=== PATIENT | male | born 1960 ===

== ENCOUNTER 2017-02-15 11:09 | Emergency (ER) | payer OTHER ==
[2017-02-15 11:16] VITALS: BMI 24.5
[2017-02-15 11:23] VITALS: O2SAT 98
[2017-02-15] MEDS ORDERED: Sodium Chloride 0.9% 1,000 ML IV STA (11:29)
--- NOTE | 2017-02-15 11:44 | ED PDOC ---
Lower Extremity Pain/Injury Time Seen by Provider: 02/15/17 11:24 Chief Complaint (Nursing): Lower Extremity Problem/Injury Chief Complaint (Provider): right foot pain History Per: Patient Additional Complaint(s): 56yo M in ED for eval of right foot pain x 3days states that he noted swelling to bottom of foot without drainage no fever no chills no nausea vomiting. pt is a diabetic and is noncompliant with metformin. 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 Past Medical History Reviewed: Historical Data, Nursing Documentation, Vital Signs Vital Signs: Last Vital Signs Temp 97 F L 02/15/17 11:20 Pulse 100 H 02/15/17 11:15 Resp BP 151/97 H 02/15/17 11:15 Pulse Ox 98 02/15/17 11:20 - Medical History PMH: No Chronic Diseases - Family History Family History: States: No Known Family Hx - Home Medications Home Medications: Ambulatory Orders Medication Instructions Recorded Amoxicillin/Clavulanate [Augmentin 1 tab PO BID #14 tab 02/15/17 500 MG-125 MG] metFORMIN [glucOPHAGE] 500 mg PO DAILY #30 tab 02/15/17 - Allergies Allergies/Adverse Reactions: Allergies Allergy/AdvReac Type Severity Reaction Status Date / Time No Known Allergies Allergy Verified 02/15/17 11:28 Review of Systems ROS Statement: Except As Marked, All Systems Reviewed And Found Negative Constitutional: Negative for: Fever, Chills Cardiovascular: Negative for: Chest Pain, Palpitations Gastrointestinal: Negative for: Nausea, Vomiting Physical Exam - Reviewed Nursing Documentation Reviewed: Yes Vital Signs Reviewed: Yes - Physical Exam Appears: Positive for: Well, Non-toxic, No Acute Distress Skin: Positive for: Normal Color, Warm, DRY Cardiovascular/Chest: Positive for: Regular Rate, Rhythm Respiratory: Positive for: CNT, Normal Breath Sounds Back: Positive for: Normal Inspection Extremity: Positive for: Other (right foot: swelling to plantar aspect of foot. no drainage. tenderness noted erythema noted. ) Neurologic/Psych: Positive for: Alert, Oriented - Laboratory Results Result Diagrams: 02/15/17 12:10 02/15/17 12:06 - ECG O2 Sat by Pulse Oximetry: 98 - Radiology X-Ray: Interpreted by Me - Progress ED Course And Treament: podiatry consulted -will debride calluses to asses for fluid collection in ER. PT with elevated BS and ketones in UA. will do ABG-shows no anion gap. PT received fluids, IV and insulin SQ will re-eval BS levels. Medical Decision Making Medical Decision Making: Pt is stable with improved BS in ED will be givne metformin Rx and advised to have f/u with clinic medicine and podiatry Disposition - Clinical Impression Clinical Impression: Elevated blood sugar, Ulcer of foot Counseled Patient/Family Regarding: Studies Performed, Diagnosis, Need For Followup, Rx Given - Disposition Referrals: [facility] [Outside] Podiatry Clinic [Outside] [facility] [Outside] Disposition: Routine/Home Disposition Time: 14:59 Condition: STABLE Prescriptions: Amoxicillin/Clavulanate [Augmentin 500 MG-125 MG] 1 tab PO BID #14 tab metFORMIN [glucOPHAGE] 500 mg PO DAILY #30 tab Instructions: Diabetic Foot Care (ED), Diabetic Hypoglycemia (ED) Forms: [facility] (Greek)
[2017-02-15 12:22] LABS: BASO # 0.1 K/uL (0.0-0.2); BASO % 0.9 % (0.0-2.0); EOS # 0.1 K/uL (0.0-0.7); EOS % 1.5 % (0.0-4.0); HEMOGLOBIN 14.3 g/dL (12.0-18.0); LYMPH # 2.2 K/uL (1.0-4.3); LYMPH % 22.5 % (20.0-40.0); MEAN CELL VOLUME 90.8 fl (80.0-94.0); MEAN CORPUSCULAR HEMOGLOBIN 31.7 pg (27.0-31.0); MEAN CORPUSCULAR HGB CONC 34.9 g/dL (33.0-37.0); MEAN PLATELET VOLUME 9.8 fl (7.2-11.7); MONO # 0.4 K/uL (0.0-0.8); MONO % 4.6 % (0.0-10.0); NEUT # 6.8 K/uL (1.8-7.0); NEUT % 70.5 % (50.0-75.0); NRBC % 0.3 % (0.0-0.0); RBC 4.51 Mil/uL (4.40-5.90); RED CELL DISTRIBUTION WIDTH 11.9 % (11.5-14.5); WHITE BLOOD COUNT 9.6 K/uL (4.8-10.8)
[2017-02-15 12:37] LABS: ALB/GLOB RATIO 1.1 (1.0-2.1); ALT/SGPT 37 U/L (21-72); AST/SGOT 50 U/L (17-59); BLOOD UREA NITROGEN 21 mg/dl (9-20); CALCIUM 9.6 mg/dL (8.4-10.2); GFR AFRICAN-AMERICAN > 60; GFR NON-AFRICAN AMERICAN > 60
[2017-02-15] MEDS ORDERED: Insulin Regular 100 units/ml SC STA (12:49)
[2017-02-15] MEDS ORDERED: Insulin Regular 100 units/ml ONE (12:54)
[2017-02-15 12:55] LABS: PARTIAL THROMBOPLASTIN TIME 33.6 Seconds (25.6-37.1)
[2017-02-15 12:56] LABS: SQUAMOUS EPITHIAL < 1 /hpf (0-5); URINE BACTERIA RARE (<OCC); URINE BILIRUBIN NEGATIVE (NEGATIVE); URINE BLOOD NEGATIVE (NEGATIVE); URINE CLARITY CLEAR (Clear); URINE COLOR YELLOW (YELLOW); URINE GLUCOSE (UA) >=500 mg/dL (Normal); URINE LEUKOCYTE ESTERASE NEG Leu/uL (Negative); URINE NITRATE NEGATIVE (NEGATIVE); URINE PROTEIN >=500 mg/dL (NEGATIVE); URINE UROBILINOGEN 0.2-1.0 mg/dL (0.2-1.0)
--- NOTE | 2017-02-15 12:56 | RAD ---
PROCEDURE: Right Foot Radiographs. HISTORY: Unspecified foot injury presenting with right foot pain COMPARISON: None. FINDINGS: BONES: Postoperative findings related 1st digit resection. Diffuse osteopenia. JOINTS: Multiple hammertoe deformities. SOFT TISSUES: Normal. OTHER FINDINGS: None. IMPRESSION: No acute findings related to/accounting for the clinical presentation. No preliminary report provided by emergency department personnel.
[2017-02-15 12:59] LABS: ABG ALLEN TEST YES; ARTERIAL BLOOD GAS HCO3 26.9 mmol/L (21-28); ARTERIAL BLOOD GAS O2 SAT 99.6 % (95-98); ARTERIAL BLOOD GAS PCO2 37 mm/Hg (35-45); ARTERIAL BLOOD GAS PH 7.46 (7.35-7.45); ARTERIAL BLOOD GAS PO2 86 mm/Hg (80-100); ARTERIAL BLOOD GAS TCO2 27.4 mmol/L (22-28)
[2017-02-15] MEDS ORDERED: Povidone Iodine Topical 10% Sol ONE (13:34)
--- NOTE | 2017-02-15 14:44 | CP.PCM.CON ---
History of Present Illness - History of Present Illness History of Present Illness: 56 year old male with PMH of uncontrolled DM and right partial ray resection in 2000 seen in the ED for painful left foot. Patient presents with his son in the ED. Patient states he noticed the callus under his foot for several years now, but it recently in the last few weeks it has gotten more painful. He has a history of R partial 1st ray amputation and was concerned that another amputation would happen so he came to the ED. He feels that his foot has become more hot and swollen. He reports no open ulceration or no drainage from the foot. He reports pain only with ambulation, none with resting. States he works long hours and stands a lot. He currently doesn't wear any diabetic shoes or supportive shoes. He does not have a PCP that he follows to manage his DM, currently he isn't taking any medications. He also does not see a bus starter. He denies n/v/sob/cp/chills or f. He ambulates in crocks with no shoes. PSH: right partial ray section in 2000 at [place] [facility]: smokes 5 cigarettes/day for 40 years, socially drinks, denies drug use FH: Diabetes Allergies: NKDA Meds: none Review of Systems - Integumentary Integumentary: As Per HPI Past Patient History - Past Social History Smoking Status: Never Smoked - ENDOCRINE/METABOLIC Hx Diabetes Mellitus Type 2: Yes - PSYCHIATRIC Hx Substance Use: No - SURGICAL HISTORY Other/Comment: right foot surgery - ANESTHESIA Hx Anesthesia: Yes Hx Anesthesia Reactions: No Hx Malignant Hyperthermia: No Meds Home Medications: Home Medication List Medication Instructions Recorded Confirmed Type Amoxicillin/Clavulanate [Augmentin 1 tab PO BID #14 tab 02/15/17 Rx 500 MG-125 MG] metFORMIN [glucOPHAGE] 500 mg PO DAILY #30 tab 02/15/17 Rx Allergies/Adverse Reactions: Allergies Allergy/AdvReac Type Severity Reaction Status Date / Time No Known Allergies Allergy Verified 02/15/17 11:28 Physical Exam - Constitutional Appears: Well, Non-toxic, No Acute Distress - Extremities Exam Additional comments: Vasc: DP 2/4 bilaterally, PT 1/4 bilaterally, PROCESS DESCRIPTION WRITER <3 seconds, right foot nonpitting edema noted, temperature to R is warm to warm, L WNL Ortho: MM is 5/5 in all four compartments, no pain with palpation of the sub met 4 callus or periwound Neuro: gross sensation diminished bilaterally Derm: Hyperkeratotic callus at R sub met 4 with macerated skin and ulcer underneath; debrided all hyperkeratotic tissue until ulcer exposed; no drainage expressed, no purulence, no odor, no tunneling, undermining, no erythema noted. Periwound is macerated. Base is granular in nature measuring approximately 1 x.6x .1 cm, no probe to bone. - Neurological Exam Neurological exam: Alert, Oriented x3 - Psychiatric Exam Psychiatric exam: Normal Affect, Normal Mood Results - Vital Signs Recent Vital Signs: Last Vital Signs Temp 97 F L 02/15/17 11:20 Pulse 100 H 02/15/17 11:15 Resp BP 151/97 H 02/15/17 11:15 Pulse Ox 98 02/15/17 13:25 - Labs Result Diagrams: 02/15/17 12:10 02/15/17 12:06 Labs: Laboratory Results - last 24 hr 02/15/17 02/15/17 02/15/17 12:06 12:06 12:10 WBC 9.6 RBC 4.51 Hgb 14.3 Hct 41.0 MCV 90.8 MCH 31.7 H MCHC 34.9 RDW 11.9 Plt Count 248 MPV 9.8 Neut % (Auto) 70.5 Lymph % (Auto) 22.5 [place] % (Auto) 4.6 Eos % (Auto) 1.5 Baso % (Auto) 0.9 Neut # 6.8 Lymph # 2.2 [place] # 0.4 Eos # 0.1 Baso # 0.1 PT 10.0 INR 1.0 APTT 33.6 pCO2 pO2 HCO3 ABG pH ABG Total CO2 ABG O2 Saturation ABG Base Excess Adrien Test ABG Potassium A-a O2 Difference Glucose Lactate FiO2 Sodium 129 L Potassium 4.7 Chloride 92 L Carbon Dioxide 29 Anion Gap 13 BUN 21 H Creatinine 0.8 Est GFR ( Amer) > 60 Est GFR (Non-Af Amer) > 60 Random Glucose 412 H* Calcium 9.6 Total Bilirubin 0.9 AST 50 ALT 37 Alkaline Phosphatase 250 H Total Protein 7.6 Albumin 4.0 Globulin 3.6 Albumin/Globulin Ratio 1.1 Arterial Blood Potassium Urine Color Urine Clarity Urine pH Ur Specific [place] Urine Protein Urine Glucose (UA) Urine Ketones Urine Blood Urine Nitrate Urine Bilirubin Urine Urobilinogen Ur Leukocyte Esterase Urine RBC (Auto) Urine Microscopic WBC Ur Squamous Epith Cells Urine Bacteria 02/15/17 02/15/17 12:25 12:56 WBC RBC Hgb Hct MCV MCH MCHC RDW Plt Count MPV Neut % (Auto) Lymph % (Auto) [place] % (Auto) Eos % (Auto) Baso % (Auto) Neut # Lymph # [place] # Eos # Baso # PT INR APTT pCO2 37 pO2 86 HCO3 26.9 ABG pH 7.46 H ABG Total CO2 27.4 ABG O2 Saturation 99.6 H ABG Base Excess 2.5 Adrien Test Yes ABG Potassium 4.0 A-a O2 Difference 17.0 Glucose 381 H Lactate 0.8 FiO2 21.0 Sodium 130.0 L Potassium Chloride 95.0 L Carbon Dioxide Anion Gap BUN Creatinine Est GFR ( Amer) Est GFR (Non-Af Amer) Random Glucose Calcium Total Bilirubin AST ALT Alkaline Phosphatase Total Protein Albumin Globulin Albumin/Globulin Ratio Arterial Blood Potassium 4.0 Urine Color Yellow Urine Clarity Clear Urine pH 6.0 Ur Specific [place] 1.029 Urine Protein >=500 Urine Glucose (UA) >=500 Urine Ketones 20 Urine Blood Negative Urine Nitrate Negative Urine Bilirubin Negative Urine Urobilinogen 0.2-1.0 Ur Leukocyte Esterase Neg Urine RBC (Auto) 3 Urine Microscopic WBC 1 Ur Squamous Epith Cells < 1 Urine Bacteria Rare Assessment & Plan - Assessment and Plan (Free Text) Assessment: 56 year old male with PMH of uncontrolled DM seen in the ED for right sub met 4 ulcer secondary to DM and pressure Plan: Patient was seen and evaluated in the ED Discussed the plan in detail with attending Dr. Trejo Labs, charts, and vitals reviewed (afebrile, WBC=9.6, Ghupnba=322ls/dl) X-rays reviewed- WNL, no emphysema noted R sub metatarsal 4 callus was prep, debrided until healthy tissue appeared using a blade #10. Patient tolerated the procedure well. Wound culture taken; pending results Recommend broad coverage PO Abx to ED Ulcer dressed with betadine wet to dry dressing. Advised to keep clean, dry, intact. Do not get wet. If get wet, change dressing with betadine, DSD, and cling. Given surgical shoe and advised to wear at all times to offload the ulcer. F/U in podiatry clinic in 1 week; advised to bring working shoes to clinic with possible modifications to offload pressure at right sub met 4 Advised to contact PCP to manage diabetes. Educated on the importance of compliance. Thank you for the consult
[2017-02-15 15:27] VITALS: BP 120/70; PULSE 74; RESP 20; TEMP 98.7
== END 2017-02-15 15:28 | disposition home or self-care (01) ==
LOC: H.ER 11:09
DX: E11.9 Type 2 diabetes mellitus without complications (principal); L97.519 Non-pressure chronic ulcer of other part of right foot with unspecified severity; Z79.84 Long term (current) use of oral hypoglycemic drugs; F17.210 Nicotine dependence, cigarettes, uncomplicated; Z89.419 Acquired absence of unspecified great toe

== ENCOUNTER 2017-02-18 17:06 | Observation (INO) | payer OTHER ==
[2017-02-18 17:07] VITALS: BMI 24.5
[2017-02-18 17:15] VITALS: RESP 16; TEMP 98.9; O2SAT 100
[2017-02-18] MEDS ORDERED: Sodium Chloride 0.9% 1,000 ML IV STA ×3 (18:09→20:09)
--- NOTE | 2017-02-18 18:30 | RAD ---
HISTORY: HTN COMPARISON: No prior. FINDINGS: LUNGS: No active pulmonary disease. PLEURA: No significant pleural effusion identified, no pneumothorax apparent. CARDIOVASCULAR: No radiographic findings to suggest acute or significant cardiovascular disease. OSSEOUS STRUCTURES: No significant abnormalities. VISUALIZED UPPER ABDOMEN: Normal. OTHER FINDINGS: None. IMPRESSION: No active disease.
[2017-02-18 18:32] LABS: BASO # 0.1 K/uL (0.0-0.2); BASO % 1.1 % (0.0-2.0); EOS # 0.1 K/uL (0.0-0.7); HEMOGLOBIN 13.7 g/dL (12.0-18.0); LYMPH # 1.9 K/uL (1.0-4.3); LYMPH % 25.6 % (20.0-40.0); MEAN CORPUSCULAR HEMOGLOBIN 30.9 pg (27.0-31.0); MEAN CORPUSCULAR HGB CONC 33.6 g/dL (33.0-37.0); MEAN PLATELET VOLUME 9.2 fl (7.2-11.7); MONO # 0.3 K/uL (0.0-0.8); MONO % 4.7 % (0.0-10.0); NEUT # 4.9 K/uL (1.8-7.0); NEUT % 66.6 % (50.0-75.0); NRBC % 0.1 % (0.0-0.0); RBC 4.44 Mil/uL (4.40-5.90); RED CELL DISTRIBUTION WIDTH 11.6 % (11.5-14.5); WHITE BLOOD COUNT 7.3 K/uL (4.8-10.8)
[2017-02-18 18:33] LABS: VENOUS BLOOD GAS BASE EXCESS 3.1 mmol/L (0.0-2.0); VENOUS BLOOD GAS PCO2 51 mmHg (40-60); VENOUS BLOOD GAS PO2 23 mm/Hg (30-55); VENOUS BLOOD PH 7.37 (7.32-7.43)
[2017-02-18 18:46] LABS: ALB/GLOB RATIO 1.2 (1.0-2.1); ALBUMIN 3.7 g/dL (3.5-5.0); ALT/SGPT 41 U/L (21-72); AST/SGOT 33 U/L (17-59); BLOOD UREA NITROGEN 28 mg/dl (9-20); CALCIUM 9.8 mg/dL (8.4-10.2); GFR AFRICAN-AMERICAN > 60; GFR NON-AFRICAN AMERICAN > 60
[2017-02-18 18:47] LABS: URINE BILIRUBIN NEGATIVE (NEGATIVE); URINE BLOOD NEGATIVE (NEGATIVE); URINE CLARITY CLEAR (Clear); URINE COLOR STRAW (YELLOW); URINE GLUCOSE (UA) >=500 mg/dL (Normal); URINE LEUKOCYTE ESTERASE NEG Leu/uL (Negative); URINE NITRATE NEGATIVE (NEGATIVE); URINE PROTEIN 100 mg/dL (NEGATIVE); URINE UROBILINOGEN 0.2-1.0 mg/dL (0.2-1.0)
[2017-02-18] MEDS ORDERED: Insulin Regular 100 units/ml IV STA (19:04)
--- NOTE | 2017-02-18 19:45 | ED PDOC ---
HPI: Hypertension/Hypotension Time Seen by Provider: 02/18/17 17:24 Chief Complaint (Nursing): High Blood Pressure Chief Complaint (Provider): High BP and glucose History Per: Patient History/Exam Limitations: no limitations Additional Complaint(s): Pt sent from [facility] for evaluation of elevated BP and glucose. Pt reports noncompliance with HTN and DM X 5 months, associated with polyuria especially at night. Denies CP, SOB, palpitations, nausea, vomiting, abdominal pain, FRANCIS, paresthesias, weakness. Past Medical History Reviewed: Nursing Documentation, Vital Signs Vital Signs: Last Vital Signs Temp 98.9 F 02/18/17 17:12 Pulse 108 H 02/18/17 17:57 Resp 16 02/18/17 17:12 BP 161/113 H 02/18/17 17:57 Pulse Ox 100 02/18/17 17:12 - Medical History PMH: Diabetes, HTN - Surgical History Other surgeries: Noncontributory - Family History Family History: States: Hypertension - Living Arrangements Living Arrangements: Alone - Social History Current smoker - smoking cessation education provided: No Alcohol: None - Immunization History Hx Tetanus Toxoid Vaccination: No Hx Influenza Vaccination: No Hx Pneumococcal Vaccination: No - Home Medications Home Medications: Ambulatory Orders Medication Instructions Recorded Amoxicillin/Clavulanate [Augmentin 1 tab PO BID #14 tab 02/15/17 500 MG-125 MG] metFORMIN [glucOPHAGE] 500 mg PO DAILY #30 tab 02/15/17 amLODIPine [Norvasc] 10 mg PO DAILY #10 tab 02/18/17 metFORMIN [glucOPHAGE] 500 mg PO BID #20 tab 02/18/17 - Allergies Allergies/Adverse Reactions: Allergies Allergy/AdvReac Type Severity Reaction Status Date / Time No Known Allergies Allergy Verified 02/15/17 11:28 Review of Systems Constitutional: Negative for: Fever Cardiovascular: Negative for: Chest Pain, Palpitations Respiratory: Negative for: Cough, Shortness of Breath Gastrointestinal: Negative for: Nausea, Vomiting, Abdominal Pain, Diarrhea Genitourinary Male: Negative for: Dysuria, Incontinence, Hematuria Musculoskeletal: Negative for: Back Pain Skin: Negative for: Rash, Lesions Neurological: Negative for: Weakness, Numbness, Headache, Dizziness Physical Exam - Reviewed Nursing Documentation Reviewed: Yes Vital Signs Reviewed: Yes - Physical Exam Appears: Positive for: Well, No Acute Distress Skin: Positive for: Normal Color, Warm, Dry Eye Exam: Positive for: Normal appearance, EOMI, PERRL Cardiovascular/Chest: Positive for: Tachycardia. Negative for: Irregularly Irregular Respiratory: Positive for: Normal Breath Sounds. Negative for: Rales, Rhonchi, Wheezing Gastrointestinal/Abdominal: Positive for: Normal Exam, Bowel Sounds, Soft. Negative for: Tenderness Neurologic/Psych: Positive for: Alert, frame wirer II-XII, Oriented. Negative for: Motor/Sensory Deficits, Facial Droop - Laboratory Results Result Diagrams: 02/18/17 18:16 02/18/17 18:16 - ECG Interpretation Of ECG: ST @ 101, no ST-T changes. O2 Sat by Pulse Oximetry: 100 Pulse Ox Interpretation: Normal - Radiology X-Ray: Read By Radiologist X-Ray Interpretation: No Acute Disease Medical Decision Making Medical Decision Makin yo with h/o DM, HTN, noncompliant with medications, presents with high BP and high glucose. - labs - EKG - CXR - IVF - Cardizem - Insulin ED OBSERVATION Time of observation admission: 18:00 - Observation admission statement Patient is being placed in observation because:: Hyperglycemia - Goals of Observation Goals of observation are:: Normoglycemia Disposition - Clinical Impression Clinical Impression: Diabetes mellitus with hyperglycemia, Hypertension - Disposition Disposition: Routine/Home Disposition Time: 22:13 Condition: IMPROVED
[2017-02-18 20:43] VITALS: BP 154/85; PULSE 82
--- NOTE | 2017-02-19 07:24 | CARD ---
APPROVED REPORT EKG Measurement Heart [id number] <Conclusion> Sinus tachycardia Otherwise normal ECG
== END 2017-02-18 22:59 | disposition home or self-care (01) ==
LOC: H.ER 17:06 → H.EROBSV 18:00
PROVIDERS: ADMIT Emergency Medicine; ATTEND Emergency Medicine
DX: I10 Essential (primary) hypertension (principal); E11.65 Type 2 diabetes mellitus with hyperglycemia; Z91.14 Patient's other noncompliance with medication regimen

== ENCOUNTER 2017-02-22 10:52 | Emergency (ER) | payer OTHER ==
[2017-02-22 10:52] VITALS: BMI 24.5
[2017-02-22 11:34] VITALS: O2SAT 98
--- NOTE | 2017-02-22 12:29 | ED PDOC ---
Lower Extremity Pain/Injury Time Seen by Provider: 02/22/17 11:30 Chief Complaint (Nursing): Lower Extremity Problem/Injury Chief Complaint (Provider): Lower Extremity Problem/Injury History Per: Patient History/Exam Limitations: no limitations Onset/Duration Of Symptoms: Days (x1) Current Symptoms Are (Timing): Still Present Additional Complaint(s): Tim Nathan is a 56 year old male with a past medical history of hypertension and diabetes presenting to the ED for an evaluation of a 1 day history of worsening right foot pain and swelling. The patient states this episode began yesterday and became worse today which prompted him to visit the emergency room. He states nothing makes his symptoms better or worse. The patient reports being seen multiple times in the past, last visit was 1 week ago , due to similar symptoms and was seen by the Director Of Graduate Medical Education in the Podiatry clinic here. PMD: None provided Past Medical History Reviewed: Historical Data, Nursing Documentation, Vital Signs Vital Signs: Last Vital Signs Temp Pulse Resp BP Pulse Ox 98 02/22/17 11:24 - Medical History PMH: Diabetes, HTN - Family History Family History: States: Hypertension - Immunization History Hx Tetanus Toxoid Vaccination: No Hx Influenza Vaccination: No Hx Pneumococcal Vaccination: No - Home Medications Home Medications: Ambulatory Orders Medication Instructions Recorded Amoxicillin/Clavulanate [Augmentin 1 tab PO BID #14 tab 02/15/17 500 MG-125 MG] metFORMIN [glucOPHAGE] 500 mg PO DAILY #30 tab 02/15/17 amLODIPine [Norvasc] 10 mg PO DAILY #10 tab 02/18/17 metFORMIN [glucOPHAGE] 500 mg PO BID #20 tab 02/18/17 - Allergies Allergies/Adverse Reactions: Allergies Allergy/AdvReac Type Severity Reaction Status Date / Time No Known Allergies Allergy Verified 02/15/17 11:28 Review of Systems ROS Statement: Except As Marked, All Systems Reviewed And Found Negative Musculoskeletal: Positive for: Foot Pain (right foot pain and swelling ) Physical Exam - Reviewed Nursing Documentation Reviewed: Yes Vital Signs Reviewed: Yes - Physical Exam Appears: Positive for: Well, Non-toxic, No Acute Distress Head Exam: Positive for: ATRAUMATIC, NORMAL INSPECTION, NORMOCEPHALIC Eye Exam: Positive for: EOMI, Normal appearance, PERRL Neck: Positive for: Normal, Painless ROM, Supple Cardiovascular/Chest: Positive for: Regular Rate, Rhythm, Chest Non Tender Respiratory: Positive for: Normal Breath Sounds. Negative for: Respiratory Distress Pulses-Dorsalis Pedis (L): 2+ Pulses-Dorsalis Pedis (R): 2+ Gastrointestinal/Abdominal: Positive for: Normal Exam, Bowel Sounds, Soft Back: Positive for: Normal Inspection Extremity: Positive for: Normal ROM, Other (right foot has well-healed great- toe amputation; mild redness of right foot; no right foot weakness ) Neurologic/Psych: Positive for: Alert, Oriented - Laboratory Results Result Diagrams: 02/22/17 12:45 02/22/17 12:45 - ECG O2 Sat by Pulse Oximetry: 98 (RA) Pulse Ox Interpretation: Normal Medical Decision Making Medical Decision Makin:30 Impression: Lower extremity problem Plan: * Basic metabolic panel * CBC * Erythrocyte Sedimentation Rate * Foot AP LAT RT [RAD] * Podiatry consult for evaluation Foot X-ray: FINDINGS: BONES: No acute findings. Status post resection 1st toe. JOINTS: Multiple hammertoe deformities. SOFT TISSUES: Soft tissue swelling plantar aspect of the foot primarily distally at the metatarsal phalangeal junctions. Similar findings identified previously. OTHER FINDINGS: None. IMPRESSION: Soft tissue swelling without acute articular or osseous abnormality. 15:11 Pt has been evaluated by podiatry. pt will follow-up in office and will continue observation care. DVT study of right leg was normal. Scribe Attestation: Documented by Kary Ayala, acting as a scribe for Ayo Harris MD. Provider Scribe Attestation: All medical record entries made by the Scribe were at my direction and personally dictated by me. I have reviewed the chart and agree that the record accurately reflects my personal performance of the history, physical exam, medical decision making, and the department course for this patient. I have also personally directed, reviewed, and agree with the discharge instructions and disposition. Disposition - Clinical Impression Clinical Impression: Ulcer of foot - Patient ED Disposition Is Patient to be Admitted: No Counseled Patient/Family Regarding: Studies Performed, Diagnosis, Need For Followup - Disposition Referrals: Podiatry Clinic [Outside] ([facility]) Disposition: Routine/Home Disposition Time: 14:11 Condition: GOOD Instructions: Diabetic Foot Care (ED) Forms: [facility] (Kyrgyz) Print Language: ESTONIAN
[2017-02-22 12:53] LABS: BASO % 0.6 % (0.0-2.0); EOS # 0.6 K/uL (0.0-0.7); EOS % 8.8 % (0.0-4.0); HEMOGLOBIN 13.5 g/dL (12.0-18.0); LYMPH # 1.6 K/uL (1.0-4.3); LYMPH % 23.9 % (20.0-40.0); MEAN CELL VOLUME 90.4 fl (80.0-94.0); MEAN CORPUSCULAR HEMOGLOBIN 30.5 pg (27.0-31.0); MEAN CORPUSCULAR HGB CONC 33.7 g/dL (33.0-37.0); MEAN PLATELET VOLUME 8.8 fl (7.2-11.7); MONO # 0.4 K/uL (0.0-0.8); MONO % 6.2 % (0.0-10.0); NEUT # 4.1 K/uL (1.8-7.0); NEUT % 60.5 % (50.0-75.0); RBC 4.42 Mil/uL (4.40-5.90); RED CELL DISTRIBUTION WIDTH 11.6 % (11.5-14.5); WHITE BLOOD COUNT 6.7 K/uL (4.8-10.8)
[2017-02-22 13:04] LABS: BLOOD UREA NITROGEN 19 mg/dl (9-20); CALCIUM 9.4 mg/dL (8.4-10.2); GFR AFRICAN-AMERICAN > 60; GFR NON-AFRICAN AMERICAN > 60
[2017-02-22] MEDS ORDERED: Sodium Chloride 0.9% 1,000 ML IV ONE (13:53)
[2017-02-22] MEDS ORDERED: Povidone Iodine Topical 10% Sol TOP ONE (14:02)
[2017-02-22] MEDS ORDERED: Povidone Iodine Topical 10% Sol ONE (14:04)
--- NOTE | 2017-02-22 14:08 | RAD ---
PROCEDURE: Right Foot Radiographs. HISTORY: pain and swelling COMPARISON: 02/15/2017. FINDINGS: BONES: No acute findings. Status post resection 1st toe. JOINTS: Multiple hammertoe deformities. SOFT TISSUES: Soft tissue swelling plantar aspect of the foot primarily distally at the metatarsal phalangeal junctions. Similar findings identified previously. OTHER FINDINGS: None. IMPRESSION: Soft tissue swelling without acute articular or osseous abnormality.
--- NOTE | 2017-02-22 14:37 | CP.PCM.CON ---
History of Present Illness - History of Present Illness History of Present Illness: 56 year old male with PMH of uncontrolled DM, HTN, and right partial ray resection in 2000 seen in the ED for swollen right leg and ulceration of left foot. Today the leg is not swollen but he states he noticed his right leg swollen yesterday. He came to the ED 7 days ago for painful ulceration, that was debrided and cleansed with betadine. Given antibiotics and told to f/u in podiatry clinic and f/u PCP. Patient reports he takes his antibiotics, followed up with PCP but has not seen a test bore helper. States does not look at the bottom foot; can't tell if his ulcer is looking better or if there is any drainage. Patient denies n/v/sob/cp/chill or f. He reports going to his PCP and being started on new medications to manage his diabetes. He bought his pills today. He states he is taking a new prescription yesterday by his PCP (Ramipril). He noticed a rash on his bilaterally legs since taking the medication. Patient is singaporean speaking. Extractor And Wringer Operator used in this encounter: Rani [id number] and Rafaela [id number] PSH: right partial ray section in 2000 at [facility] SH: smokes 5 cigarettes/day for 40 years, socially drinks, denies drug use FH: Diabetes Allergies: NKDA Meds: Metformin, Insulin, Ramipril, antibiotic (can't recall name) Past Patient History - Past Social History Smoking Status: Never Smoked - CARDIAC Hx Hypertension: Yes - ENDOCRINE/METABOLIC Hx Diabetes Mellitus Type 2: Yes - PSYCHIATRIC Hx Substance Use: No - SURGICAL HISTORY Other/Comment: right great toe amputation - ANESTHESIA Hx Anesthesia: Yes Hx Anesthesia Reactions: No Hx Malignant Hyperthermia: No Meds Allergies/Adverse Reactions: Allergies Allergy/AdvReac Type Severity Reaction Status Date / Time No Known Allergies Allergy Verified 02/15/17 11:28 - Medications Medications: Current Medications Sodium Chloride (Sodium Chloride 0.9%) 1,000 mls @ 500 mls/hr IV .Q2H ONE Stop: 02/22/17 15:52 Physical Exam - Constitutional Appears: Well, Non-toxic, No Acute Distress - Extremities Exam Additional comments: Vasc: DP 2/4 bilaterally, PT 1/4 bilaterally, REGIONAL OPERATIONS MANAGER <3 seconds, no edema noted to bilaterally leg or foot, temperature to R WNL, L WNL Ortho: MM is 5/5 in all four compartments, no pain with palpation of the sub met 4 callus or periwound, Negative shefali's sign bilaterally Neuro: gross sensation diminished bilaterally Derm: Ulceration at R sub met 4 is measures approximately .8 x .3 x .1. No drainage expressed, no purulence, no odor, no tunneling, undermining, no erythema noted. Periwound hyperkeratotic, base is granular in nature measuring approximately with no maceration noted; no probe to bone; R sub met 4 callus is getting smaller-improving. no clinical signs of infection noted. Rash noted to the anterior and medial leg bilaterally. - Neurological Exam Neurological exam: Alert, Oriented x3 - Psychiatric Exam Psychiatric exam: Normal Affect, Normal Mood Results - Vital Signs Recent Vital Signs: Last Vital Signs Temp Pulse Resp BP Pulse Ox 98 02/22/17 14:31 - Labs Result Diagrams: 02/22/17 12:45 02/22/17 12:45 Labs: Laboratory Results - last 24 hr 02/22/17 02/22/17 12:45 12:45 WBC 6.7 RBC 4.42 Hgb 13.5 Hct 40.0 MCV 90.4 MCH 30.5 MCHC 33.7 RDW 11.6 Plt Count 281 MPV 8.8 Neut % (Auto) 60.5 Lymph % (Auto) 23.9 [place] % (Auto) 6.2 Eos % (Auto) 8.8 H Baso % (Auto) 0.6 Neut # 4.1 Lymph # 1.6 [place] # 0.4 Eos # 0.6 Baso # 0.0 ESR 82 H Sodium 129 L Potassium 4.3 Chloride 94 L Carbon Dioxide 27 Anion Gap 12 BUN 19 Creatinine 1.0 Est GFR ( Amer) > 60 Est GFR (Non-Af Amer) > 60 Random Glucose 313 H Calcium 9.4 Assessment & Plan - Assessment and Plan (Free Text) Assessment: 56 year old male with PMH of uncontrolled DM seen in the ED for right sub met 4 ulcer noninfected secondary to DM and pressure and right swollen leg possibility due to Ramipril reaction Plan: Patient was examined and evaluated in the ED Chart, labs, and vitals reviewed (afebrile and no leukocytosis with WBC 6.7) Discussed plan in detail with attending Dr. Trejo DVT- negative for DVT X-rays- no osteomyelitis, soft tissue swelling with acute articular or osseous abnormality Wound culture from (02/22/17) results- E.coli and B hemolytic Strep Group B No clinical signs of infection- ulceration is improving and has decreased in size since last ED visit Ulceration was cleansed with betadine, dressed with betadine wet to dry dressing , DSD, ABD, and reema. Strongly advised to make an appointment with Dr. Trejo at [facility] to f/u in clinic in 1 week Continue to finish all antibiotics as prescribed in last ED visit Continue to wear surgical shoe to offload Thank you for the consult Patient is singaporean speaking. Extractor And Wringer Operator used in this encounter: Rani [id number] and Rafaela [id number]
--- NOTE | 2017-02-22 15:37 | US ---
PROCEDURE: Right lower extremity venous duplex Doppler. HISTORY: swelling COMPARISON: None available. TECHNIQUE: Common femoral, superficial femoral, popliteal and posterior tibial veins were evaluated. Flow was assessed with color Doppler, compressibility, assessment of phasic flow and augmentation response. FINDINGS: COMMON FEMORAL VEIN: Unremarkable. SUPERFICIAL FEMORAL VEIN: Unremarkable. POPLITEAL VEIN: Unremarkable. POSTERIOR TIBIAL VEIN: Unremarkable. OTHER FINDINGS: Incidental note is made of 2.2 x 0.7 x 2.1 cm lymph node at the level of the mid right superficial femoral vein. Lymph node demonstrates evidence of central echogenicity consistent with fatty hilum. IMPRESSION: No evidence of deep venous thrombosis in the right lower extremity.
== END 2017-02-22 15:13 | disposition home or self-care (01) ==
LOC: H.ER 10:52
DX: L97.529 Non-pressure chronic ulcer of other part of left foot with unspecified severity (principal); I10 Essential (primary) hypertension; E11.9 Type 2 diabetes mellitus without complications

== ENCOUNTER 2017-03-11 10:08 | Inpatient (IN) | payer MEDICAID, OTHER ==
[2017-03-11 10:08] VITALS: BMI 24.5
--- NOTE | 2017-03-11 10:40 | ED PDOC ---
Lower Extremity Pain/Injury Time Seen by Provider: 03/11/17 10:09 Chief Complaint (Nursing): Lower Extremity Problem/Injury Chief Complaint (Provider): Right foot ulcer History Per: Patient History/Exam Limitations: no limitations Onset/Duration Of Symptoms: Days (x2 weeks) Current Symptoms Are (Timing): Still Present Additional Complaint(s): 56 y/o male with a past medical history of diabetes (insulin-dependant) and hypertension who presents to the emergency department with a complaint of an ongoing right foot ulcer x2 weeks. Associated with swelling and pain since yesterday. Denies use of antibiotics at the moment, fever, or chills. Past Medical History Reviewed: Historical Data, Nursing Documentation, Vital Signs Vital Signs: Last Vital Signs Temp 98.9 F 03/11/17 10:19 Pulse 115 H 03/11/17 10:19 Resp 18 03/11/17 10:19 BP 121/78 03/11/17 10:19 Pulse Ox 99 03/11/17 10:19 - Medical History PMH: Diabetes, HTN - Surgical History Other surgeries: Right big toe amputation in 1999 and second toe surgery at [facility] in the past. - Family History Family History: States: Hypertension - Social History Current smoker - smoking cessation education provided: No Alcohol: Social Drugs: Denies - Immunization History Hx Tetanus Toxoid Vaccination: No Hx Influenza Vaccination: No Hx Pneumococcal Vaccination: No - Home Medications Home Medications: Ambulatory Orders Medication Instructions Recorded Atorvastatin [Lipitor] 40 mg PO HS #30 tab 03/13/17 Insulin Human NPH [Humulin N] 10 units SC Q12H #100 vial 03/13/17 Lisinopril [Zestril] 5 mg PO DAILY #30 tab 03/13/17 MetFORMIN [glucoPHAGE] 1,000 mg PO BID #60 03/13/17 amLODIPine [Norvasc] 10 mg PO DAILY #10 tab 03/13/17 - Allergies Allergies/Adverse Reactions: Allergies Allergy/AdvReac Type Severity Reaction Status Date / Time Penicillins Allergy RASH Verified 03/11/17 10:26 Review of Systems ROS Statement: Except As Marked, All Systems Reviewed And Found Negative Constitutional: Negative for: Fever, Chills Musculoskeletal: Positive for: Other (Right foot ulcer with swelling) Physical Exam - Reviewed Nursing Documentation Reviewed: Yes Vital Signs Reviewed: Yes - Physical Exam Appears: Positive for: Non-toxic, No Acute Distress Head Exam: Positive for: ATRAUMATIC, NORMAL INSPECTION, NORMOCEPHALIC Skin: Positive for: Normal Color, Warm, Dry Extremity: Positive for: Normal ROM, Swelling (Right foot swelling noted to the dorsum region. ), Other (1.5 cm opening ulcer wound on plantar surface of the right foot with no surrounding erythema. No discharge noted. ) Neurologic/Psych: Positive for: Alert, Oriented (x3) - Laboratory Results Result Diagrams: 03/13/17 05:25 03/13/17 05:25 - ECG O2 Sat by Pulse Oximetry: 99 (RA) Pulse Ox Interpretation: Normal - Progress ED Course And Treament: Seen by podiatry. d/w associate vice president Medical Decision Making Medical Decision Making: Time: 1026 Initial impression: Right Foot Ulcer Initial plan: --VBG --EKG --BMP --CBC w/ diff --Chest x-ray --Blood and Urine Culture --AccuCheck --Foot Right x-ray --Urinalysis --Reevaluation Time: 10:59 --Cipro 400 mg IV --Vancomycin 1gm IV Time: 11:35 --Chest x-ray FINDINGS: LUNGS: Linear and curvilinear densities left lung base that may represent minor linear atelectasis atelectasis. Tiny cluster of calcifications seen in the right mid lung field ; findings suggest prior exposure to granulomatous disease process. . PLEURA: No significant pleural effusion identified, no pneumothorax apparent. CARDIOVASCULAR: Heart size upper limits of normal. OSSEOUS STRUCTURES: No significant abnormalities. VISUALIZED UPPER ABDOMEN: Normal. OTHER FINDINGS: None. IMPRESSION: No focal consolidation. Linear/ curvilinear densities left lung base that may represent some minor linear type atelectasis. Tiny clustered calcifications right mid lung field suggesting prior exposure to granulomatous disease process. Time: 12:02 --Sodium Chloride 500 mls/hr IV Time: 12:34 -Foot x-ray FINDINGS: BONES: Status post surgical amputation of the great toe. There is no acute displaced fracture or bone destruction. Bone alignment is normal. JOINTS: Normal. SOFT TISSUES: There is mild soft tissue swelling in the plantar forefoot. OTHER FINDINGS: Atherosclerotic calcifications are present. IMPRESSION: No evidence of bony erosion or osteomyelitis. Mild soft tissue swelling in the plantar foot which could represent cellulitis. Time: 1332 --Admit to hospital routine: As inpatient in Med/Surg for infected diabetic foot ulcer after consult, under the care of Dr. Debbie Bender. Scribe Attestation: Documented by Diane Willis, acting as a scribe for Vidhya Spicer PA-C. Provider Scribe Attestation: All medical record entries made by the Scribe were at my direction and personally dictated by me. I have reviewed the chart and agree that the record accurately reflects my personal performance of the history, physical exam, medical decision making, and the department course for this patient. I have also personally directed, reviewed, and agree with the discharge instructions and disposition. Disposition - Clinical Impression Clinical Impression: Ulcer of foot, Wound infection - Patient ED Disposition Is Patient to be Admitted: Yes - Disposition Disposition Time: 13:11 Condition: GOOD
[2017-03-11] MEDS ORDERED: Ciprofloxacin 400mg/200ml D5W 400 MG/200 ML BAG IVPB STA (10:59)
[2017-03-11 11:05] LABS: VENOUS BLOOD GAS BASE EXCESS 5.7 mmol/L (0.0-2.0); VENOUS BLOOD GAS PCO2 53 mmHg (40-60); VENOUS BLOOD PH 7.39 (7.32-7.43)
[2017-03-11 11:11] LABS: BASO # 0.2 K/uL (0.0-0.2); BASO % 1.2 % (0.0-2.0); EOS # 0.1 K/uL (0.0-0.7); EOS % 0.5 % (0.0-4.0); HEMATOCRIT 41.9 % (35.0-51.0); LYMPH # 2.3 K/uL (1.0-4.3); LYMPH % 14.8 % (20.0-40.0); MEAN CELL VOLUME 91.2 fl (80.0-94.0); MEAN CORPUSCULAR HEMOGLOBIN 30.5 pg (27.0-31.0); MEAN CORPUSCULAR HGB CONC 33.5 g/dL (33.0-37.0); MEAN PLATELET VOLUME 8.7 fl (7.2-11.7); MONO # 0.8 K/uL (0.0-0.8); MONO % 4.9 % (0.0-10.0); NEUT # 12.5 K/uL (1.8-7.0); NEUT % 78.6 % (50.0-75.0); RED CELL DISTRIBUTION WIDTH 12.1 % (11.5-14.5); WHITE BLOOD COUNT 15.9 K/uL (4.8-10.8)
[2017-03-11 11:18] LABS: RBC URINE 2 /hpf (0-3); URINE BACTERIA RARE (<OCC); URINE BILIRUBIN NEGATIVE (NEGATIVE); URINE BLOOD NEGATIVE (NEGATIVE); URINE COLOR YELLOW (YELLOW); URINE GLUCOSE (UA) >=500 mg/dL (Normal); URINE KETONE TRACE mg/dL (NEGATIVE); URINE LEUKOCYTE ESTERASE NEG Leu/uL (Negative); URINE PROTEIN >=500 mg/dL (NEGATIVE); URINE UROBILINOGEN 0.2-1.0 mg/dL (0.2-1.0); WBC URINE 2 /hpf (0-5)
[2017-03-11 11:26] LABS: BLOOD UREA NITROGEN 21 mg/dl (9-20); CARBON DIOXIDE 31 mmol/L (22-30); CHLORIDE 93 mmol/L (98-107); GFR AFRICAN-AMERICAN > 60; GLUCOSE,RANDOM 219 mg/dL (75-110); POTASSIUM 4.1 MMOL/L (3.6-5.0); SODIUM 132 mmol/l (132-148)
--- NOTE | 2017-03-11 11:37 | RAD ---
HISTORY: routine COMPARISON: Comparison chest 02/18/2017. FINDINGS: LUNGS: Linear and curvilinear densities left lung base that may represent minor linear atelectasis atelectasis. Tiny cluster of calcifications seen in the right mid lung field ; findings suggest prior exposure to granulomatous disease process. . PLEURA: No significant pleural effusion identified, no pneumothorax apparent. CARDIOVASCULAR: Heart size upper limits of normal. OSSEOUS STRUCTURES: No significant abnormalities. VISUALIZED UPPER ABDOMEN: Normal. OTHER FINDINGS: None. IMPRESSION: No focal consolidation. Linear/ curvilinear densities left lung base that may represent some minor linear type atelectasis. Tiny clustered calcifications right mid lung field suggesting prior exposure to granulomatous disease process.
[2017-03-11] MEDS ORDERED: Vancomycin 1 g Inj ONE (11:56)
[2017-03-11] MEDS ORDERED: Ciprofloxacin 400mg/200ml D5W 400 MG/200 ML BAG IVPB ONE (11:56)
[2017-03-11] MEDS ORDERED: Sodium Chloride 0.9% 1,000 ML IV STA (12:02)
--- NOTE | 2017-03-11 12:35 | RAD ---
PROCEDURE: Right Foot Radiographs. HISTORY: Foot ulcer COMPARISON: 02/22/2017 FINDINGS: BONES: Status post surgical amputation of the great toe. There is no acute displaced fracture or bone destruction. Bone alignment is normal. JOINTS: Normal. SOFT TISSUES: There is mild soft tissue swelling in the plantar forefoot. OTHER FINDINGS: Atherosclerotic calcifications are present. IMPRESSION: No evidence of bony erosion or osteomyelitis. Mild soft tissue swelling in the plantar foot which could represent cellulitis.
[2017-03-11] MEDS ORDERED: Glucagon Recombinant 1 mg Inj IM PRN (14:38)
[2017-03-11] MEDS ORDERED: Dextrose 50% SYRINGE Inj (50 ml) IV PRN (14:38)
--- NOTE | 2017-03-11 15:15 | CP.PCM.CON ---
History of Present Illness - History of Present Illness History of Present Illness: 56 year old male with PMH of DM, HTN and OM with partial first ray amputaiton of right foot seen in ED for right plantar ulceration. Patient states that three weeks ago he came to the ED concerned that the ulcer was infected and then returned again two weeks ago with the same worry. Patient states that after his second visit to the ED he was given antibiotics which he finished last week. He could not recall the name of the antibiotic. Since that time his pain has been gradually increasing. This morning when he woke up his pain was markedly increased from last night and he noticed increased swelling to his entire forefoot, prompting him to come to the ED. 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 He denies any further pedal complaints at this time. Denies N/V/F/C/CP/ SOB Review of Systems - Review of Systems Review of Systems: ROS unremarkable outside of HPI Past Patient History - Past Social History Alcohol: Social Drugs: Denies - CARDIAC Hx Hypertension: Yes - ENDOCRINE/METABOLIC Hx Endocrine Disorders: Yes - PSYCHIATRIC Hx Substance Use: No - SURGICAL HISTORY Other/Comment: right great toe amputation - ANESTHESIA Hx Anesthesia: Yes Hx Anesthesia Reactions: No Hx Malignant Hyperthermia: No Meds Allergies/Adverse Reactions: Allergies Allergy/AdvReac Type Severity Reaction Status Date / Time Penicillins Allergy RASH Verified 03/11/17 10:26 - Medications Medications: Current Medications Amlodipine Besylate (Norvasc) 10 mg PO DAILY [facility] Dextrose (Dextrose 50% Inj) 0 ml IV STAT PRN; Protocol PRN Reason: Hyglycemia Protocol Dextrose (Glutose 15) 0 gm PO ONCE PRN; Protocol PRN Reason: Hypoglycemia Protocol Glucagon (Glucagen Diagnostic Kit) 0 mg IM STAT PRN; Protocol PRN Reason: Hypoglycemia Protocol Heparin Sodium (Porcine) (Heparin) 5,000 units SC Q12 AIDE PRN Reason: Protocol Ciprofloxacin (Cipro 400mg/200ml Dsw) 400 mg in 200 mls @ 200 mls/hr IVPB Q12 AIDE Vancomycin HCl 1 gm/ Sodium (Chloride) 250 mls @ 166.667 mls/hr IVPB Q12 AIDE Insulin Human Regular (Humulin R) 0 units SC ACHS AIDE PRN Reason: Protocol Metformin HCl (Glucophage) 1,000 mg PO BID AIDE Physical Exam - Constitutional Appears: Well, Non-toxic, No Acute Distress - Extremities Exam Additional comments: LE focused exam: Vasc: DP/PT fully palpable 2/4 to left foot, nonpalpable to right foot most likely due to increased edema. CFT < 3 seconds to all digits. Skin temperature mildly increased to right forefoot. Extensive edema noted to entirety of patients right foot. Neuro: Epicritic and protective sensation grossly intact b/l Derm: Approx 1 cm x 1 cm x 0.5 cm ulceration noted to plantar aspect of patient' s right foot at level of second and third metatarsal heads. No purulent drainage noted, mild serous drainage noted, no periwound erythema, no malodor. Probe to bone test negative. No tunneling, tracking or undermining noted. Dorsal foot cellulitic changes noted without tracking up the leg. MSK: Minimal POP noted to right foot plantar ulcer - Neurological Exam Neurological exam: Alert, Oriented x3 - Psychiatric Exam Psychiatric exam: Normal Affect, Normal Mood Results - Vital Signs Recent Vital Signs: Last Vital Signs Temp 98.9 F 03/11/17 10:19 Pulse 115 H 03/11/17 10:19 Resp 18 03/11/17 10:19 BP 121/78 03/11/17 10:19 Pulse Ox 99 03/11/17 14:18 - Labs Result Diagrams: 03/11/17 10:40 03/11/17 10:40 Assessment & Plan - Assessment and Plan (Free Text) Assessment: 56 year old male seen in ED for right foot diabetic ulcer Plan: Patient seen and evaluated in ED Labs, charts and vitals reviewed; afebrile, WBC 15.9, glucose 234 Plan discussed with attending Dr. Alexander Wound copiously flushed with normal sterile saline Wound cx taken, results pending Xray- negative OM, severely plantarflexed metatarsal heads Wound dressed with Bacitracin, DSD Patient to be admitted under Family Medicine IV abx (Vanc, Cipro) to be started ID consult appreciated Podiatry will continue to follow while patient remains in house - Date & Time Date: 03/11/17 Time: 12:26
--- NOTE | 2017-03-11 15:29 | CP.PCM.HP ---
History of Present Illness - History of Present Illness History of Present Illness: 56 yo M with PMH of IDDM and HTN who is admitted with ongoing right foot ulcer approximately for 2 weeks. He came to the ER 15 days ago with a "lesion" that was drained and cured by podiatry and sent back home with treatment with abx he finished last week. Patient reports R foot pain and swelling since yesterday , intermittent, stabbing, worse with walking, no took pain meds at home. States not been using diabetes meds for 1 year approximately because his doctor moved and he lost continuity of care. Denies fever, chills, nausea, vomiting, calf pain, no abdominal pain, no CP, palpitations or sob. No urinary symptoms. PMD: [facility]. PMH: IDDM, HTN PSH: R toe amputation (1999) FMH: Mother and 2 brothers w/ DM Allergies: penicillin( rash) SH: +smoker, etoh socially, -drugs. 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 , no sexually active, -STD hx. Meds at home: taking amlodipine 10 mg po daily no taking insulin detemir and metformin 1000 mg po BID. ED course: -VSS -VBG -EKG: sinus tachycardia -Glucose:219, WBC: 15.9, Hgb 14.0 -Blood and Urine Culture pending -Cipro 400 mg IV -Vancomycin 1gm IV -CXR: No focal consolidation. Linear/ curvilinear densities left lung base that may represent some minor linear type atelectasis. Tiny clustered calcifications right mid lung field suggesting prior exposure to granulomatous disease process. -Foot x ray: No evidence of bony erosion or osteomyelitis. Mild soft tissue swelling in the plantar foot which could represent cellulitis. Present on Admission - Present on Admission Any Indicators Present on Admission: No Review of Systems - Review of Systems Review of Systems: Reviewed, negative except as HPI. Past Patient History - Past Social History Alcohol: Social Drugs: Denies - CARDIAC Hx Hypertension: Yes - ENDOCRINE/METABOLIC Hx Endocrine Disorders: Yes - PSYCHIATRIC Hx Substance Use: No - SURGICAL HISTORY Other/Comment: right great toe amputation - ANESTHESIA Hx Anesthesia: Yes Hx Anesthesia Reactions: No Hx Malignant Hyperthermia: No Meds Allergies/Adverse Reactions: Allergies Allergy/AdvReac Type Severity Reaction Status Date / Time Penicillins Allergy RASH Verified 03/11/17 10:26 Physical Exam - Constitutional Appears: Well, No Acute Distress - Head Exam Head Exam: ATRAUMATIC, NORMOCEPHALIC - Eye Exam Eye Exam: EOMI, Normal appearance, PERRL - Neck Exam Neck exam: Positive for: Full Rom. Negative for: Lymphadenopathy - Respiratory Exam Respiratory Exam: Clear to Auscultation Bilateral. absent: Rales, Rhonchi, Wheezes - Cardiovascular Exam Cardiovascular Exam: Tachycardia, RRR, +S1, +S2 - GI/Abdominal Exam GI & Abdominal Exam: Normal Bowel Sounds, Soft. absent: Organomegaly, Tenderness - Extremities Exam Extremities exam: Negative for: calf tenderness Additional comments: R lower foot bandaged, mild-moderate edema noted. Pulses present 2+ b/l - Neurological Exam Neurological exam: Alert, CN II-XII Intact, Oriented x3, Reflexes Normal Results - Vital Signs Recent Vital Signs: Last Vital Signs Temp 98.9 F 03/11/17 10:19 Pulse 115 H 03/11/17 10:19 Resp 18 03/11/17 10:19 BP 121/78 03/11/17 10:19 Pulse Ox 99 03/11/17 14:18 - Labs Result Diagrams: 03/11/17 10:40 03/11/17 10:40 Assessment & Plan - Assessment and Plan (Free Text) Assessment: 56 yo M patient w/ PMH of IDDM and HTN that is admitted with R foot ulcer with surrounding cellulitis and hyperglycemia. 1- R foot ulcer/cellulitis- acute -IDDM patient no complain w/ treatment for 1 year -WBC 15.9 -foot x ray: no evidence of bony erosion or OM. Mild soft tissue swelling in plantar foot which could represent cellulitis. -ciprofloxacin 400 mg IV q12 reviewed previous culture shows e.coli and strep sensitive to ciprofloxacin. -Vancomicyn 1 mg IV q12. -Cbc, cmp tomorrow -blood culture pending -ID consult Dr Barnett -Podiatry consult Dr Alexander [id number] -IDDM patient no complain w/ treatment for 1 year -glucose 219 -insulin sliding scale -Metformin 1000 mg BID -cbc, cmp, hgb A1C tomorrow 3- HTN- stable -c/w home medication -Amlodipine 10 mg PO daily. 4- DVT prophylaxis -Heparin 5000 units sc Q12
[2017-03-11] MEDS ORDERED: Insulin Regular 100 units/ml ONE (16:59)
[2017-03-11] MEDS: Insulin Regular 100 units/ml SC SCH ×2 (17:06→21:29)
--- NOTE | 2017-03-11 18:38 | CP.PCM.CON ---
History of Present Illness - History of Present Illness History of Present Illness: 56 y old with uncontrolled dm with pain and ulcer on the right foot Past Patient History - Past Medical History & Family History Past Medical History?: Yes - Past Social History Alcohol: Social Drugs: Denies - CARDIAC Hx Hypertension: Yes - ENDOCRINE/METABOLIC Hx Endocrine Disorders: Yes - MUSCULOSKELETAL/RHEUMATOLOGICAL Hx Falls: No - PSYCHIATRIC Hx Substance Use: No - SURGICAL HISTORY Other/Comment: right great toe amputation - ANESTHESIA Hx Anesthesia: Yes Hx Anesthesia Reactions: No Hx Malignant Hyperthermia: No Meds Allergies/Adverse Reactions: Allergies Allergy/AdvReac Type Severity Reaction Status Date / Time Penicillins Allergy RASH Verified 03/11/17 10:26 - Medications Medications: Current Medications Amlodipine Besylate (Norvasc) 10 mg PO DAILY [facility] Dextrose (Dextrose 50% Inj) 0 ml IV STAT PRN; Protocol PRN Reason: Hyglycemia Protocol Dextrose (Glutose 15) 0 gm PO ONCE PRN; Protocol PRN Reason: Hypoglycemia Protocol Glucagon (Glucagen Diagnostic Kit) 0 mg IM STAT PRN; Protocol PRN Reason: Hypoglycemia Protocol Heparin Sodium (Porcine) (Heparin) 5,000 units SC Q12 AIDE PRN Reason: Protocol Ciprofloxacin (Cipro 400mg/200ml Dsw) 400 mg in 200 mls @ 200 mls/hr IVPB Q12@ 1100,2300 [facility] Vancomycin HCl 1 gm/ Sodium (Chloride) 250 mls @ 166.667 mls/hr IVPB Q12@0000, 1200 [facility] Insulin Human Regular (Humulin R) 0 units SC ACHS AIDE PRN Reason: Protocol Last Admin: 03/11/17 17:06 Dose: 1 unit Metformin HCl (Glucophage) 1,000 mg PO BID [facility] Last Admin: 03/11/17 17:12 Dose: 1,000 mg Pneumococcal Polyvalent Vaccine (Pneumovax 23 Vaccine) 0.5 ml IM .ONCE ONE Stop: 03/11/17 21:01 Physical Exam - Extremities Exam Additional comments: right foot with swelling and ulcer on plantar aspect of the right foot about 1.5 cms Results - Vital Signs Recent Vital Signs: Last Vital Signs Temp 98.7 F 03/11/17 17:35 Pulse 107 H 03/11/17 17:35 Resp 18 03/11/17 17:35 BP 167/92 H 03/11/17 17:35 Pulse Ox 99 03/11/17 17:35 - Labs Result Diagrams: 03/11/17 10:40 03/11/17 10:40 Assessment & Plan - Assessment and Plan (Free Text) Assessment: Diabetic foot ulcer Agree with Vancomycin iv Start zosyn for broad spectrum coverage d/c cipro. will define abx better if cultures become available. No evidence of osteo on xray
[2017-03-11] MEDS ORDERED: Pneumococcal 23-Valent Vaccine IM ONE (21:00)
[2017-03-11] MEDS ORDERED: Insulin Detemir 100 Units/ml Inj SC SCH (22:00)
[2017-03-11] MEDS ORDERED: Ciprofloxacin 400mg/200ml D5W 400 MG/200 ML BAG IVPB SCH (23:00)
--- NOTE | 2017-03-12 00:01 | CARD ---
APPROVED REPORT EKG Measurement Heart [id number] <Conclusion> Sinus tachycardia Otherwise normal ECG
[2017-03-12] MEDS: Aztreonam 1 GM in Sodium Chloride 0.9% 100 ML IVPB SCH ×3 (00:16→17:40)
[2017-03-12] MEDS ORDERED: metroNIDAZOLE 500mg/100ml NS 100 ML IVPB SCH (01:00)
[2017-03-12 06:21] LABS: HEMATOCRIT 36.1 % (35.0-51.0); MEAN CELL VOLUME 90.5 fl (80.0-94.0); MEAN CORPUSCULAR HEMOGLOBIN 31.1 pg (27.0-31.0); MEAN CORPUSCULAR HGB CONC 34.4 g/dL (33.0-37.0)
[2017-03-12 06:45] LABS: ALKALINE PHOSPHATASE 152 U/L (38-126); ALT/SGPT 29 U/L (21-72); AST/SGOT 23 U/L (17-59); BILIRUBIN,TOTAL 0.6 mg/dl (0.2-1.3); BLOOD UREA NITROGEN 14 mg/dl (9-20); CARBON DIOXIDE 29 mmol/L (22-30); CHLORIDE 101 mmol/L (98-107); CHOLESTEROL 196 mg/dL (0-199); GFR AFRICAN-AMERICAN > 60; GLUCOSE,RANDOM 182 mg/dL (75-110); POTASSIUM 3.5 MMOL/L (3.6-5.0); SODIUM 136 mmol/l (132-148); TOTAL PROTEIN 6.7 G/DL (6.3-8.2)
--- NOTE | 2017-03-12 06:58 | CP.PCM.PN ---
Subjective - Date & Time of Evaluation Date of Evaluation: 03/12/17 Time of Evaluation: 06:58 - Subjective Subjective: 56 year old male seen at bedside for right plantar ulceration. Pt states that the pain in his foot has decreased since yesterday but it is still a little swollen. Pt states he notices less redness in the foot today. He denies any further pedal complaints at this time. Denies N/V/F/C/CP/SOB Objective - Vital Signs/Intake and Output Vital Signs (last 24 hours): Temp Pulse Resp BP Pulse Ox 98.9 F 98 H 18 159/88 H 98 03/12/17 01:26 03/12/17 01:26 03/12/17 01:26 03/12/17 01:26 03/12/17 01:26 - Medications Medications: Current Medications Amlodipine Besylate (Norvasc) 10 mg PO DAILY [facility] Atorvastatin Calcium (Lipitor) 40 mg PO HS [facility] Last Admin: 03/11/17 21:20 Dose: 40 mg Dextrose (Dextrose 50% Inj) 0 ml IV STAT PRN; Protocol PRN Reason: Hyglycemia Protocol Dextrose (Glutose 15) 0 gm PO ONCE PRN; Protocol PRN Reason: Hypoglycemia Protocol Glucagon (Glucagen Diagnostic Kit) 0 mg IM STAT PRN; Protocol PRN Reason: Hypoglycemia Protocol Heparin Sodium (Porcine) (Heparin) 5,000 units SC Q12 AIDE PRN Reason: Protocol Last Admin: 03/11/17 21:19 Dose: 5,000 units Vancomycin HCl 1 gm/ Sodium (Chloride) 250 mls @ 166.667 mls/hr IVPB Q12@0000, 1200 [facility] Last Admin: 03/12/17 00:18 Dose: 166.667 mls/hr Aztreonam 1 gm/ Sodium (Chloride) 100 mls @ 100 mls/hr IVPB Q8 [facility] Last Admin: 03/12/17 00:16 Dose: 100 mls/hr Insulin Human Regular (Humulin R) 0 units SC ACHS [facility] PRN Reason: Protocol Last Admin: 03/11/17 21:29 Dose: Not Given Lisinopril (Zestril) 5 mg PO DAILY [facility] Metformin HCl (Glucophage) 1,000 mg PO BID [facility] Last Admin: 03/11/17 17:12 Dose: 1,000 mg Metronidazole (Flagyl) 500 mg PO Q8 [facility] Last Admin: 03/12/17 00:26 Dose: 500 mg - Labs Labs: 03/12/17 05:40 03/12/17 05:40 - Constitutional Appears: Well, Non-toxic, No Acute Distress - Extremities Exam Additional comments: RLE focused exam: Vasc: DP/PT fully palpable 2/4 nonpalpable due to increased edema. CFT < 3 seconds to all digits. Skin temperature mildly increased to forefoot-improving. Neuro: Epicritic and protective sensation grossly intact Derm: Approx 1 cm x 1 cm x 0.5 cm ulceration noted to plantar aspect of patient' s right foot at level of second and third metatarsal heads. No purulent drainage , minimal serous drainage noted, no periwound erythema, no malodor. No probe to bone, no tunneling, tracking or undermining noted. Decreased dorsal foot cellulitis. MSK: Minimal tenderness upon palpation noted to right foot plantar ulcer - Neurological Exam Neurological Exam: Alert, Awake, Oriented x3 - Psychiatric Exam Psychiatric exam: Normal Affect, Normal Mood Assessment and Plan - Assessment and Plan (Free Text) Assessment: 56 year old male with right plantar foot ulceration secondary to DM Plan: Patient seen and evaluated at bedside Discussed plan in detail with Dr. Alexander Labs, charts and vitals reviewed; afebrile, WBC 9.0 Xray- negative OM, severely plantarflexed metatarsal heads Wound dressed with DSD Rx Bacitracin to be applied with dressing changes Pt to continue on IV Aztreonam, Vancomycin, Cipro Pt is stable for D/C from podiatry standpoint and should F/U in podiatry clinic Podiatry will continue to follow while patient remains in house
[2017-03-12 07:05] LABS: THYROID STIMULATING HORMONE 1.68 mIU/ML (0.46-4.68)
[2017-03-12] MEDS: Insulin Regular 100 units/ml SC SCH (07:30)
--- NOTE | 2017-03-12 08:57 | CP.PCM.PN ---
Subjective - Date & Time of Evaluation Date of Evaluation: 03/12/17 Time of Evaluation: 11:00 - Subjective Subjective: 56 y/o M examined at bedside. Pt resting comfortably on bed. Pt feeling well reports R foot pain is improving. Wound care and dressing change performed this morning. Pt afebrile and tolerating PO. Pt denies fever, CP, SOB, abdominal pain , urinary complaints, change in bowel movement or rash. Objective - Vital Signs/Intake and Output Vital Signs (last 24 hours): Temp Pulse Resp BP Pulse Ox 98.4 F 89 20 169/95 H 98 03/12/17 08:09 03/12/17 08:09 03/12/17 08:09 03/12/17 08:09 03/12/17 08:09 - Medications Medications: Current Medications Amlodipine Besylate (Norvasc) 10 mg PO DAILY [facility] Atorvastatin Calcium (Lipitor) 40 mg PO HS [facility] Last Admin: 03/11/17 21:20 Dose: 40 mg Dextrose (Dextrose 50% Inj) 0 ml IV STAT PRN; Protocol PRN Reason: Hyglycemia Protocol Dextrose (Glutose 15) 0 gm PO ONCE PRN; Protocol PRN Reason: Hypoglycemia Protocol Glucagon (Glucagen Diagnostic Kit) 0 mg IM STAT PRN; Protocol PRN Reason: Hypoglycemia Protocol Heparin Sodium (Porcine) (Heparin) 5,000 units SC Q12 [facility] PRN Reason: Protocol Last Admin: 03/11/17 21:19 Dose: 5,000 units Vancomycin HCl 1 gm/ Sodium (Chloride) 250 mls @ 166.667 mls/hr IVPB Q12@0000, 1200 [facility] Last Admin: 03/12/17 00:18 Dose: 166.667 mls/hr Aztreonam 1 gm/ Sodium (Chloride) 100 mls @ 100 mls/hr IVPB Q8 [facility] Last Admin: 03/12/17 00:16 Dose: 100 mls/hr Insulin Human Regular (Humulin R) 0 units SC ACHS [facility] PRN Reason: Protocol Last Admin: 03/11/17 21:29 Dose: Not Given Lisinopril (Zestril) 5 mg PO DAILY [facility] Metformin HCl (Glucophage) 1,000 mg PO BID [facility] Last Admin: 03/11/17 17:12 Dose: 1,000 mg Metronidazole (Flagyl) 500 mg PO Q8 [facility] Last Admin: 03/12/17 00:26 Dose: 500 mg - Labs Labs: 03/12/17 05:40 03/12/17 05:40 - Constitutional Appears: Well, No Acute Distress - Head Exam Head Exam: ATRAUMATIC, NORMAL INSPECTION - Eye Exam Eye Exam: EOMI, PERRL - ENT Exam ENT Exam: Mucous Membranes Moist - Neck Exam Neck Exam: Full ROM - Respiratory Exam Respiratory Exam: Clear to Ausculation Bilateral, NORMAL BREATHING PATTERN - Cardiovascular Exam Cardiovascular Exam: REGULAR RHYTHM - Extremities Exam Additional comments: Right foot covered in clean and dry dressing. Assessment and Plan - Assessment and Plan (Free Text) Assessment: 56 yo M patient w/ PMH of IDDM and HTN that is admitted with R foot ulcer with surrounding cellulitis and hyperglycemia. Plan: 1- R foot ulcer/cellulitis- acute -IDDM patient w/ treatment for 1 year. -foot x ray: no evidence of bony erosion or OM. Mild soft tissue swelling in plantar foot which could represent cellulitis. -WBC 9.0 -WNL today. -Vancomicyn 1 mg IV q12. Day 2. -Vancomycin through tomorrow ordered for 03/13 at 23:30. -blood culture NO growth after 24 hours. -Urine culture NO growth after 24 hours. -PT evaluation ordered. -F/U CBC and BMP tomorrow. [id number] -IDDM patient no complain w/ treatment for 1 year -HbA1c 14.2-elevated, glucose 341 today. -Insulin NPH 2 IU BID. started today. -Lispro SC ACHS started today. -c/w Metformin 1000 mg BID, Atrovastatin 40 mg daily. -F/U BNP and urine microalbumin tomorrow. 3- HTN- stable -c/w home medication -Amlodipine 10 mg PO daily. -Lisinopril 5 mg started today. -F/U BP. 4- DVT prophylaxis -Heparin 5000 units sc Q12
[2017-03-12] MEDS: Insulin NPH Human 100 Units/ml Inj SC SCH ×2 (10:00→21:43)
[2017-03-12] MEDS ORDERED: Bacitracin OINT 15GM TOP ONE (10:27)
[2017-03-12] MEDS: Insulin Lispro (humaLOG) 100 Units/ml Inj SC SCH ×3 (12:57→21:39)
[2017-03-13 00:13] VITALS: RESP 18; O2SAT 99
[2017-03-13] MEDS: Aztreonam 1 GM in Sodium Chloride 0.9% 100 ML IVPB SCH ×2 (00:15→09:51)
[2017-03-13 05:31] LABS: HEMATOCRIT 35.5 % (35.0-51.0); MEAN CELL VOLUME 90.8 fl (80.0-94.0); MEAN CORPUSCULAR HEMOGLOBIN 30.7 pg (27.0-31.0); MEAN CORPUSCULAR HGB CONC 33.8 g/dL (33.0-37.0); RED CELL DISTRIBUTION WIDTH 12.2 % (11.5-14.5); WHITE BLOOD COUNT 8.2 K/uL (4.8-10.8)
[2017-03-13 05:48] LABS: CHLORIDE 103 mmol/L (98-107)
[2017-03-13 05:49] LABS: BLOOD UREA NITROGEN 15 mg/dl (9-20); CALCIUM 9.5 mg/dL (8.4-10.2); CARBON DIOXIDE 25 mmol/L (22-30); GFR AFRICAN-AMERICAN > 60; GLUCOSE,RANDOM 206 mg/dL (75-110); POTASSIUM 3.9 MMOL/L (3.6-5.0); SODIUM 136 mmol/l (132-148)
[2017-03-13 07:40] VITALS: BP 151/91; PULSE 89; TEMP 98.6
[2017-03-13] MEDS: Insulin Lispro (humaLOG) 100 Units/ml Inj SC SCH ×2 (08:00→11:04)
--- NOTE | 2017-03-13 08:35 | CP.PCM.PN ---
Objective - Vital Signs/Intake and Output Vital Signs (last 24 hours): Temp Pulse Resp BP Pulse Ox 98.6 F 89 18 151/91 H 99 03/13/17 07:39 03/13/17 07:39 03/13/17 07:39 03/13/17 07:39 03/13/17 07:39 - Medications Medications: Current Medications Amlodipine Besylate (Norvasc) 10 mg PO DAILY [facility] Last Admin: 03/12/17 09:31 Dose: 10 mg Atorvastatin Calcium (Lipitor) 40 mg PO HS [facility] Last Admin: 03/12/17 21:43 Dose: 40 mg Dextrose (Dextrose 50% Inj) 0 ml IV STAT PRN; Protocol PRN Reason: Hyglycemia Protocol Dextrose (Glutose 15) 0 gm PO ONCE PRN; Protocol PRN Reason: Hypoglycemia Protocol Glucagon (Glucagen Diagnostic Kit) 0 mg IM STAT PRN; Protocol PRN Reason: Hypoglycemia Protocol Heparin Sodium (Porcine) (Heparin) 5,000 units SC Q12 AIDE PRN Reason: Protocol Last Admin: 03/12/17 21:42 Dose: 5,000 units Aztreonam 1 gm/ Sodium (Chloride) 100 mls @ 100 mls/hr IVPB Q8 [facility] Last Admin: 03/13/17 00:15 Dose: 100 mls/hr Vancomycin HCl 1 gm/ Sodium (Chloride) 250 mls @ 166.667 mls/hr IVPB Q12@0700, 1900 [facility] Last Admin: 03/13/17 06:29 Dose: 166.667 mls/hr Insulin Human Lispro (Humalog) 0 units SC ACHS [facility] PRN Reason: Protocol Last Admin: 03/12/17 21:39 Dose: Not Given Insulin Human NPH (Humulin N) 2 units SC Q12H [facility] Last Admin: 03/12/17 21:43 Dose: 2 units Lisinopril (Zestril) 5 mg PO DAILY [facility] Last Admin: 03/12/17 09:32 Dose: 5 mg Metformin HCl (Glucophage) 1,000 mg PO BID [facility] Last Admin: 03/12/17 17:36 Dose: 1,000 mg Metronidazole (Flagyl) 500 mg PO Q8 [facility] Last Admin: 03/13/17 00:14 Dose: 500 mg - Labs Labs: 03/13/17 05:25 03/13/17 05:25
[2017-03-13] MEDS: Insulin NPH Human 100 Units/ml Inj SC SCH (11:02)
[2017-03-13] MEDS ORDERED: Insulin NPH Human 100 Units/ml Inj SC SCH (11:50)
--- NOTE | 2017-03-13 12:26 | CP.PCM.DIS ---
Provider - Provider Date of Admission: 03/11/17 13:32 Attending physician: Debbie Bender MD Primary care physician: [facility] Consults: ID- Dr Barnett Podiatry- Dr Alexander Time Spent in preparation of Discharge (in minutes): 25 Diagnosis - Discharge Diagnosis (1) Diabetes mellitus with hyperglycemia Status: Acute (2) Ulcer of foot Status: Acute Hospital Course - Lab Results Lab Results: Most Recent Lab Values WBC 8.2 K/uL (4.8-10.8) 03/13/17 05:25 RBC 3.91 Mil/uL (4.40-5.90) L 03/13/17 05:25 Hgb 12.0 g/dL (12.0-18.0) 03/13/17 05:25 Hct 35.5 % (35.0-51.0) 03/13/17 05:25 MCV 90.8 fl (80.0-94.0) 03/13/17 05:25 MCH 30.7 pg (27.0-31.0) 03/13/17 05:25 MCHC 33.8 g/dL (33.0-37.0) 03/13/17 05:25 RDW 12.2 % (11.5-14.5) 03/13/17 05:25 Plt Count 266 K/uL (130-400) 03/13/17 05:25 MPV 8.7 fl (7.2-11.7) 03/11/17 10:40 Neut % (Auto) 78.6 % (50.0-75.0) H 03/11/17 10:40 Lymph % (Auto) 14.8 % (20.0-40.0) L 03/11/17 10:40 [facility] % (Auto) 4.9 % (0.0-10.0) 03/11/17 10:40 Eos % (Auto) 0.5 % (0.0-4.0) 03/11/17 10:40 Baso % (Auto) 1.2 % (0.0-2.0) 03/11/17 10:40 Neut # 12.5 K/uL (1.8-7.0) H 03/11/17 10:40 Lymph # 2.3 K/uL (1.0-4.3) 03/11/17 10:40 [facility] # 0.8 K/uL (0.0-0.8) 03/11/17 10:40 Eos # 0.1 K/uL (0.0-0.7) 03/11/17 10:40 Baso # 0.2 K/uL (0.0-0.2) 03/11/17 10:40 pO2 14 mm/Hg (30-55) L 03/11/17 10:59 VBG pH 7.39 (7.32-7.43) 03/11/17 10:59 VBG pCO2 53 mmHg (40-60) 03/11/17 10:59 VBG HCO3 27.2 mmol/L 03/11/17 10:59 VBG Total CO2 33.7 mmol/L (22-28) H 03/11/17 10:59 VBG O2 Sat (Calc) 23.3 % (40-65) L 03/11/17 10:59 VBG Base Excess 5.7 mmol/L (0.0-2.0) H 03/11/17 10:59 VBG Potassium 4.2 mmol/L (3.6-5.2) 03/11/17 10:59 Sodium 130.0 mmol/L (132-148) L 03/11/17 10:59 Chloride 94.0 mmol/L (98-107) L 03/11/17 10:59 Glucose 234 mg/dL (75-110) H 03/11/17 10:59 Lactate 1.6 mmol/L (0.7-2.1) 03/11/17 10:59 FiO2 21.0 % 03/11/17 10:59 Sodium 136 mmol/l (132-148) 03/13/17 05:25 Potassium 3.9 MMOL/L (3.6-5.0) 03/13/17 05:25 Chloride 103 mmol/L (98-107) 03/13/17 05:25 Carbon Dioxide 25 mmol/L (22-30) 03/13/17 05:25 Anion Gap 12 (10-20) 03/13/17 05:25 BUN 15 mg/dl (9-20) 03/13/17 05:25 Creatinine 0.8 mg/dL (0.8-1.5) 03/13/17 05:25 Est GFR ( Amer) > 60 03/13/17 05:25 Est GFR (Non-Af Amer) > 60 03/13/17 05:25 POC Glucose (mg/dL) 337 mg/dL (65-110) H 03/13/17 10:31 Random Glucose 206 mg/dL (75-110) H 03/13/17 05:25 Hemoglobin A1c 14.2 % (4.2-6.5) H 03/12/17 05:40 Calcium 9.5 mg/dL (8.4-10.2) 03/13/17 05:25 Total Bilirubin 0.6 mg/dl (0.2-1.3) 03/12/17 05:40 AST 23 U/L (17-59) 03/12/17 05:40 ALT 29 U/L (21-72) 03/12/17 05:40 Alkaline Phosphatase 152 U/L (38-126) H 03/12/17 05:40 Total Protein 6.7 G/DL (6.3-8.2) 03/12/17 05:40 Albumin 3.4 g/dL (3.5-5.0) L 03/12/17 05:40 Globulin 3.3 gm/dL (2.2-3.9) 03/12/17 05:40 Albumin/Globulin Ratio 1.0 (1.0-2.1) 03/12/17 05:40 Triglycerides 130 mg/DL (0-149) 03/12/17 05:40 Cholesterol 196 mg/dL (0-199) 03/12/17 05:40 LDL Cholesterol Direct 80 mg/dL (0-129) 03/12/17 05:40 HDL Cholesterol 76 MG/DL (30-70) H 03/12/17 05:40 TSH 3rd Generation 1.68 mIU/ML (0.46-4.68) 03/12/17 05:40 Venous Blood Potassium 4.2 mmol/L (3.6-5.2) 03/11/17 10:59 Urine Color Yellow (YELLOW) 03/11/17 10:49 Urine Clarity Cloudy (Clear) 03/11/17 10:49 Urine pH 5.0 (5.0-8.0) 03/11/17 10:49 Ur Specific [place] 1.021 (1.003-1.030) 03/11/17 10:49 Urine Protein >=500 mg/dL (NEGATIVE) 03/11/17 10:49 Urine Glucose (UA) >=500 mg/dL (Normal) 03/11/17 10:49 Urine Ketones Trace mg/dL (NEGATIVE) 03/11/17 10:49 Urine Blood Negative (NEGATIVE) 03/11/17 10:49 Urine Nitrate Negative (NEGATIVE) 03/11/17 10:49 Urine Bilirubin Negative (NEGATIVE) 03/11/17 10:49 Urine Urobilinogen 0.2-1.0 mg/dL (0.2-1.0) 03/11/17 10:49 Ur Leukocyte Esterase Neg Nicole/uL (Negative) 03/11/17 10:49 Urine RBC (Auto) 2 /hpf (0-3) 03/11/17 10:49 Urine Microscopic WBC 2 /hpf (0-5) 03/11/17 10:49 Ur Squamous Epith Cells < 1 /hpf (0-5) 03/11/17 10:49 Urine Bacteria Rare (<OCC) 03/11/17 10:49 Hyaline Casts 3-5 /hpf (0-2) H 03/11/17 10:49 Vancomycin Trough 10.1 ug/mL (5.0-10.0) H 03/13/17 05:25 - Hospital Course Hospital Course: 56 yo M with PMH of DM2 and HTN who was admitted with ongoing right foot ulcer approximately for 2 weeks. Vancomycin had been given until day of discharge. Podiatry addressed wound, but did not need to provide any debridement. FS were between 190-350, while A1C found to be 14.2 due to poor diet and patient's PMD having relocated elsewhere. Cleared for discharge when XR resulted negative for OM; ID instructed pt to be placed on Bactrim BID and Doxycycline BID for 1 week. Discharge Exam - Head Exam Head Exam: ATRAUMATIC, NORMAL INSPECTION, NORMOCEPHALIC - Eye Exam Eye Exam: EOMI - ENT Exam ENT Exam: Mucous Membranes Moist - Respiratory Exam Respiratory Exam: Clear to PA & Lateral, NORMAL BREATHING PATTERN, UNREMARKABLE - Cardiovascular Exam Cardiovascular Exam: REGULAR RHYTHM, RRR - GI/Abdominal Exam GI & Abdominal Exam: Normal Bowel Sounds, Soft - Extremities Exam Extremities exam: pedal edema (minimal), pedal pulses present (b/l) Additional comments: no calf tenderness - Neurological Exam Neurological exam: Alert, Oriented x3 - Skin Skin Exam: Dry, Intact, Normal Color, Warm Discharge Plan - Discharge Medications Prescriptions: amLODIPine [Norvasc] 10 mg PO DAILY #10 tab Atorvastatin [Lipitor] 40 mg PO HS #30 tab Insulin Human NPH [Humulin N] 10 units SC Q12H #100 vial Lisinopril [Zestril] 5 mg PO DAILY #30 tab MetFORMIN [glucoPHAGE] 1,000 mg PO BID #60 - Follow Up Plan Condition: GOOD Disposition: HOME/ ROUTINE Patient education suggested?: Yes Instructions: How to Check Your Blood Sugar (DC), Diabetes Mellitus Type 2 in Adults (DC), Giving an Insulin Injection (DC), Meal Planning with Diabetes Exchanges (DC), Diabetic Ketoacidosis (DC) Additional Instructions: Pt to follow up at [facility] within 3 days of hospital discharge Provided scripts for all home medications -including Bactrim 1 tab DS PO BID for 7 days and Doxycycline 100mg PO BID for 1 week Discuss PMD precautions Discuss ER precautions Verified pt understood NPH instructions; pt states he used to take insulin until his previous physician moved Discharged with new home medications: -NPH 10u Q12H -Metformin 1000mg PO BID -Norvasc 10mg PO Daily -Lipitor 40mg PO Daily -Glucometer -Lancets -Test Strips -[place] -Syringe
== END 2017-03-13 15:36 | disposition home or self-care (01) | DRG 638 ==
LOC: H.ER 10:08 → H.ERHOLD 13:32 → H.MEDSURG1 17:29
PROVIDERS: ADMIT Family Medicine; ATTEND Family Medicine
PROC: 3E0234Z Introduction of Serum, Toxoid and Vaccine into Muscle, Percutaneous Approach (ICD-10-PCS; principal; 2017-03-11)
DX: E11.621 Type 2 diabetes mellitus with foot ulcer (principal); L03.115 Cellulitis of right lower limb; L97.519 Non-pressure chronic ulcer of other part of right foot with unspecified severity; E11.65 Type 2 diabetes mellitus with hyperglycemia; I10 Essential (primary) hypertension; Z23 Encounter for immunization; Z79.4 Long term (current) use of insulin; Z79.84 Long term (current) use of oral hypoglycemic drugs; Z89.411 Acquired absence of right great toe; Z88.0 Allergy status to penicillin

== ENCOUNTER 2017-04-02 09:44 | Inpatient (IN) | payer MEDICAID, SELFPAY ==
[2017-04-02 09:53] VITALS: BMI 29.2
[2017-04-02] MEDS ORDERED: Sodium Chloride 0.9% 1,000 ML IV STA ×2 (10:15→11:17)
[2017-04-02] MEDS ORDERED: Insulin Regular 100 units/ml IVP ONE (10:52)
[2017-04-02 10:56] LABS: BASO # 0.1 K/uL (0.0-0.2); BASO % 0.5 % (0.0-2.0); EOS # 0.1 K/uL (0.0-0.7); EOS % 0.5 % (0.0-4.0); HEMATOCRIT 36.5 % (35.0-51.0); LYMPH # 0.8 K/uL (1.0-4.3); LYMPH % 3.9 % (20.0-40.0); MEAN CELL VOLUME 89.7 fl (80.0-94.0); MEAN CORPUSCULAR HEMOGLOBIN 29.8 pg (27.0-31.0); MEAN CORPUSCULAR HGB CONC 33.3 g/dL (33.0-37.0); MEAN PLATELET VOLUME 8.9 fl (7.2-11.7); MONO # 0.9 K/uL (0.0-0.8); MONO % 4.5 % (0.0-10.0); NEUT # 17.8 K/uL (1.8-7.0); NEUT % 90.6 % (50.0-75.0); PLATELET COUNT 259 K/uL (130-400); RED CELL DISTRIBUTION WIDTH 12.5 % (11.5-14.5); WHITE BLOOD COUNT 19.6 K/uL (4.8-10.8)
[2017-04-02 10:57] LABS: VENOUS BLOOD GAS BASE EXCESS 1.9 mmol/L (0.0-2.0); VENOUS BLOOD GAS PCO2 44 mmHg (40-60)
[2017-04-02] MEDS ORDERED: Insulin Regular 100 units/ml ONE (10:59)
[2017-04-02 11:01] LABS: URINE BILIRUBIN NEGATIVE (NEGATIVE); URINE BLOOD SMALL (NEGATIVE); URINE COLOR YELLOW (YELLOW); URINE GLUCOSE (UA) >=500 mg/dL (Normal); URINE KETONE TRACE mg/dL (NEGATIVE); URINE LEUKOCYTE ESTERASE NEG Leu/uL (Negative); URINE PROTEIN >=500 mg/dL (NEGATIVE); URINE UROBILINOGEN 0.2-1.0 mg/dL (0.2-1.0)
[2017-04-02 11:06] LABS: PARTIAL THROMBOPLASTIN TIME 31.1 Seconds (25.6-37.1)
[2017-04-02 11:10] LABS: ALKALINE PHOSPHATASE 199 U/L (38-126); ALT/SGPT 16 U/L (21-72); AST/SGOT 36 U/L (17-59); BILIRUBIN,TOTAL 0.7 mg/dl (0.2-1.3); BLOOD UREA NITROGEN 31 mg/dl (9-20); CALCIUM 9.9 mg/dL (8.4-10.2); CARBON DIOXIDE 28 mmol/L (22-30); CHLORIDE 87 mmol/L (98-107); GFR AFRICAN-AMERICAN > 60; MAGNESIUM 2.1 MG/DL (1.6-2.3); PHOSPHOROUS 2.9 mg/dl (2.5-4.5); POTASSIUM 4.8 MMOL/L (3.6-5.0); SODIUM 127 mmol/l (132-148); TOTAL PROTEIN 7.7 G/DL (6.3-8.2)
[2017-04-02 11:14] LABS: GLUCOSE,RANDOM 550 mg/dL (75-110)
[2017-04-02 11:15] LABS: GRANULAR CAST 2 /lpf (0-1); RBC URINE 8 /hpf (0-3); URINE BACTERIA RARE (<OCC); WBC URINE 3 /hpf (0-5)
[2017-04-02] MEDS ORDERED: levoFLOXacin 750 mg in D5W 150 ML BAG IVPB STA (11:16)
--- NOTE | 2017-04-02 11:16 | RAD ---
HISTORY: fever COMPARISON: Comparison made with chest radiograph 03/11/2017 FINDINGS: LUNGS: No focal consolidation. Improved previously noted suspected linear atelectasis PLEURA: No significant pleural effusion identified, no pneumothorax apparent. CARDIOVASCULAR: Normal. OSSEOUS STRUCTURES: Mild multilevel degenerative spondylosis of the thoracic spine VISUALIZED UPPER ABDOMEN: There are 2 cylindrical radiopaque densities overlying the left upper quadrant of the abdomen likely representing pill artifact. No gross free air seen under the diaphragmatic surfaces. OTHER FINDINGS: The diaphragmatic None. IMPRESSION: No acute consolidation.
[2017-04-02 11:38] LABS: NEUTROPHIL 94 % (42-75); TOTAL CELLS COUNTED 100
--- NOTE | 2017-04-02 11:43 | ED PDOC ---
Lower Extremity Pain/Injury Time Seen by Provider: 04/02/17 10:09 Chief Complaint (Nursing): Lower Extremity Problem/Injury Chief Complaint (Provider): Fever, Weakness and worsening Right Foot Pain History Per: Patient History/Exam Limitations: no limitations Onset/Duration Of Symptoms: Days Current Symptoms Are (Timing): Still Present Additional Complaint(s): Tim Nathan, a 56 year old male, who has a past medical history of diabetes , presents to the ED with fever, weakness and worsening right foot pain. The patient reports that he was recently admitted for a right foot infection and was discharged 3 weeks ago. Patient reports that he is unable to get his diabetes medications. PMD: [facility] Past Medical History Reviewed: Historical Data, Nursing Documentation, Vital Signs Vital Signs: Last Vital Signs Temp 100.4 F H 04/02/17 10:27 Pulse 127 H 04/02/17 10:27 Resp 18 04/02/17 10:27 BP 160/96 H 04/02/17 10:27 Pulse Ox 97 04/02/17 10:27 - Medical History PMH: Diabetes, HTN - Surgical History Surgical History: No Surg Hx - Family History Family History: States: Unknown Family Hx, Hypertension - Social History Current smoker - smoking cessation education provided: Yes (Light Smoker < 10 Cigarettes Daily) Alcohol: None Drugs: Denies - Immunization History Hx Tetanus Toxoid Vaccination: No Hx Influenza Vaccination: No Hx Pneumococcal Vaccination: No - Home Medications Home Medications: Ambulatory Orders Medication Instructions Recorded Atorvastatin [Lipitor] 40 mg PO HS #30 tab 03/13/17 Insulin Human NPH [Humulin N] 10 units SC Q12H #100 vial 03/13/17 Lisinopril [Zestril] 5 mg PO DAILY #30 tab 03/13/17 MetFORMIN [glucoPHAGE] 1,000 mg PO BID #60 03/13/17 amLODIPine [Norvasc] 10 mg PO DAILY #10 tab 03/13/17 - Allergies Allergies/Adverse Reactions: Allergies Allergy/AdvReac Type Severity Reaction Status Date / Time Penicillins Allergy RASH Verified 03/11/17 10:26 Review of Systems ROS Statement: Except As Marked, All Systems Reviewed And Found Negative Constitutional: Positive for: Fever Genitourinary Male: Positive for: Other (polyuria) Musculoskeletal: Positive for: Foot Pain (worsening right foot pain) Neurological: Positive for: Weakness Physical Exam - Reviewed Nursing Documentation Reviewed: Yes Vital Signs Reviewed: Yes - Physical Exam Appears: Positive for: Non-toxic, No Acute Distress Head Exam: Positive for: ATRAUMATIC, NORMAL INSPECTION, NORMOCEPHALIC Skin: Positive for: Normal Color, Warm, Dry. Negative for: Rash Eye Exam: Positive for: Normal appearance, EOMI, PERRL. Negative for: Nystagmus ENT: Positive for: Normal ENT Inspection. Negative for: Nasal Congestion, Tonsillar Exudate Neck: Positive for: Normal, Painless ROM, Supple Cardiovascular/Chest: Positive for: Regular Rate, Rhythm, Chest Non Tender. Negative for: Tachycardia Respiratory: Positive for: Normal Breath Sounds. Negative for: Rales, Rhonchi, Wheezing, Respiratory Distress Gastrointestinal/Abdominal: Positive for: Normal Exam, Bowel Sounds, Soft. Negative for: Tenderness, Guarding, Rebound Back: Positive for: Normal Inspection. Negative for: L CVA Tenderness, R CVA Tenderness Extremity: Positive for: Tenderness (tenderness to dorsum and plantar surfaces of foot.), Other (erythema and edema to dorsum and plantar surfaces of foot.). Negative for: Pedal Edema, Calf Tenderness, Deformity, Swelling Neurologic/Psych: Positive for: Alert, Oriented - Laboratory Results Result Diagrams: 04/09/17 06:20 04/10/17 05:40 - ECG O2 Sat by Pulse Oximetry: 97 (RA) Pulse Ox Interpretation: Normal Medical Decision Making Medical Decision Makin:09 Initial Impression: 56 year old male presenting with fever, weakness and worsening right foot pain Initial Plan: * VBG * EKG * CMP * Magnesium Phosphorous * CBC * Partial Thromboplastin * Prothrombin Time * CXR * Humulin 8 units IVP * Levaquin 750mg IVPB * NS 1000ml IV 1000mls/hr * Vancomysin inj NS 250 mL IVPB * Blood culture * Urine culture * Accucheck * RAD Right Foot Urinalysis * Reevaluation CXR negative. Foot xray performed reveals no gas. 1140 Patient found to be tachycardic and febrile. Sepsis work up initiated. Lactate 1.9 w/ remarkably elevated glucose and white blood cell count. Cultures obtained. IV fluid and broad spectrum antibiotics(penicillin allergy) given. Patient will be admitted to [facility] service. Scribe~Attestation Documented by Jojo Barry acting as a scribe for Shamar Thompson MD Provider~Attestation All medical record entries made by the Scribe were at my direction and personally dictated by me. I have reviewed the chart and agree that the record accurately reflects my personal performance of the history, physical exam, medical decision making, and the department course for this patient. I have also personally directed, reviewed, and agree with the discharge instructions and disposition. Disposition - Clinical Impression Clinical Impression: Sepsis, Diabetes, Cellulitis of foot - Patient ED Disposition Is Patient to be Admitted: Yes Counseled Patient/Family Regarding: Studies Performed, Diagnosis - Disposition Disposition Time: 10:24 Condition: FAIR - Pt Status Changed To: Hospital Disposition Of: Inpatient - Admit Certification Admit to Inpatient:: After my assessment, the patient will require hospitalization for at least two midnights. This is because of the severity of symptoms shown, intensity of services needed, and/or the medical risk in this patient being treated as an outpatient. - POA Present On Arrival: Poor Glycemic Control
[2017-04-02] MEDS ORDERED: Vancomycin 1 g Inj ONE (11:47)
[2017-04-02] MEDS ORDERED: Bacitracin Ointment 30 GM TUBE ONE (12:20)
[2017-04-02] MEDS ORDERED: Povidone Iodine Topical 10% Sol ONE (12:20)
--- NOTE | 2017-04-02 12:43 | CP.PCM.CON ---
History of Present Illness - History of Present Illness History of Present Illness: 56 y/o male with PMHx of DM HTN seen at bedside in ED for red, swollen, painful right right foot. Patient states that he had the swelling which started about a week ago. Patient states that he was seen in the ED about a week ago for the same reason. Patient states that he was also admitted to the hospital to receive abx. Patient states that they discharged him the following day with oral medications. Patient states that he finished his oral medications about a week ago and since then the right foot has been swollen. Patient states that he is a diabetic and has not taken his medications in a while because he does not have money. Patient denies of any recent fever. Patient states that he vomited yesterday and has diarrhea today. Patient denies of any SOB/CP today. Patient denies of any other pedal complains at this time. PMHx: DM, HTN PSHx: Amputation of his right hallux Allergies: Penicillins Review of Systems - Constitutional Constitutional: As Per HPI Past Patient History - Past Medical History & Family History Past Medical History?: Yes - Past Social History Alcohol: None Drugs: Denies - CARDIAC Hx Hypertension: Yes - ENDOCRINE/METABOLIC Hx Endocrine Disorders: Yes Hx Diabetes Mellitus Type 2: Yes - MUSCULOSKELETAL/RHEUMATOLOGICAL Hx Falls: No - PSYCHIATRIC Hx Substance Use: No - SURGICAL HISTORY Hx Orthopedic Surgery: Yes Other/Comment: right great toe amputation - ANESTHESIA Hx Anesthesia: Yes Hx Anesthesia Reactions: No Hx Malignant Hyperthermia: No Meds Allergies/Adverse Reactions: Allergies Allergy/AdvReac Type Severity Reaction Status Date / Time Penicillins Allergy RASH Verified 03/11/17 10:26 - Medications Medications: Current Medications Vancomycin HCl 1 gm/ Sodium (Chloride) 250 mls @ 166.667 mls/hr IVPB STAT STA Stop: 04/02/17 12:45 Last Admin: 04/02/17 11:49 Dose: 166.667 mls/hr Levofloxacin/Dextrose (Levaquin 750mg) 750 mg in 150 mls @ 100 mls/hr IVPB ONCE ONE Stop: 04/02/17 12:59 Physical Exam - Constitutional Appears: Well, Non-toxic, No Acute Distress - Extremities Exam Additional comments: Vasc: DP/PT fully palpable 2/4. CFT < 3 seconds to all digits. Skin temperature warm to warm from proximal to distal on the right foot Derm: Approx 1.5 cm x 1.5 cm x 0.5 cm ulceration noted to plantar aspect of patient's right foot at level of second and third metatarsal heads. Meena-wound hyperkeratosis noted, No purulent drainage, minimal seroserous drainage noted, no periwound erythema, no malodor. No probe to bone, no tunneling, tracking or undermining noted. cellulitic changes noted on the dorsum of the right foot extending distal to the ankle joint Neuro: Epicritic and protective sensation grossly intact MSK: Minimal tenderness upon palpation noted to right foot plantar ulcer - Neurological Exam Neurological exam: Alert, Oriented x3 - Psychiatric Exam Psychiatric exam: Normal Affect, Normal Mood Results - Vital Signs Recent Vital Signs: Last Vital Signs Temp 100.4 F H 04/02/17 10:27 Pulse 127 H 04/02/17 10:27 Resp 18 04/02/17 10:27 BP 160/96 H 04/02/17 10:27 Pulse Ox 97 04/02/17 11:57 - Labs Result Diagrams: 04/02/17 10:44 04/02/17 10:44 Labs: Laboratory Results - last 24 hr 04/02/17 04/02/17 04/02/17 10:31 10:33 10:44 WBC 19.6 H D RBC 4.07 L Hgb 12.1 Hct 36.5 MCV 89.7 MCH 29.8 MCHC 33.3 RDW 12.5 Plt Count 259 MPV 8.9 Neut % (Auto) 90.6 H Lymph % (Auto) 3.9 L [place] % (Auto) 4.5 Eos % (Auto) 0.5 Baso % (Auto) 0.5 Neut # 17.8 H Lymph # 0.8 L [place] # 0.9 H Eos # 0.1 Baso # 0.1 Neutrophils % (Manual) 94 H Lymphocytes % (Manual) 2 L Monocytes % (Manual) 4 Platelet Estimate Normal Anisocytosis (manual) Slight PT INR APTT pO2 19 L VBG pH 7.40 VBG pCO2 44 VBG HCO3 24.3 VBG Total CO2 28.7 H VBG O2 Sat (Calc) 38.0 L VBG Base Excess 1.9 VBG Potassium 4.6 A-a O2 Difference 76.0 Sodium 125.0 L Chloride 85.0 L Glucose 564 H* D Lactate 1.9 FiO2 21.0 Crit Value Called To Dr ishan lópez Crit Value Called By 15 Crit Value Read Back Y Blood Gas Notified Time 1057 Potassium Carbon Dioxide Anion Gap BUN Creatinine Est GFR ( Amer) Est GFR (Non-Af Amer) Random Glucose Calcium Phosphorus Magnesium Total Bilirubin AST ALT Alkaline Phosphatase Total Protein Albumin Globulin Albumin/Globulin Ratio Venous Blood Potassium 4.6 Urine Color Yellow Urine Clarity Slighty-cloudy Urine pH 6.0 Ur Specific [place] 1.025 Urine Protein >=500 Urine Glucose (UA) >=500 Urine Ketones Trace Urine Blood Small Urine Nitrate Negative Urine Bilirubin Negative Urine Urobilinogen 0.2-1.0 Ur Leukocyte Esterase Neg Urine RBC (Auto) 8 H Urine Microscopic WBC 3 Ur Squamous Epith Cells 5 Urine Bacteria Rare Granular Casts (Auto) 2 Urine Sperm (Auto) Occ 04/02/17 04/02/17 10:44 10:44 WBC RBC Hgb Hct MCV MCH MCHC RDW Plt Count MPV Neut % (Auto) Lymph % (Auto) [place] % (Auto) Eos % (Auto) Baso % (Auto) Neut # Lymph # [place] # Eos # Baso # Neutrophils % (Manual) Lymphocytes % (Manual) Monocytes % (Manual) Platelet Estimate Anisocytosis (manual) PT 10.2 INR 1.0 APTT 31.1 pO2 VBG pH VBG pCO2 VBG HCO3 VBG Total CO2 VBG O2 Sat (Calc) VBG Base Excess VBG Potassium A-a O2 Difference Sodium 127 L Chloride 87 L Glucose Lactate FiO2 Crit Value Called To Crit Value Called By Crit Value Read Back Blood Gas Notified Time Potassium 4.8 Carbon Dioxide 28 Anion Gap 17 BUN 31 H Creatinine 1.4 Est GFR ( Amer) > 60 Est GFR (Non-Af Amer) 52 Random Glucose 550 H* D Calcium 9.9 Phosphorus 2.9 Magnesium 2.1 Total Bilirubin 0.7 AST 36 ALT 16 L D Alkaline Phosphatase 199 H D Total Protein 7.7 Albumin 3.9 Globulin 3.9 Albumin/Globulin Ratio 1.0 Venous Blood Potassium Urine Color Urine Clarity Urine pH Ur Specific [place] Urine Protein Urine Glucose (UA) Urine Ketones Urine Blood Urine Nitrate Urine Bilirubin Urine Urobilinogen Ur Leukocyte Esterase Urine RBC (Auto) Urine Microscopic WBC Ur Squamous Epith Cells Urine Bacteria Granular Casts (Auto) Urine Sperm (Auto) Assessment & Plan - Assessment and Plan (Free Text) Assessment: 56 year old male with cellulitis of the right foot secondary to plantar foot ulceration and DM Plan: Patient seen and evaluated at bedside Discussed plan in detail with Dr. Salazar Labs, charts and vitals reviewed; 100.4, WBC 19.6 Xray- negative OM or gas, severely plantarflexed metatarsal heads right foot wound cleaned with saline and dressed using bacitracin, DSD Patient received vanc while in the ED ID recommendations appreciated Patient is being admitted to family practice for sepsis work-up Podiatry will continue to follow while patient is in-house - Date & Time Date: 04/02/17 Time: 12:58
[2017-04-02] MEDS ORDERED: levoFLOXacin 750 mg in D5W 750 MG/150 ML BAG IVPB ONE (13:43)
--- NOTE | 2017-04-02 14:06 | RAD ---
PROCEDURE: Right Foot Radiographs. HISTORY: DM foot infection COMPARISON: Right foot radiographs performed 03/11/17 FINDINGS: BONES: Postsurgical amputation of the 1st digit. Hammertoe deformities of the remaining digits. Degenerative changes. JOINTS: No dislocation. SOFT TISSUES: Soft tissue swelling. No evidence of radiopaque foreign body. OTHER FINDINGS: None. IMPRESSION: Degenerative changes. Postsurgical amputation of the 1st digit. Soft tissue swelling.
--- NOTE | 2017-04-02 14:47 | CP.PCM.CON ---
History of Present Illness - History of Present Illness History of Present Illness: Infectious Disease Consult Note- asked to see this patient at the request of for right foot cellulitis. HPI- Patient is a 56 year old male with PMh of DM II, HTN who is admitted with c/o right foot swelling and redness and pain . Pt. states he was admitted here 2 weeks ago with the same complaint and he was on 1 day of IV abx and then ext day he was d/c on oral antibiotics. He states he felt better on the oral antibiotics but as soon as the antibiotics finished he again developed erythema and pain and swelling in the region and he states he had fever and vomiting yesterday too . He denies any injury to the area. Pt. states he had amputation of his right great toe in 1999. PMHx: DM, HTN PSHx: Amputation of his right hallux Allergies: Penicillins ( rash) Review of Systems - Review of Systems Review of Systems: ROS- denies any FRANCIS, denies any cough, denies any sob, denies any chest pain, denies any abd. pain, denies any dysurea, had 1 episode of diarrhea yesterday only, c/ o pain and swelling and redness of the right foot denies any injury to the area Past Patient History - Past Medical History & Family History Past Medical History?: Yes - Past Social History Alcohol: None Drugs: Denies - CARDIAC Hx Hypertension: Yes - PULMONARY Hx Respiratory Disorders: No - NEUROLOGICAL Hx Neurological Disorder: No - HEENT Hx HEENT Problems: No - ENDOCRINE/METABOLIC Hx Endocrine Disorders: Yes Hx Diabetes Mellitus Type 2: Yes - HEMATOLOGICAL/ONCOLOGICAL Hx Blood Disorders: No - MUSCULOSKELETAL/RHEUMATOLOGICAL Hx Falls: No - PSYCHIATRIC Hx Substance Use: No - SURGICAL HISTORY Hx Orthopedic Surgery: Yes Other/Comment: right great toe amputation - ANESTHESIA Hx Anesthesia: Yes Hx Anesthesia Reactions: No Hx Malignant Hyperthermia: No Meds Allergies/Adverse Reactions: Allergies Allergy/AdvReac Type Severity Reaction Status Date / Time Penicillins Allergy RASH Verified 03/11/17 10:26 Physical Exam - Constitutional Appears: No Acute Distress - Head Exam Head Exam: ATRAUMATIC, NORMAL INSPECTION - Eye Exam Eye Exam: EOMI, PERRL - ENT Exam ENT Exam: Normal Oropharynx - Neck Exam Neck exam: Positive for: Full Rom - Respiratory Exam Respiratory Exam: Clear to Auscultation Bilateral, NORMAL BREATHING PATTERN - Cardiovascular Exam Cardiovascular Exam: RRR, +S1, +S2 - GI/Abdominal Exam GI & Abdominal Exam: Normal Bowel Sounds, Soft Additional comments: NT, ND - Extremities Exam Additional comments: right hallux s/p amputation, the entire dorsal foot with edema , erythema and warmth to touch plantar aspect with 1.5 cm x 1.5 cm x 0.5 cm ulceration at level of second and third metatarsal heads.fluctuance and edema and warm to touch as well no malodor minimal sanguinous d/c only erythema up to ankle level - Neurological Exam Neurological exam: Alert, Oriented x3 Results - Vital Signs Recent Vital Signs: Last Vital Signs Temp 100.4 F H 04/02/17 10:27 Pulse 127 H 04/02/17 10:27 Resp 18 04/02/17 10:27 BP 160/96 H 04/02/17 10:27 Pulse Ox 97 04/02/17 11:57 - Labs Result Diagrams: 04/02/17 10:44 04/02/17 10:44 Labs: Laboratory Results - last 24 hr 04/02/17 04/02/17 04/02/17 10:31 10:33 10:44 WBC 19.6 H D RBC 4.07 L Hgb 12.1 Hct 36.5 MCV 89.7 MCH 29.8 MCHC 33.3 RDW 12.5 Plt Count 259 MPV 8.9 Neut % (Auto) 90.6 H Lymph % (Auto) 3.9 L [place] % (Auto) 4.5 Eos % (Auto) 0.5 Baso % (Auto) 0.5 Neut # 17.8 H Lymph # 0.8 L [place] # 0.9 H Eos # 0.1 Baso # 0.1 Neutrophils % (Manual) 94 H Lymphocytes % (Manual) 2 L Monocytes % (Manual) 4 Platelet Estimate Normal Anisocytosis (manual) Slight PT INR APTT pO2 19 L VBG pH 7.40 VBG pCO2 44 VBG HCO3 24.3 VBG Total CO2 28.7 H VBG O2 Sat (Calc) 38.0 L VBG Base Excess 1.9 VBG Potassium 4.6 A-a O2 Difference 76.0 Sodium 125.0 L Chloride 85.0 L Glucose 564 H* D Lactate 1.9 FiO2 21.0 Crit Value Called To Dr ishan lópez Crit Value Called By 15 Crit Value Read Back Y Blood Gas Notified Time 1057 Potassium Carbon Dioxide Anion Gap BUN Creatinine Est GFR ( Amer) Est GFR (Non-Af Amer) Random Glucose Calcium Phosphorus Magnesium Total Bilirubin AST ALT Alkaline Phosphatase Total Protein Albumin Globulin Albumin/Globulin Ratio Venous Blood Potassium 4.6 Urine Color Yellow Urine Clarity Slighty-cloudy Urine pH 6.0 Ur Specific [place] 1.025 Urine Protein >=500 Urine Glucose (UA) >=500 Urine Ketones Trace Urine Blood Small Urine Nitrate Negative Urine Bilirubin Negative Urine Urobilinogen 0.2-1.0 Ur Leukocyte Esterase Neg Urine RBC (Auto) 8 H Urine Microscopic WBC 3 Ur Squamous Epith Cells 5 Urine Bacteria Rare Granular Casts (Auto) 2 Urine Sperm (Auto) Occ 04/02/17 04/02/17 10:44 10:44 WBC RBC Hgb Hct MCV MCH MCHC RDW Plt Count MPV Neut % (Auto) Lymph % (Auto) [place] % (Auto) Eos % (Auto) Baso % (Auto) Neut # Lymph # [place] # Eos # Baso # Neutrophils % (Manual) Lymphocytes % (Manual) Monocytes % (Manual) Platelet Estimate Anisocytosis (manual) PT 10.2 INR 1.0 APTT 31.1 pO2 VBG pH VBG pCO2 VBG HCO3 VBG Total CO2 VBG O2 Sat (Calc) VBG Base Excess VBG Potassium A-a O2 Difference Sodium 127 L Chloride 87 L Glucose Lactate FiO2 Crit Value Called To Crit Value Called By Crit Value Read Back Blood Gas Notified Time Potassium 4.8 Carbon Dioxide 28 Anion Gap 17 BUN 31 H Creatinine 1.4 Est GFR ( Amer) > 60 Est GFR (Non-Af Amer) 52 Random Glucose 550 H* D Calcium 9.9 Phosphorus 2.9 Magnesium 2.1 Total Bilirubin 0.7 AST 36 ALT 16 L D Alkaline Phosphatase 199 H D Total Protein 7.7 Albumin 3.9 Globulin 3.9 Albumin/Globulin Ratio 1.0 Venous Blood Potassium Urine Color Urine Clarity Urine pH Ur Specific [place] Urine Protein Urine Glucose (UA) Urine Ketones Urine Blood Urine Nitrate Urine Bilirubin Urine Urobilinogen Ur Leukocyte Esterase Urine RBC (Auto) Urine Microscopic WBC Ur Squamous Epith Cells Urine Bacteria Granular Casts (Auto) Urine Sperm (Auto) Laboratory Results - last 72 hr 04/02/17 04/02/17 04/02/17 10:25 10:31 10:33 WBC RBC Hgb Hct MCV MCH MCHC RDW Plt Count MPV Neut % (Auto) Lymph % (Auto) [place] % (Auto) Eos % (Auto) Baso % (Auto) Neut # Lymph # [place] # Eos # Baso # Neutrophils % (Manual) Lymphocytes % (Manual) Monocytes % (Manual) Platelet Estimate Anisocytosis (manual) PT INR APTT pO2 19 L VBG pH 7.40 VBG pCO2 44 VBG HCO3 24.3 VBG Total CO2 28.7 H VBG O2 Sat (Calc) 38.0 L VBG Base Excess 1.9 VBG Potassium 4.6 A-a O2 Difference 76.0 Sodium 125.0 L Chloride 85.0 L Glucose 564 H* D Lactate 1.9 FiO2 21.0 Crit Value Called To Dr ishan lópez Crit Value Called By 15 Crit Value Read Back Y Blood Gas Notified Time 1057 Potassium Carbon Dioxide Anion Gap BUN Creatinine Est GFR ( Amer) Est GFR (Non-Af Amer) POC Glucose (mg/dL) > 500 H* Random Glucose Calcium Phosphorus Magnesium Total Bilirubin AST ALT Alkaline Phosphatase Total Protein Albumin Globulin Albumin/Globulin Ratio Venous Blood Potassium 4.6 Urine Color Yellow Urine Clarity Slighty-cloudy Urine pH 6.0 Ur Specific [place] 1.025 Urine Protein >=500 Urine Glucose (UA) >=500 Urine Ketones Trace Urine Blood Small Urine Nitrate Negative Urine Bilirubin Negative Urine Urobilinogen 0.2-1.0 Ur Leukocyte Esterase Neg Urine RBC (Auto) 8 H Urine Microscopic WBC 3 Ur Squamous Epith Cells 5 Urine Bacteria Rare Granular Casts (Auto) 2 Urine Sperm (Auto) Occ 04/02/17 04/02/17 04/02/17 10:44 10:44 10:44 WBC 19.6 H D RBC 4.07 L Hgb 12.1 Hct 36.5 MCV 89.7 MCH 29.8 MCHC 33.3 RDW 12.5 Plt Count 259 MPV 8.9 Neut % (Auto) 90.6 H Lymph % (Auto) 3.9 L [place] % (Auto) 4.5 Eos % (Auto) 0.5 Baso % (Auto) 0.5 Neut # 17.8 H Lymph # 0.8 L [place] # 0.9 H Eos # 0.1 Baso # 0.1 Neutrophils % (Manual) 94 H Lymphocytes % (Manual) 2 L Monocytes % (Manual) 4 Platelet Estimate Normal Anisocytosis (manual) Slight PT 10.2 INR 1.0 APTT 31.1 pO2 VBG pH VBG pCO2 VBG HCO3 VBG Total CO2 VBG O2 Sat (Calc) VBG Base Excess VBG Potassium A-a O2 Difference Sodium 127 L Chloride 87 L Glucose Lactate FiO2 Crit Value Called To Crit Value Called By Crit Value Read Back Blood Gas Notified Time Potassium 4.8 Carbon Dioxide 28 Anion Gap 17 BUN 31 H Creatinine 1.4 Est GFR ( Amer) > 60 Est GFR (Non-Af Amer) 52 POC Glucose (mg/dL) Random Glucose 550 H* D Calcium 9.9 Phosphorus 2.9 Magnesium 2.1 Total Bilirubin 0.7 AST 36 ALT 16 L D Alkaline Phosphatase 199 H D Total Protein 7.7 Albumin 3.9 Globulin 3.9 Albumin/Globulin Ratio 1.0 Venous Blood Potassium Urine Color Urine Clarity Urine pH Ur Specific [place] Urine Protein Urine Glucose (UA) Urine Ketones Urine Blood Urine Nitrate Urine Bilirubin Urine Urobilinogen Ur Leukocyte Esterase Urine RBC (Auto) Urine Microscopic WBC Ur Squamous Epith Cells Urine Bacteria Granular Casts (Auto) Urine Sperm (Auto) Microbiology 03/11/17 11:09 Blood-Venous Blood Culture - Final 03/11/17 11:09 Blood-Venous Gram Stain - Final NO GROWTH AFTER 5 DAYS TEST NOT PERFORMED 03/11/17 10:40 Urine,Random Urine Culture - Final No Growth (<1,000 CFU/ML) 03/11/17 10:40 Blood-Venous Blood Culture - Final 03/11/17 10:40 Blood-Venous Gram Stain - Final NO GROWTH AFTER 5 DAYS TEST NOT PERFORMED 02/15/17 13:50 Foot - Right Gram Stain - Final 02/15/17 13:50 Foot - Right Wound Culture - Final Escherichia Coli Beta Hemolytic Strep Group B 02/15/17 11:55 Blood-Venous Blood Culture - Final 02/15/17 11:55 Blood-Venous Gram Stain - Final NO GROWTH AFTER 5 DAYS Accession No. : [id number] Patient Name / ID : REID OZUNA / [id number] Exam Date : 04/02/2017 10:43:47 ( Approved ) Study Comment : Sex / Age : M / 56Y Creator : Jhonny Stinson MD Dictator : Jhonny Stinson MD Pinsetter Mechanic Helper : Hardware Installation Coordinator : Jhonny Stinson MD Approver2 : Report Date : 04/02/2017 11:14:41 My Comment : HISTORY: fever COMPARISON: Comparison made with chest radiograph 03/11/2017 FINDINGS: LUNGS: No focal consolidation. Improved previously noted suspected linear atelectasis PLEURA: No significant pleural effusion identified, no pneumothorax apparent. CARDIOVASCULAR: Normal. OSSEOUS STRUCTURES: Mild multilevel degenerative spondylosis of the thoracic spine VISUALIZED UPPER ABDOMEN: There are 2 cylindrical radiopaque densities overlying the left upper quadrant of the abdomen likely representing pill artifact. No gross free air seen under the diaphragmatic surfaces. OTHER FINDINGS: The diaphragmatic None. IMPRESSION: No acute consolidation. Accession No. : [id number] Patient Name / ID : REID OZUNA / [id number] Exam Date : 04/02/2017 10:43:47 ( Approved ) Study Comment : Sex / Age : M / 56Y Creator : Taylor Jamison MD Dictator : Taylor Jamison MD Pinsetter Mechanic Helper : Hardware Installation Coordinator : Taylor Jamison MD Approver2 : Report Date : 04/02/2017 14:05:04 My Comment : PROCEDURE: Right Foot Radiographs. HISTORY: DM foot infection COMPARISON: Right foot radiographs performed 03/11/17 FINDINGS: BONES: Postsurgical amputation of the 1st digit. Hammertoe deformities of the remaining digits. Degenerative changes. JOINTS: No dislocation. SOFT TISSUES: Soft tissue swelling. No evidence of radiopaque foreign body. OTHER FINDINGS: None. IMPRESSION: Degenerative changes. Postsurgical amputation of the 1st digit. Soft tissue swelling. Assessment & Plan (1) Cellulitis and abscess of foot Status: Acute (2) Leukocytosis Status: Acute (3) Diabetes Status: Acute - Assessment and Plan (Free Text) Assessment: A/P- 56 year old male with uncontrolled diabetes presents with right foot cellulitis most likely secondary to plantar ulcer. low garde fever high wbc count normal lactate level extensive edema/erythema and fluctuation of the right foot r/o underlying abscess as well. based on previous cx results- e.coli and group B strep e.coli pansensitive PLan- check blood cx x 2 advise to start pt. on IV vancomycin 1 gram q12 and keep trough <15. advise to also start pt. on IV cipro 400 mg BID. check ESR. check CT /or MRI r/o underlying fluid collection. all above d/w podiatry resident at length. Thank you for allowing me to take part in the care of this patient. will f/u while inpatient.
[2017-04-02] MEDS ORDERED: Glucagon Recombinant 1 mg Inj IM PRN (15:59)
[2017-04-02] MEDS ORDERED: Dextrose 50% SYRINGE Inj (50 ml) IV PRN (15:59)
[2017-04-02] MEDS: Sodium Chloride 0.9% 1,000 ML IV SCH ×2 (16:04→23:02)
[2017-04-02] MEDS: Insulin Regular 100 units/ml SC SCH ×2 (16:10→22:19)
--- NOTE | 2017-04-02 16:37 | CP.PCM.HP ---
History of Present Illness - History of Present Illness History of Present Illness: 56 yo M with PMH of IDDM and HTN presents to [facility] ED w/ complaints of pain and swelling of right foot for 5 days. Pt reports pain is progressively getting worse last 2 days. Reports he had 3-4 episodes of vomiting yesterday. Last vomiting was yesterday afternoon. Denies abdominal pain, fever, chills, dysuria , chest pain, diaphoresis, dyspnea, headache, dizziness or blurry vision. Pt was admitted to [facility] on 03/11/17 and discharged on 03/13/17 for similar right foot ulcer. Pt was discharged home w/ bactrim BID and doxycycline BID for 1 week and states he completed his abx. Pt also reports he has not been taking his DMII and HTN medications for more than a week due to not having insurance/money. He did not fill out the scripts that were given on 03/13/17. PMD: [place]/did not f/u at [facility] after last discharge. PMH: IDDM, HTN Past Surgery History: R toe amputation (1999) Family History: Mother and 2 brothers w/ DM II Allergies: penicillin( rash) Socail History: denies smoking cigarettes and drugs use, EtOH socially. 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 Meds at home: sent home with on 03/13/17: -Amlodipine 10 mg po daily. -Atorvastatin 40 mg po HS. -NPH 10 units BID. -Lisinopril 5 mg PO QD -Metformin 1000 mg PO BID. Present on Admission - Present on Admission Any Indicators Present on Admission: Yes History of Uncontrolled Diabetes: Yes Decubitus Ulcer Present: Yes (Right foot ulcer w/ cellulitis.) Review of Systems - Constitutional Constitutional: absent: Chills, Headache - EENT Eyes: absent: Blurred Vision, Change in Vision Nose/Mouth/Throat: absent: Nasal Congestion, Nasal Discharge, Dysphagia - Cardiovascular Cardiovascular: absent: Chest Pain, Diaphoresis, Dyspnea, Dyspnea on Exertion, Edema - Respiratory Respiratory: absent: Cough, Dyspnea, Wheezing - Gastrointestinal Gastrointestinal: Vomiting. absent: Abdominal Pain, Diarrhea, Nausea Additional comments: resolved - Genitourinary Genitourinary: absent: Dysuria, Hematuria - Musculoskeletal Musculoskeletal: As Per HPI - Integumentary Integumentary: As Per HPI - Neurological Neurological: absent: Dizziness, Numbness, Focal Weakness Past Patient History - Past Medical History & Family History Past Medical History?: Yes - Past Social History Alcohol: None Drugs: Denies - CARDIAC Hx Hypertension: Yes - PULMONARY Hx Respiratory Disorders: No - NEUROLOGICAL Hx Neurological Disorder: No - HEENT Hx HEENT Problems: No - ENDOCRINE/METABOLIC Hx Endocrine Disorders: Yes Hx Diabetes Mellitus Type 2: Yes - HEMATOLOGICAL/ONCOLOGICAL Hx Blood Disorders: No - MUSCULOSKELETAL/RHEUMATOLOGICAL Hx Falls: No - PSYCHIATRIC Hx Substance Use: No - SURGICAL HISTORY Hx Orthopedic Surgery: Yes Other/Comment: right great toe amputation - ANESTHESIA Hx Anesthesia: Yes Hx Anesthesia Reactions: No Hx Malignant Hyperthermia: No Meds Allergies/Adverse Reactions: Allergies Allergy/AdvReac Type Severity Reaction Status Date / Time Penicillins Allergy RASH Verified 03/11/17 10:26 Physical Exam - Constitutional Appears: Non-toxic, No Acute Distress - Head Exam Head Exam: ATRAUMATIC, NORMAL INSPECTION, NORMOCEPHALIC - Eye Exam Eye Exam: EOMI, Normal appearance - ENT Exam ENT Exam: Mucous Membranes Moist, Normal Oropharynx - Neck Exam Neck exam: Positive for: Normal Inspection. Negative for: Lymphadenopathy - Respiratory Exam Respiratory Exam: Clear to Auscultation Bilateral, NORMAL BREATHING PATTERN. absent: Rales, Rhonchi, Wheezes - Cardiovascular Exam Cardiovascular Exam: Tachycardia, +S1, +S2 - GI/Abdominal Exam GI & Abdominal Exam: Normal Bowel Sounds, Soft. absent: Tenderness - Extremities Exam Extremities exam: Positive for: normal capillary refill, pedal pulses present. Negative for: calf tenderness, pedal edema Additional comments: Left foot covered with dressing. wound not visualized. Pedal pulses present B/L , NVI. - Neurological Exam Neurological exam: Alert, Oriented x3 - Psychiatric Exam Psychiatric exam: Normal Affect, Normal Mood Results - Vital Signs Recent Vital Signs: Last Vital Signs Temp 100.4 F H 04/02/17 10:27 Pulse 127 H 04/02/17 10:27 Resp 18 04/02/17 10:27 BP 160/96 H 04/02/17 10:27 Pulse Ox 97 04/02/17 11:57 - Labs Result Diagrams: 04/02/17 10:44 04/02/17 10:44 Labs: Laboratory Results - last 24 hr 04/02/17 04/02/17 04/02/17 10:25 10:31 10:33 WBC RBC Hgb Hct MCV MCH MCHC RDW Plt Count MPV Neut % (Auto) Lymph % (Auto) [place] % (Auto) Eos % (Auto) Baso % (Auto) Neut # Lymph # [place] # Eos # Baso # Neutrophils % (Manual) Lymphocytes % (Manual) Monocytes % (Manual) Platelet Estimate Anisocytosis (manual) PT INR APTT pO2 19 L VBG pH 7.40 VBG pCO2 44 VBG HCO3 24.3 VBG Total CO2 28.7 H VBG O2 Sat (Calc) 38.0 L VBG Base Excess 1.9 VBG Potassium 4.6 A-a O2 Difference 76.0 Sodium 125.0 L Chloride 85.0 L Glucose 564 H* D Lactate 1.9 FiO2 21.0 Crit Value Called To Dr ishan lópez Crit Value Called By 15 Crit Value Read Back Y Blood Gas Notified Time 1057 Potassium Carbon Dioxide Anion Gap BUN Creatinine Est GFR ( Amer) Est GFR (Non-Af Amer) POC Glucose (mg/dL) > 500 H* Random Glucose Calcium Phosphorus Magnesium Total Bilirubin AST ALT Alkaline Phosphatase Total Protein Albumin Globulin Albumin/Globulin Ratio Venous Blood Potassium 4.6 Urine Color Yellow Urine Clarity Slighty-cloudy Urine pH 6.0 Ur Specific Fowler 1.025 Urine Protein >=500 Urine Glucose (UA) >=500 Urine Ketones Trace Urine Blood Small Urine Nitrate Negative Urine Bilirubin Negative Urine Urobilinogen 0.2-1.0 Ur Leukocyte Esterase Neg Urine RBC (Auto) 8 H Urine Microscopic WBC 3 Ur Squamous Epith Cells 5 Urine Bacteria Rare Granular Casts (Auto) 2 Urine Sperm (Auto) Occ 04/02/17 04/02/17 04/02/17 10:44 10:44 10:44 WBC 19.6 H D RBC 4.07 L Hgb 12.1 Hct 36.5 MCV 89.7 MCH 29.8 MCHC 33.3 RDW 12.5 Plt Count 259 MPV 8.9 Neut % (Auto) 90.6 H Lymph % (Auto) 3.9 L [place] % (Auto) 4.5 Eos % (Auto) 0.5 Baso % (Auto) 0.5 Neut # 17.8 H Lymph # 0.8 L [place] # 0.9 H Eos # 0.1 Baso # 0.1 Neutrophils % (Manual) 94 H Lymphocytes % (Manual) 2 L Monocytes % (Manual) 4 Platelet Estimate Normal Anisocytosis (manual) Slight PT 10.2 INR 1.0 APTT 31.1 pO2 VBG pH VBG pCO2 VBG HCO3 VBG Total CO2 VBG O2 Sat (Calc) VBG Base Excess VBG Potassium A-a O2 Difference Sodium 127 L Chloride 87 L Glucose Lactate FiO2 Crit Value Called To Crit Value Called By Crit Value Read Back Blood Gas Notified Time Potassium 4.8 Carbon Dioxide 28 Anion Gap 17 BUN 31 H Creatinine 1.4 Est GFR ( Amer) > 60 Est GFR (Non-Af Amer) 52 POC Glucose (mg/dL) Random Glucose 550 H* D Calcium 9.9 Phosphorus 2.9 Magnesium 2.1 Total Bilirubin 0.7 AST 36 ALT 16 L D Alkaline Phosphatase 199 H D Total Protein 7.7 Albumin 3.9 Globulin 3.9 Albumin/Globulin Ratio 1.0 Venous Blood Potassium Urine Color Urine Clarity Urine pH Ur Specific Fowler Urine Protein Urine Glucose (UA) Urine Ketones Urine Blood Urine Nitrate Urine Bilirubin Urine Urobilinogen Ur Leukocyte Esterase Urine RBC (Auto) Urine Microscopic WBC Ur Squamous Epith Cells Urine Bacteria Granular Casts (Auto) Urine Sperm (Auto) Assessment & Plan - Assessment and Plan (Free Text) Assessment: Assessment and plan: 56 year old male w/ PMH of IDDM and HTN that is admitted with R foot ulcer w/ cellulitis and hyperglycemia. 1-Acute right foot cellulitis: - recieved 2 L IV fluids in ED. - ID and Podiatry consults appreciated --ID consult Dr Monge -Podiatry consult Dr Salazar -WBC 19.6 -Temperature: 100.4 F -foot x ray: degenerative changes. 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 Soft tissue swelling. -ciprofloxacin 400 mg IV BID reviewed previous culture shows e.coli and strep sensitive to ciprofloxacin. -Vancomicyn 1 mg IV BID. -CMP at 8 pm tonight. -CBC, CMP tomorrow -ESR -D-dimer -Procalcitonin -blood culture pending [id number]: -IDDM patient no compliant w/ treatment for 1 year -glucose 564 on admission. -start NPH 10 units SC BID -Hold metformin 1000 mg BID -insulin sliding scale -labs AM. 3- HTN- Elevated: -c/w home medication -Amlodipine 10 mg PO daily. -Lisinopril 5 mg daily 4- DVT prophylaxis -Lovenox 40 mg SC daily 5. GI prophylaxis - famotidine 20 mg daily. Diet: regular, heart health
[2017-04-02] MEDS: Insulin NPH Human 100 Units/ml Inj SC SCH (17:17)
[2017-04-02] MEDS ORDERED: Ciprofloxacin 400mg/200ml D5W 400 MG/200 ML BAG IVPB ONE (21:00)
[2017-04-02] MEDS: Ciprofloxacin 400mg/200ml D5W 400 MG/200 ML BAG IVPB SCH (21:01)
[2017-04-02] MEDS ORDERED: Influenza Vaccine 18yr & older 0.5 ML/45 MCG SYR IM ONE (22:29)
[2017-04-02 23:37] LABS: ALKALINE PHOSPHATASE 143 U/L (38-126); ALT/SGPT 17 U/L (21-72); AST/SGOT 27 U/L (17-59); BILIRUBIN,TOTAL 0.5 mg/dl (0.2-1.3); BLOOD UREA NITROGEN 26 mg/dl (9-20); CALCIUM 9.2 mg/dL (8.4-10.2); CARBON DIOXIDE 23 mmol/L (22-30); CHLORIDE 97 mmol/L (98-107); GFR AFRICAN-AMERICAN > 60; GLUCOSE,RANDOM 326 mg/dL (75-110); POTASSIUM 3.7 MMOL/L (3.6-5.0); SODIUM 132 mmol/l (132-148); TOTAL PROTEIN 6.7 G/DL (6.3-8.2)
[2017-04-03] MEDS: Insulin NPH Human 100 Units/ml Inj SC SCH ×2 (05:31→16:30)
[2017-04-03] MEDS: Insulin Regular 100 units/ml SC SCH ×4 (07:29→21:37)
[2017-04-03 07:33] LABS: BASO # 0.1 K/uL (0.0-0.2); BASO % 0.9 % (0.0-2.0); EOS % 0.2 % (0.0-4.0); HEMATOCRIT 33.5 % (35.0-51.0); LYMPH # 1.3 K/uL (1.0-4.3); LYMPH % 8.9 % (20.0-40.0); MEAN CELL VOLUME 90.1 fl (80.0-94.0); MEAN CORPUSCULAR HEMOGLOBIN 29.6 pg (27.0-31.0); MEAN CORPUSCULAR HGB CONC 32.9 g/dL (33.0-37.0); MEAN PLATELET VOLUME 9.4 fl (7.2-11.7); MONO # 0.6 K/uL (0.0-0.8); MONO % 4.4 % (0.0-10.0); NEUT % 85.6 % (50.0-75.0); RED CELL DISTRIBUTION WIDTH 12.6 % (11.5-14.5)
[2017-04-03 08:05] LABS: ALB/GLOB RATIO 0.9 (1.0-2.1); ALKALINE PHOSPHATASE 143 U/L (38-126); ALT/SGPT 15 U/L (21-72); AST/SGOT 23 U/L (17-59); BILIRUBIN,TOTAL 0.5 mg/dl (0.2-1.3); BLOOD UREA NITROGEN 20 mg/dl (9-20); CALCIUM 9.1 mg/dL (8.4-10.2); CARBON DIOXIDE 24 mmol/L (22-30); CHLORIDE 100 mmol/L (98-107); GFR AFRICAN-AMERICAN > 60; GLUCOSE,RANDOM 262 mg/dL (75-110); POTASSIUM 3.6 MMOL/L (3.6-5.0); SODIUM 136 mmol/l (132-148); TOTAL PROTEIN 6.9 G/DL (6.3-8.2)
[2017-04-03] MEDS: Enoxaparin 40 mg Syringe SC SCH (09:14)
[2017-04-03] MEDS: Sodium Chloride 0.9% 1,000 ML IV SCH ×3 (09:14→20:18)
[2017-04-03] MEDS: Silver Sulfadiazine 1% Cream (20 gm) TOP SCH (09:15)
--- NOTE | 2017-04-03 11:06 | CP.PCM.PN ---
Subjective - Date & Time of Evaluation Date of Evaluation: 04/03/17 Time of Evaluation: 11:03 - Subjective Subjective: no overnight events. eating/drinking well. making urine and BM. Denies chest pain, SOB. Some foot pain at ulcer site. Dressing intact Objective - Vital Signs/Intake and Output Vital Signs (last 24 hours): Temp Pulse Resp BP Pulse Ox 99.3 F 99 H 18 165/85 H 97 04/03/17 08:12 04/03/17 09:16 04/03/17 08:12 04/03/17 09:16 04/03/17 08:12 Intake and Output: 04/03/17 04/03/17 06:59 18:59 Intake Total 2800 Output Total 1600 Balance 1200 - Medications Medications: Current Medications Acetaminophen (Tylenol 325mg Tab) 650 mg PO Q6 PRN PRN Reason: Pain, Mild (1-3) Amlodipine Besylate (Norvasc) 10 mg PO DAILY [facility] Last Admin: 04/03/17 09:15 Dose: 10 mg Atorvastatin Calcium (Lipitor) 40 mg PO HS [facility] Last Admin: 04/02/17 22:53 Dose: 40 mg Dextrose (Dextrose 50% Inj) 0 ml IV STAT PRN; Protocol PRN Reason: Hyglycemia Protocol Dextrose (Glutose 15) 0 gm PO ONCE PRN; Protocol PRN Reason: Hypoglycemia Protocol Enoxaparin Sodium (Lovenox) 40 mg SC DAILY [facility] PRN Reason: Protocol Last Admin: 04/03/17 09:14 Dose: 40 mg Famotidine (Pepcid) 20 mg PO DAILY [facility] Last Admin: 04/03/17 09:15 Dose: 20 mg Glucagon (Glucagen Diagnostic Kit) 0 mg IM STAT PRN; Protocol PRN Reason: Hypoglycemia Protocol Sodium Chloride (Sodium Chloride 0.9%) 1,000 mls @ 250 mls/hr IV .Q4H [facility] Last Admin: 04/03/17 09:14 Dose: 250 mls/hr Ciprofloxacin (Cipro 400mg/200ml Dsw) 400 mg in 200 mls @ 200 mls/hr IVPB Q12 [facility] Last Admin: 04/02/17 21:01 Dose: 200 mls/hr Vancomycin HCl 750 mg/ Sodium (Chloride) 250 mls @ 166.667 mls/hr IVPB Q12 [facility] Last Admin: 04/03/17 09:09 Dose: 166.667 mls/hr Insulin Human NPH (Humulin N) 10 units SC Q12H [facility] Last Admin: 04/03/17 05:31 Dose: 10 units Insulin Human Regular (Humulin R) 0 units SC ACHS AIDE PRN Reason: Protocol Last Admin: 04/03/17 07:29 Dose: 3 units Ketorolac Tromethamine (Toradol) 30 mg IVP Q6 PRN PRN Reason: Pain, moderate (4-7) Stop: 04/06/17 15:30 Last Admin: 04/02/17 18:46 Dose: 30 mg Lisinopril (Zestril) 5 mg PO DAILY [facility] Last Admin: 04/03/17 09:16 Dose: 5 mg Morphine Sulfate (Morphine) 2 mg IVP Q6 PRN PRN Reason: Pain, severe (8-10) Silver Sulfadiazine (Silvadene 1% 20 Gm) 20 ea TOP DAILY [facility] Last Admin: 04/03/17 09:15 Dose: 1 applic - Labs Labs: 04/03/17 07:00 04/03/17 05:30 PT 10.2 Seconds (9.8-13.1) 04/02/17 10:44 INR 1.0 (0.9-1.2) 04/02/17 10:44 APTT 31.1 Seconds (25.6-37.1) 04/02/17 10:44 - Constitutional Appears: Non-toxic, No Acute Distress - Head Exam Head Exam: ATRAUMATIC, NORMAL INSPECTION - Eye Exam Eye Exam: Normal appearance - ENT Exam ENT Exam: Mucous Membranes Moist - Neck Exam Neck Exam: Normal Inspection - Respiratory Exam Respiratory Exam: Clear to Ausculation Bilateral - Cardiovascular Exam Cardiovascular Exam: REGULAR RHYTHM - GI/Abdominal Exam GI & Abdominal Exam: Soft - Extremities Exam Extremities Exam: absent: Calf Tenderness, Tenderness Additional comments: right foot: dressing intact, some discharge Assessment and Plan - Assessment and Plan (Free Text) Assessment: 56 year old male w/ PMH IDDM admitted with R foot diabetic foot ulcer with cellulitis. Plan: ID and podiatry on board, IV abx, pendng final MRI read for decision on duration abx, MIVF for sepsis and DM sepsis -improved -afebrile, WBC downtrending, tachycaria improved, negative lactate -2x MIVF decreased to 125cc/hr -Procalcitonin pending Acute right foot cellulitis: - ID and Podiatry consults appreciated -foot x ray: degenerative changes. 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 Soft tissue swelling. -ciprofloxacin 400 mg IV BID -Vancomicyn 1 mg IV BID. -MRI LE pending final read -blood culture NGTD -vanc trough before 4th dose IDDM -improved with IVF, K+ WNL -start NPH 10 units SC BID -Hold metformin 1000 mg BID -insulin sliding scale, accuchecks HTN- Elevated: -Amlodipine 10 mg PO daily. -Lisinopril increased to 10mg from 5 mg daily tachycardia -improved -MIVF -will consider metoprolol DVT prophylaxis -Lovenox 40 mg SC daily GI prophylaxis - famotidine 20 mg daily. Diet: regular, heart health
[2017-04-03] MEDS: Ciprofloxacin 400mg/200ml D5W 400 MG/200 ML BAG IVPB SCH ×2 (11:13→21:36)
--- NOTE | 2017-04-03 11:25 | MRI ---
PROCEDURE: MRI of the right foot without contrast HISTORY: right foot cellulitis COMPARISON: Comparison is made to the previous x-ray of the right foot dated 04/02/2017. No prior similar study available for comparison. TECHNIQUE: Axial coronal and sagittal MRI images of the right foot were obtained without IV contrast administration. 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 There is bone marrow edema and possible small erosion at the distal head of the 2nd metatarsal bone. There is also bone marrow edema at the 3rd metatarsal shaft and distal head. There is also bone marrow edema and erosion at the proximal phalanx of the 3rd toe. Findings suggestive of osteomyelitis at the 2nd metatarsal head and the 3rd metatarsal head and shaft as well as in the 3rd toe proximal phalanx. The possibility of septic arthritis at the 3rd metatarsophalangeal joint also is not totally excluded. The rest of the right foot osseous structure demonstrate no bone marrow edema or cortical erosion. There are degenerative changes seen at the tarsal and tarsal metatarsal joints.There is a diffuse soft tissue edema at the distal portion of the right foot. There is fluid collection and possible abscess around the 3rd metatarsal-phalangeal joint and proximal phalanx of the 3rd toe as well as adjacent to the 2nd toe and 2nd metatarsal pharyngeal joint. Diffuse increase signal of the soft tissue also noted at the mid portion of the right foot including the muscles and ligament. IMPRESSION: Abnormal study demonstrates bone marrow edema and cortical erosion suggestive of osteomyelitis involving the 2nd metatarsal head, 3rd metatarsal head and shaft as well as the proximal phalanx of the 3rd toe. Suspicious for septic arthritis involving the 3rd metatarsal-phalangeal joint. Large fluid collection suggestive of abscess formation or less likely joint effusion seen mainly at around the 3rd metatarsal-phalangeal joint and to a less degree extending to the 2nd toe. Diffuse soft tissue edema and increased T2 signal seen at the mid and distal portion of the right foot. Preliminary report was submitted by [facility].
--- NOTE | 2017-04-03 14:42 | CP.PCM.PN ---
Subjective - Date & Time of Evaluation Date of Evaluation: 04/03/17 Time of Evaluation: 13:00 - Subjective Subjective: ID Note- Pt. seen and examined today with the podiatry resident. Pt. denies any chills today but still has pain in the right foot with erythema. pt. now has developed a black colored blsiter along the dorsal aspect of the foot between 3rd and fourth toe. Objective - Vital Signs/Intake and Output Vital Signs (last 24 hours): Temp Pulse Resp BP Pulse Ox 97.7 F 71 18 177/83 H 96 04/03/17 13:00 04/03/17 13:00 04/03/17 13:00 04/03/17 13:00 04/03/17 13:00 Intake and Output: 04/03/17 04/03/17 06:59 18:59 Intake Total 2800 Output Total 1600 Balance 1200 - Medications Medications: Current Medications Acetaminophen (Tylenol 325mg Tab) 650 mg PO Q6 PRN PRN Reason: Pain, Mild (1-3) Amlodipine Besylate (Norvasc) 10 mg PO DAILY [facility] Last Admin: 04/03/17 09:15 Dose: 10 mg Atorvastatin Calcium (Lipitor) 40 mg PO HS [facility] Last Admin: 04/02/17 22:53 Dose: 40 mg Dextrose (Dextrose 50% Inj) 0 ml IV STAT PRN; Protocol PRN Reason: Hyglycemia Protocol Dextrose (Glutose 15) 0 gm PO ONCE PRN; Protocol PRN Reason: Hypoglycemia Protocol Enoxaparin Sodium (Lovenox) 40 mg SC DAILY AIDE PRN Reason: Protocol Last Admin: 04/03/17 09:14 Dose: 40 mg Famotidine (Pepcid) 20 mg PO DAILY [facility] Last Admin: 04/03/17 09:15 Dose: 20 mg Glucagon (Glucagen Diagnostic Kit) 0 mg IM STAT PRN; Protocol PRN Reason: Hypoglycemia Protocol Ciprofloxacin (Cipro 400mg/200ml Dsw) 400 mg in 200 mls @ 200 mls/hr IVPB Q12 AIDE Last Admin: 04/03/17 11:13 Dose: 200 mls/hr Vancomycin HCl 750 mg/ Sodium (Chloride) 250 mls @ 166.667 mls/hr IVPB Q12 [facility]IDE Last Admin: 04/03/17 09:09 Dose: 166.667 mls/hr Sodium Chloride (Sodium Chloride 0.9%) 1,000 mls @ 125 mls/hr IV .Q8H [facility] Last Admin: 04/03/17 11:57 Dose: 125 mls/hr Insulin Human NPH (Humulin N) 10 units SC Q12H [facility] Last Admin: 04/03/17 05:31 Dose: 10 units Insulin Human Regular (Humulin R) 0 units SC ACHS AIDE PRN Reason: Protocol Last Admin: 04/03/17 11:58 Dose: 5 units Ketorolac Tromethamine (Toradol) 30 mg IVP Q6 PRN PRN Reason: Pain, moderate (4-7) Stop: 04/06/17 15:30 Last Admin: 04/02/17 18:46 Dose: 30 mg Lisinopril (Zestril) 10 mg PO DAILY [facility] Morphine Sulfate (Morphine) 2 mg IVP Q6 PRN PRN Reason: Pain, severe (8-10) Silver Sulfadiazine (Silvadene 1% 20 Gm) 20 ea TOP DAILY [facility] Last Admin: 04/03/17 09:15 Dose: 1 applic - Labs Labs: - Additional Findings Additional findings: - Constitutional Appears: No Acute Distress - Head Exam Head Exam: ATRAUMATIC, NORMAL INSPECTION - Eye Exam Eye Exam: EOMI, PERRL - ENT Exam ENT Exam: Normal Oropharynx - Neck Exam Neck exam: Positive for: Full Rom - Respiratory Exam Respiratory Exam: Clear to Auscultation Bilateral, NORMAL BREATHING PATTERN - Cardiovascular Exam Cardiovascular Exam: RRR, +S1, +S2 - GI/Abdominal Exam GI & Abdominal Exam: Normal Bowel Sounds, Soft Additional comments: NT, ND - Extremities Exam Additional comments: right hallux s/p amputation, the entire dorsal foot with edema , erythema and warmth to touch and now has developed black blister like lesion between 3rd and fourth toe region on the dorsal foot plantar aspect with 1.5 cm x 1.5 cm x 0.5 cm ulceration at level of second and third metatarsal heads.fluctuance and edema and warm to touch as well no malodor minimal sanguinous d/c only erythema up to ankle level - Neurological Exam Neurological exam: Alert, Oriented x 3 Laboratory Results - last 72 hr 04/02/17 04/02/17 04/02/17 10:25 10:31 10:33 WBC RBC Hgb Hct MCV MCH MCHC RDW Plt Count MPV Neut % (Auto) Lymph % (Auto) [place] % (Auto) Eos % (Auto) Baso % (Auto) Neut # Lymph # [place] # Eos # Baso # Neutrophils % (Manual) Lymphocytes % (Manual) Monocytes % (Manual) Platelet Estimate Anisocytosis (manual) ESR PT INR APTT D-Dimer, Quantitative pO2 19 L VBG pH 7.40 VBG pCO2 44 VBG HCO3 24.3 VBG Total CO2 28.7 H VBG O2 Sat (Calc) 38.0 L VBG Base Excess 1.9 VBG Potassium 4.6 A-a O2 Difference 76.0 Sodium 125.0 L Chloride 85.0 L Glucose 564 H* D Lactate 1.9 FiO2 21.0 Crit Value Called To Dr ishan lópez Crit Value Called By 15 Crit Value Read Back Y Blood Gas Notified Time 1057 Potassium Carbon Dioxide Anion Gap BUN Creatinine Est GFR ( Amer) Est GFR (Non-Af Amer) POC Glucose (mg/dL) > 500 H* Random Glucose Calcium Phosphorus Magnesium Total Bilirubin AST ALT Alkaline Phosphatase Total Protein Albumin Globulin Albumin/Globulin Ratio Venous Blood Potassium 4.6 Urine Color Yellow Urine Clarity Slighty-cloudy Urine pH 6.0 Ur Specific [place] 1.025 Urine Protein >=500 Urine Glucose (UA) >=500 Urine Ketones Trace Urine Blood Small Urine Nitrate Negative Urine Bilirubin Negative Urine Urobilinogen 0.2-1.0 Ur Leukocyte Esterase Neg Urine RBC (Auto) 8 H Urine Microscopic WBC 3 Ur Squamous Epith Cells 5 Urine Bacteria Rare Granular Casts (Auto) 2 Urine Sperm (Auto) Occ 04/02/17 04/02/17 04/02/17 10:44 10:44 10:44 WBC 19.6 H D RBC 4.07 L Hgb 12.1 Hct 36.5 MCV 89.7 MCH 29.8 MCHC 33.3 RDW 12.5 Plt Count 259 MPV 8.9 Neut % (Auto) 90.6 H Lymph % (Auto) 3.9 L [place] % (Auto) 4.5 Eos % (Auto) 0.5 Baso % (Auto) 0.5 Neut # 17.8 H Lymph # 0.8 L [place] # 0.9 H Eos # 0.1 Baso # 0.1 Neutrophils % (Manual) 94 H Lymphocytes % (Manual) 2 L Monocytes % (Manual) 4 Platelet Estimate Normal Anisocytosis (manual) Slight ESR PT 10.2 INR 1.0 APTT 31.1 D-Dimer, Quantitative pO2 VBG pH VBG pCO2 VBG HCO3 VBG Total CO2 VBG O2 Sat (Calc) VBG Base Excess VBG Potassium A-a O2 Difference Sodium 127 L Chloride 87 L Glucose Lactate FiO2 Crit Value Called To Crit Value Called By Crit Value Read Back Blood Gas Notified Time Potassium 4.8 Carbon Dioxide 28 Anion Gap 17 BUN 31 H Creatinine 1.4 Est GFR ( Amer) > 60 Est GFR (Non-Af Amer) 52 POC Glucose (mg/dL) Random Glucose 550 H* D Calcium 9.9 Phosphorus 2.9 Magnesium 2.1 Total Bilirubin 0.7 AST 36 ALT 16 L D Alkaline Phosphatase 199 H D Total Protein 7.7 Albumin 3.9 Globulin 3.9 Albumin/Globulin Ratio 1.0 Venous Blood Potassium Urine Color Urine Clarity Urine pH Ur Specific [place] Urine Protein Urine Glucose (UA) Urine Ketones Urine Blood Urine Nitrate Urine Bilirubin Urine Urobilinogen Ur Leukocyte Esterase Urine RBC (Auto) Urine Microscopic WBC Ur Squamous Epith Cells Urine Bacteria Granular Casts (Auto) Urine Sperm (Auto) 04/02/17 04/02/17 04/02/17 11:59 13:52 15:37 WBC RBC Hgb Hct MCV MCH MCHC RDW Plt Count MPV Neut % (Auto) Lymph % (Auto) [place] % (Auto) Eos % (Auto) Baso % (Auto) Neut # Lymph # [place] # Eos # Baso # Neutrophils % (Manual) Lymphocytes % (Manual) Monocytes % (Manual) Platelet Estimate Anisocytosis (manual) ESR PT INR APTT D-Dimer, Quantitative pO2 VBG pH VBG pCO2 VBG HCO3 VBG Total CO2 VBG O2 Sat (Calc) VBG Base Excess VBG Potassium A-a O2 Difference Sodium Chloride Glucose Lactate FiO2 Crit Value Called To Crit Value Called By Crit Value Read Back Blood Gas Notified Time Potassium Carbon Dioxide Anion Gap BUN Creatinine Est GFR ( Amer) Est GFR (Non-Af Amer) POC Glucose (mg/dL) 369 H 360 H 396 H Random Glucose Calcium Phosphorus Magnesium Total Bilirubin AST ALT Alkaline Phosphatase Total Protein Albumin Globulin Albumin/Globulin Ratio Venous Blood Potassium Urine Color Urine Clarity Urine pH Ur Specific [place] Urine Protein Urine Glucose (UA) Urine Ketones Urine Blood Urine Nitrate Urine Bilirubin Urine Urobilinogen Ur Leukocyte Esterase Urine RBC (Auto) Urine Microscopic WBC Ur Squamous Epith Cells Urine Bacteria Granular Casts (Auto) Urine Sperm (Auto) 04/02/17 04/02/17 04/02/17 17:56 18:38 18:38 WBC RBC Hgb Hct MCV MCH MCHC RDW Plt Count MPV Neut % (Auto) Lymph % (Auto) [place] % (Auto) Eos % (Auto) Baso % (Auto) Neut # Lymph # [place] # Eos # Baso # Neutrophils % (Manual) Lymphocytes % (Manual) Monocytes % (Manual) Platelet Estimate Anisocytosis (manual) ESR 110 H PT INR APTT D-Dimer, Quantitative 765 H pO2 VBG pH VBG pCO2 VBG HCO3 VBG Total CO2 VBG O2 Sat (Calc) VBG Base Excess VBG Potassium A-a O2 Difference Sodium Chloride Glucose Lactate FiO2 Crit Value Called To Crit Value Called By Crit Value Read Back Blood Gas Notified Time Potassium Carbon Dioxide Anion Gap BUN Creatinine Est GFR ( Amer) Est GFR (Non-Af Amer) POC Glucose (mg/dL) 372 H Random Glucose Calcium Phosphorus Magnesium Total Bilirubin AST ALT Alkaline Phosphatase Total Protein Albumin Globulin Albumin/Globulin Ratio Venous Blood Potassium Urine Color Urine Clarity Urine pH Ur Specific [place] Urine Protein Urine Glucose (UA) Urine Ketones Urine Blood Urine Nitrate Urine Bilirubin Urine Urobilinogen Ur Leukocyte Esterase Urine RBC (Auto) Urine Microscopic WBC Ur Squamous Epith Cells Urine Bacteria Granular Casts (Auto) Urine Sperm (Auto) 04/02/17 04/02/17 04/03/17 22:07 23:05 05:30 WBC RBC Hgb Hct MCV MCH MCHC RDW Plt Count MPV Neut % (Auto) Lymph % (Auto) [place] % (Auto) Eos % (Auto) Baso % (Auto) Neut # Lymph # [place] # Eos # Baso # Neutrophils % (Manual) Lymphocytes % (Manual) Monocytes % (Manual) Platelet Estimate Anisocytosis (manual) ESR PT INR APTT D-Dimer, Quantitative pO2 VBG pH VBG pCO2 VBG HCO3 VBG Total CO2 VBG O2 Sat (Calc) VBG Base Excess VBG Potassium A-a O2 Difference Sodium 132 136 Chloride 97 L 100 Glucose Lactate FiO2 Crit Value Called To Crit Value Called By Crit Value Read Back Blood Gas Notified Time Potassium 3.7 3.6 Carbon Dioxide 23 24 Anion Gap 16 16 BUN 26 H 20 Creatinine 1.2 1.0 Est GFR ( Amer) > 60 > 60 Est GFR (Non-Af Amer) > 60 > 60 POC Glucose (mg/dL) 338 H Random Glucose 326 H 262 H Calcium 9.2 9.1 Phosphorus Magnesium Total Bilirubin 0.5 0.5 AST 27 23 ALT 17 L 15 L Alkaline Phosphatase 143 H D 143 H Total Protein 6.7 6.9 Albumin 3.3 L 3.3 L Globulin 3.4 3.6 Albumin/Globulin Ratio 1.0 0.9 L Venous Blood Potassium Urine Color Urine Clarity Urine pH Ur Specific [place] Urine Protein Urine Glucose (UA) Urine Ketones Urine Blood Urine Nitrate Urine Bilirubin Urine Urobilinogen Ur Leukocyte Esterase Urine RBC (Auto) Urine Microscopic WBC Ur Squamous Epith Cells Urine Bacteria Granular Casts (Auto) Urine Sperm (Auto) 04/03/17 04/03/17 04/03/17 05:31 07:00 07:10 WBC 14.0 H RBC 3.72 L Hgb 11.0 L Hct 33.5 L MCV 90.1 MCH 29.6 MCHC 32.9 L RDW 12.6 Plt Count 254 MPV 9.4 Neut % (Auto) 85.6 H Lymph % (Auto) 8.9 L [place] % (Auto) 4.4 Eos % (Auto) 0.2 Baso % (Auto) 0.9 Neut # 12.0 H Lymph # 1.3 [place] # 0.6 Eos # 0.0 Baso # 0.1 Neutrophils % (Manual) Lymphocytes % (Manual) Monocytes % (Manual) Platelet Estimate Anisocytosis (manual) ESR PT INR APTT D-Dimer, Quantitative pO2 VBG pH VBG pCO2 VBG HCO3 VBG Total CO2 VBG O2 Sat (Calc) VBG Base Excess VBG Potassium A-a O2 Difference Sodium Chloride Glucose Lactate FiO2 Crit Value Called To Crit Value Called By Crit Value Read Back Blood Gas Notified Time Potassium Carbon Dioxide Anion Gap BUN Creatinine Est GFR ( Amer) Est GFR (Non-Af Amer) POC Glucose (mg/dL) 289 H 163 H Random Glucose Calcium Phosphorus Magnesium Total Bilirubin AST ALT Alkaline Phosphatase Total Protein Albumin Globulin Albumin/Globulin Ratio Venous Blood Potassium Urine Color Urine Clarity Urine pH Ur Specific [place] Urine Protein Urine Glucose (UA) Urine Ketones Urine Blood Urine Nitrate Urine Bilirubin Urine Urobilinogen Ur Leukocyte Esterase Urine RBC (Auto) Urine Microscopic WBC Ur Squamous Epith Cells Urine Bacteria Granular Casts (Auto) Urine Sperm (Auto) 04/03/17 11:41 WBC RBC Hgb Hct MCV MCH MCHC RDW Plt Count MPV Neut % (Auto) Lymph % (Auto) [place] % (Auto) Eos % (Auto) Baso % (Auto) Neut # Lymph # [place] # Eos # Baso # Neutrophils % (Manual) Lymphocytes % (Manual) Monocytes % (Manual) Platelet Estimate Anisocytosis (manual) ESR PT INR APTT D-Dimer, Quantitative pO2 VBG pH VBG pCO2 VBG HCO3 VBG Total CO2 VBG O2 Sat (Calc) VBG Base Excess VBG Potassium A-a O2 Difference Sodium Chloride Glucose Lactate FiO2 Crit Value Called To Crit Value Called By Crit Value Read Back Blood Gas Notified Time Potassium Carbon Dioxide Anion Gap BUN Creatinine Est GFR ( Amer) Est GFR (Non-Af Amer) POC Glucose (mg/dL) 356 H Random Glucose Calcium Phosphorus Magnesium Total Bilirubin AST ALT Alkaline Phosphatase Total Protein Albumin Globulin Albumin/Globulin Ratio Venous Blood Potassium Urine Color Urine Clarity Urine pH Ur Specific [place] Urine Protein Urine Glucose (UA) Urine Ketones Urine Blood Urine Nitrate Urine Bilirubin Urine Urobilinogen Ur Leukocyte Esterase Urine RBC (Auto) Urine Microscopic WBC Ur Squamous Epith Cells Urine Bacteria Granular Casts (Auto) Urine Sperm (Auto) Microbiology 04/02/17 10:44 Blood Blood Culture - Preliminary Gram Positive Cocci 04/02/17 10:44 Blood Gram Stain - Final 04/02/17 11:08 Urine Urine Culture - Final No Growth (<1,000 CFU/ML) Accession No. : [id number] Patient Name / ID : REID OZUNA / [id number] Exam Date : 04/02/2017 16:59:50 ( Approved ) Study Comment : Sex / Age : M / 56Y Creator : Ja Payan Dictator : Ja Payan Rehabilitation Consultant : Engineer Automated Equipment : Ja Payan Approver2 : Report Date : 04/03/2017 11:23:48 My Comment : PROCEDURE: MRI of the right foot without contrast HISTORY: right foot cellulitis COMPARISON: Comparison is made to the previous x-ray of the right foot dated 04/02/2017. No prior similar study available for comparison. TECHNIQUE: Axial coronal and sagittal MRI images of the right foot were obtained without IV contrast administration. 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 There is bone marrow edema and possible small erosion at the distal head of the 2nd metatarsal bone. There is also bone marrow edema at the 3rd metatarsal shaft and distal head. There is also bone marrow edema and erosion at the proximal phalanx of the 3rd toe. Findings suggestive of osteomyelitis at the 2nd metatarsal head and the 3rd metatarsal head and shaft as well as in the 3rd toe proximal phalanx. The possibility of septic arthritis at the 3rd metatarsophalangeal joint also is not totally excluded. The rest of the right foot osseous structure demonstrate no bone marrow edema or cortical erosion. There are degenerative changes seen at the tarsal and tarsal metatarsal joints.There is a diffuse soft tissue edema at the distal portion of the right foot. There is fluid collection and possible abscess around the 3rd metatarsal-phalangeal joint and proximal phalanx of the 3rd toe as well as adjacent to the 2nd toe and 2nd metatarsal pharyngeal joint. Diffuse increase signal of the soft tissue also noted at the mid portion of the right foot including the muscles and ligament. IMPRESSION: Abnormal study demonstrates bone marrow edema and cortical erosion suggestive of osteomyelitis involving the 2nd metatarsal head, 3rd metatarsal head and shaft as well as the proximal phalanx of the 3rd toe. Suspicious for septic arthritis involving the 3rd metatarsal-phalangeal joint. Large fluid collection suggestive of abscess formation or less likely joint effusion seen mainly at around the 3rd metatarsal-phalangeal joint and to a less degree extending to the 2nd toe. Diffuse soft tissue edema and increased T2 signal seen at the mid and distal portion of the right foot. Preliminary report was submitted by [facility]. Assessment and Plan (1) Cellulitis and abscess of foot Status: Acute (2) Leukocytosis Status: Acute (3) Diabetes Status: Acute (4) Osteomyelitis of ankle or foot, right, acute Status: Acute - Assessment and Plan (Free Text) Assessment: A/P- 56 year old male with uncontrolled diabetes presents with right foot cellulitis most likely secondary to plantar ulcer. afebrile today leukocytoiss trending down blood cx- prelim gram pos cocci in chains MRI of the foot positive for OM and septic joint( as per report) high ESR PLan- await ID and sensitivity of the GPC in blood cx. cehck 2 more blood cx. OM of the right foot . continue with IV vancomycin 1 gram q12 and keep trough <15. day #2. continue with IV cipro as well, day #2. pt. needs surgical intervention of the right foot as he has both fluid colection / and OM and must be addressed as soon as possible. all above d/w podiatry resident at length and family practice team.
--- NOTE | 2017-04-03 21:16 | CP.PCM.PN ---
Subjective - Date & Time of Evaluation Date of Evaluation: 04/03/17 Time of Evaluation: 11:00 - Subjective Subjective: 56 y/o male was seen at bedside for right cellulitis secondary to plantar foot ulceration and DM. He is seen a bedside resting comfortably, NAD, and AA0x3. Patient states that he is in pain today. Rates the pain being 8 out of 10 and describes the pain being localized to the right foot. Patient denies overnight events. Denies n/v/sob/cp/chills or f. Objective - Vital Signs/Intake and Output Vital Signs (last 24 hours): Temp Pulse Resp BP Pulse Ox 99.7 F H 109 H 18 144/74 96 04/03/17 21:08 04/03/17 19:08 04/03/17 19:08 04/03/17 19:08 04/03/17 19:08 Intake and Output: 04/03/17 04/04/17 18:59 06:59 Intake Total 2045 Output Total 840 Balance 1205 - Medications Medications: Current Medications Acetaminophen (Tylenol 325mg Tab) 650 mg PO Q6 PRN PRN Reason: Pain, Mild (1-3) Amlodipine Besylate (Norvasc) 10 mg PO DAILY [facility] Last Admin: 04/03/17 09:15 Dose: 10 mg Atorvastatin Calcium (Lipitor) 40 mg PO HS [facility] Last Admin: 04/02/17 22:53 Dose: 40 mg Dextrose (Dextrose 50% Inj) 0 ml IV STAT PRN; Protocol PRN Reason: Hyglycemia Protocol Dextrose (Glutose 15) 0 gm PO ONCE PRN; Protocol PRN Reason: Hypoglycemia Protocol Enoxaparin Sodium (Lovenox) 40 mg SC DAILY AIDE PRN Reason: Protocol Last Admin: 04/03/17 09:14 Dose: 40 mg Famotidine (Pepcid) 20 mg PO DAILY [facility] Last Admin: 04/03/17 09:15 Dose: 20 mg Glucagon (Glucagen Diagnostic Kit) 0 mg IM STAT PRN; Protocol PRN Reason: Hypoglycemia Protocol Ciprofloxacin (Cipro 400mg/200ml Dsw) 400 mg in 200 mls @ 200 mls/hr IVPB Q12 AIDE Last Admin: 04/03/17 11:13 Dose: 200 mls/hr Vancomycin HCl 750 mg/ Sodium (Chloride) 250 mls @ 166.667 mls/hr IVPB Q12 AIDE Last Admin: 04/03/17 09:09 Dose: 166.667 mls/hr Sodium Chloride (Sodium Chloride 0.9%) 1,000 mls @ 125 mls/hr IV .Q8H [facility] Last Admin: 04/03/17 20:18 Dose: 125 mls/hr Insulin Human NPH (Humulin N) 10 units SC Q12H [facility] Last Admin: 04/03/17 16:30 Dose: 10 units Insulin Human Regular (Humulin R) 0 units SC ACHS [facility] PRN Reason: Protocol Last Admin: 04/03/17 16:30 Dose: 1 units Ketorolac Tromethamine (Toradol) 30 mg IVP Q6 PRN PRN Reason: Pain, moderate (4-7) Stop: 04/06/17 15:30 Last Admin: 04/02/17 18:46 Dose: 30 mg Lisinopril (Zestril) 10 mg PO DAILY [facility] Morphine Sulfate (Morphine) 2 mg IVP Q6 PRN PRN Reason: Pain, severe (8-10) Silver Sulfadiazine (Silvadene 1% 20 Gm) 20 ea TOP DAILY [facility] Last Admin: 04/03/17 09:15 Dose: 1 applic - Labs Labs: 04/03/17 07:00 04/03/17 05:30 PT 10.2 Seconds (9.8-13.1) 04/02/17 10:44 INR 1.0 (0.9-1.2) 04/02/17 10:44 APTT 31.1 Seconds (25.6-37.1) 04/02/17 10:44 - Constitutional Appears: Well, Non-toxic, No Acute Distress - Extremities Exam Additional comments: Vasc: DP/PT fully palpable 2/4. CFT < 3 seconds to all digits. Skin temperature warm to warm from proximal to distal on the right foot Derm: Approx 1.5 cm x 1.5 cm x 0.5 cm ulceration noted to plantar aspect of patient's right foot at level of second and third metatarsal heads. Meena-wound hyperkeratosis noted, No purulent drainage, minimal seroserous drainage noted, no periwound erythema, no malodor. No probe to bone, no tunneling, tracking or undermining noted. cellulitic changes noted on the dorsum of the right foot extending distal to the ankle joint Dark hemorrhagic abscess noted to the dorsum of the foot at the level of 3rd MPJ measuring approximately about 3 x 3 cm. When incised through the abscess and drained, approximately 1cc of hemmorhagic fluid with some purulence expressed Neuro: Epicritic and protective sensation grossly intact MSK: Minimal tenderness upon palpation noted to right foot plantar ulcer - Neurological Exam Neurological Exam: Alert, Awake, Oriented x3 - Psychiatric Exam Psychiatric exam: Normal Affect, Normal Mood Assessment and Plan - Assessment and Plan (Free Text) Assessment: 56 year old male with dorsum abscess and cellulites of the right foot secondary to plantar foot ulceration and DM Plan: Patient seen and evaluated at bedside with attending Dr. Salazar Labs, charts and vitals reviewed; 99.7, WBC 14.0 Xray- negative OM or gas, severely plantarflexed metatarsal heads MRI- OM of 2nd met head, 3rd met head and shaft, 3rd proximal phalanx. Large abscess at 3rd MPJ and extending to 2nd digit Continue ABx per ID I and D performed at bedside. Patient verbally consented to procedure. All benefits, risks, and complications explained to patient in detail. Patient reports verbal understanding. An incision and drainage was performed. Patient tolerated the procedure. Incision was dressed with Betadine soaked gauze, Silvadene, DSD, ABD, and cling. New deep wound culture taken- ordered. Pending results. At this time, podiatry plans no surgical invention. Will see how patient responds to I and D and abx regimen to treat infection. Podiatry will continue to follow while patient is in-house
[2017-04-04] MEDS: Insulin NPH Human 100 Units/ml Inj SC SCH ×2 (03:37→21:36)
[2017-04-04] MEDS: Sodium Chloride 0.9% 1,000 ML IV SCH ×3 (03:38→20:29)
[2017-04-04] MEDS: Insulin Regular 100 units/ml SC SCH ×4 (06:33→21:34)
[2017-04-04 07:12] LABS: BLOOD UREA NITROGEN 13 mg/dl (9-20); CALCIUM 8.7 mg/dL (8.4-10.2); CARBON DIOXIDE 27 mmol/L (22-30); CHLORIDE 100 mmol/L (98-107); GFR AFRICAN-AMERICAN > 60; GLUCOSE,RANDOM 231 mg/dL (75-110); POTASSIUM 2.9 MMOL/L (3.6-5.0); SODIUM 136 mmol/l (132-148)
[2017-04-04] MEDS: Potassium CL 10 MEQ/50 ML 50 ML IVPB SCH ×5 (08:36→22:58)
[2017-04-04] MEDS: Enoxaparin 40 mg Syringe SC SCH (08:38)
[2017-04-04] MEDS: Ciprofloxacin 400mg/200ml D5W 400 MG/200 ML BAG IVPB SCH ×2 (09:57→20:32)
--- NOTE | 2017-04-04 10:02 | CP.PCM.PN ---
Subjective - Date & Time of Evaluation Date of Evaluation: 04/04/17 Time of Evaluation: 09:20 - Subjective Subjective: Patient seen and examined this morning. Pt reports he felt feverish last night but no chills. Reports no fever this morning. Reports mild right foot pain. Denies chest pain, dyspnea, headache or dizziness. Pt is tolerating PO. Normal voiding and regular BM. Objective - Vital Signs/Intake and Output Vital Signs (last 24 hours): Temp Pulse Resp BP Pulse Ox 100.2 F H 91 H 16 151/75 H 98 04/04/17 08:02 04/04/17 08:37 04/04/17 08:02 04/04/17 08:37 04/04/17 08:02 - Medications Medications: Current Medications Acetaminophen (Tylenol 325mg Tab) 650 mg PO Q6 PRN PRN Reason: Pain, Mild (1-3) Last Admin: 04/04/17 08:40 Dose: 650 mg Amlodipine Besylate (Norvasc) 10 mg PO DAILY [facility] Last Admin: 04/04/17 08:37 Dose: 10 mg Atorvastatin Calcium (Lipitor) 40 mg PO HS [facility] Last Admin: 04/03/17 21:38 Dose: 40 mg Dextrose (Dextrose 50% Inj) 0 ml IV STAT PRN; Protocol PRN Reason: Hyglycemia Protocol Dextrose (Glutose 15) 0 gm PO ONCE PRN; Protocol PRN Reason: Hypoglycemia Protocol Enoxaparin Sodium (Lovenox) 40 mg SC DAILY [facility] PRN Reason: Protocol Last Admin: 04/04/17 08:38 Dose: 40 mg Famotidine (Pepcid) 20 mg PO DAILY [facility] Last Admin: 04/04/17 08:36 Dose: 20 mg Glucagon (Glucagen Diagnostic Kit) 0 mg IM STAT PRN; Protocol PRN Reason: Hypoglycemia Protocol Ciprofloxacin (Cipro 400mg/200ml Dsw) 400 mg in 200 mls @ 200 mls/hr IVPB Q12 [facility] Last Admin: 04/04/17 09:57 Dose: 200 mls/hr Sodium Chloride (Sodium Chloride 0.9%) 1,000 mls @ 125 mls/hr IV .Q8H [facility] Last Admin: 04/04/17 03:38 Dose: 125 mls/hr Potassium Chloride (Potassium Cl 10meq/50ml Sterile Water) 50 mls @ 50 mls/hr IVPB Q1 [facility] Stop: 04/04/17 12:59 Last Admin: 04/04/17 09:57 Dose: 50 mls/hr Vancomycin HCl 1,250 mg/ (Sodium Chloride) 250 mls @ 125 mls/hr IVPB Q12 [facility] Last Admin: 04/04/17 09:56 Dose: 125 mls/hr Insulin Human NPH (Humulin N) 10 units SC Q12H [facility] Last Admin: 04/04/17 03:37 Dose: 10 units Insulin Human Regular (Humulin R) 0 units SC ACHS [facility] PRN Reason: Protocol Last Admin: 04/04/17 06:33 Dose: 3 units Ketorolac Tromethamine (Toradol) 30 mg IVP Q6 PRN PRN Reason: Pain, moderate (4-7) Stop: 04/06/17 15:30 Last Admin: 04/02/17 18:46 Dose: 30 mg Lisinopril (Zestril) 10 mg PO DAILY [facility] Last Admin: 04/04/17 08:37 Dose: 10 mg Morphine Sulfate (Morphine) 2 mg IVP Q6 PRN PRN Reason: Pain, severe (8-10) Silver Sulfadiazine (Silvadene 1% 20 Gm) 20 ea TOP DAILY [facility] Last Admin: 04/03/17 09:15 Dose: 1 applic - Labs Labs: 04/03/17 07:00 04/04/17 04:00 PT 10.2 Seconds (9.8-13.1) 04/02/17 10:44 INR 1.0 (0.9-1.2) 04/02/17 10:44 APTT 31.1 Seconds (25.6-37.1) 04/02/17 10:44 - Constitutional Appears: Well, No Acute Distress - Head Exam Head Exam: NORMAL INSPECTION - Eye Exam Eye Exam: Normal appearance - ENT Exam ENT Exam: Mucous Membranes Moist - Neck Exam Neck Exam: Normal Inspection - Respiratory Exam Respiratory Exam: Clear to Ausculation Bilateral, NORMAL BREATHING PATTERN. absent: Rales, Rhonchi, Wheezes - Cardiovascular Exam Cardiovascular Exam: REGULAR RHYTHM, RRR, +S1, +S2 - GI/Abdominal Exam GI & Abdominal Exam: Soft, Normal Bowel Sounds. absent: Tenderness - Extremities Exam Extremities Exam: Normal Capillary Refill, Normal Inspection. absent: Calf Tenderness - Back Exam Additional comments: Dressing intact in right foot. Dressing looks clean, dry and intact. No visible discharge or blood seen. NVI. - Neurological Exam Neurological Exam: Alert, Awake, Oriented x3 - Psychiatric Exam Psychiatric exam: Normal Affect, Normal Mood Assessment and Plan - Assessment and Plan (Free Text) Assessment: Assessment and plan: 56 year old male w/ PMH IDDM admitted with R foot diabetic foot ulcer with cellulitis. Plan: ID and podiatry on board, IV abx, pendng final MRI read for decision on duration abx, MIVF for sepsis and DM 1. Sepsis -Febrile( Tmax last night 102.5 F) -WBC downtrending, tachycaria improved, negative lactate -2x MIVF decreased to 125cc/hr -Procalcitonin pending -CBC -Repeat blood cx pending 2. Acute right foot cellulitis: - ID and Podiatry consults appreciated -foot x ray: degenerative changes. 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 Soft tissue swelling. -ciprofloxacin 400 mg IV BID -increase vancomicyn to 1200 mg IV BID. - vanc trough: 5.6 - blood cx- prelim gram pos cocci in chains -Repeat blood cx pending -MRI of the foot positive for OM and septic joint( as per report) -high ESR 3. Hypokalemia -Asymptomatic -K 2.9 -KCl 40 meq -check K 4. IDDM -improved with IVF. -Increase NPH 15 units SC PM and 10 units AM. -Hold metformin 1000 mg BID -insulin sliding scale, accuchecks 5.HTN- Elevated: -Amlodipine 10 mg PO daily. -Lisinopril increased to 10mg from 5 mg daily 6. Tachycardia -improved -MIVF -will consider metoprolol 7.DVT prophylaxis -Lovenox 40 mg SC daily 8.GI prophylaxis - famotidine 20 mg daily. Diet: regular, heart health
[2017-04-04] MEDS ORDERED: Povidone Iodine Topical 10% Sol TOP ONE (10:17)
[2017-04-04] MEDS: Silver Sulfadiazine 1% Cream (20 gm) TOP SCH (11:20)
--- NOTE | 2017-04-04 16:08 | CP.PCM.PN ---
Subjective - Date & Time of Evaluation Date of Evaluation: 04/04/17 Time of Evaluation: 11:00 - Subjective Subjective: 56 y/o male was seen at bedside for right cellulitis and 1 day s/p incision and drainage at bedside secondary to plantar foot ulceration and DM. Patient is seen resting comfortably in bed. Patient is in NAD and AAOx3. Patient states that his pain has diminished slightly. Reports intermittent throbbing pain to the right foot. Dressing is c/d/i with mild strikethrought noted to the dressing. PAtient denies n/v/sob/cp/chills or f at this moment. Objective - Vital Signs/Intake and Output Vital Signs (last 24 hours): Temp Pulse Resp BP Pulse Ox 99.8 F H 94 H 14 133/71 97 04/04/17 15:57 04/04/17 15:57 04/04/17 15:57 04/04/17 15:57 04/04/17 15:57 - Medications Medications: Current Medications Acetaminophen (Tylenol 325mg Tab) 650 mg PO Q6 PRN PRN Reason: Pain, Mild (1-3) Last Admin: 04/04/17 08:40 Dose: 650 mg Amlodipine Besylate (Norvasc) 10 mg PO DAILY [facility] Last Admin: 04/04/17 08:37 Dose: 10 mg Atorvastatin Calcium (Lipitor) 40 mg PO HS [facility] Last Admin: 04/03/17 21:38 Dose: 40 mg Dextrose (Dextrose 50% Inj) 0 ml IV STAT PRN; Protocol PRN Reason: Hyglycemia Protocol Dextrose (Glutose 15) 0 gm PO ONCE PRN; Protocol PRN Reason: Hypoglycemia Protocol Enoxaparin Sodium (Lovenox) 40 mg SC DAILY [facility] PRN Reason: Protocol Last Admin: 04/04/17 08:38 Dose: 40 mg Famotidine (Pepcid) 20 mg PO DAILY [facility] Last Admin: 04/04/17 08:36 Dose: 20 mg Glucagon (Glucagen Diagnostic Kit) 0 mg IM STAT PRN; Protocol PRN Reason: Hypoglycemia Protocol Ciprofloxacin (Cipro 400mg/200ml Dsw) 400 mg in 200 mls @ 200 mls/hr IVPB Q12 [facility] Last Admin: 04/04/17 09:57 Dose: 200 mls/hr Sodium Chloride (Sodium Chloride 0.9%) 1,000 mls @ 125 mls/hr IV .Q8H [facility] Last Admin: 04/04/17 11:23 Dose: 125 mls/hr Vancomycin HCl 1,250 mg/ (Sodium Chloride) 250 mls @ 125 mls/hr IVPB Q12 [facility] Last Admin: 04/04/17 09:56 Dose: 125 mls/hr Insulin Human NPH (Humulin N) 15 units SC HS [facility] Insulin Human NPH (Humulin N) 10 units SC QAM [facility] Insulin Human Regular (Humulin R) 0 units SC ACHS [facility] PRN Reason: Protocol Last Admin: 04/04/17 11:24 Dose: 5 units Ketorolac Tromethamine (Toradol) 30 mg IVP Q6 PRN PRN Reason: Pain, moderate (4-7) Stop: 04/06/17 15:30 Last Admin: 04/02/17 18:46 Dose: 30 mg Lactobacillus Acidophilus (Bacid Acidophilus) 1 cap PO BID [facility] Lisinopril (Zestril) 10 mg PO DAILY [facility] Last Admin: 04/04/17 08:37 Dose: 10 mg Morphine Sulfate (Morphine) 2 mg IVP Q6 PRN PRN Reason: Pain, severe (8-10) Senna/Docusate Sodium (Senokot S 50 Mg-8.6 Mg) 2 tab PO HS [facility] Silver Sulfadiazine (Silvadene 1% 20 Gm) 20 ea TOP DAILY [facility] Last Admin: 04/04/17 11:20 Dose: 1 applic - Labs Labs: 04/03/17 07:00 04/04/17 13:00 PT 10.2 Seconds (9.8-13.1) 04/02/17 10:44 INR 1.0 (0.9-1.2) 04/02/17 10:44 APTT 31.1 Seconds (25.6-37.1) 04/02/17 10:44 - Constitutional Appears: Non-toxic, No Acute Distress - Extremities Exam Additional comments: Vasc: DP/PT fully palpable 2/4. CFT < 3 seconds to all digits. Skin temperature warm to warm from proximal to distal on the right foot, mild edema noted to the right foot Derm: Approx 1.5 cm x 1.5 cm x 0.5 cm ulceration noted to plantar aspect of patient's right foot at level of second and third metatarsal heads. Meena-wound hyperkeratosis noted, No purulent drainage, minimal seroserous drainage noted, no periwound erythema, no malodor. No probe to bone, no tunneling, tracking or undermining noted. cellulitic changes noted on the dorsum of the right foot extending distal to the ankle joint Opening on dorsum of the foot at the level of 3rd MPJ measuring approximately about 2cm x 2cm x .5 cm with mixture of granular and fibrotic base. Periwound is macerated. Maceration is noted to the 3rd interspace. Less than .5 cc of sangious purulence drainage expressed from the opening. Neuro: Epicritic and protective sensation grossly intact MSK: Minimal tenderness upon palpation noted to right foot plantar ulcer - Neurological Exam Neurological Exam: Altered, Awake, Oriented x3 - Psychiatric Exam Psychiatric exam: Normal Affect, Normal Mood Assessment and Plan - Assessment and Plan (Free Text) Assessment: 56 year old male with dorsum abscess and cellulites of the right foot secondary to plantar foot ulceration and DM Plan: Patient seen and evaluated at bedside with attending Dr. Salazar Labs, charts and vitals reviewed; 99.8, WBC 14.0 (04/03) Xray- negative OM or gas, severely plantarflexed metatarsal heads MRI- OM of 2nd met head, 3rd met head and shaft, 3rd proximal phalanx. Large abscess at 3rd MPJ and extending to 2nd digit Wound culture ordered preliminary Strep Agalactiae Group B Continue ABx per ID At this time, podiatry plans no surgical invention. Will see how patient responds to I and D and abx regimen to treat infection. Packing removed, dorsum pocket cleansed with betadine saline 1:1 mixture in copious amounts, packed with plain packing. Will pack with idoforom when on floors. Dorsum and plantar ulceration dressed with betadine W2D, silvadene DSD, ABD, and kerlix. Betadine w2d dressing applied to the 3rd interspace Podiatry will continue to follow while patient is in-house
[2017-04-04] MEDS: Lactobacillus Acidophilus 500 MU Cap PO SCH (16:37)
[2017-04-04 20:27] LABS: BASO # 0.1 K/uL (0.0-0.2); BASO % 1.2 % (0.0-2.0); EOS # 0.1 K/uL (0.0-0.7); HEMATOCRIT 29.6 % (35.0-51.0); LYMPH # 1.7 K/uL (1.0-4.3); LYMPH % 14.4 % (20.0-40.0); MEAN CELL VOLUME 89.8 fl (80.0-94.0); MEAN CORPUSCULAR HEMOGLOBIN 29.6 pg (27.0-31.0); MEAN CORPUSCULAR HGB CONC 32.9 g/dL (33.0-37.0); MEAN PLATELET VOLUME 8.5 fl (7.2-11.7); MONO # 0.8 K/uL (0.0-0.8); MONO % 6.4 % (0.0-10.0); NEUT # 9.1 K/uL (1.8-7.0); RED CELL DISTRIBUTION WIDTH 12.6 % (11.5-14.5); WHITE BLOOD COUNT 11.9 K/uL (4.8-10.8)
[2017-04-04] MEDS: Docusate-Senna 50 mg-8.6 mg Tab PO SCH (21:39)
[2017-04-05] MEDS: Potassium CL 10 MEQ/50 ML 50 ML IVPB SCH ×3 (01:01→02:03)
[2017-04-05 05:42] LABS: HEMATOCRIT 31.8 % (35.0-51.0); MEAN CELL VOLUME 89.6 fl (80.0-94.0); MEAN CORPUSCULAR HEMOGLOBIN 30.3 pg (27.0-31.0); MEAN CORPUSCULAR HGB CONC 33.9 g/dL (33.0-37.0); RED CELL DISTRIBUTION WIDTH 12.5 % (11.5-14.5); WHITE BLOOD COUNT 10.9 K/uL (4.8-10.8)
[2017-04-05] MEDS: Sodium Chloride 0.9% 1,000 ML IV SCH (05:56)
[2017-04-05 06:07] LABS: BLOOD UREA NITROGEN 12 mg/dl (9-20); CALCIUM 9.1 mg/dL (8.4-10.2); CARBON DIOXIDE 27 mmol/L (22-30); CHLORIDE 102 mmol/L (98-107); GFR AFRICAN-AMERICAN > 60; GLUCOSE,RANDOM 226 mg/dL (75-110); POTASSIUM 3.7 MMOL/L (3.6-5.0); SODIUM 136 mmol/l (132-148)
[2017-04-05] MEDS: Insulin Regular 100 units/ml SC SCH ×4 (06:43→21:17)
[2017-04-05] MEDS: Lactobacillus Acidophilus 500 MU Cap PO SCH ×2 (08:17→16:13)
[2017-04-05] MEDS: Enoxaparin 40 mg Syringe SC SCH (08:18)
[2017-04-05] MEDS: Insulin NPH Human 100 Units/ml Inj SC SCH ×2 (08:19→21:18)
[2017-04-05] MEDS: Ciprofloxacin 400mg/200ml D5W 400 MG/200 ML BAG IVPB SCH ×2 (08:20→21:09)
[2017-04-05] MEDS: Silver Sulfadiazine 1% Cream (20 gm) TOP SCH ×2 (08:21→16:11)
--- NOTE | 2017-04-05 08:29 | CP.PCM.PN ---
Subjective - Date & Time of Evaluation Date of Evaluation: 04/05/17 Time of Evaluation: 08:25 - Subjective Subjective: 56 y/o male seen at bedside for right cellulitis and 2 day s/p incision and drainage at bedside secondary to foot ulceration and DM. Patient is seen resting comfortably on his chair. Patient is in NAD and AAOx3. Patient states that he is aware of a possibly surgery today. Patient states that he is aware of not eating or drinking after breakfast this morning. Patient denies of any pain in his right foot now. Dressing is c/d/i. Patient denies of any recent F/N/ V/C/SOB/CP. Patient denies of any other pedal complains at this time. Objective - Vital Signs/Intake and Output Vital Signs (last 24 hours): Temp Pulse Resp BP Pulse Ox 98.9 F 95 H 18 121/73 97 04/05/17 08:00 04/05/17 08:18 04/05/17 08:00 04/05/17 08:18 04/05/17 08:00 Intake and Output: 04/05/17 04/05/17 06:59 18:59 Intake Total 3110 Output Total 3750 Balance -640 - Medications Medications: Current Medications Acetaminophen (Tylenol 325mg Tab) 650 mg PO Q6 PRN PRN Reason: Pain, Mild (1-3) Last Admin: 04/04/17 08:40 Dose: 650 mg Amlodipine Besylate (Norvasc) 10 mg PO DAILY [facility] Last Admin: 04/05/17 08:18 Dose: 10 mg Atorvastatin Calcium (Lipitor) 40 mg PO HS [facility] Last Admin: 04/04/17 21:39 Dose: 40 mg Dextrose (Dextrose 50% Inj) 0 ml IV STAT PRN; Protocol PRN Reason: Hyglycemia Protocol Dextrose (Glutose 15) 0 gm PO ONCE PRN; Protocol PRN Reason: Hypoglycemia Protocol Enoxaparin Sodium (Lovenox) 40 mg SC DAILY [facility] PRN Reason: Protocol Last Admin: 04/05/17 08:18 Dose: Not Given Famotidine (Pepcid) 20 mg PO DAILY [facility] Last Admin: 04/05/17 08:17 Dose: 20 mg Glucagon (Glucagen Diagnostic Kit) 0 mg IM STAT PRN; Protocol PRN Reason: Hypoglycemia Protocol Ciprofloxacin (Cipro 400mg/200ml Dsw) 400 mg in 200 mls @ 200 mls/hr IVPB Q12 [facility] Last Admin: 04/05/17 08:20 Dose: 200 mls/hr Sodium Chloride (Sodium Chloride 0.9%) 1,000 mls @ 125 mls/hr IV .Q8H [facility] Last Admin: 04/05/17 05:56 Dose: 125 mls/hr Vancomycin HCl 1,250 mg/ (Sodium Chloride) 250 mls @ 125 mls/hr IVPB Q12 [facility] Last Admin: 04/05/17 08:19 Dose: 125 mls/hr Insulin Human NPH (Humulin N) 15 units SC HS [facility] Last Admin: 04/04/17 21:36 Dose: 15 u Insulin Human NPH (Humulin N) 10 units SC QAM [facility] Last Admin: 04/05/17 08:19 Dose: 10 unit Insulin Human Regular (Humulin R) 0 units SC ACHS [facility] PRN Reason: Protocol Last Admin: 04/05/17 06:43 Dose: 5 units Ketorolac Tromethamine (Toradol) 30 mg IVP Q6 PRN PRN Reason: Pain, moderate (4-7) Stop: 04/06/17 15:30 Last Admin: 04/02/17 18:46 Dose: 30 mg Lactobacillus Acidophilus (Bacid Acidophilus) 1 cap PO BID [facility] Last Admin: 04/05/17 08:17 Dose: 1 cap Lisinopril (Zestril) 10 mg PO DAILY [facility] Last Admin: 04/05/17 08:17 Dose: 10 mg Morphine Sulfate (Morphine) 2 mg IVP Q6 PRN PRN Reason: Pain, severe (8-10) Senna/Docusate Sodium (Senokot S 50 Mg-8.6 Mg) 2 tab PO HS [facility] Last Admin: 04/04/17 21:39 Dose: 2 tab Silver Sulfadiazine (Silvadene 1% 20 Gm) 20 ea TOP DAILY [facility] Last Admin: 04/05/17 08:21 Dose: Not Given - Labs Labs: 04/05/17 04:15 04/05/17 04:15 PT 10.2 Seconds (9.8-13.1) 04/02/17 10:44 INR 1.0 (0.9-1.2) 04/02/17 10:44 APTT 31.1 Seconds (25.6-37.1) 04/02/17 10:44 - Constitutional Appears: Well, No Acute Distress - Extremities Exam Additional comments: Patient's dressing is clean, dry and intact. No strike through is noted on the dressing. Patient is currently in a surgical shoe. - Neurological Exam Neurological Exam: Alert, Awake, Oriented x3 - Psychiatric Exam Psychiatric exam: Normal Affect, Normal Mood Assessment and Plan - Assessment and Plan (Free Text) Assessment: 56 year old male with dorsum abscess and cellulites of the right foot secondary to plantar foot ulceration and DM Plan: Patient seen and evaluated at bedside Patient discussed in details with attending Dr. Salazar Labs, charts and vitals reviewed; 98.9, WBC @ 10.9 (trending down) Xray- negative OM or gas, severely plantarflexed metatarsal heads MRI- OM of 2nd met head, 3rd met head and shaft, 3rd proximal phalanx. Large abscess at 3rd MPJ and extending to 2nd digit Wound culture ordered preliminary Strep Agalactiae Group B Continue IV abx per ID - ciprofloxacin, vancomycin Medical optimization pending Patient to go to the OR tomorrow morning at 7:45 am Patient will be NPO starting midnight today Podiatry will continue to follow while patient is in-house
--- NOTE | 2017-04-05 09:53 | CP.PCM.PN ---
Subjective - Date & Time of Evaluation Date of Evaluation: 04/05/17 Time of Evaluation: 07:10 - Subjective Subjective: Patient seen and examined at bedside this morning. Pt was sitting in a chair, not in acute distress. Had uneventful last night. Denies fever or chills overnight. Denies chest pain, dyspnea, headache or dizziness. Pt is tolerating PO. Normal BM and voiding regularly. Pt is aware of possible surgery later today /tomorrow morning at his right foot for partial resection of right 2nd and 3rd toe. Objective - Vital Signs/Intake and Output Vital Signs (last 24 hours): Temp Pulse Resp BP Pulse Ox 98.9 F 95 H 18 121/73 97 04/05/17 08:00 04/05/17 08:18 04/05/17 08:00 04/05/17 08:18 04/05/17 08:00 Intake and Output: 04/05/17 04/05/17 06:59 18:59 Intake Total 3110 Output Total 3750 Balance -640 - Medications Medications: Current Medications Acetaminophen (Tylenol 325mg Tab) 650 mg PO Q6 PRN PRN Reason: Pain, Mild (1-3) Last Admin: 04/04/17 08:40 Dose: 650 mg Amlodipine Besylate (Norvasc) 10 mg PO DAILY [facility] Last Admin: 04/05/17 08:18 Dose: 10 mg Atorvastatin Calcium (Lipitor) 40 mg PO HS [facility] Last Admin: 04/04/17 21:39 Dose: 40 mg Dextrose (Dextrose 50% Inj) 0 ml IV STAT PRN; Protocol PRN Reason: Hyglycemia Protocol Dextrose (Glutose 15) 0 gm PO ONCE PRN; Protocol PRN Reason: Hypoglycemia Protocol Enoxaparin Sodium (Lovenox) 40 mg SC DAILY [facility] PRN Reason: Protocol Last Admin: 04/05/17 08:18 Dose: Not Given Famotidine (Pepcid) 20 mg PO DAILY [facility] Last Admin: 04/05/17 08:17 Dose: 20 mg Glucagon (Glucagen Diagnostic Kit) 0 mg IM STAT PRN; Protocol PRN Reason: Hypoglycemia Protocol Ciprofloxacin (Cipro 400mg/200ml Dsw) 400 mg in 200 mls @ 200 mls/hr IVPB Q12 [facility] Last Admin: 04/05/17 08:20 Dose: 200 mls/hr Sodium Chloride (Sodium Chloride 0.9%) 1,000 mls @ 125 mls/hr IV .Q8H [facility] Last Admin: 04/05/17 05:56 Dose: 125 mls/hr Vancomycin HCl 1,250 mg/ (Sodium Chloride) 250 mls @ 125 mls/hr IVPB Q12 [facility] Last Admin: 04/05/17 08:19 Dose: 125 mls/hr Insulin Human NPH (Humulin N) 15 units SC HS [facility] Last Admin: 04/04/17 21:36 Dose: 15 u Insulin Human NPH (Humulin N) 10 units SC QAM [facility] Last Admin: 04/05/17 08:19 Dose: 10 unit Insulin Human Regular (Humulin R) 0 units SC ACHS [facility] PRN Reason: Protocol Last Admin: 04/05/17 06:43 Dose: 5 units Ketorolac Tromethamine (Toradol) 30 mg IVP Q6 PRN PRN Reason: Pain, moderate (4-7) Stop: 04/06/17 15:30 Last Admin: 04/02/17 18:46 Dose: 30 mg Lactobacillus Acidophilus (Bacid Acidophilus) 1 cap PO BID [facility] Last Admin: 04/05/17 08:17 Dose: 1 cap Lisinopril (Zestril) 10 mg PO DAILY [facility] Last Admin: 04/05/17 08:17 Dose: 10 mg Morphine Sulfate (Morphine) 2 mg IVP Q6 PRN PRN Reason: Pain, severe (8-10) Senna/Docusate Sodium (Senokot S 50 Mg-8.6 Mg) 2 tab PO HS [facility] Last Admin: 04/04/17 21:39 Dose: 2 tab Silver Sulfadiazine (Silvadene 1% 20 Gm) 20 ea TOP DAILY [facility] Last Admin: 04/05/17 08:21 Dose: Not Given - Labs Labs: 04/05/17 04:15 04/05/17 04:15 PT 10.2 Seconds (9.8-13.1) 04/02/17 10:44 INR 1.0 (0.9-1.2) 04/02/17 10:44 APTT 31.1 Seconds (25.6-37.1) 04/02/17 10:44 - Constitutional Appears: Well, No Acute Distress - Head Exam Head Exam: NORMAL INSPECTION - Eye Exam Eye Exam: Normal appearance - ENT Exam ENT Exam: Mucous Membranes Moist - Respiratory Exam Respiratory Exam: Clear to Ausculation Bilateral. absent: Rales, Rhonchi, Wheezes - Cardiovascular Exam Cardiovascular Exam: REGULAR RHYTHM, RRR, +S1, +S2 - GI/Abdominal Exam GI & Abdominal Exam: Soft, Normal Bowel Sounds. absent: Tenderness - Extremities Exam Extremities Exam: Normal Capillary Refill, Normal Inspection. absent: Calf Tenderness, Pedal Edema Additional comments: Dressing looks clean, dry and intact. No blood or discharge seen on the dressing. Has surgical shoe on right foot. - Neurological Exam Neurological Exam: Alert, Awake, Oriented x3 - Psychiatric Exam Psychiatric exam: Normal Affect, Normal Mood Assessment and Plan - Assessment and Plan (Free Text) Assessment: Assessment and Plan: 56 year old male w/ PMH IDDM admitted with R foot diabetic foot ulcer with cellulitis. 1. Sepsis -Febrile( no fever overnight), stable vitals. -WBC downtrending, tachycaria improved, negative lactate -2x MIVF decreased to 125cc/hr -Procalcitonin pending -CBC -Repeat blood cx: no growth after 24 hours. 2. Acute right foot cellulitis: - ID and Podiatry consults appreciated -foot x ray: degenerative changes. 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 Soft tissue swelling. -ciprofloxacin 400 mg IV BID -Continue vancomycin 1250 mg IV BID. - vanc trough: 13.6 - blood cx- prelim gram pos cocci in chains -Repeat blood cx: no growth after 24 hours. -MRI of the foot positive for OM and septic joint( as per report) -ESR 110 -Pt will go to OR tomorrow morning for partial resection of right 2nd and 3rd toe. -Pt is medically optimized for surgery. - EKG, CXR, CBC, coag reviewed. 3. Hypokalemia -resolved -K 3.7 -check AM labs. 4. IDDM -improved with IVF. -Continue NPH 15 units SC PM and 10 units AM. -Hold metformin 1000 mg BID -insulin sliding scale, accuchecks 5.HTN- Elevated: -Change amlodipine 5 mg from amlodipine 10 mg PO daily. -Continue lisinopril 10 mg. 6. Tachycardia -improved -MIVF -add metoprolol tartrate 25 mg PO BID. 7.DVT prophylaxis -Lovenox 40 mg SC on hold from midnight. 8.GI prophylaxis - famotidine 20 mg daily. Diet: NPO tonight.
[2017-04-05 11:13] LABS: PARTIAL THROMBOPLASTIN TIME 31.9 Seconds (25.6-37.1)
--- NOTE | 2017-04-05 11:40 | CP.PCM.PN ---
Subjective - Date & Time of Evaluation Date of Evaluation: 04/05/17 Time of Evaluation: 13:00 - Subjective Subjective: ID Note- Pt. seen and examined. feels better. s/p bedside drainage of the superfical dark eschar by podiatry 2 days ago. as per podiatry mostly blood and some pus was discharged. as per podiatry resection of 2nd and third toe of the right foot this week. Objective - Vital Signs/Intake and Output Vital Signs (last 24 hours): Temp Pulse Resp BP Pulse Ox 98.9 F 95 H 18 121/73 97 04/05/17 09:00 04/05/17 09:00 04/05/17 09:00 04/05/17 09:00 04/05/17 09:00 Intake and Output: 04/05/17 04/05/17 06:59 18:59 Intake Total 3110 Output Total 3750 Balance -640 - Medications Medications: Current Medications Acetaminophen (Tylenol 325mg Tab) 650 mg PO Q6 PRN PRN Reason: Pain, Mild (1-3) Last Admin: 04/04/17 08:40 Dose: 650 mg Amlodipine Besylate (Norvasc) 5 mg PO DAILY [facility] Atorvastatin Calcium (Lipitor) 40 mg PO HS [facility] Last Admin: 04/04/17 21:39 Dose: 40 mg Dextrose (Dextrose 50% Inj) 0 ml IV STAT PRN; Protocol PRN Reason: Hyglycemia Protocol Dextrose (Glutose 15) 0 gm PO ONCE PRN; Protocol PRN Reason: Hypoglycemia Protocol Enoxaparin Sodium (Lovenox) 40 mg SC DAILY [facility] PRN Reason: Protocol Last Admin: 04/05/17 08:18 Dose: Not Given Famotidine (Pepcid) 20 mg PO DAILY [facility] Last Admin: 04/05/17 08:17 Dose: 20 mg Glucagon (Glucagen Diagnostic Kit) 0 mg IM STAT PRN; Protocol PRN Reason: Hypoglycemia Protocol Ciprofloxacin (Cipro 400mg/200ml Dsw) 400 mg in 200 mls @ 200 mls/hr IVPB Q12 [facility] Last Admin: 04/05/17 08:20 Dose: 200 mls/hr Vancomycin HCl 1,250 mg/ (Sodium Chloride) 250 mls @ 125 mls/hr IVPB Q12 [facility] Last Admin: 04/05/17 08:19 Dose: 125 mls/hr Insulin Human NPH (Humulin N) 15 units SC HS [facility] Last Admin: 04/04/17 21:36 Dose: 15 u Insulin Human NPH (Humulin N) 10 units SC QAM [facility] Last Admin: 04/05/17 08:19 Dose: 10 unit Insulin Human Regular (Humulin R) 0 units SC ACHS [facility] PRN Reason: Protocol Last Admin: 04/05/17 06:43 Dose: 5 units Ketorolac Tromethamine (Toradol) 30 mg IVP Q6 PRN PRN Reason: Pain, moderate (4-7) Stop: 04/06/17 15:30 Last Admin: 04/02/17 18:46 Dose: 30 mg Lactobacillus Acidophilus (Bacid Acidophilus) 1 cap PO BID [facility] Last Admin: 04/05/17 08:17 Dose: 1 cap Lisinopril (Zestril) 10 mg PO DAILY [facility] Last Admin: 04/05/17 08:17 Dose: 10 mg Metoprolol Tartrate (Lopressor) 25 mg PO Q12 [facility] Morphine Sulfate (Morphine) 2 mg IVP Q6 PRN PRN Reason: Pain, severe (8-10) Senna/Docusate Sodium (Senokot S 50 Mg-8.6 Mg) [address] [facility] Last Admin: 04/04/17 21:39 Dose: 2 tab Silver Sulfadiazine (Silvadene 1% 20 Gm) 20 ea TOP DAILY [facility] Last Admin: 04/05/17 08:21 Dose: Not Given - Labs Labs: - Additional Findings Additional findings: - Constitutional Appears: No Acute Distress - Head Exam Head Exam: ATRAUMATIC, NORMAL INSPECTION - Eye Exam Eye Exam: EOMI, PERRL - ENT Exam ENT Exam: Normal Oropharynx - Neck Exam Neck exam: Positive for: Full Rom - Respiratory Exam Respiratory Exam: Clear to Auscultation Bilateral, NORMAL BREATHING PATTERN - Cardiovascular Exam Cardiovascular Exam: RRR, +S1, +S2 - GI/Abdominal Exam GI & Abdominal Exam: Normal Bowel Sounds, Soft Additional comments: NT, ND - Extremities Exam Additional comments: right hallux s/p amputation, the entire dorsal foot with edema , erythema and warmth to touch plantar aspect with 1.5 cm x 1.5 cm x 0.5 cm ulceration at level of second and third metatarsal heads.fluctuance and edema and warm to touch as well no malodor minimal sanguinous d/c only erythema up to ankle level - Neurological Exam Neurological exam: Alert, Oriented x 3 Laboratory Results - last 72 hr 04/02/17 04/02/17 04/02/17 11:59 13:52 15:37 WBC RBC Hgb Hct MCV MCH MCHC RDW Plt Count MPV Neut % (Auto) Lymph % (Auto) Martin % (Auto) Eos % (Auto) Baso % (Auto) Neut # Lymph # Martin # Eos # Baso # ESR PT INR APTT D-Dimer, Quantitative Sodium Potassium Chloride Carbon Dioxide Anion Gap BUN Creatinine Est GFR ( Amer) Est GFR (Non-Af Amer) POC Glucose (mg/dL) 369 H 360 H 396 H Random Glucose Calcium Total Bilirubin AST ALT Alkaline Phosphatase Total Protein Albumin Globulin Albumin/Globulin Ratio Vancomycin Trough 04/02/17 04/02/17 04/02/17 17:56 18:38 18:38 WBC RBC Hgb Hct MCV MCH MCHC RDW Plt Count MPV Neut % (Auto) Lymph % (Auto) Martin % (Auto) Eos % (Auto) Baso % (Auto) Neut # Lymph # Martin # Eos # Baso # ESR 110 H PT INR APTT D-Dimer, Quantitative 765 H Sodium Potassium Chloride Carbon Dioxide Anion Gap BUN Creatinine Est GFR ( Amer) Est GFR (Non-Af Amer) POC Glucose (mg/dL) 372 H Random Glucose Calcium Total Bilirubin AST ALT Alkaline Phosphatase Total Protein Albumin Globulin Albumin/Globulin Ratio Vancomycin Trough 04/02/17 04/02/17 04/03/17 22:07 23:05 05:30 WBC RBC Hgb Hct MCV MCH MCHC RDW Plt Count MPV Neut % (Auto) Lymph % (Auto) Martin % (Auto) Eos % (Auto) Baso % (Auto) Neut # Lymph # Martin # Eos # Baso # ESR PT INR APTT D-Dimer, Quantitative Sodium 132 136 Potassium 3.7 3.6 Chloride 97 L 100 Carbon Dioxide 23 24 Anion Gap 16 16 BUN 26 H 20 Creatinine 1.2 1.0 Est GFR ( Amer) > 60 > 60 Est GFR (Non-Af Amer) > 60 > 60 POC Glucose (mg/dL) 338 H Random Glucose 326 H 262 H Calcium 9.2 9.1 Total Bilirubin 0.5 0.5 AST 27 23 ALT 17 L 15 L Alkaline Phosphatase 143 H D 143 H Total Protein 6.7 6.9 Albumin 3.3 L 3.3 L Globulin 3.4 3.6 Albumin/Globulin Ratio 1.0 0.9 L Vancomycin Trough 04/03/17 04/03/17 04/03/17 05:31 07:00 07:10 WBC 14.0 H RBC 3.72 L Hgb 11.0 L Hct 33.5 L MCV 90.1 MCH 29.6 MCHC 32.9 L RDW 12.6 Plt Count 254 MPV 9.4 Neut % (Auto) 85.6 H Lymph % (Auto) 8.9 L Martin % (Auto) 4.4 Eos % (Auto) 0.2 Baso % (Auto) 0.9 Neut # 12.0 H Lymph # 1.3 Martin # 0.6 Eos # 0.0 Baso # 0.1 ESR PT INR APTT D-Dimer, Quantitative Sodium Potassium Chloride Carbon Dioxide Anion Gap BUN Creatinine Est GFR ( Amer) Est GFR (Non-Af Amer) POC Glucose (mg/dL) 289 H 163 H Random Glucose Calcium Total Bilirubin AST ALT Alkaline Phosphatase Total Protein Albumin Globulin Albumin/Globulin Ratio Vancomycin Trough 04/03/17 04/03/17 04/03/17 11:41 15:58 20:00 WBC RBC Hgb Hct MCV MCH MCHC RDW Plt Count MPV Neut % (Auto) Lymph % (Auto) Martin % (Auto) Eos % (Auto) Baso % (Auto) Neut # Lymph # Martin # Eos # Baso # ESR PT INR APTT D-Dimer, Quantitative Sodium Potassium Chloride Carbon Dioxide Anion Gap BUN Creatinine Est GFR ( Amer) Est GFR (Non-Af Amer) POC Glucose (mg/dL) 356 H 152 H Random Glucose Calcium Total Bilirubin AST ALT Alkaline Phosphatase Total Protein Albumin Globulin Albumin/Globulin Ratio Vancomycin Trough 5.6 04/03/17 04/04/17 04/04/17 21:00 03:36 04:00 WBC RBC Hgb Hct MCV MCH MCHC RDW Plt Count MPV Neut % (Auto) Lymph % (Auto) Martin % (Auto) Eos % (Auto) Baso % (Auto) Neut # Lymph # Martin # Eos # Baso # ESR PT INR APTT D-Dimer, Quantitative Sodium 136 Potassium 2.9 L Chloride 100 Carbon Dioxide 27 Anion Gap 12 BUN 13 Creatinine 0.9 Est GFR ( Amer) > 60 Est GFR (Non-Af Amer) > 60 POC Glucose (mg/dL) 361 H 404 H* Random Glucose 231 H Calcium 8.7 Total Bilirubin AST ALT Alkaline Phosphatase Total Protein Albumin Globulin Albumin/Globulin Ratio Vancomycin Trough 04/04/17 04/04/17 04/04/17 06:32 11:03 13:00 WBC RBC Hgb Hct MCV MCH MCHC RDW Plt Count MPV Neut % (Auto) Lymph % (Auto) Martin % (Auto) Eos % (Auto) Baso % (Auto) Neut # Lymph # Martin # Eos # Baso # ESR PT INR APTT D-Dimer, Quantitative Sodium Potassium 3.3 L Chloride Carbon Dioxide Anion Gap BUN Creatinine Est GFR ( Amer) Est GFR (Non-Af Amer) POC Glucose (mg/dL) 254 H 350 H Random Glucose Calcium Total Bilirubin AST ALT Alkaline Phosphatase Total Protein Albumin Globulin Albumin/Globulin Ratio Vancomycin Trough 04/04/17 04/04/17 04/04/17 15:56 20:19 21:03 WBC 11.9 H RBC 3.29 L Hgb 9.7 L Hct 29.6 L MCV 89.8 MCH 29.6 MCHC 32.9 L RDW 12.6 Plt Count 266 MPV 8.5 Neut % (Auto) 77.0 H Lymph % (Auto) 14.4 L Martin % (Auto) 6.4 Eos % (Auto) 1.0 Baso % (Auto) 1.2 Neut # 9.1 H Lymph # 1.7 Martin # 0.8 Eos # 0.1 Baso # 0.1 ESR PT INR APTT D-Dimer, Quantitative Sodium Potassium Chloride Carbon Dioxide Anion Gap BUN Creatinine Est GFR ( Amer) Est GFR (Non-Af Amer) POC Glucose (mg/dL) 308 H > 500 H* Random Glucose Calcium Total Bilirubin AST ALT Alkaline Phosphatase Total Protein Albumin Globulin Albumin/Globulin Ratio Vancomycin Trough 04/05/17 04/05/17 04/05/17 04:15 04:15 04:15 WBC 10.9 H RBC 3.55 L Hgb 10.8 L Hct 31.8 L MCV 89.6 MCH 30.3 MCHC 33.9 RDW 12.5 Plt Count 301 MPV Neut % (Auto) Lymph % (Auto) Martin % (Auto) Eos % (Auto) Baso % (Auto) Neut # Lymph # Martin # Eos # Baso # ESR PT INR APTT D-Dimer, Quantitative Sodium 136 Potassium 3.7 Chloride 102 Carbon Dioxide 27 Anion Gap 11 BUN 12 Creatinine 0.9 Est GFR ( Amer) > 60 Est GFR (Non-Af Amer) > 60 POC Glucose (mg/dL) Random Glucose 226 H Calcium 9.1 Total Bilirubin AST ALT Alkaline Phosphatase Total Protein Albumin Globulin Albumin/Globulin Ratio Vancomycin Trough 13.6 H 04/05/17 04/05/17 04/05/17 05:12 10:35 10:58 WBC RBC Hgb Hct MCV MCH MCHC RDW Plt Count MPV Neut % (Auto) Lymph % (Auto) Martin % (Auto) Eos % (Auto) Baso % (Auto) Neut # Lymph # Martin # Eos # Baso # ESR PT 11.2 INR 1.1 APTT 31.9 D-Dimer, Quantitative Sodium Potassium Chloride Carbon Dioxide Anion Gap BUN Creatinine Est GFR ( Amer) Est GFR (Non-Af Amer) POC Glucose (mg/dL) 350 H 288 H Random Glucose Calcium Total Bilirubin AST ALT Alkaline Phosphatase Total Protein Albumin Globulin Albumin/Globulin Ratio Vancomycin Trough Microbiology 04/03/17 14:51 Foot - Right Gram Stain - Final 04/03/17 14:51 Foot - Right Wound Culture - Final Beta Hemolytic Strep Group B 04/02/17 10:44 Blood S.aureus & Coag-Neg Staph PNA FISH - Final 04/02/17 10:44 Blood Blood Culture - Final Beta Hemolytic Strep Group B 04/02/17 10:44 Blood Gram Stain - Final 04/03/17 17:15 Blood-Venous Blood Culture - Preliminary NO GROWTH AFTER 24 HOURS 04/03/17 17:00 Blood-Venous Blood Culture - Preliminary NO GROWTH AFTER 24 HOURS 04/02/17 11:08 Urine Urine Culture - Final No Growth (<1,000 CFU/ML) Accession No. : [id number] Patient Name / ID : REID OZUNA / [id number] Exam Date : 04/02/2017 16:59:50 ( Approved ) Study Comment : Sex / Age : M / 56Y Creator : Ja Payan Dictator : Ja Payan Soccer Ball Assembler : Clinical Research Director : Ja Payan Approver2 : Report Date : 04/03/2017 11:23:48 My Comment : PROCEDURE: MRI of the right foot without contrast HISTORY: right foot cellulitis COMPARISON: Comparison is made to the previous x-ray of the right foot dated 04/02/2017. No prior similar study available for comparison. TECHNIQUE: Axial coronal and sagittal MRI images of the right foot were obtained without IV contrast administration. 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 There is bone marrow edema and possible small erosion at the distal head of the 2nd metatarsal bone. There is also bone marrow edema at the 3rd metatarsal shaft and distal head. There is also bone marrow edema and erosion at the proximal phalanx of the 3rd toe. Findings suggestive of osteomyelitis at the 2nd metatarsal head and the 3rd metatarsal head and shaft as well as in the 3rd toe proximal phalanx. The possibility of septic arthritis at the 3rd metatarsophalangeal joint also is not totally excluded. The rest of the right foot osseous structure demonstrate no bone marrow edema or cortical erosion. There are degenerative changes seen at the tarsal and tarsal metatarsal joints.There is a diffuse soft tissue edema at the distal portion of the right foot. There is fluid collection and possible abscess around the 3rd metatarsal-phalangeal joint and proximal phalanx of the 3rd toe as well as adjacent to the 2nd toe and 2nd metatarsal pharyngeal joint. Diffuse increase signal of the soft tissue also noted at the mid portion of the right foot including the muscles and ligament. IMPRESSION: Abnormal study demonstrates bone marrow edema and cortical erosion suggestive of osteomyelitis involving the 2nd metatarsal head, 3rd metatarsal head and shaft as well as the proximal phalanx of the 3rd toe. Suspicious for septic arthritis involving the 3rd metatarsal-phalangeal joint. Large fluid collection suggestive of abscess formation or less likely joint effusion seen mainly at around the 3rd metatarsal-phalangeal joint and to a less degree extending to the 2nd toe. Diffuse soft tissue edema and increased T2 signal seen at the mid and distal portion of the right foot. Preliminary report was submitted by [facility]. Assessment and Plan (1) Cellulitis and abscess of foot Status: Acute (2) Leukocytosis Status: Acute (3) Diabetes Status: Acute (4) Osteomyelitis of ankle or foot, right, acute Status: Acute (5) Bacteremia Status: Acute - Assessment and Plan (Free Text) Assessment: A/P- 56 year old male with uncontrolled diabetes presents with right foot cellulitis most likely secondary to plantar ulcer. afebrile leukocytosis trending down on IV abx. normal lactate levelblood cx- group B strep x 1 04/02 repeat blood cx- 04/03-neg x 2 foot wound cx- group B strep MRI report noted. PLan- check TTE r/o vegetations. continue with IV vancomycin 1 gram q12 and keep trough <15. day #4. continue with on IV cipro 400 mg BID.day #4 await toe resection by podiatry , advise to send bone bx and bone cx. all above d/w podiatry and [employer].
--- NOTE | 2017-04-05 18:02 | CARD ---
APPROVED REPORT EXAM: Two-dimensional and M-mode echocardiogram with Doppler and color Doppler. Other Information Quality : [employer] : NSR INDICATION BACTEREMIA, R/O VEGETATION 2D DIMENSIONS IVSd1.12 (0.7-1.1cm)LVDd5.15 (3.9-5.9cm) LVOT Diameter2.16 (1.8-2.4cm)PWd1.07 (0.7-1.1cm) IVSs0.97 (0.8-1.2cm)LVDs3.97 (2.5-4.0cm) FS (%) 22.9 %PWs1.32 (0.8-1.2cm) M-Mode DIMENSIONS Left Atrium (MM)5.03 (2.5-4.0cm)IVSd1.12 (0.7-1.1cm) Aortic Root3.15 (2.2-3.7cm)LVDd5.47 (4.0-5.6cm) Aortic Cusp Exc.1.91 (1.5-2.0cm)PWd1.29 (0.7-1.1cm) IVSs1.82 cmFS (%) 32 % LVDs3.71 (2.0-3.8cm)PWs1.59 cm Mitral Valve MV E Hktazqbg70.5cm/sMV DECEL [id number] A Cwensumk98.9cm/s MV VLO07qfK/A ratio0.9MVA (PHT)3.30cm2 TDI Lateral E' Peak V8.72cm/sMedial E' Peak V8.72cm/sE/Lateral E'8.9 E/Medial E'8.9 Pulmonary Valve PV Peak Hrhcbfjk353.4cm/s LEFT VENTRICLE The left ventricle is normal size. There is normal left ventricular wall thickness. The left ventricular function is normal. The left ventricular ejection fraction is - 55%. There is normal LV segmental wall motion. Transmitral Doppler flow pattern is Grade I-abnormal relaxation pattern. No left ventricle thrombus noted on this study. There is no ventricular septal defect visualized. There is no left ventricular aneurysm. There is no mass noted in the left ventricle. RIGHT VENTRICLE The right ventricle is normal size. There is normal right ventricular wall thickness. The right ventricular systolic function is normal. ATRIA The left atrium is mildly dilated. There is no thrombus suspected in the left atrium. The right atrium size is normal. The interatrial septum is intact with no evidence for an atrial septal defect. AORTIC VALVE The aortic valve is normal in structure and function. No aortic regurgitation is present. There is no aortic valvular stenosis. There is no aortic valvular vegetation. MITRAL VALVE The mitral valve is normal in structure and function. There is no evidence of mitral valve prolapse. There is no mitral valve stenosis. Mitral regurgitation is trace. TRICUSPID VALVE The tricuspid valve is normal in structure and function. There is trace tricuspid regurgitation. There is no tricuspid valve prolapse or vegetation. There is no tricuspid valve stenosis. PULMONIC VALVE The pulmonary valve is normal in structure and function. There is no pulmonic valvular regurgitation. GREAT VESSELS The aortic root is normal in size. The IVC is normal in size and collapses >50% with inspiration. PERICARDIAL EFFUSION The pericardium appears normal. There is no pleural effusion. <Conclusion> The left ventricle is normal in size and wall thickness. The left ventricular function is normal. The left ventricular ejection fraction is - 55%. The left atrium is mildly dilated. The mitral, aortic and tricuspid valves are normal. No valvular vegetations were noted. There is trace regurgitation of the mitral and tricuspid valves.
[2017-04-05] MEDS: Docusate-Senna 50 mg-8.6 mg Tab PO SCH (21:11)
[2017-04-06 06:18] LABS: HEMATOCRIT 32.9 % (35.0-51.0); MEAN CELL VOLUME 89.1 fl (80.0-94.0); MEAN CORPUSCULAR HEMOGLOBIN 29.9 pg (27.0-31.0); MEAN CORPUSCULAR HGB CONC 33.6 g/dL (33.0-37.0); RED CELL DISTRIBUTION WIDTH 12.8 % (11.5-14.5); WHITE BLOOD COUNT 9.4 K/uL (4.8-10.8)
[2017-04-06 06:22] LABS: PARTIAL THROMBOPLASTIN TIME 32.9 Seconds (25.6-37.1)
[2017-04-06 06:27] LABS: BLOOD UREA NITROGEN 18 mg/dl (9-20); CALCIUM 9.4 mg/dL (8.4-10.2); CARBON DIOXIDE 26 mmol/L (22-30); CHLORIDE 100 mmol/L (98-107); GFR AFRICAN-AMERICAN > 60; GLUCOSE,RANDOM 241 mg/dL (75-110); POTASSIUM 5.6 MMOL/L (3.6-5.0); SODIUM 136 mmol/l (132-148)
[2017-04-06] MEDS: Insulin Regular 100 units/ml SC SCH ×4 (06:30→21:19)
--- NOTE | 2017-04-06 06:37 | CP.PCM.PN ---
Subjective - Date & Time of Evaluation Date of Evaluation: 04/06/17 Time of Evaluation: 06:34 - Subjective Subjective: Podiatry progress note for Dr. Salazar 56 y/o male seen at bedside for right foot cellulitis and 3 days s/p incision and drainage at bedside for foot ulceration secondary to DM. Patient appears in NAD and is AAOx3. Patient denies of any acute overnight events. Patient states that he has been NPO since midnight. Patient denies of any overnight F/N/V/C/SOB /CP. Denies of any other pedal complains at this time. Objective - Vital Signs/Intake and Output Vital Signs (last 24 hours): Temp Pulse Resp BP Pulse Ox 99.1 F 77 20 158/88 H 99 04/06/17 05:00 04/06/17 05:00 04/06/17 05:00 04/06/17 05:00 04/06/17 05:00 Intake and Output: 04/05/17 04/06/17 18:59 06:59 Intake Total 3210 Balance 3210 - Medications Medications: Current Medications Acetaminophen (Tylenol 325mg Tab) 650 mg PO Q6 PRN PRN Reason: Pain, Mild (1-3) Last Admin: 04/04/17 08:40 Dose: 650 mg Amlodipine Besylate (Norvasc) 5 mg PO DAILY [facility] Atorvastatin Calcium (Lipitor) 40 mg PO HS [facility] Last Admin: 04/05/17 21:11 Dose: 40 mg Dextrose (Dextrose 50% Inj) 0 ml IV STAT PRN; Protocol PRN Reason: Hyglycemia Protocol Dextrose (Glutose 15) 0 gm PO ONCE PRN; Protocol PRN Reason: Hypoglycemia Protocol Enoxaparin Sodium (Lovenox) 40 mg SC DAILY [facility] PRN Reason: Protocol Last Admin: 04/05/17 08:18 Dose: Not Given Famotidine (Pepcid) 20 mg PO DAILY [facility] Last Admin: 04/05/17 08:17 Dose: 20 mg Glucagon (Glucagen Diagnostic Kit) 0 mg IM STAT PRN; Protocol PRN Reason: Hypoglycemia Protocol Ciprofloxacin (Cipro 400mg/200ml Dsw) 400 mg in 200 mls @ 200 mls/hr IVPB Q12 [facility] Last Admin: 04/05/17 21:09 Dose: 200 mls/hr Vancomycin HCl 1,250 mg/ (Sodium Chloride) 250 mls @ 125 mls/hr IVPB Q12 [facility] Last Admin: 04/05/17 21:15 Dose: 125 mls/hr Insulin Human NPH (Humulin N) 15 units SC HS [facility] Last Admin: 04/05/17 21:18 Dose: 10 u Insulin Human NPH (Humulin N) 10 units SC QAM [facility] Last Admin: 04/05/17 08:19 Dose: 10 unit Insulin Human Regular (Humulin R) 0 units SC ACHS [facility]IDE PRN Reason: Protocol Last Admin: 04/06/17 06:30 Dose: 4 units Ketorolac Tromethamine (Toradol) 30 mg IVP Q6 PRN PRN Reason: Pain, moderate (4-7) Stop: 04/06/17 15:30 Last Admin: 04/02/17 18:46 Dose: 30 mg Lactobacillus Acidophilus (Bacid Acidophilus) 1 cap PO BID [facility] Last Admin: 04/05/17 16:13 Dose: 1 cap Lisinopril (Zestril) 10 mg PO DAILY [facility] Last Admin: 04/05/17 08:17 Dose: 10 mg Metoprolol Tartrate (Lopressor) 25 mg PO Q12 [facility] Last Admin: 04/05/17 21:10 Dose: 25 mg Morphine Sulfate (Morphine) 2 mg IVP Q6 PRN PRN Reason: Pain, severe (8-10) Last Admin: 04/05/17 11:42 Dose: 2 mg Senna/Docusate Sodium (Senokot S 50 Mg-8.6 Mg) 2 tab PO HS [facility] Last Admin: 04/05/17 21:11 Dose: 2 tab Silver Sulfadiazine (Silvadene 1% 20 Gm) 20 ea TOP DAILY [facility] Last Admin: 04/05/17 16:11 Dose: 1 applic - Labs Labs: 04/05/17 04:15 04/06/17 05:50 PT 11.0 Seconds (9.8-13.1) 04/06/17 05:50 INR 1.1 (0.9-1.2) 04/06/17 05:50 APTT 32.9 Seconds (25.6-37.1) 04/06/17 05:50 - Constitutional Appears: Well, Non-toxic, No Acute Distress - Extremities Exam Additional comments: Patient's dressing is clean, dry and intact. No strike through is noted on the dressing. Patient is currently in a surgical shoe. - Neurological Exam Neurological Exam: Alert, Awake, Oriented x3 - Psychiatric Exam Psychiatric exam: Normal Affect, Normal Mood Assessment and Plan - Assessment and Plan (Free Text) Assessment: 56 year old male with dorsum abscess and cellulites of the right foot secondary to plantar foot ulceration and DM Plan: Patient seen and evaluated at bedside Patient discussed in details with attending Dr. Salazar Labs, charts and vitals reviewed; 99.1, WBC @ 9.4 (trending down) Xray- negative OM or gas, severely plantarflexed metatarsal heads MRI- OM of 2nd met head, 3rd met head and shaft, 3rd proximal phalanx. Large abscess at 3rd MPJ and extending to 2nd digit Wound culture (Final): Strep Agalactiae Group B Continue IV abx per ID - ciprofloxacin, vancomycin Medical optimization appreciated N.P.O status confirmed Patient to go to the OR today at 7:45 am Podiatry will continue to follow while patient is in-house
[2017-04-06] MEDS ORDERED: Bupivacaine 0.5% Inj(30mL) IJ ONE (06:57)
[2017-04-06] MEDS ORDERED: Lidocaine 1% Inj (20ml) IJ ONE (06:57)
[2017-04-06] MEDS ORDERED: Clindamycin 600 MG in Sodium Chloride 0.9% 100 ML IVPB ONE (06:57)
[2017-04-06] MEDS ORDERED: Sodium Chloride 0.9% 500 ML IV ONE (07:15)
[2017-04-06] MEDS ORDERED: Propofol 10 mg/ml Inj (20 ML) ONE ×2 (07:21→08:09)
[2017-04-06] MEDS ORDERED: Midazolam 2 MG/2 ML VIAL ONE ×2 (07:21→07:59)
[2017-04-06] MEDS ORDERED: Bupivacaine 0.5% Inj(30mL) ONE (07:23)
[2017-04-06] MEDS ORDERED: Lidocaine 1% Inj (20ml) ONE (07:23)
[2017-04-06] MEDS: Lactobacillus Acidophilus 500 MU Cap PO SCH ×2 (08:17→17:13)
[2017-04-06] MEDS: Ciprofloxacin 400mg/200ml D5W 400 MG/200 ML BAG IVPB SCH ×3 (08:18→21:10)
[2017-04-06] MEDS: Insulin NPH Human 100 Units/ml Inj SC SCH ×2 (08:19→21:16)
[2017-04-06] MEDS: Silver Sulfadiazine 1% Cream (20 gm) TOP SCH (08:24)
[2017-04-06] MEDS ORDERED: Lactated Ringer's 1,000 ML IV ONE (08:34)
--- NOTE | 2017-04-06 08:45 | PCM.SURG1 ---
Surgeon's Initial Post Op Note - Surgeon's Notes Surgeon: Dr. Salazar DPM [place] Clerk: Dr. Flowers PGY-2, Dr. Broussard PGY-1 Type of Anesthesia: IV Sedation Anesthesia Administered By: Dr. Pinto Pre-Operative Diagnosis: Deep penetrating wound (6.0 cm x 4.0 cm x 3.0 cm). Right 2nd and 3rd ray with residual material and extensive necrotic bone and soft tissue noted. Operative Findings: see dictation Post-Operative Diagnosis: same Operation Performed: 1) amputation of 2nd toe RIF. 2) Amputation 3rd toe and partial ray RIF. 3) I and D abscess RIF Specimen/Specimens Removed: bone biospy, wound culture Estimated Blood Loss: EBL {In ML}: 10 Blood Products Given: N/A Drains Used: No Drains Post-Op Condition: Good Date of Surgery/Procedure: 04/06/17 Time of Surgery/Procedure: 08:47
[2017-04-06] MEDS ORDERED: Oxycodone/Acetaminophen 5/325 mg Tab PO PRN ×2 (08:49)
[2017-04-06 09:49] LABS: BLOOD UREA NITROGEN 16 mg/dl (9-20); CALCIUM 9.3 mg/dL (8.4-10.2); CARBON DIOXIDE 27 mmol/L (22-30); CHLORIDE 101 mmol/L (98-107); GFR AFRICAN-AMERICAN > 60; GLUCOSE,RANDOM 195 mg/dL (75-110); POTASSIUM 3.8 MMOL/L (3.6-5.0); SODIUM 138 mmol/l (132-148)
--- NOTE | 2017-04-06 10:53 | RAD ---
PROCEDURE: Right Foot Radiographs. HISTORY: s/p right foot surgery COMPARISON: Right foot radiographs 04/02/2017. FINDINGS: BONES: Patient ostomy status post transmetatarsal amputations at the 2nd and 3rd metatarsal bones with heterogeneous density distal to the amputation is identified, likely a function of surgical packing. Clinically correlate here. Prior distal 1st metatarsal amputation again evident. Degenerate changes are again seen throughout the remaining joints throughout the right foot. JOINTS: As above SOFT TISSUES: As above OTHER FINDINGS: None. IMPRESSION: Status post 2nd and 3rd transmetatarsal amputations.
--- NOTE | 2017-04-06 12:49 | CP.PCM.PN ---
Subjective - Date & Time of Evaluation Date of Evaluation: 04/06/17 Time of Evaluation: 11:55 - Subjective Subjective: Patient seen and examined at bedside this morning after OR procedure. Pt was lying in bed, in no acute distress. Denies chest pain, dyspnea or dizziness after the procedure this morning. Had uneventful last night. Denies fever or chills overnight. Pt was NPO last night. Normal BM and voiding regularly. vitals WNL. Objective - Vital Signs/Intake and Output Vital Signs (last 24 hours): Temp Pulse Resp BP Pulse Ox 98.2 F 80 18 157/86 H 98 04/06/17 12:00 04/06/17 12:00 04/06/17 12:00 04/06/17 12:00 04/06/17 12:00 Intake and Output: 04/06/17 04/06/17 06:59 18:59 Intake Total 400 Balance 400 - Medications Medications: Current Medications Acetaminophen (Tylenol 325mg Tab) 650 mg PO Q6 PRN PRN Reason: Pain, Mild (1-3) Last Admin: 04/04/17 08:40 Dose: 650 mg Acetaminophen (Tylenol 325mg Tab) 650 mg PO Q4 PRN PRN Reason: Pain, Mild (1-3) Amlodipine Besylate (Norvasc) 5 mg PO DAILY [facility] Last Admin: 04/06/17 08:23 Dose: Not Given Atorvastatin Calcium (Lipitor) 40 mg PO HS [facility] Last Admin: 04/05/17 21:11 Dose: 40 mg Dextrose (Dextrose 50% Inj) 0 ml IV STAT PRN; Protocol PRN Reason: Hyglycemia Protocol Dextrose (Glutose 15) 0 gm PO ONCE PRN; Protocol PRN Reason: Hypoglycemia Protocol Enoxaparin Sodium (Lovenox) 40 mg SC DAILY [facility] PRN Reason: Protocol Last Admin: 04/05/17 08:18 Dose: Not Given Famotidine (Pepcid) 20 mg PO DAILY [facility] Last Admin: 04/06/17 08:23 Dose: Not Given Glucagon (Glucagen Diagnostic Kit) 0 mg IM STAT PRN; Protocol PRN Reason: Hypoglycemia Protocol Ciprofloxacin (Cipro 400mg/200ml Dsw) 400 mg in 200 mls @ 200 mls/hr IVPB Q12 [facility] Last Admin: 04/06/17 09:02 Dose: 100 mls Vancomycin HCl 1,250 mg/ (Sodium Chloride) 250 mls @ 125 mls/hr IVPB Q12 [facility] Last Admin: 04/06/17 08:24 Dose: Not Given Sodium Chloride (Sodium Chloride 0.9%) 1,000 mls @ 110 mls/hr IV .Q9H6M [facility] Stop: 04/07/17 06:58 Lactated Ringer's (Lactated Ringer's) 1,000 mls @ 125 mls/hr IV .Q8H [facility] Insulin Human NPH (Humulin N) 15 units SC HS [facility] Last Admin: 04/05/17 21:18 Dose: 10 u Insulin Human NPH (Humulin N) 10 units SC QAM [facility] Last Admin: 04/06/17 08:19 Dose: Not Given Insulin Human Regular (Humulin R) 0 units SC ACHS [facility] PRN Reason: Protocol Last Admin: 04/06/17 06:30 Dose: 4 units Ketorolac Tromethamine (Toradol) 30 mg IVP Q6 PRN PRN Reason: Pain, moderate (4-7) Stop: 04/06/17 15:30 Last Admin: 04/02/17 18:46 Dose: 30 mg Lactobacillus Acidophilus (Bacid Acidophilus) 1 cap PO BID [facility] Last Admin: 04/06/17 08:17 Dose: Not Given Lisinopril (Zestril) 10 mg PO DAILY [facility] Last Admin: 04/06/17 08:25 Dose: Not Given Metoprolol Tartrate (Lopressor) 25 mg PO Q12 [facility] Last Admin: 04/06/17 08:22 Dose: Not Given Oxycodone/Acetaminophen (Percocet 5/325 Mg Tab) 1 tab PO Q4 PRN PRN Reason: Pain, moderate (4-7) Stop: 04/09/17 08:50 Oxycodone/Acetaminophen (Percocet 5/325 Mg Tab) 2 tab PO Q4 PRN PRN Reason: Pain, severe (8-10) Stop: 04/09/17 08:50 Senna/Docusate Sodium (Senokot S 50 Mg-8.6 Mg) 2 tab PO [facility] Last Admin: 04/05/17 21:11 Dose: 2 tab Silver Sulfadiazine (Silvadene 1% 20 Gm) 20 ea TOP DAILY [facility] Last Admin: 04/06/17 08:24 Dose: Not Given - Labs Labs: 04/06/17 05:50 04/06/17 09:10 PT 11.0 Seconds (9.8-13.1) 04/06/17 05:50 INR 1.1 (0.9-1.2) 04/06/17 05:50 APTT 32.9 Seconds (25.6-37.1) 04/06/17 05:50 - Constitutional Appears: Well, No Acute Distress - Head Exam Head Exam: ATRAUMATIC, NORMAL INSPECTION - Eye Exam Eye Exam: Normal appearance - ENT Exam ENT Exam: Mucous Membranes Moist - Neck Exam Neck Exam: Normal Inspection - Respiratory Exam Respiratory Exam: Clear to Ausculation Bilateral. absent: Rales, Rhonchi, Wheezes - Cardiovascular Exam Cardiovascular Exam: REGULAR RHYTHM, RRR, +S1, +S2 - GI/Abdominal Exam GI & Abdominal Exam: Soft, Normal Bowel Sounds. absent: Tenderness - Extremities Exam Extremities Exam: Normal Capillary Refill. absent: Pedal Edema Additional comments: Dressing looks clean, dry and intact. Has ice pack placed on the dressing. NVI. - Psychiatric Exam Psychiatric exam: Normal Affect, Normal Mood Assessment and Plan - Assessment and Plan (Free Text) Assessment: Assessment and Plan: 56 year old male w/ PMH IDDM admitted with R foot diabetic foot ulcer with cellulitis. 1. Sepsis -afebrile, stable vitals. -IV cipro 400 mg BID and vanco 1 gm BID. -WBC downtrending, tachycaria improved, negative lactate -Procalcitonin 5.13 -CBC -Repeat blood cx: no growth after 48 hours. 2. Acute right foot cellulitis: - ID and Podiatry consults appreciated -foot x ray: degenerative changes. 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 Soft tissue swelling. -ciprofloxacin 400 mg IV BID -Continue vancomycin 100 mg IV BID. - vanc trough: 11.4 - blood cx- prelim gram pos cocci in chains -Repeat blood cx: no growth after 24 hours. -MRI of the foot positive for OM and septic joint( as per report) -ESR 110 -Had partial resection of right 2nd and 3rd toe today. -bone biopsy and wound cx f/u -Per podiatry: plan is to take the patient to the OR this Wednesday at 7:45 am for another wound debridement with possible transmetatarsal amputation procedure. 3. Hypokalemia -resolved -K 3.8 -check AM labs. 4. IDDM -improved with IVF. -Continue NPH 15 units SC PM and 10 units AM. -Hold metformin 1000 mg BID -insulin sliding scale, accuchecks 5.HTN- Elevated: -Change amlodipine 5 mg from amlodipine 10 mg PO daily. -Continue lisinopril 10 mg. 6. Tachycardia -improved -MIVF -Continue metoprolol tartrate 25 mg PO BID. 7.DVT prophylaxis -Lovenox 40 mg SC on hold. 8.GI prophylaxis - famotidine 20 mg daily. Diet:regular diet
--- NOTE | 2017-04-06 14:53 | CP.PCM.PCO ---
Assessment/Plan - Assessment and Plan (Free Text) Assessment: I saw and evaluated the patient. I discussed the case with the resident and agree with the findings and plan as documented in the resident's note. Will adjust pain meds
[2017-04-06] MEDS: Lactated Ringer's 1,000 ML IV SCH (17:14)
[2017-04-06] MEDS: Sodium Chloride 0.9% 1,000 ML IV SCH (17:18)
[2017-04-06] MEDS: Docusate-Senna 50 mg-8.6 mg Tab PO SCH (21:12)
[2017-04-07] MEDS: Sodium Chloride 0.9% 1,000 ML IV SCH (03:15)
--- NOTE | 2017-04-07 04:20 | OP ---
PROCEDURE DATE: 04/06/2017 PREOPERATIVE DIAGNOSES: 1. Right foot second ray osteomyelitis. 2. Right foot third ray osteomyelitis. 3. Right foot abscess. POSTOPERATIVE DIAGNOSES: 1. Right foot second ray osteomyelitis. 2. Right foot third ray osteomyelitis. 3. Right foot abscess. PROCEDURES: 1. Amputation of right second digit. 2. Amputation of right third digit and partial ray resection. 3. Right foot incision and drainage of abscess. SURGEON: Jhonny Salazar DPM ASSISTANTS: Dayna Flowers DPM, PGY2, Dr. Rj Broussard DPM, PGY1 TYPE OF ANESTHESIA: IV sedation with local anesthesia. ANESTHESIA ADMINISTERED BY: Dr. Awad. INDICATION: The patient is a 56-year-old male with the above diagnoses. The patient has deep penetrating wound on the dorsal aspect of the right foot by the third metatarsal. He has right second and third ray with residual purulent material and extensive necrotic bone and soft tissue is noted. There is also an abscess noted with purulent material with dorsal wounds. The patient has exhausted all conservative treatments at this time and now requires surgical interventions. The patient signed the consent after careful explanation of risks, benefits, complications and alternatives for surgical procedure. No guarantees were given or implied. PREPARATIONS: The patient was brought to the operating room, placed on the operating room table in a supine position. A time-out was performed for identification of the correct patient and procedure. After induction of IV sedation, the patient received a total of 28 mL of 1:1 mixture of 1% lidocaine plain and 0.5% Marcaine in a local block fashion to the right ankle. Once local anesthesia was achieved, the right foot was then prepped and draped in the normal sterile manner and the procedure began. PROCEDURE 1: Right foot second digit amputation. Attention was directed to the dorsal aspect of the right second digit where a racquet-type incision was made circumferentially at the level of the first metatarsophalangeal joint using a #10 blade. The incision was then extended down to the subcutaneous layer down to the level of the bone. All bleeders were cauterized and ligated as necessary. Utilizing a bone clamp to stabilize the digit, the second digit was then disarticulated from the foot at the level of the first metatarsophalangeal joint. The digit was then passed off the field and sent to pathology. Using a #15 blade, all necrotic and nonviable tissues were excisionally debrided from the surgical site. Next, utilizing a sagittal saw, the proximal aspect of the second metatarsal shaft was resected and passed off the operative field and sent for pathology. The site was then irrigated with copious amounts of normal sterile saline. PROCEDURE 2: Right foot third ray amputation. Attention was then directed to the third digit on the right foot where a racquet type incision was made circumferentially at the level of the first metatarsophalangeal joint using a #10 blade. The incision was then extended down to the subcutaneous layer down to the level of the bone. All bleeders were cauterized and ligated as necessary. Utilizing a bone clamp to stabilize the saw, the third digit was then disarticulated in foot at the level of the first metatarsophalangeal joint. The specimen was then passed from the operative field and sent to pathology. Next, utilizing a #15 blade, all necrotic and nonviable tissue was excisionally debrided from the surgical site. Next, utilizing a sagittal saw, the proximal aspect of the first metatarsal shaft was then resected and passed from the operative field and sent for pathology. The surgical site was then irrigated with copious amounts of normal sterile saline. PROCEDURE 3: Right foot incision and drainage of abscess. Attention was then directed to the dorsal aspect of the right foot where the abscess was noted. The wound was noted to be approximately 3 cm x 4 cm x 0.1 cm. There was noted to be purulence coming from the wound. Next, utilizing a #15 blade, an incision was made extending from the open wounds. A wound culture was then taken. All necrotic and nonviable tissues were debrided sharply with a #15 blade and picked up and passed off the field and sent for pathology. A deep culture was then obtained and sent for pathology. Next, the surgical site was then irrigated with 3 L of normal sterile saline utilizing Epsom salt. The surgical site was kept open and measured approximately 6 cm by 4 cm by 3 cm. The surgical site was then packed with iodoform packing, dressed with Betadine, 4 x 4's, Kerlix and lastly Andrea. POSTOPERATIVE CONDITION: The patient tolerated the anesthesia and procedure well, was brought into the recovery room with vital signs stable and neurovascular status intact to the right foot. The patient will be followed by Dr. Salazar while the patient remains in hospital. Dayna Flowers DPM Jhonny BRODY Salazar MTDAletha
[2017-04-07] MEDS: Lactated Ringer's 1,000 ML IV SCH (05:54)
[2017-04-07] MEDS: Insulin Regular 100 units/ml SC SCH ×4 (07:03→21:43)
[2017-04-07 07:20] LABS: BLOOD UREA NITROGEN 18 mg/dl (9-20); CALCIUM 9.2 mg/dL (8.4-10.2); CARBON DIOXIDE 24 mmol/L (22-30); CHLORIDE 98 mmol/L (98-107); GFR AFRICAN-AMERICAN > 60; GLUCOSE,RANDOM 224 mg/dL (75-110); SODIUM 136 mmol/l (132-148)
--- NOTE | 2017-04-07 07:27 | CP.PCM.PN ---
Subjective - Date & Time of Evaluation Date of Evaluation: 04/07/17 Time of Evaluation: 08:30 - Subjective Subjective: Podiatry progress note for Dr. Salazar 56 y/o male seen at bedside 1 day s/p right foot partial 2nd and 3rd ray resection with extensive wound debridement and incision and drainage. Patient appears in NAD and is AAOx3. Patient denies of any acute overnight events. Patient states that he has very minimal pain but he is managing it well with the pain medications. Patient denies of any overnight F/N/V/C/SOB/CP. Denies of any other pedal complains at this time. Objective - Vital Signs/Intake and Output Vital Signs (last 24 hours): Temp Pulse Resp BP Pulse Ox 98.9 F 93 H 20 143/77 97 04/07/17 07:25 04/07/17 07:25 04/07/17 07:25 04/07/17 07:25 04/07/17 07:25 - Medications Medications: Current Medications Acetaminophen (Tylenol 325mg Tab) 650 mg PO Q6 PRN PRN Reason: Pain, Mild (1-3) Last Admin: 04/04/17 08:40 Dose: 650 mg Amlodipine Besylate (Norvasc) 5 mg PO DAILY [facility] Last Admin: 04/06/17 08:23 Dose: Not Given Atorvastatin Calcium (Lipitor) 40 mg PO HS [facility] Last Admin: 04/06/17 21:12 Dose: 40 mg Dextrose (Dextrose 50% Inj) 0 ml IV STAT PRN; Protocol PRN Reason: Hyglycemia Protocol Dextrose (Glutose 15) 0 gm PO ONCE PRN; Protocol PRN Reason: Hypoglycemia Protocol Enoxaparin Sodium (Lovenox) 40 mg SC DAILY [facility] PRN Reason: Protocol Last Admin: 04/05/17 08:18 Dose: Not Given Famotidine (Pepcid) 20 mg PO DAILY [facility] Last Admin: 04/06/17 08:23 Dose: Not Given Glucagon (Glucagen Diagnostic Kit) 0 mg IM STAT PRN; Protocol PRN Reason: Hypoglycemia Protocol Ciprofloxacin (Cipro 400mg/200ml Dsw) 400 mg in 200 mls @ 200 mls/hr IVPB Q12 [facility] Last Admin: 04/06/17 21:10 Dose: 200 mls/hr Vancomycin HCl 1,250 mg/ (Sodium Chloride) 250 mls @ 125 mls/hr IVPB Q12 [facility] Last Admin: 04/06/17 21:17 Dose: 125 mls/hr Lactated Ringer's (Lactated Ringer's) 1,000 mls @ 125 mls/hr IV .Q8H [facility] Last Admin: 04/07/17 05:54 Dose: 125 mls/hr Insulin Human NPH (Humulin N) 15 units SC HS [facility] Last Admin: 04/06/17 21:16 Dose: 15 u Insulin Human NPH (Humulin N) 10 units SC QAM [facility] Last Admin: 04/06/17 08:19 Dose: Not Given Insulin Human Regular (Humulin R) 0 units SC ACHS [facility] PRN Reason: Protocol Last Admin: 04/07/17 07:03 Dose: 3 units Lactobacillus Acidophilus (Bacid Acidophilus) 1 cap PO BID [facility] Last Admin: 04/06/17 17:13 Dose: 1 cap Lisinopril (Zestril) 10 mg PO DAILY [facility] Last Admin: 04/06/17 08:25 Dose: Not Given Metoprolol Tartrate (Lopressor) 25 mg PO Q12 [facility] Last Admin: 04/06/17 21:12 Dose: 25 mg Morphine Sulfate (Morphine) 2 mg IVP Q4 PRN PRN Reason: Pain, severe (8-10) Oxycodone/Acetaminophen (Percocet 5/325 Mg Tab) 1 tab PO Q4 PRN PRN Reason: Pain, moderate (4-7) Stop: 04/09/17 08:50 Senna/Docusate Sodium (Senokot S 50 Mg-8.6 Mg) [address] [facility] Last Admin: 04/06/17 21:12 Dose: 2 tab Silver Sulfadiazine (Silvadene 1% 20 Gm) 20 ea TOP DAILY [facility] Last Admin: 04/06/17 08:24 Dose: Not Given - Labs Labs: 04/06/17 05:50 04/06/17 09:10 PT 11.0 Seconds (9.8-13.1) 04/06/17 05:50 INR 1.1 (0.9-1.2) 04/06/17 05:50 APTT 32.9 Seconds (25.6-37.1) 04/06/17 05:50 - Constitutional Appears: Well, Non-toxic, No Acute Distress - Extremities Exam Additional comments: Patient's dressing is clean, dry and intact. No strike through is noted on the dressing. Patient is currently in a surgical shoe. - Neurological Exam Neurological Exam: Alert, Awake, Oriented x3 - Psychiatric Exam Psychiatric exam: Normal Affect, Normal Mood Assessment and Plan - Assessment and Plan (Free Text) Assessment: 56 year old male 1 day s/p partial 2nd and 3rd ray resection with extensive wound debridement and incision and drainage Plan: Patient seen and evaluated at bedside Patient discussed in details with attending Dr. Salazar Labs, charts and vitals reviewed; afebrile, WBC @ 9.4 (04/06) Xray- negative OM or gas, severely plantarflexed metatarsal heads MRI- OM of 2nd met head, 3rd met head and shaft, 3rd proximal phalanx. Large abscess at 3rd MPJ and extending to 2nd digit Wound culture (Final): Strep Agalactiae Group B Continue IV abx per ID - ciprofloxacin, vancomycin Patient to go to the OR on Wednesday for another wound debridement with possible transmetatarsal amputation procedure Podiatry will continue to follow while patient is in-house
--- NOTE | 2017-04-07 08:24 | CP.PCM.PN ---
Subjective - Date & Time of Evaluation Date of Evaluation: 04/07/17 Time of Evaluation: 07:40 - Subjective Subjective: 56 yo male seen and examined at bedside this morning. Pt comfortably lying in bed, in no acute distress. Reports mild pain at the right foot but states pain is controlled with pain meds. No overnight event. Denies chest pain, dyspnea, dizziness, calf pain, nausea, vomiting, fever, chills. Reports no BM last night but voiding regularly. Tolerating PO intake. Objective - Vital Signs/Intake and Output Vital Signs (last 24 hours): Temp Pulse Resp BP Pulse Ox 98.9 F 93 H 20 143/77 97 04/07/17 07:25 04/07/17 07:25 04/07/17 07:25 04/07/17 07:25 04/07/17 07:25 - Medications Medications: Current Medications Acetaminophen (Tylenol 325mg Tab) 650 mg PO Q6 PRN PRN Reason: Pain, Mild (1-3) Last Admin: 04/04/17 08:40 Dose: 650 mg Amlodipine Besylate (Norvasc) 5 mg PO DAILY [facility] Last Admin: 04/06/17 08:23 Dose: Not Given Atorvastatin Calcium (Lipitor) 40 mg PO HS [facility] Last Admin: 04/06/17 21:12 Dose: 40 mg Dextrose (Dextrose 50% Inj) 0 ml IV STAT PRN; Protocol PRN Reason: Hyglycemia Protocol Dextrose (Glutose 15) 0 gm PO ONCE PRN; Protocol PRN Reason: Hypoglycemia Protocol Enoxaparin Sodium (Lovenox) 40 mg SC DAILY [facility] PRN Reason: Protocol Last Admin: 04/05/17 08:18 Dose: Not Given Famotidine (Pepcid) 20 mg PO DAILY [facility] Last Admin: 04/06/17 08:23 Dose: Not Given Glucagon (Glucagen Diagnostic Kit) 0 mg IM STAT PRN; Protocol PRN Reason: Hypoglycemia Protocol Ciprofloxacin (Cipro 400mg/200ml Dsw) 400 mg in 200 mls @ 200 mls/hr IVPB Q12 [facility] Last Admin: 04/06/17 21:10 Dose: 200 mls/hr Vancomycin HCl 1,250 mg/ (Sodium Chloride) 250 mls @ 125 mls/hr IVPB Q12 [facility] Last Admin: 04/06/17 21:17 Dose: 125 mls/hr Lactated Ringer's (Lactated Ringer's) 1,000 mls @ 125 mls/hr IV .Q8H [facility] Last Admin: 04/07/17 05:54 Dose: 125 mls/hr Insulin Human NPH (Humulin N) 15 units SC HS [facility] Last Admin: 04/06/17 21:16 Dose: 15 u Insulin Human NPH (Humulin N) 15 units SC QAM [facility] Insulin Human Regular (Humulin R) 0 units SC ACHS [facility] PRN Reason: Protocol Last Admin: 04/07/17 07:03 Dose: 3 units Lactobacillus Acidophilus (Bacid Acidophilus) 1 cap PO BID [facility] Last Admin: 04/06/17 17:13 Dose: 1 cap Lisinopril (Zestril) 10 mg PO DAILY [facility] Last Admin: 04/06/17 08:25 Dose: Not Given Metoprolol Tartrate (Lopressor) 25 mg PO Q12 [facility] Last Admin: 04/06/17 21:12 Dose: 25 mg Morphine Sulfate (Morphine) 2 mg IVP Q4 PRN PRN Reason: Pain, severe (8-10) Oxycodone/Acetaminophen (Percocet 5/325 Mg Tab) 1 tab PO Q4 PRN PRN Reason: Pain, moderate (4-7) Stop: 04/09/17 08:50 Senna/Docusate Sodium (Senokot S 50 Mg-8.6 Mg) 2 tab PO [facility] Last Admin: 04/06/17 21:12 Dose: 2 tab Silver Sulfadiazine (Silvadene 1% 20 Gm) 20 ea TOP DAILY [facility] Last Admin: 04/06/17 08:24 Dose: Not Given - Labs Labs: 04/06/17 05:50 04/07/17 06:35 PT 11.0 Seconds (9.8-13.1) 04/06/17 05:50 INR 1.1 (0.9-1.2) 04/06/17 05:50 APTT 32.9 Seconds (25.6-37.1) 04/06/17 05:50 - Constitutional Appears: Well, No Acute Distress - Head Exam Head Exam: NORMAL INSPECTION - Eye Exam Eye Exam: Normal appearance - ENT Exam ENT Exam: Mucous Membranes Moist - Neck Exam Neck Exam: Normal Inspection - Respiratory Exam Respiratory Exam: Clear to Ausculation Bilateral. absent: Rales, Rhonchi, Wheezes - Cardiovascular Exam Cardiovascular Exam: REGULAR RHYTHM, RRR, +S1, +S2 - GI/Abdominal Exam GI & Abdominal Exam: Soft, Normal Bowel Sounds. absent: Tenderness - Extremities Exam Extremities Exam: Normal Capillary Refill, Normal Inspection. absent: Calf Tenderness, Pedal Edema Additional comments: Dressing on right foot looks clean, dry and intact. No blood/discharge seen over the dressing. Has ortho shoe on. NVI. - Neurological Exam Neurological Exam: Alert, Awake, Oriented x3 - Psychiatric Exam Psychiatric exam: Normal Affect, Normal Mood Assessment and Plan - Assessment and Plan (Free Text) Assessment: Assessment and Plan: 56 year old male w/ PMH IDDMII admitted with right foot diabetic foot ulcer with cellulitis. 1. Sepsis -afebrile, stable vitals. -IV cipro 400 mg BID and vanco 1 gm BID. -WBC downtrending, tachycaria improved, negative lactate -Procalcitonin 5.13 -CBC AM -Repeat blood cx: no growth after 3 days. 2. Acute right foot cellulitis: - ID and Podiatry consults appreciated -foot x ray: degenerative changes. 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 Soft tissue swelling. -ciprofloxacin 400 mg IV BID -Continue vancomycin 100 mg IV BID. - vanc trough: 11.4 on 04/05/17 - blood cx- 04/02/17: Beta hemolytic group b strep -Repeat blood cx: no growth after 3 days. -MRI of the foot positive for OM and septic joint( as per report) -ESR 110 -Had partial resection of right 2nd and 3rd toe on 04/06/17. -bone biopsy: pending -wound cx (04/06/17): gram positive cocci. -Per podiatry: plan is to take the patient to the OR this Wednesday at 7:45 am for another wound debridement with possible transmetatarsal amputation procedure. 3. Hypokalemia -resolved -K 4.0 today -check AM labs. 4. IDDM -Continue NPH 15 units SC PM -Increase to 15 unit from 10 units AM. -Hold metformin 1000 mg BID -insulin sliding scale, accuchecks 5.HTN- Elevated: -Continue amlodipine 5 mg daily. -Continue lisinopril 10 mg. 6. Tachycardia -improved -Continue metoprolol tartrate 25 mg PO BID. 7.DVT prophylaxis -Restart Lovenox 40 mg SC 8.GI prophylaxis -famotidine 20 mg daily. Diet:regular diet
[2017-04-07] MEDS ORDERED: Magnesium Hydroxide Susp 30 ml UD PO ONE (09:02)
[2017-04-07] MEDS: Lactobacillus Acidophilus 500 MU Cap PO SCH ×2 (09:25→16:23)
[2017-04-07] MEDS: Ciprofloxacin 400mg/200ml D5W 400 MG/200 ML BAG IVPB SCH ×2 (09:26→21:00)
[2017-04-07] MEDS: Insulin NPH Human 100 Units/ml Inj SC SCH ×2 (09:28→21:38)
[2017-04-07] MEDS: Silver Sulfadiazine 1% Cream (20 gm) TOP SCH (09:37)
--- NOTE | 2017-04-07 15:33 | CP.PCM.PN ---
Subjective - Date & Time of Evaluation Date of Evaluation: 04/07/17 Time of Evaluation: 13:00 - Subjective Subjective: ID Note- Pt. seen and examined today. denies any fever or chills. 1 day s/p right foot partial 2nd and 3rd ray resection with extensive wound debridement and incision and drainage by podiatry. Objective - Vital Signs/Intake and Output Vital Signs (last 24 hours): Temp Pulse Resp BP Pulse Ox 98.9 F 93 H 20 143/77 97 04/07/17 07:25 04/07/17 09:38 04/07/17 07:25 04/07/17 09:38 04/07/17 07:25 - Medications Medications: Current Medications Acetaminophen (Tylenol 325mg Tab) 650 mg PO Q6 PRN PRN Reason: Pain, Mild (1-3) Last Admin: 04/04/17 08:40 Dose: 650 mg Amlodipine Besylate (Norvasc) 5 mg PO DAILY [facility] Last Admin: 04/07/17 09:36 Dose: 5 mg Atorvastatin Calcium (Lipitor) 40 mg PO HS [facility] Last Admin: 04/06/17 21:12 Dose: 40 mg Dextrose (Dextrose 50% Inj) 0 ml IV STAT PRN; Protocol PRN Reason: Hyglycemia Protocol Dextrose (Glutose 15) 0 gm PO ONCE PRN; Protocol PRN Reason: Hypoglycemia Protocol Enoxaparin Sodium (Lovenox) 40 mg SC DAILY [facility] PRN Reason: Protocol Last Admin: 04/05/17 08:18 Dose: Not Given Famotidine (Pepcid) 20 mg PO DAILY [facility] Last Admin: 04/07/17 09:35 Dose: 20 mg Glucagon (Glucagen Diagnostic Kit) 0 mg IM STAT PRN; Protocol PRN Reason: Hypoglycemia Protocol Ciprofloxacin (Cipro 400mg/200ml Dsw) 400 mg in 200 mls @ 200 mls/hr IVPB Q12 [facility] Last Admin: 04/07/17 09:26 Dose: 200 mls/hr Vancomycin HCl 1,250 mg/ (Sodium Chloride) 250 mls @ 125 mls/hr IVPB Q12 [facility] Last Admin: 04/07/17 09:37 Dose: 125 mls/hr Lactated Ringer's (Lactated Ringer's) 1,000 mls @ 125 mls/hr IV .Q8H [facility] Last Admin: 04/07/17 05:54 Dose: 125 mls/hr Insulin Human NPH (Humulin N) 15 units SC HS [facility] Last Admin: 04/06/17 21:16 Dose: 15 u Insulin Human NPH (Humulin N) 15 units SC QAM [facility] Last Admin: 04/07/17 09:28 Dose: 15 units Insulin Human Regular (Humulin R) 0 units SC ACHS [facility] PRN Reason: Protocol Last Admin: 04/07/17 11:41 Dose: 6 units Lactobacillus Acidophilus (Bacid Acidophilus) 1 cap PO BID [facility] Last Admin: 04/07/17 09:25 Dose: 1 cap Lisinopril (Zestril) 10 mg PO DAILY [facility] Last Admin: 04/07/17 09:38 Dose: 10 mg Metoprolol Tartrate (Lopressor) 25 mg PO Q12 [facility] Last Admin: 04/07/17 09:29 Dose: 25 mg Morphine Sulfate (Morphine) 2 mg IVP Q4 PRN PRN Reason: Pain, severe (8-10) Oxycodone/Acetaminophen (Percocet 5/325 Mg Tab) 1 tab PO Q4 PRN PRN Reason: Pain, moderate (4-7) Stop: 04/09/17 08:50 Senna/Docusate Sodium (Senokot S 50 Mg-8.6 Mg) 2 tab PO HS [facility] Last Admin: 04/06/17 21:12 Dose: 2 tab Silver Sulfadiazine (Silvadene 1% 20 Gm) 20 ea TOP DAILY [facility] Last Admin: 04/07/17 09:37 Dose: 1 applic - Labs Labs: - Additional Findings Additional findings: - Constitutional Appears: No Acute Distress - Head Exam Head Exam: ATRAUMATIC, NORMAL INSPECTION - Eye Exam Eye Exam: EOMI, PERRL - ENT Exam ENT Exam: Normal Oropharynx - Neck Exam Neck exam: Positive for: Full Rom - Respiratory Exam Respiratory Exam: Clear to Auscultation Bilateral, NORMAL BREATHING PATTERN - Cardiovascular Exam Cardiovascular Exam: RRR, +S1, +S2 - GI/Abdominal Exam GI & Abdominal Exam: Normal Bowel Sounds, Soft Additional comments: NT, ND - Extremities Exam Additional comments: wrapped in post-surgical gauze dressing, - Neurological Exam Neurological exam: Alert, Oriented x 3 Laboratory Results - last 72 hr 04/02/17 04/04/17 04/04/17 19:09 15:56 20:19 WBC 11.9 H RBC 3.29 L Hgb 9.7 L Hct 29.6 L MCV 89.8 MCH 29.6 MCHC 32.9 L RDW 12.6 Plt Count 266 MPV 8.5 Neut % (Auto) 77.0 H Lymph % (Auto) 14.4 L [place] % (Auto) 6.4 Eos % (Auto) 1.0 Baso % (Auto) 1.2 Neut # 9.1 H Lymph # 1.7 [place] # 0.8 Eos # 0.1 Baso # 0.1 PT INR APTT Sodium Potassium Chloride Carbon Dioxide Anion Gap BUN Creatinine Est GFR ( Amer) Est GFR (Non-Af Amer) POC Glucose (mg/dL) 308 H Random Glucose Calcium Procalcitonin 5.13 H Vancomycin Trough 04/04/17 04/05/17 04/05/17 21:03 04:15 04:15 WBC RBC Hgb Hct MCV MCH MCHC RDW Plt Count MPV Neut % (Auto) Lymph % (Auto) [place] % (Auto) Eos % (Auto) Baso % (Auto) Neut # Lymph # [place] # Eos # Baso # PT INR APTT Sodium 136 Potassium 3.7 Chloride 102 Carbon Dioxide 27 Anion Gap 11 BUN 12 Creatinine 0.9 Est GFR ( Amer) > 60 Est GFR (Non-Af Amer) > 60 POC Glucose (mg/dL) > 500 H* Random Glucose 226 H Calcium 9.1 Procalcitonin Vancomycin Trough 13.6 H 04/05/17 04/05/17 04/05/17 04:15 05:12 10:35 WBC 10.9 H RBC 3.55 L Hgb 10.8 L Hct 31.8 L MCV 89.6 MCH 30.3 MCHC 33.9 RDW 12.5 Plt Count 301 MPV Neut % (Auto) Lymph % (Auto) [place] % (Auto) Eos % (Auto) Baso % (Auto) Neut # Lymph # [place] # Eos # Baso # PT 11.2 INR 1.1 APTT 31.9 Sodium Potassium Chloride Carbon Dioxide Anion Gap BUN Creatinine Est GFR ( Amer) Est GFR (Non-Af Amer) POC Glucose (mg/dL) 350 H Random Glucose Calcium Procalcitonin Vancomycin Trough 09/25/17 09/25/17 09/25/17 10:58 16:06 20:18 WBC RBC Hgb Hct MCV MCH MCHC RDW Plt Count MPV Neut % (Auto) Lymph % (Auto) [place] % (Auto) Eos % (Auto) Baso % (Auto) Neut # Lymph # [place] # Eos # Baso # PT INR APTT Sodium Potassium Chloride Carbon Dioxide Anion Gap BUN Creatinine Est GFR ( Amer) Est GFR (Non-Af Amer) POC Glucose (mg/dL) 288 H 305 H Random Glucose Calcium Procalcitonin Vancomycin Trough 11.4 H 04/05/17 04/06/17 04/06/17 21:02 05:34 05:50 WBC 9.4 RBC 3.69 L Hgb 11.0 L Hct 32.9 L MCV 89.1 MCH 29.9 MCHC 33.6 RDW 12.8 Plt Count 364 MPV Neut % (Auto) Lymph % (Auto) [place] % (Auto) Eos % (Auto) Baso % (Auto) Neut # Lymph # [place] # Eos # Baso # PT INR APTT Sodium Potassium Chloride Carbon Dioxide Anion Gap BUN Creatinine Est GFR ( Amer) Est GFR (Non-Af Amer) POC Glucose (mg/dL) 336 H 348 H Random Glucose Calcium Procalcitonin Vancomycin Trough 04/06/17 04/06/17 04/06/17 05:50 05:50 08:43 WBC RBC Hgb Hct MCV MCH MCHC RDW Plt Count MPV Neut % (Auto) Lymph % (Auto) [place] % (Auto) Eos % (Auto) Baso % (Auto) Neut # Lymph # [place] # Eos # Baso # PT 11.0 INR 1.1 APTT 32.9 Sodium 136 Potassium 5.6 H Chloride 100 Carbon Dioxide 26 Anion Gap 16 BUN 18 Creatinine 0.9 Est GFR ( Amer) > 60 Est GFR (Non-Af Amer) > 60 POC Glucose (mg/dL) 215 H Random Glucose 241 H Calcium 9.4 Procalcitonin Vancomycin Trough 04/06/17 04/06/17 04/06/17 09:10 12:26 15:41 WBC RBC Hgb Hct MCV MCH MCHC RDW Plt Count MPV Neut % (Auto) Lymph % (Auto) [place] % (Auto) Eos % (Auto) Baso % (Auto) Neut # Lymph # [place] # Eos # Baso # PT INR APTT Sodium 138 Potassium 3.8 Chloride 101 Carbon Dioxide 27 Anion Gap 15 BUN 16 Creatinine 0.9 Est GFR ( Amer) > 60 Est GFR (Non-Af Amer) > 60 POC Glucose (mg/dL) 189 H 344 H Random Glucose 195 H Calcium 9.3 Procalcitonin Vancomycin Trough 04/06/17 04/07/17 04/07/17 21:08 05:39 06:35 WBC RBC Hgb Hct MCV MCH MCHC RDW Plt Count MPV Neut % (Auto) Lymph % (Auto) [place] % (Auto) Eos % (Auto) Baso % (Auto) Neut # Lymph # [place] # Eos # Baso # PT INR APTT Sodium 136 Potassium 4.0 Chloride 98 Carbon Dioxide 24 Anion Gap 17 BUN 18 Creatinine 0.8 Est GFR ( Amer) > 60 Est GFR (Non-Af Amer) > 60 POC Glucose (mg/dL) 276 H 286 H Random Glucose 224 H Calcium 9.2 Procalcitonin Vancomycin Trough 04/07/17 11:07 WBC RBC Hgb Hct MCV MCH MCHC RDW Plt Count MPV Neut % (Auto) Lymph % (Auto) [place] % (Auto) Eos % (Auto) Baso % (Auto) Neut # Lymph # [place] # Eos # Baso # PT INR APTT Sodium Potassium Chloride Carbon Dioxide Anion Gap BUN Creatinine Est GFR ( Amer) Est GFR (Non-Af Amer) POC Glucose (mg/dL) 490 H* Random Glucose Calcium Procalcitonin Vancomycin Trough Microbiology 04/06/17 10:07 Other: Please Indicate Gram Stain - Final 04/06/17 10:07 Other: Please Indicate Wound Culture - Preliminary Gram Positive Cocci 04/03/17 17:15 Blood-Venous Blood Culture - Preliminary NO GROWTH AFTER 3 DAYS 04/03/17 17:00 Blood-Venous Blood Culture - Preliminary NO GROWTH AFTER 3 DAYS 04/03/17 14:51 Foot - Right Gram Stain - Final 04/03/17 14:51 Foot - Right Wound Culture - Final Beta Hemolytic Strep Group B 04/02/17 10:44 Blood S.aureus & Coag-Neg Staph PNA FISH - Final 04/02/17 10:44 Blood Blood Culture - Final Beta Hemolytic Strep Group B 04/02/17 10:44 Blood Gram Stain - Final 04/02/17 11:08 Urine Urine Culture - Final No Growth (<1,000 CFU/ML) Assessment and Plan (1) Cellulitis and abscess of foot Status: Acute (2) Leukocytosis Status: Acute (3) Diabetes Status: Acute (4) Osteomyelitis of ankle or foot, right, acute Status: Acute (5) Bacteremia Status: Acute - Assessment and Plan (Free Text) Assessment: A/P- 56 year old male with uncontrolled diabetes presents with right foot cellulitis most likely secondary to plantar ulcer. s/p right foot partial 2nd and 3rd ray resection with extensive wound debridement and incision and drainage by podiatry afebrile leukocytosis trending down on IV abx. normal lactate levelblood cx- group B strep x 1 04/02 repeat blood cx- 04/03-neg x 2 foot wound cx- group B strep MRI report noted- abscess and OM as per report. PLan- check TTE r/o vegetations. continue with IV vancomycin 1 gram q12 and keep trough <15. day #6. continue with on IV cipro 400 mg BID.day #6. await possible TMA by podiatry later in the week.
[2017-04-07] MEDS: Docusate-Senna 50 mg-8.6 mg Tab PO SCH (21:35)
[2017-04-08] MEDS: Lactated Ringer's 1,000 ML IV SCH (03:37)
[2017-04-08] MEDS: Insulin Regular 100 units/ml SC SCH ×4 (07:04→22:18)
--- NOTE | 2017-04-08 08:01 | CP.PCM.PN ---
Subjective - Date & Time of Evaluation Date of Evaluation: 04/08/17 Time of Evaluation: 07:59 - Subjective Subjective: Podiatry progress note for Dr. Salazar 56 y/o male seen at bedside 2 day s/p right foot partial 2nd and 3rd ray resection with extensive wound debridement and incision and drainage. Patient appears in NAD and is AAOx3. Patient denies of any acute overnight events. Patient states that he has very minimal pain but he is managing it well with the pain medications. Patient states that he is aware of the surgery tomorrow and knows to not eat or drink anything after midnight. Patient denies of any overnight F/N/V/C/SOB/CP. Denies of any other pedal complains at this time. Objective - Vital Signs/Intake and Output Vital Signs (last 24 hours): Temp Pulse Resp BP Pulse Ox 98.2 F 81 20 146/79 98 04/08/17 07:41 04/08/17 07:41 04/08/17 07:41 04/08/17 07:41 04/08/17 07:41 Intake and Output: 04/08/17 04/08/17 06:59 18:59 Intake Total 2000 Output Total 1000 Balance 1000 - Medications Medications: Current Medications Acetaminophen (Tylenol 325mg Tab) 650 mg PO Q6 PRN PRN Reason: Pain, Mild (1-3) Last Admin: 04/04/17 08:40 Dose: 650 mg Amlodipine Besylate (Norvasc) 5 mg PO DAILY [facility] Last Admin: 04/07/17 09:36 Dose: 5 mg Atorvastatin Calcium (Lipitor) 40 mg PO HS [facility] Last Admin: 04/07/17 21:05 Dose: 40 mg Dextrose (Dextrose 50% Inj) 0 ml IV STAT PRN; Protocol PRN Reason: Hyglycemia Protocol Dextrose (Glutose 15) 0 gm PO ONCE PRN; Protocol PRN Reason: Hypoglycemia Protocol Enoxaparin Sodium (Lovenox) 40 mg SC DAILY [facility] PRN Reason: Protocol Last Admin: 04/05/17 08:18 Dose: Not Given Famotidine (Pepcid) 20 mg PO DAILY [facility] Last Admin: 04/07/17 09:35 Dose: 20 mg Glucagon (Glucagen Diagnostic Kit) 0 mg IM STAT PRN; Protocol PRN Reason: Hypoglycemia Protocol Ciprofloxacin (Cipro 400mg/200ml Dsw) 400 mg in 200 mls @ 200 mls/hr IVPB Q12 [facility] Last Admin: 04/07/17 21:00 Dose: 200 mls/hr Vancomycin HCl 1,250 mg/ (Sodium Chloride) 250 mls @ 125 mls/hr IVPB Q12 [facility] Last Admin: 04/07/17 22:41 Dose: 125 mls/hr Lactated Ringer's (Lactated Ringer's) 1,000 mls @ 125 mls/hr IV .Q8H [facility] Last Admin: 04/08/17 03:37 Dose: Not Given Insulin Human NPH (Humulin N) 15 units SC HS [facility] Last Admin: 04/07/17 21:38 Dose: 15 u Insulin Human NPH (Humulin N) 15 units SC QAM [facility] Last Admin: 04/07/17 09:28 Dose: 15 units Insulin Human Regular (Humulin R) 0 units SC ACHS [facility] PRN Reason: Protocol Last Admin: 04/08/17 07:04 Dose: 2 units Lactobacillus Acidophilus (Bacid Acidophilus) 1 cap PO BID [facility] Last Admin: 04/07/17 16:23 Dose: 1 cap Lisinopril (Zestril) 10 mg PO DAILY [facility] Last Admin: 04/07/17 09:38 Dose: 10 mg Metoprolol Tartrate (Lopressor) 25 mg PO Q12 [facility] Last Admin: 04/07/17 21:04 Dose: 25 mg Morphine Sulfate (Morphine) 2 mg IVP Q4 PRN PRN Reason: Pain, severe (8-10) Oxycodone/Acetaminophen (Percocet 5/325 Mg Tab) 1 tab PO Q4 PRN PRN Reason: Pain, moderate (4-7) Stop: 04/09/17 08:50 Senna/Docusate Sodium (Senokot S 50 Mg-8.6 Mg) 2 tab PO [facility] Last Admin: 04/07/17 21:35 Dose: 2 tab Silver Sulfadiazine (Silvadene 1% 20 Gm) 20 ea TOP DAILY [facility] Last Admin: 04/07/17 09:37 Dose: 1 applic - Labs Labs: 04/06/17 05:50 04/07/17 06:35 PT 11.0 Seconds (9.8-13.1) 04/06/17 05:50 INR 1.1 (0.9-1.2) 04/06/17 05:50 APTT 32.9 Seconds (25.6-37.1) 04/06/17 05:50 - Constitutional Appears: Well, Non-toxic, No Acute Distress - Extremities Exam Additional comments: VASC: DP/PT fully palpable /4. Cap refill time: < 3 seconds to 2 digits and plantar skin flap. Skin temperature warm to warm from proximal to distal on the right foot, minimal edema noted to the right foot DERM: Wound bed from the dorsum of the foot appears to extend from medial to lateral up to the 4th ray and down to the muscular layer, wound bed is granular (100%) with no fibrosis noted, periwound flap appears fully viable with no necrosis or maceration noted, no foul odor, tendons visualized from the dorsum of the foot, no active purulent, serous or sanguineous drainage noted, no uri- wound erythema, no clinical suspicion of active infection NEURO: Epicritic and protective sensation grossly intact ORTHO: Minimal tenderness upon palpation noted to right foot plantar ulcer - Neurological Exam Neurological Exam: Alert, Awake, Oriented x3 - Psychiatric Exam Psychiatric exam: Normal Affect, Normal Mood Assessment and Plan - Assessment and Plan (Free Text) Assessment: 56 year old male 2 day s/p partial 2nd and 3rd ray resection with extensive wound debridement and incision and drainage Plan: Patient seen and evaluated at bedside Patient discussed in details with attending Dr. Salazar Labs, charts and vitals reviewed; afebrile, WBC @ 9.4 (04/06) Wound bed packed with iodoform and dressed using DSD, NAKUL Xray (Prior to surgical treatment)- negative OM or gas, severely plantarflexed metatarsal heads MRI- OM of 2nd met head, 3rd met head and shaft, 3rd proximal phalanx. Large abscess at 3rd MPJ and extending to 2nd digit Wound culture (Final): Strep Agalactiae Group B Continue IV abx per ID - ciprofloxacin, vancomycin Patient to go to the OR tomorrow for another wound debridement with possible transmetatarsal amputation procedure NPO order in place starting midnight Please hold Lovenox for today - will continue after the surgery Podiatry will continue to follow while patient is in-house
[2017-04-08 08:24] LABS: BLOOD UREA NITROGEN 18 mg/dl (9-20); CALCIUM 9.3 mg/dL (8.4-10.2); CARBON DIOXIDE 25 mmol/L (22-30); CHLORIDE 99 mmol/L (98-107); GFR AFRICAN-AMERICAN > 60; GLUCOSE,RANDOM 189 mg/dL (75-110); SODIUM 138 mmol/l (132-148)
--- NOTE | 2017-04-08 08:49 | CP.PCM.PN ---
Subjective - Date & Time of Evaluation Date of Evaluation: 04/08/17 Time of Evaluation: 08:10 - Subjective Subjective: Pt seen and examined at bedside this morning. States mild pain in right foot but did not need pain meds. No overnight event. Denies chest pain, dyspnea, dizziness, calf pain, nausea, vomiting, fever, chills. Tolerating PO intake. Reports normal BM and voiding regularly. Pt is scheduled for OR tomorrow for another wound debridement with possible transmetatarsal amputation procedure. Pt is aware of the procedure. Objective - Vital Signs/Intake and Output Vital Signs (last 24 hours): Temp Pulse Resp BP Pulse Ox 98.2 F 81 20 146/79 98 04/08/17 07:41 04/08/17 07:41 04/08/17 07:41 04/08/17 07:41 04/08/17 07:41 Intake and Output: 04/08/17 04/08/17 06:59 18:59 Intake Total 2000 Output Total 1000 Balance 1000 - Medications Medications: Current Medications Acetaminophen (Tylenol 325mg Tab) 650 mg PO Q6 PRN PRN Reason: Pain, Mild (1-3) Last Admin: 04/04/17 08:40 Dose: 650 mg Amlodipine Besylate (Norvasc) 5 mg PO DAILY [facility] Last Admin: 04/07/17 09:36 Dose: 5 mg Atorvastatin Calcium (Lipitor) 40 mg PO HS [facility] Last Admin: 04/07/17 21:05 Dose: 40 mg Dextrose (Dextrose 50% Inj) 0 ml IV STAT PRN; Protocol PRN Reason: Hyglycemia Protocol Dextrose (Glutose 15) 0 gm PO ONCE PRN; Protocol PRN Reason: Hypoglycemia Protocol Enoxaparin Sodium (Lovenox) 40 mg SC DAILY [facility] PRN Reason: Protocol Last Admin: 04/05/17 08:18 Dose: Not Given Famotidine (Pepcid) 20 mg PO DAILY [facility] Last Admin: 04/07/17 09:35 Dose: 20 mg Glucagon (Glucagen Diagnostic Kit) 0 mg IM STAT PRN; Protocol PRN Reason: Hypoglycemia Protocol Ciprofloxacin (Cipro 400mg/200ml Dsw) 400 mg in 200 mls @ 200 mls/hr IVPB Q12 [facility] Last Admin: 04/07/17 21:00 Dose: 200 mls/hr Vancomycin HCl 1,250 mg/ (Sodium Chloride) 250 mls @ 125 mls/hr IVPB Q12 [facility] Last Admin: 04/07/17 22:41 Dose: 125 mls/hr Lactated Ringer's (Lactated Ringer's) 1,000 mls @ 125 mls/hr IV .Q8H [facility] Last Admin: 04/08/17 03:37 Dose: Not Given Insulin Human NPH (Humulin N) 15 units SC HS [facility] Last Admin: 04/07/17 21:38 Dose: 15 u Insulin Human NPH (Humulin N) 15 units SC QAM [facility] Last Admin: 04/07/17 09:28 Dose: 15 units Insulin Human Regular (Humulin R) 0 units SC ACHS [facility] PRN Reason: Protocol Last Admin: 04/08/17 07:04 Dose: 2 units Lactobacillus Acidophilus (Bacid Acidophilus) 1 cap PO BID [facility] Last Admin: 04/07/17 16:23 Dose: 1 cap Lisinopril (Zestril) 10 mg PO DAILY [facility] Last Admin: 04/07/17 09:38 Dose: 10 mg Metoprolol Tartrate (Lopressor) 25 mg PO Q12 [facility] Last Admin: 04/07/17 21:04 Dose: 25 mg Morphine Sulfate (Morphine) 2 mg IVP Q4 PRN PRN Reason: Pain, severe (8-10) Oxycodone/Acetaminophen (Percocet 5/325 Mg Tab) 1 tab PO Q4 PRN PRN Reason: Pain, moderate (4-7) Stop: 04/09/17 08:50 Senna/Docusate Sodium (Senokot S 50 Mg-8.6 Mg) 2 tab PO [facility] Last Admin: 04/07/17 21:35 Dose: 2 tab Silver Sulfadiazine (Silvadene 1% 20 Gm) 20 ea TOP DAILY [facility] Last Admin: 04/07/17 09:37 Dose: 1 applic - Labs Labs: 04/06/17 05:50 04/08/17 07:10 PT 11.0 Seconds (9.8-13.1) 04/06/17 05:50 INR 1.1 (0.9-1.2) 04/06/17 05:50 APTT 32.9 Seconds (25.6-37.1) 04/06/17 05:50 - Constitutional Appears: Well, No Acute Distress - Head Exam Head Exam: NORMAL INSPECTION - Eye Exam Eye Exam: Normal appearance - ENT Exam ENT Exam: Mucous Membranes Moist - Respiratory Exam Respiratory Exam: Clear to Ausculation Bilateral. absent: Rales, Rhonchi, Wheezes - Cardiovascular Exam Cardiovascular Exam: REGULAR RHYTHM, RRR, +S1, +S2 - GI/Abdominal Exam GI & Abdominal Exam: Soft, Normal Bowel Sounds. absent: Tenderness - Extremities Exam Extremities Exam: Normal Capillary Refill, Normal Inspection. absent: Pedal Edema, Tenderness Additional comments: Pt is on ortho shoe. Dressing on right foot looks clean, dry and intact. No blood/discharge seen over the dressing. NVI. - Neurological Exam Neurological Exam: Alert, Awake, Oriented x3 - Psychiatric Exam Psychiatric exam: Normal Affect, Normal Mood Assessment and Plan - Assessment and Plan (Free Text) Assessment: Assessment and Plan: 56 year old male w/ PMH IDDM II admitted with right foot diabetic foot ulcer with cellulitis. 1. Sepsis -afebrile, stable vitals. -WBC downtrending, tachycaria improved, negative lactate -SANAZ: negative for valvular vegetations. -Procalcitonin 5.13 -CBC AM -Repeat blood cx: no growth after 3 days. 2. Acute right foot cellulitis: - ID and Podiatry consults appreciated -foot x ray: degenerative changes. 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 Soft tissue swelling. -continue ciprofloxacin 400 mg IV BID -Continue vancomycin 100 mg IV BID. -vanc trough: 11.4 on 04/05/17 -blood cx- 04/02/17: Beta hemolytic group b strep -Repeat blood cx: no growth after 3 days. -MRI of the foot positive for OM and septic joint( as per report) -ESR 110 -Had partial resection of right 2nd and 3rd toe on 04/06/17. -bone biopsy: pending -wound cx (04/06/17): gram positive cocci. -Per podiatry: plan is to take the patient to the OR this Wednesday at 7:45 am for another wound debridement with possible transmetatarsal amputation procedure. 3. Hypokalemia -resolved -K 4.0 today -check AM labs. 4. Insulin dependent DM II -Increase NPH 18 units SC PM -Increase to 21 units units AM. -Hold metformin 1000 mg BID -insulin sliding scale, accuchecks 5.HTN- Elevated: -Continue amlodipine 5 mg daily. -Continue lisinopril 10 mg. 6. Tachycardia -improved -Continue metoprolol tartrate 25 mg PO BID. 7.DVT prophylaxis -on hold Lovenox 40 mg SC 8.GI prophylaxis -famotidine 20 mg daily. Diet: NPO tonight
[2017-04-08] MEDS: Ciprofloxacin 400mg/200ml D5W 400 MG/200 ML BAG IVPB SCH ×2 (09:14→20:43)
[2017-04-08] MEDS: Insulin NPH Human 100 Units/ml Inj SC SCH ×2 (09:17→22:26)
[2017-04-08] MEDS: Enoxaparin 40 mg Syringe SC SCH (09:19)
[2017-04-08] MEDS: Silver Sulfadiazine 1% Cream (20 gm) TOP SCH (09:20)
[2017-04-08] MEDS: Lactobacillus Acidophilus 500 MU Cap PO SCH ×2 (09:26→17:06)
[2017-04-08] MEDS ORDERED: Sodium Chloride 0.9% 1,000 ML IV SCH (16:00)
--- NOTE | 2017-04-08 20:26 | CARD ---
APPROVED REPORT EXAM: Two-dimensional and M-mode echocardiogram with Doppler and color Doppler. 2D DIMENSIONS Left Atrium (2D)3.96 (1.6-4.0cm)IVSd1.04 (0.7-1.1cm) Aortic Root (2D)2.64 (2.0-3.7cm)LVDd5.37 (3.9-5.9cm) LVOT Diameter2.25 (1.8-2.4cm)PWd0.99 (0.7-1.1cm) IVSs1.13 (0.8-1.2cm)LVDs4.17 (2.5-4.0cm) FS (%) 22.3 %PWs1.05 (0.8-1.2cm) M-Mode DIMENSIONS Left Atrium (MM)4.38 (2.5-4.0cm)IVSd1.00 (0.7-1.1cm) Aortic Root3.35 (2.2-3.7cm)LVDd4.91 (4.0-5.6cm) Aortic Cusp Exc.2.15 (1.5-2.0cm)PWd1.25 (0.7-1.1cm) IVSs1.16 cmFS (%) 16 % LVDs4.10 (2.0-3.8cm)PWs1.35 cm Mitral Valve MV E Ysagfczw16.0cm/sMV E Peak Gr.40mmHgMV DECEL GRUM495cy MV A Drohdfmm67.0cm/sMV LRW19cfV/A ratio1.0 MVA (PHT)3.16cm2 TDI Lateral E' Peak V8.88cm/sMedial E' Peak V6.03cm/sE/Lateral E'7.4 E/Medial E'10.9 Pulmonary Valve PV Peak Efdcggyo920.5cm/s Tricuspid Valve TR Peak Jzmsoabl594zi/sRAP IAMWSGZA89hwLuCR Peak Gr.23mmHg EKBZ50amQc LEFT VENTRICLE The left ventricle is normal in size. There is normal left ventricular wall thickness. The left ventricular function is normal. The left ventricular ejection fraction is - 60%. There is normal LV segmental wall motion. The left ventricular diastolic function is normal. No left ventricle thrombus noted on this study. There is no ventricular septal defect visualized. There is no left ventricular aneurysm. There is no mass noted in the left ventricle. RIGHT VENTRICLE The right ventricle is normal in size. There is normal right ventricular wall thickness. The right ventricular systolic function is normal. ATRIA The left atrium is mildly dilated. There is no thrombus suspected in the left atrium. The right atrium size is normal. The interatrial septum is intact with no evidence for an atrial septal defect. AORTIC VALVE The aortic valve is normal in structure and function. No aortic regurgitation is present. There is no aortic valvular stenosis. MITRAL VALVE The mitral valve is normal in structure and function. There is no evidence of mitral valve prolapse. There is no mitral valve stenosis. Mitral regurgitation is mild. TRICUSPID VALVE The tricuspid valve is normal in structure and function. There is mild tricuspid regurgitation. Right ventricular systolic pressure is estimated at 35 mmHg. There is no tricuspid valve prolapse or vegetation. There is no tricuspid valve stenosis. PULMONIC VALVE The pulmonary valve is normal in structure and function. There is no pulmonic valvular regurgitation. GREAT VESSELS The aortic root is normal in size. The IVC is normal in size and collapses >50% with inspiration. PERICARDIAL EFFUSION The pericardium appears normal. There is no pleural effusion. <Conclusion> The left ventricle is normal in size and wall thickness. The left ventricular function is normal. The left ventricular ejection fraction is - 60%. The left atrium is mildly dilated. The mitral, aortic and tricuspid valves are normal. There is mild regurgitation of the mitral and tricuspid valves.
[2017-04-08] MEDS: Docusate-Senna 50 mg-8.6 mg Tab PO SCH (21:07)
[2017-04-09] MEDS ORDERED: Lactated Ringer's 1,000 ML IV SCH
--- NOTE | 2017-04-09 06:19 | CP.PCM.PN ---
Subjective - Date & Time of Evaluation Date of Evaluation: 04/09/17 Time of Evaluation: 06:40 - Subjective Subjective: Podiatry progress note for Dr. Salazar 56 y/o male seen at bedside 3 day s/p right foot partial 2nd and 3rd ray resection with extensive wound debridement and incision and drainage. Patient appears in NAD and is AAOx3. Patient denies of any acute overnight events. Patient is aware of the surgery today. Patient states that he has not had anything to eat or drink since midnight yesterday. Patient denies of any overnight F/N/V/C/SOB/CP. Denies of any other pedal complains at this time. Objective - Vital Signs/Intake and Output Vital Signs (last 24 hours): Temp Pulse Resp BP Pulse Ox 98.2 F 70 20 147/83 100 04/09/17 00:47 04/09/17 00:47 04/09/17 00:47 04/09/17 00:47 04/09/17 00:47 Intake and Output: 04/08/17 04/09/17 18:59 06:59 Intake Total 350 Balance 350 - Medications Medications: Current Medications Acetaminophen (Tylenol 325mg Tab) 650 mg PO Q6 PRN PRN Reason: Pain, Mild (1-3) Last Admin: 04/04/17 08:40 Dose: 650 mg Amlodipine Besylate (Norvasc) 5 mg PO DAILY [facility] Last Admin: 04/08/17 09:19 Dose: 5 mg Atorvastatin Calcium (Lipitor) 40 mg PO HS [facility] Last Admin: 04/08/17 21:07 Dose: 40 mg Dextrose (Dextrose 50% Inj) 0 ml IV STAT PRN; Protocol PRN Reason: Hyglycemia Protocol Dextrose (Glutose 15) 0 gm PO ONCE PRN; Protocol PRN Reason: Hypoglycemia Protocol Enoxaparin Sodium (Lovenox) 40 mg SC DAILY [facility] PRN Reason: Protocol Last Admin: 04/08/17 09:19 Dose: 40 mg Famotidine (Pepcid) 20 mg PO DAILY [facility] Last Admin: 04/08/17 09:19 Dose: 20 mg Glucagon (Glucagen Diagnostic Kit) 0 mg IM STAT PRN; Protocol PRN Reason: Hypoglycemia Protocol Ciprofloxacin (Cipro 400mg/200ml Dsw) 400 mg in 200 mls @ 200 mls/hr IVPB Q12 [facility] Last Admin: 04/08/17 20:43 Dose: 200 mls/hr Vancomycin HCl 1,250 mg/ (Sodium Chloride) 250 mls @ 125 mls/hr IVPB Q12@0000, 1200 [facility] Last Admin: 04/08/17 23:02 Dose: 125 mls/hr Lactated Ringer's (Lactated Ringer's) 1,000 mls @ 125 mls/hr IV .Q8H [facility] Insulin Human NPH (Humulin N) 21 units SC QAM [facility] Insulin Human NPH (Humulin N) 18 units SC HS [facility] Last Admin: 04/08/17 22:26 Dose: 18 units Insulin Human Regular (Humulin R) 0 units SC ACHS [facility] PRN Reason: Protocol Last Admin: 04/08/17 22:18 Dose: Not Given Lactobacillus Acidophilus (Bacid Acidophilus) 1 cap PO BID [facility] Last Admin: 04/08/17 17:06 Dose: 1 cap Lisinopril (Zestril) 10 mg PO DAILY [facility] Last Admin: 04/08/17 09:21 Dose: 10 mg Metoprolol Tartrate (Lopressor) 25 mg PO Q12 [facility] Last Admin: 04/08/17 21:07 Dose: 25 mg Morphine Sulfate (Morphine) 2 mg IVP Q4 PRN PRN Reason: Pain, severe (8-10) Oxycodone/Acetaminophen (Percocet 5/325 Mg Tab) 1 tab PO Q4 PRN PRN Reason: Pain, moderate (4-7) Stop: 04/09/17 08:50 Senna/Docusate Sodium (Senokot S 50 Mg-8.6 Mg) 2 tab PO [facility] Last Admin: 04/08/17 21:07 Dose: 2 tab Silver Sulfadiazine (Silvadene 1% 20 Gm) 20 ea TOP DAILY [facility] Last Admin: 04/08/17 09:20 Dose: 1 applic - Labs Labs: 04/06/17 05:50 04/08/17 07:10 PT 11.0 Seconds (9.8-13.1) 04/06/17 05:50 INR 1.1 (0.9-1.2) 04/06/17 05:50 APTT 32.9 Seconds (25.6-37.1) 04/06/17 05:50 - Constitutional Appears: Well, Non-toxic, No Acute Distress - Extremities Exam Additional comments: VASC: DP/PT fully palpable 2/4. Cap refill time: < 3 seconds to 2 digits and plantar skin flap. Skin temperature warm to warm from proximal to distal on the right foot, minimal edema noted to the right foot DERM: Wound bed from the dorsum of the foot appears to extend from medial to lateral up to the 4th ray and down to the muscular layer, wound bed is granular (100%) with no fibrosis noted, periwound flap appears fully viable with no necrosis or maceration noted, no foul odor, tendons visualized from the dorsum of the foot, no active purulent, serous or sanguineous drainage noted, no uri- wound erythema, no clinical suspicion of active infection NEURO: Epicritic and protective sensation grossly intact ORTHO: Minimal tenderness upon palpation noted to right foot plantar ulcer - Neurological Exam Neurological Exam: Alert, Awake, Oriented x3 - Psychiatric Exam Psychiatric exam: Normal Affect, Normal Mood Assessment and Plan - Assessment and Plan (Free Text) Assessment: 56 year old male 3 days s/p partial 2nd and 3rd ray resection with extensive wound debridement and incision and drainage Plan: Patient seen and evaluated at bedside Patient discussed in details with attending Dr. Salazar Labs, charts and vitals reviewed; afebrile, WBC @ 9.5 today Wound bed packed with iodoform and dressed using DSD, NAKUL Xray (Prior to surgical treatment)- negative OM or gas, severely plantarflexed metatarsal heads MRI- OM of 2nd met head, 3rd met head and shaft, 3rd proximal phalanx. Large abscess at 3rd MPJ and extending to 2nd digit Wound culture (Final): Strep Agalactiae Group B Intra-op culture (Final): Beta Hemolytic Strep Group B Continue IV abx per ID - ciprofloxacin, vancomycin Patient to go to the OR today for another wound debridement with possible transmetatarsal amputation procedure Patient has been NPO since midnight Please hold Lovenox for today - will continue after the surgery Podiatry will continue to follow while patient is in-house
[2017-04-09] MEDS ORDERED: Povidone Iodine Topical 10% Sol ONE (06:30)
[2017-04-09 06:33] LABS: BASO # 0.1 K/uL (0.0-0.2); BASO % 1.4 % (0.0-2.0); EOS # 0.4 K/uL (0.0-0.7); HEMATOCRIT 35.1 % (35.0-51.0); LYMPH # 2.6 K/uL (1.0-4.3); MEAN CELL VOLUME 89.7 fl (80.0-94.0); MEAN CORPUSCULAR HGB CONC 33.5 g/dL (33.0-37.0); MEAN PLATELET VOLUME 8.2 fl (7.2-11.7); MONO # 0.6 K/uL (0.0-0.8); MONO % 5.8 % (0.0-10.0); NEUT # 5.9 K/uL (1.8-7.0); NEUT % 61.8 % (50.0-75.0); NRBC % 0.1 % (0.0-0.0); WHITE BLOOD COUNT 9.5 K/uL (4.8-10.8)
[2017-04-09] MEDS: Insulin Regular 100 units/ml SC SCH ×4 (06:40→21:24)
[2017-04-09 06:43] LABS: BLOOD UREA NITROGEN 19 mg/dl (9-20); CALCIUM 9.6 mg/dL (8.4-10.2); CARBON DIOXIDE 24 mmol/L (22-30); CHLORIDE 100 mmol/L (98-107); GFR AFRICAN-AMERICAN > 60; GLUCOSE,RANDOM 181 mg/dL (75-110); POTASSIUM 4.3 MMOL/L (3.6-5.0); SODIUM 140 mmol/l (132-148)
[2017-04-09 06:46] LABS: PARTIAL THROMBOPLASTIN TIME 35.7 Seconds (25.6-37.1)
[2017-04-09] MEDS: Lactobacillus Acidophilus 500 MU Cap PO SCH (08:55)
[2017-04-09] MEDS: Ciprofloxacin 400mg/200ml D5W 400 MG/200 ML BAG IVPB SCH ×2 (08:56→20:14)
[2017-04-09] MEDS: Insulin NPH Human 100 Units/ml Inj SC SCH ×2 (08:59→21:25)
--- NOTE | 2017-04-09 09:44 | CP.PCM.PN ---
Subjective - Date & Time of Evaluation Date of Evaluation: 04/09/17 Time of Evaluation: 07:10 - Subjective Subjective: Patient seen and examined at bedside this AM. Reports minimal pain in right foot. Pt is aware he is going to OR later today for another wound debridement with possible transmetatarsal amputation procedure. Denies chest pain, dyspnea, dizziness, calf pain, nausea, vomiting, fever, chills or calf pain. Slept well last night. Voiding and has regular BM. Pt is on NPO last night. Manager Critical Care: Callie Renan Objective - Vital Signs/Intake and Output Vital Signs (last 24 hours): Temp Pulse Resp BP Pulse Ox 98.9 F 80 20 127/79 100 04/09/17 08:29 04/09/17 09:01 04/09/17 08:29 04/09/17 09:01 04/09/17 08:29 Intake and Output: 04/09/17 04/09/17 06:59 18:59 Intake Total 350 Balance 350 - Medications Medications: Current Medications Acetaminophen (Tylenol 325mg Tab) 650 mg PO Q6 PRN PRN Reason: Pain, Mild (1-3) Last Admin: 04/04/17 08:40 Dose: 650 mg Amlodipine Besylate (Norvasc) 5 mg PO DAILY [facility] Last Admin: 04/08/17 09:19 Dose: 5 mg Atorvastatin Calcium (Lipitor) 40 mg PO HS [facility] Last Admin: 04/08/17 21:07 Dose: 40 mg Dextrose (Dextrose 50% Inj) 0 ml IV STAT PRN; Protocol PRN Reason: Hyglycemia Protocol Dextrose (Glutose 15) 0 gm PO ONCE PRN; Protocol PRN Reason: Hypoglycemia Protocol Enoxaparin Sodium (Lovenox) 40 mg SC DAILY [facility] PRN Reason: Protocol Last Admin: 04/08/17 09:19 Dose: 40 mg Famotidine (Pepcid) 20 mg PO DAILY [facility] Last Admin: 04/08/17 09:19 Dose: 20 mg Glucagon (Glucagen Diagnostic Kit) 0 mg IM STAT PRN; Protocol PRN Reason: Hypoglycemia Protocol Ciprofloxacin (Cipro 400mg/200ml Dsw) 400 mg in 200 mls @ 200 mls/hr IVPB Q12 [facility] Last Admin: 04/09/17 08:56 Dose: 200 mls/hr Vancomycin HCl 1,250 mg/ (Sodium Chloride) 250 mls @ 125 mls/hr IVPB Q12@0000, 1200 [facility] Last Admin: 04/08/17 23:02 Dose: 125 mls/hr Lactated Ringer's (Lactated Ringer's) 1,000 mls @ 125 mls/hr IV .Q8H [facility] Last Admin: 04/09/17 01:00 Dose: 125 mls/hr Insulin Human NPH (Humulin N) 21 units SC QAM [facility] Last Admin: 04/09/17 08:59 Dose: 21 units Insulin Human NPH (Humulin N) 18 units SC HS [facility] Last Admin: 04/08/17 22:26 Dose: 18 units Insulin Human Regular (Humulin R) 0 units SC ACHS [facility] PRN Reason: Protocol Last Admin: 04/09/17 06:40 Dose: 2 units Lactobacillus Acidophilus (Bacid Acidophilus) 1 cap PO BID [facility] Last Admin: 04/09/17 08:55 Dose: Not Given Lisinopril (Zestril) 10 mg PO DAILY [facility] Last Admin: 04/08/17 09:21 Dose: 10 mg Metoprolol Tartrate (Lopressor) 25 mg PO Q12 [facility] Last Admin: 04/09/17 09:01 Dose: 25 mg Morphine Sulfate (Morphine) 2 mg IVP Q4 PRN PRN Reason: Pain, severe (8-10) Senna/Docusate Sodium (Senokot S 50 Mg-8.6 Mg) 2 tab PO [facility] Last Admin: 04/08/17 21:07 Dose: 2 tab Silver Sulfadiazine (Silvadene 1% 20 Gm) 20 ea TOP DAILY [facility] Last Admin: 04/08/17 09:20 Dose: 1 applic - Labs Labs: 04/09/17 06:20 04/09/17 06:20 PT 11.5 Seconds (9.8-13.1) 04/09/17 06:20 INR 1.1 (0.9-1.2) 04/09/17 06:20 APTT 35.7 Seconds (25.6-37.1) 04/09/17 06:20 - Constitutional Appears: Well, No Acute Distress - Head Exam Head Exam: NORMAL INSPECTION, NORMOCEPHALIC - Eye Exam Eye Exam: Normal appearance - ENT Exam ENT Exam: Mucous Membranes Moist - Neck Exam Neck Exam: Normal Inspection - Respiratory Exam Respiratory Exam: Clear to Ausculation Bilateral, NORMAL BREATHING PATTERN. absent: Rales, Rhonchi, Wheezes - Cardiovascular Exam Cardiovascular Exam: REGULAR RHYTHM, RRR, +S1, +S2 - GI/Abdominal Exam GI & Abdominal Exam: Soft, Normal Bowel Sounds. absent: Tenderness - Extremities Exam Extremities Exam: Normal Capillary Refill, Normal Inspection. absent: Calf Tenderness, Pedal Edema Additional comments: Has ortho shoe over the miguelito wrap and dressing on right foot. Dressing looks clean, dry and intact. No blood/discharge seen over the dressing. NVI - Neurological Exam Neurological Exam: Alert, Awake, Oriented x3 - Psychiatric Exam Psychiatric exam: Normal Affect, Normal Mood Assessment and Plan - Assessment and Plan (Free Text) Assessment: 56 year old male w/ PMH IDDM II admitted with right foot diabetic foot ulcer with cellulitis. 1. Osteomyelitis of right foot w/ cellulitis: - ID and Podiatry consults appreciated -foot x ray: degenerative changes. 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 Soft tissue swelling. -continue ciprofloxacin 400 mg IV BID -Continue vancomycin 100 mg IV BID. -vanc trough: 11.4 on 04/05/17 -blood cx- 04/02/17: Beta hemolytic group b strep -Repeat blood cx: no growth after 3 days. -MRI of the foot positive for OM and septic joint( as per report) -ESR 110 -Had partial resection of right 2nd and 3rd toe on 04/06/17. -bone biopsy: pending -wound cx (04/06/17): gram positive cocci. -Per podiatry: OR later today for another wound debridement with possible transmetatarsal amputation procedure. 2. Sepsis( resolved) -afebrile, stable vitals. -SANAZ: negative for valvular vegetations. -Repeat blood cx: no growth after 3 days. -CBC AM 3. Hypokalemia -resolved -K 4.3 today -check AM labs. 4. Insulin dependent DM II -Continue NPH 18 units SC PM -Continue 21 units units AM. -Hold metformin 1000 mg BID -insulin sliding scale, accuchecks 5. Hypertension: -Continue amlodipine 5 mg daily. -Continue lisinopril 10 mg. -Continue metoprolol 25 mg BID. 6. Tachycardia -improved -Continue metoprolol tartrate 25 mg PO BID. 7.DVT prophylaxis: -on hold Lovenox 40 mg SC 8.GI prophylaxis -famotidine 20 mg daily. Diet: will change to diabetic diet after the procedure.
[2017-04-09] MEDS ORDERED: Lidocaine 1% Inj (20ml) IJ ONE (11:57)
[2017-04-09] MEDS ORDERED: Bupivacaine 0.5% Inj(30mL) IJ ONE (11:57)
[2017-04-09] MEDS ORDERED: Sodium Chloride 0.9% 1,000 ML IV SCH ×2 (12:00→15:17)
[2017-04-09] MEDS ORDERED: Clindamycin 600 MG in Sodium Chloride 0.9% 100 ML IVPB ONE (12:15)
[2017-04-09] MEDS ORDERED: Vancomycin 1 g Inj ONE (12:42)
[2017-04-09] MEDS ORDERED: Bupivacaine 0.5% Inj(30mL) ONE (12:42)
[2017-04-09] MEDS ORDERED: Lidocaine 1% Inj (20ml) ONE (12:42)
[2017-04-09] MEDS ORDERED: Propofol 10 mg/ml Inj (20 ML) ONE (13:14)
[2017-04-09] MEDS ORDERED: Lidocaine Hydrochloride 5 ML INJ ONE (13:14)
[2017-04-09] MEDS ORDERED: Lactated Ringer's 1,000 ML IV ONE ×2 (13:19)
[2017-04-09] MEDS ORDERED: Sodium Chloride 0.9% 500 ML IV ONE (14:40)
[2017-04-09] MEDS ORDERED: HYDROmorphone 0.5 mg/0.5 ml ISec IVP PRN (15:14)
--- NOTE | 2017-04-09 15:14 | PCM.SURG1 ---
Surgeon's Initial Post Op Note - Surgeon's Notes Surgeon: Dr. Salazar DPM Leak Patcher: Dr. Broussard PGY-1, Dr. Elizabeth PGY-2 Type of Anesthesia: General LMA, Local Anesthesia Administered By: Dr. Adams Pre-Operative Diagnosis: Osteomyelitis/cellulitis of the right foot Operative Findings: See Dictation. M: 3-0 nylon sutures x 6 Post-Operative Diagnosis: Same Operation Performed: Right foot Transmetatarsal amputation Specimen/Specimens Removed: none Estimated Blood Loss: EBL {In ML}: 15 Blood Products Given: N/A Drains Used: No Drains Post-Op Condition: Good Date of Surgery/Procedure: 04/09/17 Time of Surgery/Procedure: 15:14
--- NOTE | 2017-04-09 15:58 | RAD ---
PROCEDURE: Right Foot Radiographs. HISTORY: s/p right foot surgery COMPARISON: None. FINDINGS: BONES: Status post transmetatarsal amputation. No acute osseous fracture. JOINTS: Normal. SOFT TISSUES: Normal. OTHER FINDINGS: None. IMPRESSION: Transmetatarsal amputation. Otherwise unremarkable.
[2017-04-09] MEDS: Docusate-Senna 50 mg-8.6 mg Tab PO SCH (21:23)
[2017-04-10 07:28] LABS: BLOOD UREA NITROGEN 15 mg/dl (9-20); CALCIUM 9.1 mg/dL (8.4-10.2); CARBON DIOXIDE 27 mmol/L (22-30); CHLORIDE 100 mmol/L (98-107); GFR AFRICAN-AMERICAN > 60; GLUCOSE,RANDOM 120 mg/dL (75-110); POTASSIUM 4.1 MMOL/L (3.6-5.0); SODIUM 138 mmol/l (132-148)
[2017-04-10] MEDS: Ciprofloxacin 400mg/200ml D5W 400 MG/200 ML BAG IVPB SCH ×2 (08:23→21:45)
[2017-04-10] MEDS: Oxycodone/Acetaminophen 5/325 mg Tab PO PRN (08:27)
[2017-04-10] MEDS: Lactobacillus Acidophilus 500 MU Cap PO SCH ×2 (08:27→16:18)
[2017-04-10] MEDS: Enoxaparin 40 mg Syringe SC SCH (08:28)
[2017-04-10] MEDS: Silver Sulfadiazine 1% Cream (20 gm) TOP SCH (08:29)
[2017-04-10] MEDS: Insulin Regular 100 units/ml SC SCH ×4 (08:31→21:49)
[2017-04-10] MEDS: Insulin NPH Human 100 Units/ml Inj SC SCH ×2 (10:18→21:47)
--- NOTE | 2017-04-10 12:10 | CP.PCM.PN ---
Subjective - Date & Time of Evaluation Date of Evaluation: 04/10/17 Time of Evaluation: 12:00 - Subjective Subjective: no overnight events. pain well controlled on current regimen s/p TMA. Denies fever, chills, n/v, chest pain, SOB. tolerating PO. making urine and BM Objective - Vital Signs/Intake and Output Vital Signs (last 24 hours): Temp Pulse Resp BP Pulse Ox 99.7 F H 85 19 107/70 97 04/10/17 07:41 04/10/17 08:30 04/10/17 07:41 04/10/17 08:30 04/10/17 08:08 Intake and Output: 04/10/17 04/10/17 06:59 18:59 Intake Total 900 Output Total 800 Balance 100 - Medications Medications: Current Medications Acetaminophen (Tylenol 325mg Tab) 650 mg PO Q6 PRN PRN Reason: Pain, Mild (1-3) Last Admin: 04/04/17 08:40 Dose: 650 mg Amlodipine Besylate (Norvasc) 5 mg PO DAILY [facility] Last Admin: 04/10/17 08:29 Dose: 5 mg Atorvastatin Calcium (Lipitor) 40 mg PO HS [facility] Last Admin: 04/09/17 21:23 Dose: 40 mg Dextrose (Dextrose 50% Inj) 0 ml IV STAT PRN; Protocol PRN Reason: Hyglycemia Protocol Dextrose (Glutose 15) 0 gm PO ONCE PRN; Protocol PRN Reason: Hypoglycemia Protocol Enoxaparin Sodium (Lovenox) 40 mg SC DAILY [facility] PRN Reason: Protocol Last Admin: 04/10/17 08:28 Dose: 40 mg Famotidine (Pepcid) 20 mg PO DAILY [facility] Last Admin: 04/10/17 08:29 Dose: 20 mg Glucagon (Glucagen Diagnostic Kit) 0 mg IM STAT PRN; Protocol PRN Reason: Hypoglycemia Protocol Ciprofloxacin (Cipro 400mg/200ml Dsw) 400 mg in 200 mls @ 200 mls/hr IVPB Q12 [facility] Last Admin: 04/10/17 08:23 Dose: 200 mls/hr Vancomycin HCl 1,250 mg/ (Sodium Chloride) 250 mls @ 125 mls/hr IVPB Q12@0000, 1200 [facility] Last Admin: 04/10/17 11:02 Dose: 125 mls/hr Insulin Human NPH (Humulin N) 21 units SC QAM [facility] Last Admin: 04/10/17 10:18 Dose: 21 units Insulin Human NPH (Humulin N) 18 units SC HS [facility] Last Admin: 04/09/17 21:25 Dose: 18 units Insulin Human Regular (Humulin R) 0 units SC ACHS [facility] PRN Reason: Protocol Last Admin: 04/10/17 11:29 Dose: 8 units Lactobacillus Acidophilus (Bacid Acidophilus) 1 cap PO BID [facility] Last Admin: 04/10/17 08:27 Dose: 1 cap Lisinopril (Zestril) 10 mg PO DAILY [facility] Last Admin: 04/10/17 08:28 Dose: 10 mg Metoprolol Tartrate (Lopressor) 25 mg PO Q12 [facility] Last Admin: 04/10/17 08:30 Dose: 25 mg Morphine Sulfate (Morphine) 2 mg IVP Q4 PRN PRN Reason: Pain, severe (8-10) Last Admin: 04/10/17 11:27 Dose: 2 mg Oxycodone/Acetaminophen (Percocet 5/325 Mg Tab) 1 tab PO Q4 PRN PRN Reason: Pain, moderate (4-7) Stop: 04/12/17 15:10 Last Admin: 04/10/17 08:27 Dose: 1 tab Senna/Docusate Sodium (Senokot S 50 Mg-8.6 Mg) 2 tab PO HS [facility] Last Admin: 04/09/17 21:23 Dose: 2 tab Silver Sulfadiazine (Silvadene 1% 20 Gm) 20 ea TOP DAILY [facility] Last Admin: 04/10/17 08:29 Dose: 1 applic - Labs Labs: 04/09/17 06:20 04/10/17 05:40 PT 11.5 Seconds (9.8-13.1) 04/09/17 06:20 INR 1.1 (0.9-1.2) 04/09/17 06:20 APTT 35.7 Seconds (25.6-37.1) 04/09/17 06:20 - Constitutional Appears: Non-toxic, No Acute Distress - Head Exam Head Exam: NORMAL INSPECTION - Eye Exam Eye Exam: Normal appearance - ENT Exam ENT Exam: Mucous Membranes Moist - Neck Exam Neck Exam: Full ROM, Normal Inspection - Respiratory Exam Respiratory Exam: Clear to Ausculation Bilateral, NORMAL BREATHING PATTERN - Cardiovascular Exam Cardiovascular Exam: REGULAR RHYTHM - GI/Abdominal Exam GI & Abdominal Exam: Soft, Normal Bowel Sounds - Extremities Exam Extremities Exam: Normal Inspection. absent: Tenderness - Back Exam Back Exam: NORMAL INSPECTION - Neurological Exam Neurological Exam: Alert, Oriented x3 - Skin Skin Exam: Dry, Warm Assessment and Plan - Assessment and Plan (Free Text) Assessment: 56 year old male w/ PMH IDDM II admitted with right foot diabetic foot ulcer cellulitis with sequale OM Plan: pending further path results s/p TMA, PT recs s/p TMA, podiatry recs, ID recs for IV v PO abx type/duration (possible PICC), placement at d/c Osteomyelitis right foot -foot x ray: degenerative changes. 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 Soft tissue swelling -MRI of the foot positive for OM and septic joint -SANAZ: negative for valvular vegetations -blood cx- 04/02/17: Beta hemolytic group b strep -Repeat blood cx: no growth after 3 days -wound cx (04/06/17): gram positive cocci -partial resection of right 2nd and 3rd toe on 04/06/17, (+)OM -TMA 04/09/17 -continue ciprofloxacin 400 mg IV BID -Continue vancomycin 100 mg IV BID -vanc trough: 11.4 on 04/05/17 - ID and Podiatry consults appreciated -restarted lovenox, diet, on pain control Insulin dependent DM II -Continue 21 units units AM -Continue NPH 18 units SC PM -Hold metformin 1000 mg BID -moderate insulin sliding scale -accuchecks -well controlled -diabetic diet Hypertension: -Continue amlodipine 5 mg daily -Continue lisinopril 10 mg -Continue metoprolol 25 mg BID Tachycardia -resolved -Continue metoprolol tartrate 25 mg PO BID DVT prophylaxis: -on hold Lovenox 40 mg SC GI prophylaxis -famotidine 20 mg daily -lactobacillus
--- NOTE | 2017-04-10 17:17 | CP.PCM.PN ---
Subjective - Date & Time of Evaluation Date of Evaluation: 04/10/17 Time of Evaluation: 15:00 - Subjective Subjective: Patient seen at bedside one day s/p right first, second, fourth and fifth metatarsal resections with amputation of digits 4 and 5. Patient states that he is having intermittent bouts of pain at the surgical site but otherwise states that pain is relatively well controlled. Patient denies any further pedal complaints at this time. Patient denies N/V/F/C/CP/SOB. Objective - Vital Signs/Intake and Output Vital Signs (last 24 hours): Temp Pulse Resp BP Pulse Ox 99.3 F 87 20 153/84 H 99 04/10/17 16:10 04/10/17 16:10 04/10/17 16:10 04/10/17 16:10 04/10/17 16:10 Intake and Output: 04/10/17 04/10/17 06:59 18:59 Intake Total 900 Output Total 800 Balance 100 - Medications Medications: Current Medications Acetaminophen (Tylenol 325mg Tab) 650 mg PO Q6 PRN PRN Reason: Pain, Mild (1-3) Last Admin: 04/04/17 08:40 Dose: 650 mg Amlodipine Besylate (Norvasc) 5 mg PO DAILY [facility] Last Admin: 04/10/17 08:29 Dose: 5 mg Atorvastatin Calcium (Lipitor) 40 mg PO HS [facility] Last Admin: 04/09/17 21:23 Dose: 40 mg Dextrose (Dextrose 50% Inj) 0 ml IV STAT PRN; Protocol PRN Reason: Hyglycemia Protocol Dextrose (Glutose 15) 0 gm PO ONCE PRN; Protocol PRN Reason: Hypoglycemia Protocol Enoxaparin Sodium (Lovenox) 40 mg SC DAILY [facility] PRN Reason: Protocol Last Admin: 04/10/17 08:28 Dose: 40 mg Famotidine (Pepcid) 20 mg PO DAILY [facility] Last Admin: 04/10/17 08:29 Dose: 20 mg Glucagon (Glucagen Diagnostic Kit) 0 mg IM STAT PRN; Protocol PRN Reason: Hypoglycemia Protocol Ciprofloxacin (Cipro 400mg/200ml Dsw) 400 mg in 200 mls @ 200 mls/hr IVPB Q12 [facility] Last Admin: 04/10/17 08:23 Dose: 200 mls/hr Insulin Human NPH (Humulin N) 21 units SC QAM [facility] Last Admin: 04/10/17 10:18 Dose: 21 units Insulin Human NPH (Humulin N) 18 units SC HS [facility] Last Admin: 04/09/17 21:25 Dose: 18 units Insulin Human Regular (Humulin R) 0 units SC ACHS [facility] PRN Reason: Protocol Last Admin: 04/10/17 16:18 Dose: 3 units Lactobacillus Acidophilus (Bacid Acidophilus) 1 cap PO BID [facility] Last Admin: 04/10/17 16:18 Dose: 1 cap Lisinopril (Zestril) 10 mg PO DAILY [facility] Last Admin: 04/10/17 08:28 Dose: 10 mg Metoprolol Tartrate (Lopressor) 25 mg PO Q12 [facility] Last Admin: 04/10/17 08:30 Dose: 25 mg Morphine Sulfate (Morphine) 4 mg IVP Q4 PRN PRN Reason: Pain, severe (8-10) Oxycodone/Acetaminophen (Percocet 5/325 Mg Tab) 1 tab PO Q4 PRN PRN Reason: Pain, moderate (4-7) Stop: 04/12/17 15:10 Last Admin: 04/10/17 08:27 Dose: 1 tab Senna/Docusate Sodium (Senokot S 50 Mg-8.6 Mg) 2 tab PO HS [facility] Last Admin: 04/09/17 21:23 Dose: 2 tab Silver Sulfadiazine (Silvadene 1% 20 Gm) 20 ea TOP DAILY [facility] Last Admin: 04/10/17 08:29 Dose: 1 applic - Labs Labs: 04/09/17 06:20 04/10/17 05:40 PT 11.5 Seconds (9.8-13.1) 04/09/17 06:20 INR 1.1 (0.9-1.2) 04/09/17 06:20 APTT 35.7 Seconds (25.6-37.1) 04/09/17 06:20 - Constitutional Appears: Well, Non-toxic, No Acute Distress - Extremities Exam Additional comments: LE focused exam: Vasc: DP pulse non palpable on right foot due to post op status and edema. PT pulse palpable 2/4. SKin temperature warm to warm from proximal to distal. CFT < 3 seconds. Edema consistent with surgery performed noted to distal amputation site Neuro: Epicritic and protective sensation grossly intact Derm: TMA site noted to patients right foot. All sutures are intact and skin edges are well coapted with no signs of dehiscence noted. No other clinical signs of infection noted at this time. MSK: 1 day s/p TMA with POP to surgical site consistent with surgery - Neurological Exam Neurological Exam: Alert, Awake, Oriented x3 - Psychiatric Exam Psychiatric exam: Normal Affect, Normal Mood Assessment and Plan - Assessment and Plan (Free Text) Assessment: 56 year old male 1 day s/p resection of mets 1,2,4,5 and amputation of digits 4 and 5 of right foot Plan: Patient seen and evaluated at bedside Charts, labs and vitals reviewed Plan discussed with attending Dr. Saalzar Wound dressed with xeroform, gauze, ABD and NAKUL Packing will be removed tomorrow COntinue IV abx per ID Podiatry will continue to follow while in house
[2017-04-10] MEDS: Docusate-Senna 50 mg-8.6 mg Tab PO SCH (21:46)
[2017-04-11 08:05] LABS: BLOOD UREA NITROGEN 18 mg/dl (9-20); CALCIUM 9.2 mg/dL (8.4-10.2); CARBON DIOXIDE 28 mmol/L (22-30); CHLORIDE 96 mmol/L (98-107); GFR AFRICAN-AMERICAN > 60; GLUCOSE,RANDOM 220 mg/dL (75-110); POTASSIUM 4.2 MMOL/L (3.6-5.0); SODIUM 136 mmol/l (132-148)
[2017-04-11] MEDS: Ciprofloxacin 400mg/200ml D5W 400 MG/200 ML BAG IVPB SCH ×2 (08:49→21:03)
[2017-04-11] MEDS: Enoxaparin 40 mg Syringe SC SCH (08:49)
[2017-04-11] MEDS: Insulin Regular 100 units/ml SC SCH ×2 (08:50→10:53)
[2017-04-11] MEDS: Silver Sulfadiazine 1% Cream (20 gm) TOP SCH (08:52)
[2017-04-11] MEDS: Lactobacillus Acidophilus 500 MU Cap PO SCH ×3 (08:56→17:05)
[2017-04-11] MEDS: Insulin NPH Human 100 Units/ml Inj SC SCH ×2 (09:10→22:46)
--- NOTE | 2017-04-11 09:52 | CP.PCM.PN ---
Subjective - Date & Time of Evaluation Date of Evaluation: 04/11/17 Time of Evaluation: 11:40 - Subjective Subjective: CC: Right foot OM; s/p right foot TMA 04/09/17 POD 2; Seen and examined at [facility]. Stable, eating breakfast, comfortable in bed, denies pain. Urinating w/o difficulty. Passing flatus w/o difficulty. Receiving cipro. Denies f/c/n/v/cp/sob Vanco trough supratherapuetic, vancomycin held for now per ID. Repeat trough pending. Objective - Vital Signs/Intake and Output Vital Signs (last 24 hours): Temp Pulse Resp BP Pulse Ox 98.1 F 85 19 130/81 98 04/11/17 07:45 04/11/17 08:55 04/11/17 07:45 04/11/17 08:55 04/11/17 07:45 Intake and Output: 04/11/17 04/11/17 06:59 18:59 Intake Total 200 Balance 200 - Medications Medications: Current Medications Acetaminophen (Tylenol 325mg Tab) 650 mg PO Q6 PRN PRN Reason: Pain, Mild (1-3) Last Admin: 04/04/17 08:40 Dose: 650 mg Amlodipine Besylate (Norvasc) 5 mg PO DAILY [facility] Last Admin: 04/11/17 08:51 Dose: 5 mg Atorvastatin Calcium (Lipitor) 40 mg PO HS [facility] Last Admin: 04/10/17 21:46 Dose: 40 mg Dextrose (Dextrose 50% Inj) 0 ml IV STAT PRN; Protocol PRN Reason: Hyglycemia Protocol Dextrose (Glutose 15) 0 gm PO ONCE PRN; Protocol PRN Reason: Hypoglycemia Protocol Enoxaparin Sodium (Lovenox) 40 mg SC DAILY [facility] PRN Reason: Protocol Last Admin: 04/11/17 08:49 Dose: 40 mg Famotidine (Pepcid) 20 mg PO DAILY [facility] Last Admin: 04/11/17 08:52 Dose: 20 mg Glucagon (Glucagen Diagnostic Kit) 0 mg IM STAT PRN; Protocol PRN Reason: Hypoglycemia Protocol Ciprofloxacin (Cipro 400mg/200ml Dsw) 400 mg in 200 mls @ 200 mls/hr IVPB Q12 [facility] Last Admin: 04/11/17 08:49 Dose: 200 mls/hr Insulin Human NPH (Humulin N) 21 units SC QAM [facility] Last Admin: 04/11/17 09:10 Dose: 21 units Insulin Human NPH (Humulin N) 18 units SC HS [facility] Last Admin: 04/10/17 21:47 Dose: 18 units Insulin Human Regular (Humulin R) 0 units SC ACHS [facility] PRN Reason: Protocol Last Admin: 04/11/17 08:50 Dose: 3 units Lactobacillus Acidophilus (Bacid Acidophilus) 1 cap PO BID [facility] Last Admin: 04/11/17 08:56 Dose: 1 cap Lisinopril (Zestril) 10 mg PO DAILY [facility] Last Admin: 04/11/17 08:55 Dose: 10 mg Metoprolol Tartrate (Lopressor) 25 mg PO Q12 [facility] Last Admin: 04/11/17 08:51 Dose: 25 mg Morphine Sulfate (Morphine) 4 mg IVP Q4 PRN PRN Reason: Pain, severe (8-10) Oxycodone/Acetaminophen (Percocet 5/325 Mg Tab) 1 tab PO Q4 PRN PRN Reason: Pain, moderate (4-7) Stop: 04/12/17 15:10 Last Admin: 04/10/17 08:27 Dose: 1 tab Senna/Docusate Sodium (Senokot S 50 Mg-8.6 Mg) 2 tab PO HS [facility] Last Admin: 04/10/17 21:46 Dose: 2 tab Silver Sulfadiazine (Silvadene 1% 20 Gm) 20 ea TOP DAILY [facility] Last Admin: 04/11/17 08:52 Dose: 1 applic - Labs Labs: 04/09/17 06:20 04/11/17 06:30 PT 11.5 Seconds (9.8-13.1) 04/09/17 06:20 INR 1.1 (0.9-1.2) 04/09/17 06:20 APTT 35.7 Seconds (25.6-37.1) 04/09/17 06:20 - Constitutional Appears: No Acute Distress - Head Exam Head Exam: ATRAUMATIC - Eye Exam Eye Exam: EOMI Pupil Exam: PERRL - ENT Exam ENT Exam: Mucous Membranes Moist - Neck Exam Neck Exam: Full ROM - Respiratory Exam Respiratory Exam: Clear to Ausculation Bilateral - Cardiovascular Exam Cardiovascular Exam: +S1, +S2 - GI/Abdominal Exam GI & Abdominal Exam: Soft. absent: Tenderness - Extremities Exam Additional comments: s/p right TMA, dressing in place, - Neurological Exam Neurological Exam: Alert, Awake, Oriented x3 - Psychiatric Exam Psychiatric exam: Normal Affect, Normal Mood - Skin Skin Exam: Normal Color, Warm Assessment and Plan - Assessment and Plan (Free Text) Plan: Osteomyelitis right foot -foot x ray: degenerative changes. 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 Soft tissue swelling -MRI of the foot positive for OM and septic joint -SANAZ: negative for valvular vegetations -blood cx- 04/02/17: Beta hemolytic group b strep -Repeat blood cx: no growth after 3 days -wound cx (04/06/17): gram positive cocci -partial resection of right 2nd and 3rd toe on 04/06/17, (+)OM -TMA 04/09/17 -continue ciprofloxacin 400 mg IV BID -vancomycin 1250 mg IV BID HELD due to supratherapeutic vanc. trough -vanc trough: 27.8 on 04/10/17 SUPRATHERAPEUTIC; repeat today - ID and Podiatry consults appreciated -restarted lovenox, diet, on pain control - PT/OT eval and treat Insulin dependent DM II -Continue 21 units units AM -Continue NPH 18 units SC PM -Hold metformin 1000 mg BID -moderate insulin sliding scale -accuchecks -well controlled -diabetic diet Hypertension: -Continue amlodipine 5 mg daily -Continue lisinopril 10 mg -Continue metoprolol 25 mg BID Tachycardia -resolved -Continue metoprolol tartrate 25 mg PO BID DVT prophylaxis: -Lovenox 40 mg SC GI prophylaxis -famotidine 20 mg daily -lactobacillus
[2017-04-11] MEDS: Insulin Lispro (humaLOG) 100 Units/ml Inj SC SCH ×3 (12:29→22:25)
--- NOTE | 2017-04-11 15:38 | CP.PCM.PN ---
Subjective - Date & Time of Evaluation Date of Evaluation: 04/11/17 Time of Evaluation: 15:36 - Subjective Subjective: Patient seen at bedside 2 days s/p right first, second, fourth and fifth metatarsal resections with amputation of digits 4 and 5. Patient states that he is having intermittent bouts of pain at the surgical site but otherwise states that pain is relatively well controlled and has improved since yesterday. Patient states that whenever he ambulates he uses his surgical shoe. Patient denies any further pedal complaints at this time. Patient denies N/V/F/C/CP/ SOB. Objective - Vital Signs/Intake and Output Vital Signs (last 24 hours): Temp Pulse Resp BP Pulse Ox 98.1 F 85 19 130/81 98 04/11/17 07:45 04/11/17 08:55 04/11/17 07:45 04/11/17 08:55 04/11/17 07:45 Intake and Output: 04/11/17 04/11/17 06:59 18:59 Intake Total 200 Balance 200 - Medications Medications: Current Medications Acetaminophen (Tylenol 325mg Tab) 650 mg PO Q6 PRN PRN Reason: Pain, Mild (1-3) Last Admin: 04/04/17 08:40 Dose: 650 mg Amlodipine Besylate (Norvasc) 5 mg PO DAILY [facility] Last Admin: 04/11/17 08:51 Dose: 5 mg Atorvastatin Calcium (Lipitor) 40 mg PO HS [facility] Last Admin: 04/10/17 21:46 Dose: 40 mg Dextrose (Dextrose 50% Inj) 0 ml IV STAT PRN; Protocol PRN Reason: Hyglycemia Protocol Dextrose (Glutose 15) 0 gm PO ONCE PRN; Protocol PRN Reason: Hypoglycemia Protocol Enoxaparin Sodium (Lovenox) 40 mg SC DAILY [facility] PRN Reason: Protocol Last Admin: 04/11/17 08:49 Dose: 40 mg Famotidine (Pepcid) 20 mg PO DAILY [facility] Last Admin: 04/11/17 08:52 Dose: 20 mg Glucagon (Glucagen Diagnostic Kit) 0 mg IM STAT PRN; Protocol PRN Reason: Hypoglycemia Protocol Ciprofloxacin (Cipro 400mg/200ml Dsw) 400 mg in 200 mls @ 200 mls/hr IVPB Q12 [facility] Last Admin: 04/11/17 08:49 Dose: 200 mls/hr Vancomycin HCl 1 gm/ Sodium (Chloride) 250 mls @ 166.667 mls/hr IVPB Q12H [facility] Last Admin: 04/11/17 14:42 Dose: Not Given Insulin Human Lispro (Humalog) 0 units SC ACHS [facility] PRN Reason: Protocol Last Admin: 04/11/17 12:29 Dose: 10 unit Insulin Human NPH (Humulin N) 20 units SC HS [facility] Insulin Human NPH (Humulin N) 24 units SC QAM [facility] Lactobacillus Acidophilus (Bacid Acidophilus) 1 cap PO BID [facility] Last Admin: 04/11/17 08:56 Dose: 1 cap Lisinopril (Zestril) 10 mg PO DAILY [facility] Last Admin: 04/11/17 08:55 Dose: 10 mg Metoprolol Tartrate (Lopressor) 25 mg PO Q12 [facility] Last Admin: 04/11/17 08:51 Dose: 25 mg Morphine Sulfate (Morphine) 4 mg IVP Q4 PRN PRN Reason: Pain, severe (8-10) Last Admin: 04/11/17 11:37 Dose: 4 mg Oxycodone/Acetaminophen (Percocet 5/325 Mg Tab) 1 tab PO Q4 PRN PRN Reason: Pain, moderate (4-7) Stop: 04/12/17 15:10 Last Admin: 04/10/17 08:27 Dose: 1 tab Senna/Docusate Sodium (Senokot S 50 Mg-8.6 Mg) 2 tab PO HS [facility] Last Admin: 04/10/17 21:46 Dose: 2 tab Silver Sulfadiazine (Silvadene 1% 20 Gm) 20 ea TOP DAILY [facility] Last Admin: 04/11/17 08:52 Dose: 1 applic - Labs Labs: 04/09/17 06:20 04/11/17 06:30 PT 11.5 Seconds (9.8-13.1) 04/09/17 06:20 INR 1.1 (0.9-1.2) 04/09/17 06:20 APTT 35.7 Seconds (25.6-37.1) 04/09/17 06:20 - Constitutional Appears: Well, Non-toxic, No Acute Distress - Extremities Exam Additional comments: LE focused exam: Vasc: DP pulse non palpable on right foot due to post op status and edema. PT pulse palpable 2/4. SKin temperature warm to warm from proximal to distal. CFT < 3 seconds. Edema consistent with surgery performed noted to distal amputation site Neuro: Epicritic and protective sensation grossly intact Derm: TMA site noted to patients right foot. All sutures are intact and skin edges are well coapted with no signs of dehiscence noted. No other clinical signs of infection noted at this time. MSK: 2 day s/p TMA with POP to surgical site consistent with surgery - Neurological Exam Neurological Exam: Alert, Awake, Oriented x3 - Psychiatric Exam Psychiatric exam: Normal Affect, Normal Mood Assessment and Plan - Assessment and Plan (Free Text) Assessment: 56 year old male 2 days s/p resection of mets 1,2,4,5 and amputation of digits 4 and 5 of right foot Plan: Patient seen and evaluated at bedside Charts, labs and vitals reviewed Plan discussed with attending Dr. Salazar Packing from surgical site pulled without incident Wound painted with betadine and dressed with betadine soaked gauze, DSD, NAKUL Continue IV abx per ID Podiatry will continue to follow while in house
[2017-04-11] MEDS: Docusate-Senna 50 mg-8.6 mg Tab PO SCH (21:05)
--- NOTE | 2017-04-12 05:58 | CP.PCM.PN ---
Subjective - Date & Time of Evaluation Date of Evaluation: 04/12/17 Time of Evaluation: 05:57 - Subjective Subjective: Podiatry Progress Note - Dr. Salazar 56 year old male patient seen at bedside s/p completion of right foot TMA - POD# 3 right foot metatarsal resections 1,2,4,5 and 4th and 5th digit amputations ( DOS: 04/09/17); POD#6 right foot 2nd digit amputation, 3rd ray partial amputation , and I&D (DOS: 04/06/17). Patient reports mild pain to surgical site, however well controlled via pain mediation. Patient states he only ambulates out of bed to his commode with the assistance of his surgical shoe. Patient denies N/V/F/D/ C/SOB/calf pain. Offers no other pedal complaints at this time. Objective - Vital Signs/Intake and Output Vital Signs (last 24 hours): Temp Pulse Resp BP Pulse Ox 98.6 F 67 18 147/90 100 04/12/17 00:10 04/12/17 00:10 04/12/17 00:10 04/12/17 00:10 04/12/17 00:10 Intake and Output: 04/11/17 04/12/17 18:59 06:59 Intake Total 450 Balance 450 - Medications Medications: Current Medications Acetaminophen (Tylenol 325mg Tab) 650 mg PO Q6 PRN PRN Reason: Pain, Mild (1-3) Last Admin: 04/04/17 08:40 Dose: 650 mg Amlodipine Besylate (Norvasc) 5 mg PO DAILY [facility] Last Admin: 04/11/17 08:51 Dose: 5 mg Atorvastatin Calcium (Lipitor) 40 mg PO HS [facility] Last Admin: 04/11/17 21:04 Dose: 40 mg Dextrose (Dextrose 50% Inj) 0 ml IV STAT PRN; Protocol PRN Reason: Hyglycemia Protocol Dextrose (Glutose 15) 0 gm PO ONCE PRN; Protocol PRN Reason: Hypoglycemia Protocol Enoxaparin Sodium (Lovenox) 40 mg SC DAILY [facility] PRN Reason: Protocol Last Admin: 04/11/17 08:49 Dose: 40 mg Famotidine (Pepcid) 20 mg PO DAILY [facility] Last Admin: 04/11/17 08:52 Dose: 20 mg Glucagon (Glucagen Diagnostic Kit) 0 mg IM STAT PRN; Protocol PRN Reason: Hypoglycemia Protocol Ciprofloxacin (Cipro 400mg/200ml Dsw) 400 mg in 200 mls @ 200 mls/hr IVPB Q12 [facility] Last Admin: 04/11/17 21:03 Dose: 200 mls/hr Vancomycin HCl 1 gm/ Sodium (Chloride) 250 mls @ 166.667 mls/hr IVPB Q12H [facility] Last Admin: 04/12/17 02:52 Dose: 166.667 mls/hr Insulin Human Lispro (Humalog) 0 units SC ACHS [facility] PRN Reason: Protocol Last Admin: 04/11/17 22:25 Dose: Not Given Insulin Human NPH (Humulin N) 20 units SC HS [facility] Last Admin: 04/11/17 22:46 Dose: 20 unit Insulin Human NPH (Humulin N) [facility] Lactobacillus Acidophilus (Bacid Acidophilus) 1 cap PO BID [facility] Last Admin: 04/11/17 17:05 Dose: 1 cap Lisinopril (Zestril) 10 mg PO DAILY [facility] Last Admin: 04/11/17 08:55 Dose: 10 mg Metoprolol Tartrate (Lopressor) 25 mg PO Q12 [facility] Last Admin: 04/11/17 21:04 Dose: 25 mg Morphine Sulfate (Morphine) 4 mg IVP Q4 PRN PRN Reason: Pain, severe (8-10) Last Admin: 04/11/17 20:32 Dose: 4 mg Oxycodone/Acetaminophen (Percocet 5/325 Mg Tab) 1 tab PO Q4 PRN PRN Reason: Pain, moderate (4-7) Stop: 04/12/17 15:10 Last Admin: 04/10/17 08:27 Dose: 1 tab Senna/Docusate Sodium (Senokot S 50 Mg-8.6 Mg) 2 tab PO HS [facility] Last Admin: 04/11/17 21:05 Dose: 2 tab Silver Sulfadiazine (Silvadene 1% 20 Gm) 20 ea TOP DAILY [facility] Last Admin: 04/11/17 08:52 Dose: 1 applic - Labs Labs: 04/09/17 06:20 04/11/17 06:30 PT 11.5 Seconds (9.8-13.1) 04/09/17 06:20 INR 1.1 (0.9-1.2) 04/09/17 06:20 APTT 35.7 Seconds (25.6-37.1) 04/09/17 06:20 - Constitutional Appears: Well, Non-toxic, No Acute Distress - Extremities Exam Additional comments: LE focused exam: Vasc: DP pulse non palpable on right foot due to post op status and edema. PT pulse palpable 2/4. TG warm to warm from proximal to distal. CFT < 3 seconds. Edema consistent with surgery performed noted to distal amputation site Neuro: Epicritic and protective sensation grossly intact Derm: TMA site noted to patients right foot. All sutures are intact and skin edges are well coapted with no signs of wound dehiscence noted. No other clinical signs of infection noted at this time. MSK: Right foot TMA with no POP to surgical site consistent with surgery - Neurological Exam Neurological Exam: Alert, Awake, Oriented x3 - Psychiatric Exam Psychiatric exam: Normal Affect, Normal Mood Assessment and Plan - Assessment and Plan (Free Text) Assessment: 56 year old male patient s/p completion of right foot TMA POD#3 right foot metatarsal resections 1,2,4,5 and 4th and 5th digit amputations (DOS: 04/09/17) POD#6 right foot 2nd digit amputation, 3rd ray partial amputation, and I&D (DOS : 04/06/17) Plan: Patient seen and evaluated with attending, Dr. Salazar Chart, vitals, labs reviewed = afebrile, WBC 11.6 (trending upwards - yesterday 04/09 @ 9.5) Wound painted with betadine and dressed with betadine-soaked 4x4s, DSD, light NAKUL C/w local wound care Patient to be WBAT RLE in surgical shoe Patient may be out of bed w/bathroom privileges Continue IV abx per ID D/c morphine Podiatry will continue to follow while in house Patient to follow up in podiatry clinic as outpatient
[2017-04-12 06:27] LABS: MEAN CELL VOLUME 88.3 fl (80.0-94.0); MEAN CORPUSCULAR HEMOGLOBIN 29.6 pg (27.0-31.0); MEAN CORPUSCULAR HGB CONC 33.5 g/dL (33.0-37.0); RED CELL DISTRIBUTION WIDTH 13.1 % (11.5-14.5); WHITE BLOOD COUNT 11.6 K/uL (4.8-10.8)
[2017-04-12 06:42] LABS: ALB/GLOB RATIO 0.8 (1.0-2.1); ALKALINE PHOSPHATASE 141 U/L (38-126); ALT/SGPT 21 U/L (21-72); AST/SGOT 36 U/L (17-59); BILIRUBIN,TOTAL 0.3 mg/dl (0.2-1.3); BLOOD UREA NITROGEN 21 mg/dl (9-20); CALCIUM 9.4 mg/dL (8.4-10.2); CARBON DIOXIDE 27 mmol/L (22-30); CHLORIDE 99 mmol/L (98-107); GFR AFRICAN-AMERICAN > 60; GLUCOSE,RANDOM 100 mg/dL (75-110); POTASSIUM 4.3 MMOL/L (3.6-5.0); SODIUM 137 mmol/l (132-148); TOTAL PROTEIN 7.1 G/DL (6.3-8.2)
[2017-04-12] MEDS: Insulin Lispro (humaLOG) 100 Units/ml Inj SC SCH ×4 (07:30→21:42)
[2017-04-12] MEDS: Ciprofloxacin 400mg/200ml D5W 400 MG/200 ML BAG IVPB SCH ×2 (09:00→21:39)
--- NOTE | 2017-04-12 09:21 | CP.PCM.PN ---
Subjective - Date & Time of Evaluation Date of Evaluation: 04/12/17 Time of Evaluation: : - Subjective Subjective: 56 y/o male 3 days s/p transmetatarsal amputation seen and evaluated at bedside. Patient is AAOx3 and is in NAD. Patient rates his pain as 5/10 on his right foot today. Patient states that the pain is improving. Patient is seen walking in a surgical shoe. Patient states that he is aware of not walking on his right foot. Patient denies of any recent F/N/V/C/SOB/CP today. Objective - Vital Signs/Intake and Output Vital Signs (last 24 hours): Temp Pulse Resp BP Pulse Ox 98.6 F 72 18 132/79 98 04/12/17 08:49 04/12/17 08:49 04/12/17 08:49 04/12/17 08:49 04/12/17 08:49 Intake and Output: 04/12/17 04/12/17 06:59 18:59 Intake Total 450 Balance 450 - Medications Medications: Current Medications Acetaminophen (Tylenol 325mg Tab) 650 mg PO Q6 PRN PRN Reason: Pain, Mild (1-3) Last Admin: 04/04/17 08:40 Dose: 650 mg Amlodipine Besylate (Norvasc) 5 mg PO DAILY [facility] Last Admin: 04/11/17 08:51 Dose: 5 mg Atorvastatin Calcium (Lipitor) 40 mg PO HS [facility] Last Admin: 04/11/17 21:04 Dose: 40 mg Dextrose (Dextrose 50% Inj) 0 ml IV STAT PRN; Protocol PRN Reason: Hyglycemia Protocol Dextrose (Glutose 15) 0 gm PO ONCE PRN; Protocol PRN Reason: Hypoglycemia Protocol Enoxaparin Sodium (Lovenox) 40 mg SC DAILY [facility] PRN Reason: Protocol Last Admin: 04/11/17 08:49 Dose: 40 mg Escitalopram Oxalate (Lexapro) 5 mg PO DAILY [facility] Famotidine (Pepcid) 20 mg PO DAILY [facility] Last Admin: 04/11/17 08:52 Dose: 20 mg Fluticasone Propionate (Flonase) 1 spr KAILASH BID PRN PRN Reason: Nasal congestion Glucagon (Glucagen Diagnostic Kit) 0 mg IM STAT PRN; Protocol PRN Reason: Hypoglycemia Protocol Ciprofloxacin (Cipro 400mg/200ml Dsw) 400 mg in 200 mls @ 200 mls/hr IVPB Q12 [facility] Last Admin: 04/11/17 21:03 Dose: 200 mls/hr Vancomycin HCl 1 gm/ Sodium (Chloride) 250 mls @ 166.667 mls/hr IVPB Q12H [facility] Last Admin: 04/12/17 02:52 Dose: 166.667 mls/hr Insulin Human Lispro (Humalog) 0 units SC ACHS [facility] PRN Reason: Protocol Last Admin: 04/11/17 22:25 Dose: Not Given Insulin Human NPH (Humulin N) 20 units SC HS [facility] Last Admin: 04/11/17 22:46 Dose: 20 unit Insulin Human NPH (Humulin N) 24 units SC QAM [facility] Lactobacillus Acidophilus (Bacid Acidophilus) 1 cap PO BID [facility] Last Admin: 04/11/17 17:05 Dose: 1 cap Lisinopril (Zestril) 10 mg PO DAILY [facility] Last Admin: 04/11/17 08:55 Dose: 10 mg Metoprolol Tartrate (Lopressor) 25 mg PO Q12 [facility] Last Admin: 04/11/17 21:04 Dose: 25 mg Morphine Sulfate (Morphine) 4 mg IVP Q4 PRN PRN Reason: Pain, severe (8-10) Last Admin: 04/12/17 06:08 Dose: 4 mg Oxycodone/Acetaminophen (Percocet 5/325 Mg Tab) 1 tab PO Q4 PRN PRN Reason: Pain, moderate (4-7) Stop: 04/12/17 15:10 Last Admin: 04/10/17 08:27 Dose: 1 tab Senna/Docusate Sodium (Senokot S 50 Mg-8.6 Mg) 2 tab PO HS [facility] Last Admin: 04/11/17 21:05 Dose: 2 tab Silver Sulfadiazine (Silvadene 1% 20 Gm) 20 ea TOP DAILY [facility] Last Admin: 04/11/17 08:52 Dose: 1 applic - Labs Labs: 04/12/17 05:55 04/12/17 05:55 PT 11.5 Seconds (9.8-13.1) 04/09/17 06:20 INR 1.1 (0.9-1.2) 04/09/17 06:20 APTT 35.7 Seconds (25.6-37.1) 04/09/17 06:20 - Constitutional Appears: Well, Non-toxic, No Acute Distress - Head Exam Head Exam: ATRAUMATIC - Eye Exam Eye Exam: EOMI, PERRL - ENT Exam ENT Exam: Mucous Membranes Moist - Neck Exam Neck Exam: Full ROM - Respiratory Exam Respiratory Exam: Clear to Ausculation Bilateral, NORMAL BREATHING PATTERN - Cardiovascular Exam Cardiovascular Exam: REGULAR RHYTHM - GI/Abdominal Exam GI & Abdominal Exam: Normal Bowel Sounds - Extremities Exam Additional comments: Right foot dressing is intact and no strike through is noted. Patient is in a surgical shoe. - Neurological Exam Neurological Exam: Alert, Awake, Normal Gait, Oriented x3 - Psychiatric Exam Psychiatric exam: Normal Affect, Normal Mood - Skin Skin Exam: Normal Color Assessment and Plan - Assessment and Plan (Free Text) Assessment: 56 y/o male seen at bedside 3 days s/p right foot transmetatarsal amputation secondary to OM and cellulitis Plan: Osteomyelitis right foot -foot x ray: degenerative changes. 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 Soft tissue swelling -MRI of the foot positive for OM and septic joint -SANAZ: negative for valvular vegetations -blood cx- 04/02/17: Beta hemolytic group b strep -Repeat blood cx: no growth after 3 days -wound cx (04/06/17): Beta hemolytic group b strep -partial resection of right 2nd and 3rd toe on 04/06/17, (+)OM -TMA 04/09/17 -continue ciprofloxacin 400 mg IV BID as per ID -vancomycin 1 gm Q12 as per ID -vanc trough: 8.0 (04/11) - ID and Podiatry consults appreciated - As per podiatry, patient is able to weightbear as tolerated to RLE in a surgical shoe -restarted lovenox, diet, on pain control - PT/OT eval and treat Insulin dependent DM II -Continue 24 units AM -Continue NPH 20 units SC PM -Hold metformin 1000 mg BID -moderate insulin sliding scale -accuchecks -well controlled -diabetic diet Hypertension: -Continue amlodipine 5 mg daily -Continue lisinopril 10 mg -Continue metoprolol 25 mg BID Tachycardia -resolved -Continue metoprolol tartrate 25 mg PO BID DVT prophylaxis: -Lovenox 40 mg SC GI prophylaxis -famotidine 20 mg daily -lactobacillus
[2017-04-12] MEDS: Lactobacillus Acidophilus 500 MU Cap PO SCH ×2 (09:30→17:58)
[2017-04-12] MEDS: Insulin NPH Human 100 Units/ml Inj SC SCH ×2 (09:33→21:43)
[2017-04-12] MEDS: Enoxaparin 40 mg Syringe SC SCH (09:35)
[2017-04-12] MEDS: Silver Sulfadiazine 1% Cream (20 gm) TOP SCH (09:37)
--- NOTE | 2017-04-12 13:09 | CP.PCM.DIS ---
Provider - Provider Date of Admission: 04/02/17 11:18 Attending physician: Nirmal Mccarthy MD Time Spent in preparation of Discharge (in minutes): 20 Hospital Course - Lab Results Lab Results: Micro Results 04/03/17 17:15 Blood-Venous Blood Culture - Final NO GROWTH AFTER 5 DAYS 04/03/17 17:15 Blood-Venous Gram Stain - Final TEST NOT PERFORMED 04/03/17 17:00 Blood-Venous Blood Culture - Final NO GROWTH AFTER 5 DAYS 04/03/17 17:00 Blood-Venous Gram Stain - Final TEST NOT PERFORMED 04/06/17 10:07 Other: Please Indicate Gram Stain - Final 04/06/17 10:07 Other: Please Indicate Wound Culture - Final Beta Hemolytic Strep Group B 04/03/17 14:51 Foot - Right Gram Stain - Final 04/03/17 14:51 Foot - Right Wound Culture - Final Beta Hemolytic Strep Group B 04/02/17 10:44 Blood S.aureus & Coag-Neg Staph PNA FISH - Final 04/02/17 10:44 Blood Blood Culture - Final Beta Hemolytic Strep Group B 04/02/17 10:44 Blood Gram Stain - Final 04/02/17 11:08 Urine Urine Culture - Final No Growth (<1,000 CFU/ML) Most Recent Lab Values WBC 11.6 K/uL (4.8-10.8) H 04/12/17 05:55 RBC 3.40 Mil/uL (4.40-5.90) L 04/12/17 05:55 Hgb 10.1 g/dL (12.0-18.0) L 04/12/17 05:55 Hct 30.0 % (35.0-51.0) L 04/12/17 05:55 MCV 88.3 fl (80.0-94.0) 04/12/17 05:55 MCH 29.6 pg (27.0-31.0) 04/12/17 05:55 MCHC 33.5 g/dL (33.0-37.0) 04/12/17 05:55 RDW 13.1 % (11.5-14.5) 04/12/17 05:55 Plt Count 527 K/uL (130-400) H 04/12/17 05:55 MPV 8.2 fl (7.2-11.7) 04/09/17 06:20 Neut % (Auto) 61.8 % (50.0-75.0) 04/09/17 06:20 Lymph % (Auto) 27.0 % (20.0-40.0) 04/09/17 06:20 Rogers % (Auto) 5.8 % (0.0-10.0) 04/09/17 06:20 Eos % (Auto) 4.0 % (0.0-4.0) 04/09/17 06:20 Baso % (Auto) 1.4 % (0.0-2.0) 04/09/17 06:20 Neut # 5.9 K/uL (1.8-7.0) 04/09/17 06:20 Lymph # 2.6 K/uL (1.0-4.3) 04/09/17 06:20 Rogers # 0.6 K/uL (0.0-0.8) 04/09/17 06:20 Eos # 0.4 K/uL (0.0-0.7) 04/09/17 06:20 Baso # 0.1 K/uL (0.0-0.2) 04/09/17 06:20 Neutrophils % (Manual) 94 % (42-75) H 04/02/17 10:44 Lymphocytes % (Manual) 2 % (20-50) L 04/02/17 10:44 Monocytes % (Manual) 4 % (0-10) 04/02/17 10:44 Platelet Estimate Normal (NORMAL) 04/02/17 10:44 Anisocytosis (manual) Slight 04/02/17 10:44 ESR 110 mm/hr (0-20) H 04/02/17 18:38 PT 11.5 Seconds (9.8-13.1) 04/09/17 06:20 INR 1.1 (0.9-1.2) 04/09/17 06:20 APTT 35.7 Seconds (25.6-37.1) 04/09/17 06:20 D-Dimer, Quantitative 765 ng/mlDDU (0-230) H 04/02/17 18:38 pO2 19 mm/Hg (30-55) L 04/02/17 10:31 VBG pH 7.40 (7.32-7.43) 04/02/17 10:31 VBG pCO2 44 mmHg (40-60) 04/02/17 10:31 VBG HCO3 24.3 mmol/L 04/02/17 10:31 VBG Total CO2 28.7 mmol/L (22-28) H 04/02/17 10:31 VBG O2 Sat (Calc) 38.0 % (40-65) L 04/02/17 10:31 VBG Base Excess 1.9 mmol/L (0.0-2.0) 04/02/17 10:31 VBG Potassium 4.6 mmol/L (3.6-5.2) 04/02/17 10:31 A-a O2 Difference 76.0 mm/Hg 04/02/17 10:31 Sodium 125.0 mmol/L (132-148) L 04/02/17 10:31 Chloride 85.0 mmol/L (98-107) L 04/02/17 10:31 Glucose 564 mg/dL (75-110) H* D 04/02/17 10:31 Lactate 1.9 mmol/L (0.7-2.1) 04/02/17 10:31 FiO2 21.0 % 04/02/17 10:31 Crit Value Called To Dr ishan lópez 04/02/17 10:31 Crit Value Called By 15 04/02/17 10:31 Crit Value Read Back Y 04/02/17 10:31 Blood Gas Notified Time 1057 04/02/17 10:31 Sodium 137 mmol/l (132-148) 04/12/17 05:55 Potassium 4.3 MMOL/L (3.6-5.0) 04/12/17 05:55 Chloride 99 mmol/L (98-107) 04/12/17 05:55 Carbon Dioxide 27 mmol/L (22-30) 04/12/17 05:55 Anion Gap 16 (10-20) 04/12/17 05:55 BUN 21 mg/dl (9-20) H 04/12/17 05:55 Creatinine 1.1 mg/dL (0.8-1.5) 04/12/17 05:55 Est GFR ( Amer) > 60 04/12/17 05:55 Est GFR (Non-Af Amer) > 60 04/12/17 05:55 POC Glucose (mg/dL) 312 mg/dL (65-110) H 04/12/17 10:59 Random Glucose 100 mg/dL (75-110) 04/12/17 05:55 Calcium 9.4 mg/dL (8.4-10.2) 04/12/17 05:55 Phosphorus 2.9 mg/dl (2.5-4.5) 04/02/17 10:44 Magnesium 2.1 MG/DL (1.6-2.3) 04/02/17 10:44 Total Bilirubin 0.3 mg/dl (0.2-1.3) 04/12/17 05:55 AST 36 U/L (17-59) 04/12/17 05:55 ALT 21 U/L (21-72) D 04/12/17 05:55 Alkaline Phosphatase 141 U/L (38-126) H 04/12/17 05:55 Total Protein 7.1 G/DL (6.3-8.2) 04/12/17 05:55 Albumin 3.2 g/dL (3.5-5.0) L 04/12/17 05:55 Globulin 3.9 gm/dL (2.2-3.9) 04/12/17 05:55 Albumin/Globulin Ratio 0.8 (1.0-2.1) L 04/12/17 05:55 Procalcitonin 5.13 NG/ML (0.19-0.49) H 04/02/17 19:09 Venous Blood Potassium 4.6 mmol/L (3.6-5.2) 04/02/17 10:31 Urine Color Yellow (YELLOW) 04/02/17 10:33 Urine Clarity Slighty-cloudy (Clear) 04/02/17 10:33 Urine pH 6.0 (5.0-8.0) 04/02/17 10:33 Ur Specific [place] 1.025 (1.003-1.030) 04/02/17 10:33 Urine Protein >=500 mg/dL (NEGATIVE) 04/02/17 10:33 Urine Glucose (UA) >=500 mg/dL (Normal) 04/02/17 10:33 Urine Ketones Trace mg/dL (NEGATIVE) 04/02/17 10:33 Urine Blood Small (NEGATIVE) 04/02/17 10:33 Urine Nitrate Negative (NEGATIVE) 04/02/17 10:33 Urine Bilirubin Negative (NEGATIVE) 04/02/17 10:33 Urine Urobilinogen 0.2-1.0 mg/dL (0.2-1.0) 04/02/17 10:33 Ur Leukocyte Esterase Neg Nicole/uL (Negative) 04/02/17 10:33 Urine RBC (Auto) 8 /hpf (0-3) H 04/02/17 10:33 Urine Microscopic WBC 3 /hpf (0-5) 04/02/17 10:33 Ur Squamous Epith Cells 5 /hpf (0-5) 04/02/17 10:33 Urine Bacteria Rare (<OCC) 04/02/17 10:33 Granular Casts (Auto) 2 /lpf (0-1) 04/02/17 10:33 Urine Sperm (Auto) Occ /hpf (NONE) 04/02/17 10:33 Vancomycin Trough 8.0 ug/mL (5.0-10.0) 04/11/17 11:00 Discharge Exam - Head Exam Head Exam: ATRAUMATIC - Eye Exam Eye Exam: EOMI, PERRL - ENT Exam ENT Exam: Mucous Membranes Moist - Neck Exam Neck exam: Full Rom - Respiratory Exam Respiratory Exam: NORMAL BREATHING PATTERN, UNREMARKABLE - Cardiovascular Exam Cardiovascular Exam: REGULAR RHYTHM - GI/Abdominal Exam GI & Abdominal Exam: Normal Bowel Sounds - Extremities Exam Extremities exam: full ROM Additional comments: Right foot dressing is clean, dry and intact. No strike through is noted - Neurological Exam Neurological exam: Alert, Oriented x3 - Psychiatric Exam Psychiatric exam: Normal Affect, Normal Mood Discharge Plan - Follow Up Plan Condition: FAIR Disposition: HOME/ ROUTINE Instructions: Cellulitis (DC), Debridement (DC) Referrals: Abdon Monge MD [Staff Provider] - Jhonny Salazar DPM [Doctor Podiatric Medicine] -
[2017-04-12] MEDS: Oxycodone/Acetaminophen 5/325 mg Tab PO PRN (14:47)
--- NOTE | 2017-04-12 18:57 | CP.PCM.PN ---
Subjective - Date & Time of Evaluation Date of Evaluation: 04/12/17 Time of Evaluation: 18:57 - Subjective Subjective: ID Note- Pt. seen and examined today. pt. sattes he feels betetr . denies any fever or chills but states has pain in right foot surgical site. pt. is s/p TMA on wednesday POD #3. Objective - Vital Signs/Intake and Output Vital Signs (last 24 hours): Temp Pulse Resp BP Pulse Ox 98.4 F 73 18 128/74 100 04/12/17 16:55 04/12/17 16:55 04/12/17 16:55 04/12/17 16:55 04/12/17 16:55 Intake and Output: 04/12/17 04/12/17 06:59 18:59 Intake Total 450 Balance 450 - Medications Medications: Current Medications Acetaminophen (Tylenol 325mg Tab) 650 mg PO Q6 PRN PRN Reason: Pain, Mild (1-3) Last Admin: 04/04/17 08:40 Dose: 650 mg Amlodipine Besylate (Norvasc) 5 mg PO DAILY [facility] Last Admin: 04/12/17 09:36 Dose: 5 mg Atorvastatin Calcium (Lipitor) 40 mg PO HS [facility] Last Admin: 04/11/17 21:04 Dose: 40 mg Dextrose (Dextrose 50% Inj) 0 ml IV STAT PRN; Protocol PRN Reason: Hyglycemia Protocol Dextrose (Glutose 15) 0 gm PO ONCE PRN; Protocol PRN Reason: Hypoglycemia Protocol Enoxaparin Sodium (Lovenox) 40 mg SC DAILY [facility] PRN Reason: Protocol Last Admin: 04/12/17 09:35 Dose: 40 mg Escitalopram Oxalate (Lexapro) 5 mg PO DAILY [facility] Last Admin: 04/12/17 14:42 Dose: 5 mg Famotidine (Pepcid) 20 mg PO DAILY [facility] Last Admin: 04/12/17 09:36 Dose: 20 mg Fluticasone Propionate (Flonase) 1 spr KAILASH BID PRN PRN Reason: Nasal congestion Glucagon (Glucagen Diagnostic Kit) 0 mg IM STAT PRN; Protocol PRN Reason: Hypoglycemia Protocol Ciprofloxacin (Cipro 400mg/200ml Dsw) 400 mg in 200 mls @ 200 mls/hr IVPB Q12 [facility] Last Admin: 04/12/17 09:00 Dose: 200 mls/hr Vancomycin HCl 1 gm/ Sodium (Chloride) 250 mls @ 166.667 mls/hr IVPB Q12H [facility] Last Admin: 04/12/17 14:00 Dose: 166.667 mls/hr Insulin Human Lispro (Humalog) 0 units SC ACHS [facility] PRN Reason: Protocol Last Admin: 04/12/17 16:00 Dose: 3 unit Insulin Human NPH (Humulin N) 20 units SC HS [facility] Last Admin: 04/11/17 22:46 Dose: 20 unit Insulin Human NPH (Humulin N) 24 units SC QAM [facility] Last Admin: 04/12/17 09:33 Dose: 24 u Lactobacillus Acidophilus (Bacid Acidophilus) 1 cap PO BID [facility] Last Admin: 04/12/17 17:58 Dose: 1 cap Lisinopril (Zestril) 10 mg PO DAILY [facility] Last Admin: 04/12/17 09:37 Dose: 10 mg Metoprolol Tartrate (Lopressor) 25 mg PO Q12 [facility] Last Admin: 04/12/17 09:35 Dose: 25 mg Senna/Docusate Sodium (Senokot S 50 Mg-8.6 Mg) 2 tab PO HS [facility] Last Admin: 04/11/17 21:05 Dose: 2 tab Silver Sulfadiazine (Silvadene 1% 20 Gm) 20 ea TOP DAILY [facility] Last Admin: 04/12/17 09:37 Dose: 1 applic - Labs Labs: - Additional Findings Additional findings: - Constitutional Appears: No Acute Distress - Head Exam Head Exam: ATRAUMATIC, NORMAL INSPECTION - Eye Exam Eye Exam: EOMI, PERRL - ENT Exam ENT Exam: Normal Oropharynx - Neck Exam Neck exam: Positive for: Full Rom - Respiratory Exam Respiratory Exam: Clear to Auscultation Bilateral, NORMAL BREATHING PATTERN - Cardiovascular Exam Cardiovascular Exam: RRR, +S1, +S2 - GI/Abdominal Exam GI & Abdominal Exam: Normal Bowel Sounds, Soft Additional comments: NT, ND - Extremities Exam Additional comments: TMA site. All sutures are intact , no discharge, no malodor - Neurological Exam Neurological Exam: Alert, Awake, Oriented x3 Laboratory Results - last 72 hr 04/09/17 04/10/17 04/10/17 20:58 05:40 06:15 WBC RBC Hgb Hct MCV MCH MCHC RDW Plt Count Sodium 138 Potassium 4.1 Chloride 100 Carbon Dioxide 27 Anion Gap 16 BUN 15 Creatinine 1.1 Est GFR ( Amer) > 60 Est GFR (Non-Af Amer) > 60 POC Glucose (mg/dL) 246 H 183 H Random Glucose 120 H Calcium 9.1 Total Bilirubin AST ALT Alkaline Phosphatase Total Protein Albumin Globulin Albumin/Globulin Ratio Vancomycin Trough 04/10/17 04/10/17 04/10/17 11:00 11:09 13:31 WBC RBC Hgb Hct MCV MCH MCHC RDW Plt Count Sodium Potassium Chloride Carbon Dioxide Anion Gap BUN Creatinine Est GFR ( Amer) Est GFR (Non-Af Amer) POC Glucose (mg/dL) 377 H 341 H Random Glucose Calcium Total Bilirubin AST ALT Alkaline Phosphatase Total Protein Albumin Globulin Albumin/Globulin Ratio Vancomycin Trough 27.8 H 04/10/17 04/10/17 04/10/17 14:55 15:39 21:25 WBC RBC Hgb Hct MCV MCH MCHC RDW Plt Count Sodium Potassium Chloride Carbon Dioxide Anion Gap BUN Creatinine Est GFR ( Amer) Est GFR (Non-Af Amer) POC Glucose (mg/dL) 300 H 224 H 250 H Random Glucose Calcium Total Bilirubin AST ALT Alkaline Phosphatase Total Protein Albumin Globulin Albumin/Globulin Ratio Vancomycin Trough 04/11/17 04/11/17 04/11/17 05:44 06:30 10:51 WBC RBC Hgb Hct MCV MCH MCHC RDW Plt Count Sodium 136 Potassium 4.2 Chloride 96 L Carbon Dioxide 28 Anion Gap 16 BUN 18 Creatinine 1.0 Est GFR ( Amer) > 60 Est GFR (Non-Af Amer) > 60 POC Glucose (mg/dL) 253 H 474 H* Random Glucose 220 H Calcium 9.2 Total Bilirubin AST ALT Alkaline Phosphatase Total Protein Albumin Globulin Albumin/Globulin Ratio Vancomycin Trough 04/11/17 04/11/17 04/11/17 11:00 12:17 15:52 WBC RBC Hgb Hct MCV MCH MCHC RDW Plt Count Sodium Potassium Chloride Carbon Dioxide Anion Gap BUN Creatinine Est GFR ( Amer) Est GFR (Non-Af Amer) POC Glucose (mg/dL) 375 H 139 H Random Glucose Calcium Total Bilirubin AST ALT Alkaline Phosphatase Total Protein Albumin Globulin Albumin/Globulin Ratio Vancomycin Trough 8.0 04/11/17 04/12/17 04/12/17 21:23 05:48 05:55 WBC 11.6 H RBC 3.40 L Hgb 10.1 L Hct 30.0 L MCV 88.3 MCH 29.6 MCHC 33.5 RDW 13.1 Plt Count 527 H Sodium Potassium Chloride Carbon Dioxide Anion Gap BUN Creatinine Est GFR ( Amer) Est GFR (Non-Af Amer) POC Glucose (mg/dL) 190 H 97 Random Glucose Calcium Total Bilirubin AST ALT Alkaline Phosphatase Total Protein Albumin Globulin Albumin/Globulin Ratio Vancomycin Trough 04/12/17 04/12/17 05:55 10:59 WBC RBC Hgb Hct MCV MCH MCHC RDW Plt Count Sodium 137 Potassium 4.3 Chloride 99 Carbon Dioxide 27 Anion Gap 16 BUN 21 H Creatinine 1.1 Est GFR ( Amer) > 60 Est GFR (Non-Af Amer) > 60 POC Glucose (mg/dL) 312 H Random Glucose 100 Calcium 9.4 Total Bilirubin 0.3 AST 36 ALT 21 D Alkaline Phosphatase 141 H Total Protein 7.1 Albumin 3.2 L Globulin 3.9 Albumin/Globulin Ratio 0.8 L Vancomycin Trough Microbiology 04/03/17 17:15 Blood-Venous Blood Culture - Final NO GROWTH AFTER 5 DAYS 04/03/17 17:15 Blood-Venous Gram Stain - Final TEST NOT PERFORMED 04/03/17 17:00 Blood-Venous Blood Culture - Final NO GROWTH AFTER 5 DAYS 04/03/17 17:00 Blood-Venous Gram Stain - Final TEST NOT PERFORMED 04/06/17 10:07 Other: Please Indicate Gram Stain - Final 04/06/17 10:07 Other: Please Indicate Wound Culture - Final Beta Hemolytic Strep Group B 04/03/17 14:51 Foot - Right Gram Stain - Final 04/03/17 14:51 Foot - Right Wound Culture - Final Beta Hemolytic Strep Group B 04/02/17 10:44 Blood S.aureus & Coag-Neg Staph PNA FISH - Final 04/02/17 10:44 Blood Blood Culture - Final Beta Hemolytic Strep Group B 04/02/17 10:44 Blood Gram Stain - Final 04/02/17 11:08 Urine Urine Culture - Final No Growth (<1,000 CFU/ML) Assessment and Plan (1) Cellulitis and abscess of foot Status: Acute (2) Leukocytosis Status: Acute (3) Diabetes Status: Acute (4) Osteomyelitis of ankle or foot, right, acute Status: Acute (5) Bacteremia Status: Acute - Assessment and Plan (Free Text) Assessment: A/P- 56 year old male with uncontrolled diabetes presented with right foot cellulitis secondary to plantar ulcer. s/p completion of right foot TMA POD#3 right foot metatarsal resections 1,2,4,5 and 4th and 5th digit amputations (DOS: 04/09/17) POD#6 right foot 2nd digit amputation, 3rd ray partial amputation, and I&D (DOS : 04/06/17) afebrile leukocytosis trending down on IV abx. blood cx- group B strep x 1 04/02 repeat blood cx- 04/03-neg x 2 foot wound cx- group B strep MRI report noted- abscess and OM as per report. TTE- no vegetations per report. PLan- continue with IV vancomycin 1 gram q12 and keep trough <15. day #11. completed 11 days of IV cipro. advise to d/c cipro at this time. In light of the group B strep bacteremia on admission advise total of 14-20 days of Iv vancomycin. pt. will most likely need picc line to complete his abx treatment. All above was d/w patient and he verbalzies full understadning of all above and agrees with above plan of care.
[2017-04-12] MEDS: Docusate-Senna 50 mg-8.6 mg Tab PO SCH (21:44)
--- NOTE | 2017-04-13 06:02 | CP.PCM.PN ---
Subjective - Date & Time of Evaluation Date of Evaluation: 04/13/17 Time of Evaluation: 06:00 - Subjective Subjective: Podiatry Progress Note - Dr. Salazar 56 year old male patient seen at bedside s/p completion of right foot TMA - POD# 4 right foot metatarsal resections 1,2,4,5 and 4th and 5th digit amputations ( DOS: 04/09/17); POD#7 right foot 2nd digit amputation, 3rd ray partial amputation , and I&D (DOS: 04/06/17). Patient denies pain to surgical site today. Patient states he as been ambulating out of bed to the bathroom without difficulty. Patient denies N/V/F/D/C/SOB/calf pain. Offers no other pedal complaints at this time. Objective - Vital Signs/Intake and Output Vital Signs (last 24 hours): Temp Pulse Resp BP Pulse Ox 98.4 F 70 20 145/79 99 04/13/17 00:37 04/13/17 00:37 04/13/17 00:37 04/13/17 00:37 04/13/17 00:37 - Medications Medications: Current Medications Acetaminophen (Tylenol 325mg Tab) 650 mg PO Q6 PRN PRN Reason: Pain, Mild (1-3) Last Admin: 04/04/17 08:40 Dose: 650 mg Amlodipine Besylate (Norvasc) 5 mg PO DAILY [facility] Last Admin: 04/12/17 09:36 Dose: 5 mg Atorvastatin Calcium (Lipitor) 40 mg PO HS [facility] Last Admin: 04/12/17 21:41 Dose: 40 mg Dextrose (Dextrose 50% Inj) 0 ml IV STAT PRN; Protocol PRN Reason: Hyglycemia Protocol Dextrose (Glutose 15) 0 gm PO ONCE PRN; Protocol PRN Reason: Hypoglycemia Protocol Escitalopram Oxalate (Lexapro) 5 mg PO DAILY [facility] Last Admin: 04/12/17 14:42 Dose: 5 mg Famotidine (Pepcid) 20 mg PO DAILY [facility] Last Admin: 04/12/17 09:36 Dose: 20 mg Fluticasone Propionate (Flonase) 1 spr KAILASH BID PRN PRN Reason: Nasal congestion Glucagon (Glucagen Diagnostic Kit) 0 mg IM STAT PRN; Protocol PRN Reason: Hypoglycemia Protocol Ciprofloxacin (Cipro 400mg/200ml Dsw) 400 mg in 200 mls @ 200 mls/hr IVPB Q12 [facility] Last Admin: 04/12/17 21:39 Dose: 200 mls/hr Vancomycin HCl 1 gm/ Sodium (Chloride) 250 mls @ 166.667 mls/hr IVPB Q12H [facility] Last Admin: 04/13/17 01:21 Dose: 166.667 mls/hr Insulin Human Lispro (Humalog) 0 units SC ACHS [facility] PRN Reason: Protocol Last Admin: 04/12/17 21:42 Dose: Not Given Insulin Human NPH (Humulin N) 20 units SC HS [facility] Last Admin: 04/12/17 21:43 Dose: 20 unit Insulin Human NPH (Humulin N) 24 units SC QAM [facility] Last Admin: 04/12/17 09:33 Dose: 24 u Lactobacillus Acidophilus (Bacid Acidophilus) 1 cap PO BID [facility] Last Admin: 04/12/17 17:58 Dose: 1 cap Lisinopril (Zestril) 10 mg PO DAILY [facility] Last Admin: 04/12/17 09:37 Dose: 10 mg Metoprolol Tartrate (Lopressor) 25 mg PO Q12 [facility] Last Admin: 04/12/17 21:40 Dose: 25 mg Senna/Docusate Sodium (Senokot S 50 Mg-8.6 Mg) 2 tab PO HS [facility] Last Admin: 04/12/17 21:44 Dose: 2 tab Silver Sulfadiazine (Silvadene 1% 20 Gm) 20 ea TOP DAILY [facility] Last Admin: 04/12/17 09:37 Dose: 1 applic - Labs Labs: 04/12/17 05:55 04/12/17 05:55 PT 11.5 Seconds (9.8-13.1) 04/09/17 06:20 INR 1.1 (0.9-1.2) 04/09/17 06:20 APTT 35.7 Seconds (25.6-37.1) 04/09/17 06:20 - Constitutional Appears: Well, Non-toxic, No Acute Distress - Extremities Exam Additional comments: LE focused exam: Vasc: DP pulse non palpable on right foot due to post op status and edema. PT pulse palpable 2/4. TG warm to warm from proximal to distal. CFT < 3 seconds. Edema consistent with surgery performed noted to distal amputation site Neuro: Epicritic and protective sensation grossly intact Derm: TMA site noted to patients right foot. All sutures are intact and skin edges are well coapted with no signs of wound dehiscence noted. No other clinical signs of infection noted at this time. MSK: Right foot TMA with no POP to surgical site - Neurological Exam Neurological Exam: Alert, Awake, Oriented x3 - Psychiatric Exam Psychiatric exam: Normal Affect, Normal Mood Assessment and Plan - Assessment and Plan (Free Text) Assessment: 56 year old male patient s/p completion of right foot TMA POD#4 right foot metatarsal resections 1,2,4,5 and 4th and 5th digit amputations (DOS: 04/09/17) POD#7 right foot 2nd digit amputation, 3rd ray partial amputation, and I&D (DOS : 04/06/17) Plan: Patient seen and evaluated Discussed with attending, Dr. Salazar Chart, vitals, labs reviewed = afebrile Wound painted with betadine and dressed with betadine-soaked 4x4s, DSD, light NAKUL Patient to be WBAT RLE in surgical shoe Patient may be out of bed w/bathroom privileges Continue IV abx per ID, likely needs PICC for total of 14-20 days of IV Vancomycin Stable from podiatry standpoint Podiatry will continue to follow while in house Patient to follow up in podiatry clinic as outpatient in 1 week
[2017-04-13] MEDS: Insulin Lispro (humaLOG) 100 Units/ml Inj SC SCH ×2 (06:32→12:49)
--- NOTE | 2017-04-13 08:20 | CP.PCM.PN ---
Subjective - Date & Time of Evaluation Date of Evaluation: 04/13/17 Time of Evaluation: 08:12 - Subjective Subjective: 56 y/o male 4 days s/p right foot transmetatarsal amputation seen and evaluated at bedside. Patient appears in NAD and is AAOx3. Patient states that he is feeling well overall and denies of any acute overnight events. Patient states that he is having little pain to his right lower extremity but he is managing it well with medications. Patient denies of any recent F/N/V/C/SOB/CP today. Patient denies of any other pedal complains at this time. Objective - Vital Signs/Intake and Output Vital Signs (last 24 hours): Temp Pulse Resp BP Pulse Ox 98.4 F 70 20 145/79 99 04/13/17 00:37 04/13/17 00:37 04/13/17 00:37 04/13/17 00:37 04/13/17 00:37 - Medications Medications: Current Medications Acetaminophen (Tylenol 325mg Tab) 650 mg PO Q6 PRN PRN Reason: Pain, Mild (1-3) Last Admin: 04/04/17 08:40 Dose: 650 mg Amlodipine Besylate (Norvasc) 5 mg PO DAILY [facility] Last Admin: 04/12/17 09:36 Dose: 5 mg Atorvastatin Calcium (Lipitor) 40 mg PO HS [facility] Last Admin: 04/12/17 21:41 Dose: 40 mg Dextrose (Dextrose 50% Inj) 0 ml IV STAT PRN; Protocol PRN Reason: Hyglycemia Protocol Dextrose (Glutose 15) 0 gm PO ONCE PRN; Protocol PRN Reason: Hypoglycemia Protocol Escitalopram Oxalate (Lexapro) 5 mg PO DAILY [facility] Last Admin: 04/12/17 14:42 Dose: 5 mg Famotidine (Pepcid) 20 mg PO DAILY [facility] Last Admin: 04/12/17 09:36 Dose: 20 mg Fluticasone Propionate (Flonase) 1 spr KAILASH BID PRN PRN Reason: Nasal congestion Glucagon (Glucagen Diagnostic Kit) 0 mg IM STAT PRN; Protocol PRN Reason: Hypoglycemia Protocol Ciprofloxacin (Cipro 400mg/200ml Dsw) 400 mg in 200 mls @ 200 mls/hr IVPB Q12 [facility] Last Admin: 04/12/17 21:39 Dose: 200 mls/hr Vancomycin HCl 1 gm/ Sodium (Chloride) 250 mls @ 166.667 mls/hr IVPB Q12H [facility] Last Admin: 04/13/17 01:21 Dose: 166.667 mls/hr Insulin Human Lispro (Humalog) 0 units SC ACHS [facility] PRN Reason: Protocol Last Admin: 04/13/17 06:32 Dose: 2 unit Insulin Human NPH (Humulin N) 20 units SC HS [facility] Last Admin: 04/12/17 21:43 Dose: 20 unit Insulin Human NPH (Humulin N) 24 units SC QAM [facility] Last Admin: 04/12/17 09:33 Dose: 24 u Lactobacillus Acidophilus (Bacid Acidophilus) 1 cap PO BID [facility] Last Admin: 04/12/17 17:58 Dose: 1 cap Lisinopril (Zestril) 10 mg PO DAILY [facility] Last Admin: 04/12/17 09:37 Dose: 10 mg Metoprolol Tartrate (Lopressor) 25 mg PO Q12 [facility] Last Admin: 04/12/17 21:40 Dose: 25 mg Senna/Docusate Sodium (Senokot S 50 Mg-8.6 Mg) 2 tab PO HS [facility] Last Admin: 04/12/17 21:44 Dose: 2 tab Silver Sulfadiazine (Silvadene 1% 20 Gm) 20 ea TOP DAILY [facility] Last Admin: 04/12/17 09:37 Dose: 1 applic - Labs Labs: 04/12/17 05:55 04/12/17 05:55 PT 11.5 Seconds (9.8-13.1) 04/09/17 06:20 INR 1.1 (0.9-1.2) 04/09/17 06:20 APTT 35.7 Seconds (25.6-37.1) 04/09/17 06:20 - Constitutional Appears: Well, Non-toxic, No Acute Distress - Head Exam Head Exam: ATRAUMATIC - Eye Exam Eye Exam: EOMI, PERRL - ENT Exam ENT Exam: Mucous Membranes Moist - Neck Exam Neck Exam: Normal Inspection - Respiratory Exam Respiratory Exam: Clear to Ausculation Bilateral, NORMAL BREATHING PATTERN - Cardiovascular Exam Cardiovascular Exam: REGULAR RHYTHM - GI/Abdominal Exam GI & Abdominal Exam: Normal Bowel Sounds - Extremities Exam Additional comments: Dressing is clean, dry and intact. No strike through is noted on the dressing. - Neurological Exam Neurological Exam: Alert, Awake, Oriented x3 - Psychiatric Exam Psychiatric exam: Normal Affect, Normal Mood - Skin Skin Exam: Dry, Normal Color Assessment and Plan - Assessment and Plan (Free Text) Assessment: 56 y/o male seen at bedside 4 days s/p right foot transmetatarsal amputation secondary to OM and cellulitis Plan: Osteomyelitis right foot -foot x ray: degenerative changes. 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 Soft tissue swelling -MRI of the foot positive for OM and septic joint -SANAZ: negative for valvular vegetations -blood cx- 04/02/17: Beta hemolytic group b strep -Repeat blood cx: no growth after 3 days -wound cx (04/06/17): Beta hemolytic group b strep -partial resection of right 2nd and 3rd toe on 04/06/17, (+)OM -TMA 04/09/17 -d/c ciprofloxacin 400 mg as per ID -vancomycin 1 gm qd as per ID -vanc trough: 8.0 (04/11) - PICC line order placed: - Patient to receive PICC today to receive IV vancomycin for next 8 days as per ID - ID and Podiatry consults appreciated - As per podiatry, patient is able to weightbear as tolerated to RLE in a surgical shoe -restarted lovenox, diet, on pain control - PT/OT eval and treat Insulin dependent DM II -Continue 24 units AM -Continue NPH 20 units SC PM -Hold metformin 1000 mg BID -moderate insulin sliding scale -accuchecks -well controlled -diabetic diet Hypertension: -Continue amlodipine 5 mg daily -Continue lisinopril 10 mg -Continue metoprolol 25 mg BID Tachycardia -resolved -Continue metoprolol tartrate 25 mg PO BID DVT prophylaxis: -Lovenox 40 mg SC - last dose yesterday GI prophylaxis -famotidine 20 mg daily -lactobacillus
[2017-04-13 08:36] LABS: PARTIAL THROMBOPLASTIN TIME 36.3 Seconds (25.6-37.1)
--- NOTE | 2017-04-13 08:46 | OP ---
PROCEDURE DATE: 04/09/2017 SURGEON: Jhonny Salazar DPM ASSISTANTS: 1. Abiodun Broussard DPM, PGY1. 2. Jarett Elizabeth DPM, PGY1. ANESTHESIOLOGIST: Dr. Adams. ANESTHESIA: General LMA with local. PREOPERATIVE DIAGNOSIS: Right foot osteomyelitis. POSTOPERATIVE DIAGNOSIS: Right foot osteomyelitis. NAME OF PROCEDURE: 1 . Transmetatarsal amputation right foot INDICATIONS: The patient is a 56-year-old male who presents to [facility] with uncontrolled diabetes and previous surgical history of right partial first ray amputation. The patient underwent radical incision and drainage of abscess and partial ray amputation of second and third of right foot on 04/06/2017, secondary to osteomyelitis of the second metatarsal head and third metatarsal shaft and head. Amputation site packed with packing. The open surgical site measures approximately 4.5 cm x 6 cm x 4.5 cm. The patient is required for another incision and drainage including further dissection of all nonviable and necrotic tissue. Also, discussed with the patient to perform Transmetatarsal amputation right foot with resection of the first, second, fourth and fifth for complete partial metatarsal amputation. The patient signed the consent after careful explanation of risks, benefits, complications and alternatives for surgical procedure. No guarantees were given nor implied. N.p.o. status was confirmed prior to taking the patient to the OR. PREPARATION: The patient was brought into the operation room and placed on the operating room table in a supine position. Time-out was performed for identification of the correct patient and procedure. After anesthesia, the patient received a total 18 mL of 1:1 mixture of 0.25% Marcaine plain and 1% lidocaine plain in an ankle block fashion of the right ankle. The right lower extremity was then prepped and draped in a normal sterile manner and the procedure began. No tourniquet was used during the procedure. PROCEDURE #1 Transmetatarsal amputation right foot Attention was directed to the right foot at the level of metatarsophalangeal joint in which fish mouth flap was marked out using a marker with the tensor flap extending longer in length. Using #15 blade approximately 5 cm linear incision was made along the dorsum of the first to the fifth MTPJ and carried circumferentially around the foot with a longer tensor flap down to the subcutaneous layer, down to the level of the bone. All bleeders were cauterized and ligated as necessary. A Towel clamp was used to clamp the fourth digit to stabilize the distal foot, with the soft tissues from the first metatarsal. At this time, all the soft tissue was freed from the first metatarsal head using a #15 blade and crown and collar scissor. Periosteum was freed using a periosteal elevator. Next, utilizing the sagittal saw, the mid shaft of the first metatarsal was resected, carefully angulating the sagittal saw from distal dorsal to proximal plantar and beveling the medial aspect of the first metatarsal as well to avoid potential prominences. The length of the first metatarsal shaft was made in relation to the previous third partial ray resection to create a normal parabola. Attention was then directed to the previous partial ray second metatarsal resection. At this time, the soft tissue was freed from the metatarsal shaft using a #15 blade, crown and collar scissor and periosteal elevator. Next, utilizing the sagittal saw, the second metatarsal partial ray resection was resected, carefully angulating the sagittal saw from distal dorsal to proximal plantar. The length of the second metatarsal shaft was made in relation to the previous third partial ray resection to create a normal parabola. Attention was then directed to the fourth digit. The incision was extended down through the subcutaneous layers down to the level of bone utilizing the blade #15. All bleeders were cauterized and ligated as necessary using a bone clamp to stabilize the fourth digit. The fourth digit was then disarticulated from the foot at the level of the fourth metatarsophalangeal joint. Next, all the soft tissue was freed from the fourth metatarsal head using the #15 blade and crown and collar scissors. Periosteum was freed using a periosteal elevator. Next, utilizing the sagittal saw, the mid shaft of the fourth metatarsal was resected, carefully angulating the sagittal saw from distal dorsal to proximal plantar. The length of the fourth metatarsal was made in relation to the previous third partial ray resection to create a normal parabola. Attention was then directed to the fifth digit. The incision was extended down through the subcutaneous layers down to the level of the bone utilizing blade #15. All bleeders were cauterized and ligated as necessary using a bone clamp to stabilize the digit. The fifth digit was then disarticulated from the foot at the level of the fifth metatarsophalangeal joint. Next, all soft tissue was freed from the fifth metatarsal head using a #15 blade and crown and collar scissors. Periosteum was freed using a periosteal elevator. Next, utilizing the sagittal saw, the mid shaft of the fifth metatarsal was resected, carefully angulating the sagittal saw from distal dorsal to proximal plantar with lateral aspect of the fifth metatarsal beveled to avoid potential prominence. The length of the fifth metatarsal shaft was made in relation to the previous third partial ray resection to create a normal parabola. Using the hemostat, extensor and flexor tendons were fully resected using #15 blade. The plantar and the dorsal flaps were debulked using a #15 blade and dissecting scissors to allow for adequate closure of the surgical site. The surgical site was then irrigated with 3 liters of copious amount of normal saline solution using pulse lavage. The plantar tissue was then brought up dorsally to cover the partially resected metatarsal. The skin was re-approximated using a #3 nylon and packed with plain iodoform packing. Right foot was then dressed with Xeroform gauze, ABD, Kerlix and Andrea. POSTOPERATIVE CONDITION: The patient tolerated the anesthesia and procedure well and was escorted to the recovery room with vital signs stable and neurovascular status intact to the right lower extremity. The patient is to remain nonweightbearing to the right lower extremity. Podiatry to follow the patient while in house. The patient will follow up with Dr. Salazar upon discharge. Abiodun Broussard DPM Rommel Salazar DPM [id number]
[2017-04-13] MEDS: Ciprofloxacin 400mg/200ml D5W 400 MG/200 ML BAG IVPB SCH (10:05)
[2017-04-13] MEDS: Lactobacillus Acidophilus 500 MU Cap PO SCH (10:05)
[2017-04-13] MEDS: Insulin NPH Human 100 Units/ml Inj SC SCH (10:06)
--- NOTE | 2017-04-13 10:28 | CP.PCM.DIS ---
Provider - Provider Date of Admission: 04/02/17 11:18 Attending physician: Nirmal Mccarthy MD Time Spent in preparation of Discharge (in minutes): 20 Hospital Course - Lab Results Lab Results: Micro Results 04/03/17 17:15 Blood-Venous Blood Culture - Final NO GROWTH AFTER 5 DAYS 04/03/17 17:15 Blood-Venous Gram Stain - Final TEST NOT PERFORMED 04/03/17 17:00 Blood-Venous Blood Culture - Final NO GROWTH AFTER 5 DAYS 04/03/17 17:00 Blood-Venous Gram Stain - Final TEST NOT PERFORMED 04/06/17 10:07 Other: Please Indicate Gram Stain - Final 04/06/17 10:07 Other: Please Indicate Wound Culture - Final Beta Hemolytic Strep Group B 04/03/17 14:51 Foot - Right Gram Stain - Final 04/03/17 14:51 Foot - Right Wound Culture - Final Beta Hemolytic Strep Group B 04/02/17 10:44 Blood S.aureus & Coag-Neg Staph PNA FISH - Final 04/02/17 10:44 Blood Blood Culture - Final Beta Hemolytic Strep Group B 04/02/17 10:44 Blood Gram Stain - Final 04/02/17 11:08 Urine Urine Culture - Final No Growth (<1,000 CFU/ML) Most Recent Lab Values WBC 11.6 K/uL (4.8-10.8) H 04/12/17 05:55 RBC 3.40 Mil/uL (4.40-5.90) L 04/12/17 05:55 Hgb 10.1 g/dL (12.0-18.0) L 04/12/17 05:55 Hct 30.0 % (35.0-51.0) L 04/12/17 05:55 MCV 88.3 fl (80.0-94.0) 04/12/17 05:55 MCH 29.6 pg (27.0-31.0) 04/12/17 05:55 MCHC 33.5 g/dL (33.0-37.0) 04/12/17 05:55 RDW 13.1 % (11.5-14.5) 04/12/17 05:55 Plt Count 527 K/uL (130-400) H 04/12/17 05:55 MPV 8.2 fl (7.2-11.7) 04/09/17 06:20 Neut % (Auto) 61.8 % (50.0-75.0) 04/09/17 06:20 Lymph % (Auto) 27.0 % (20.0-40.0) 04/09/17 06:20 [place] % (Auto) 5.8 % (0.0-10.0) 04/09/17 06:20 Eos % (Auto) 4.0 % (0.0-4.0) 04/09/17 06:20 Baso % (Auto) 1.4 % (0.0-2.0) 04/09/17 06:20 Neut # 5.9 K/uL (1.8-7.0) 04/09/17 06:20 Lymph # 2.6 K/uL (1.0-4.3) 04/09/17 06:20 [place] # 0.6 K/uL (0.0-0.8) 04/09/17 06:20 Eos # 0.4 K/uL (0.0-0.7) 04/09/17 06:20 Baso # 0.1 K/uL (0.0-0.2) 04/09/17 06:20 Neutrophils % (Manual) 94 % (42-75) H 04/02/17 10:44 Lymphocytes % (Manual) 2 % (20-50) L 04/02/17 10:44 Monocytes % (Manual) 4 % (0-10) 04/02/17 10:44 Platelet Estimate Normal (NORMAL) 04/02/17 10:44 Anisocytosis (manual) Slight 04/02/17 10:44 ESR 110 mm/hr (0-20) H 04/02/17 18:38 PT 13.1 Seconds (9.8-13.1) 04/13/17 08:15 INR 1.3 (0.9-1.2) H 04/13/17 08:15 APTT 36.3 Seconds (25.6-37.1) 04/13/17 08:15 D-Dimer, Quantitative 765 ng/mlDDU (0-230) H 04/02/17 18:38 pO2 19 mm/Hg (30-55) L 04/02/17 10:31 VBG pH 7.40 (7.32-7.43) 04/02/17 10:31 VBG pCO2 44 mmHg (40-60) 04/02/17 10:31 VBG HCO3 24.3 mmol/L 04/02/17 10:31 VBG Total CO2 28.7 mmol/L (22-28) H 04/02/17 10:31 VBG O2 Sat (Calc) 38.0 % (40-65) L 04/02/17 10:31 VBG Base Excess 1.9 mmol/L (0.0-2.0) 04/02/17 10:31 VBG Potassium 4.6 mmol/L (3.6-5.2) 04/02/17 10:31 A-a O2 Difference 76.0 mm/Hg 04/02/17 10:31 Sodium 125.0 mmol/L (132-148) L 04/02/17 10:31 Chloride 85.0 mmol/L (98-107) L 04/02/17 10:31 Glucose 564 mg/dL (75-110) H* D 04/02/17 10:31 Lactate 1.9 mmol/L (0.7-2.1) 04/02/17 10:31 FiO2 21.0 % 04/02/17 10:31 Crit Value Called To Dr ishan lópez 04/02/17 10:31 Crit Value Called By 15 04/02/17 10:31 Crit Value Read Back Y 04/02/17 10:31 Blood Gas Notified Time 1057 04/02/17 10:31 Sodium 137 mmol/l (132-148) 04/12/17 05:55 Potassium 4.3 MMOL/L (3.6-5.0) 04/12/17 05:55 Chloride 99 mmol/L (98-107) 04/12/17 05:55 Carbon Dioxide 27 mmol/L (22-30) 04/12/17 05:55 Anion Gap 16 (10-20) 04/12/17 05:55 BUN 21 mg/dl (9-20) H 04/12/17 05:55 Creatinine 1.1 mg/dL (0.8-1.5) 04/12/17 05:55 Est GFR ( Amer) > 60 04/12/17 05:55 Est GFR (Non-Af Amer) > 60 04/12/17 05:55 POC Glucose (mg/dL) 199 mg/dL (65-110) H 04/13/17 06:11 Random Glucose 100 mg/dL (75-110) 04/12/17 05:55 Calcium 9.4 mg/dL (8.4-10.2) 04/12/17 05:55 Phosphorus 2.9 mg/dl (2.5-4.5) 04/02/17 10:44 Magnesium 2.1 MG/DL (1.6-2.3) 04/02/17 10:44 Total Bilirubin 0.3 mg/dl (0.2-1.3) 04/12/17 05:55 AST 36 U/L (17-59) 04/12/17 05:55 ALT 21 U/L (21-72) D 04/12/17 05:55 Alkaline Phosphatase 141 U/L (38-126) H 04/12/17 05:55 Total Protein 7.1 G/DL (6.3-8.2) 04/12/17 05:55 Albumin 3.2 g/dL (3.5-5.0) L 04/12/17 05:55 Globulin 3.9 gm/dL (2.2-3.9) 04/12/17 05:55 Albumin/Globulin Ratio 0.8 (1.0-2.1) L 04/12/17 05:55 Procalcitonin 5.13 NG/ML (0.19-0.49) H 04/02/17 19:09 Venous Blood Potassium 4.6 mmol/L (3.6-5.2) 04/02/17 10:31 Urine Color Yellow (YELLOW) 04/02/17 10:33 Urine Clarity Slighty-cloudy (Clear) 04/02/17 10:33 Urine pH 6.0 (5.0-8.0) 04/02/17 10:33 Ur Specific [place] 1.025 (1.003-1.030) 04/02/17 10:33 Urine Protein >=500 mg/dL (NEGATIVE) 04/02/17 10:33 Urine Glucose (UA) >=500 mg/dL (Normal) 04/02/17 10:33 Urine Ketones Trace mg/dL (NEGATIVE) 04/02/17 10:33 Urine Blood Small (NEGATIVE) 04/02/17 10:33 Urine Nitrate Negative (NEGATIVE) 04/02/17 10:33 Urine Bilirubin Negative (NEGATIVE) 04/02/17 10:33 Urine Urobilinogen 0.2-1.0 mg/dL (0.2-1.0) 04/02/17 10:33 Ur Leukocyte Esterase Neg Nicole/uL (Negative) 04/02/17 10:33 Urine RBC (Auto) 8 /hpf (0-3) H 04/02/17 10:33 Urine Microscopic WBC 3 /hpf (0-5) 04/02/17 10:33 Ur Squamous Epith Cells 5 /hpf (0-5) 04/02/17 10:33 Urine Bacteria Rare (<OCC) 04/02/17 10:33 Granular Casts (Auto) 2 /lpf (0-1) 04/02/17 10:33 Urine Sperm (Auto) Occ /hpf (NONE) 04/02/17 10:33 Vancomycin Trough 8.0 ug/mL (5.0-10.0) 04/11/17 11:00 - Hospital Course Hospital Course: 56 y/o male 4 days s/p right foot transmetatarsal amputation seen and evaluated at bedside. Patient appears in NAD and is AAOx3. Patient states that he is feeling well overall and denies of any acute overnight events. Patient states that he is having little pain to his right lower extremity but he is managing it well with medications. Patient denies of any recent F/N/V/C/SOB/CP today. Patient denies of any other pedal complains at this time. reconciled meds: see list below - Date & Time of H&P Date of H&P: 04/13/17 Time of H&P: 10:27 Discharge Exam - Head Exam Head Exam: ATRAUMATIC - Eye Exam Eye Exam: EOMI, PERRL - ENT Exam ENT Exam: Mucous Membranes Moist - Neck Exam Neck exam: Full Rom - Respiratory Exam Respiratory Exam: NORMAL BREATHING PATTERN, UNREMARKABLE - Cardiovascular Exam Cardiovascular Exam: REGULAR RHYTHM - GI/Abdominal Exam GI & Abdominal Exam: Normal Bowel Sounds, Unremarkable - Rectal Exam Rectal Exam: Deferred - Extremities Exam Extremities exam: full ROM Additional comments: Dressing on the right foot is clean, dry and intact. No strike through is noted. Patient is currently in a surgical shoe. - Back Exam Back exam: FULL ROM - Neurological Exam Neurological exam: Alert, Oriented x3 - Psychiatric Exam Psychiatric exam: Normal Affect, Normal Mood - Skin Skin Exam: Normal Color Discharge Plan - Discharge Medications Prescriptions: amLODIPine [Norvasc] 10 mg PO DAILY #10 tab Atorvastatin [Lipitor] 40 mg PO HS #30 tab Docusate Sodium/Sennosides A [Senokot S 50 MG-8.6 MG] 1 tab PO HS #30 tab Escitalopram [Lexapro] 5 mg PO DAILY #30 tab Ibuprofen [Motrin] 600 mg PO Q8 #30 tab Insulin Human NPH [Humulin N] 24 units SC QAM #1 vial Insulin Human NPH [Humulin N] 20 units SC HS #1 vial Lisinopril [Zestril] 5 mg PO DAILY #30 tab MetFORMIN [glucoPHAGE] 1,000 mg PO BID #60 tab Metoprolol Tartrate [Lopressor] 25 mg PO Q12 #60 tab Povidone Iodine 10% [Betadine 10%] 15 ml TP DAILY #1 bottle - Follow Up Plan Condition: FAIR Disposition: HOME/ ROUTINE Instructions: Cellulitis (DC), Peripherally Inserted Central Catheters and Midline Catheters (DC), Debridement (DC) Additional Instructions: Please follow up in Podiatry clinic on Wednesday04/19/17 between the hours of 8:30 -11:30 AM - Call and make the appointment for the clinic [phone] Keep the dressing clean, dry and intact until the podiatry clinic visit on Wednesday and remain in a surgical shoe during weightbearing to right lower extremity Please follow up with Primary care doctor once discharged Patient to receive IV vancomycin once daily through PICC line for next 8 days as per ID Reconcile meds as below: -Electronic prescriptions sent to patient's pharmacy -Take medications as outpatient as instructed Referrals: [facility] [Outside] Abdon Monge MD [Staff Provider] - Jhonny Salazar DPM [Doctor Podiatric Medicine] -
[2017-04-13] MEDS: Silver Sulfadiazine 1% Cream (20 gm) TOP SCH (12:53)
[2017-04-13] MEDS ORDERED: Lidocaine 1% Inj (20ml) ONE (14:55)
--- NOTE | 2017-04-13 15:22 | PCM.SURG1 ---
Surgeon's Initial Post Op Note - Surgeon's Notes Surgeon: Kelvin Badillo MD Power Crane Operator: NONE Type of Anesthesia: Local Pre-Operative Diagnosis: Infection requiring skilled nursing IV abx Operative Findings: US showed a patent right basilic vein Post-Operative Diagnosis: Infection requiring skilled nursing IV abx Operation Performed: Single lumen picc placement right basilic vein, 35 cm. Tip is in the SVC. Specimen/Specimens Removed: NONE Estimated Blood Loss: EBL {In ML}: 2 Blood Products Given: N/A Drains Used: No Drains Post-Op Condition: Fair Date of Surgery/Procedure: 04/13/17 Time of Surgery/Procedure: 15:20
[2017-04-13 16:59] VITALS: BP 140/87; PULSE 82; RESP 20; TEMP 98.8; O2SAT 100
--- NOTE | 2017-04-14 14:58 | VASCULAR ---
PROCEDURE: Date of procedure: 04/13/2017 Procedure: 1. Placement of a right arm PICC with ultrasound and fluoroscopic guidance, CPT 53402 2. PICC tip confirmation with spot radiograph and is in the superior vena cava Medications: 1 percent lidocaine Total Fluoro time: 4 seconds Radiation: 2 mGy EBL: 2 cc HISTORY: Infection requiring long-term IV antibiotics TECHNIQUE: Following informed consent and procedure time-out, the patient was placed supine on the interventional table and the right arm prepped and draped in the usual sterile fashion. Ultrasound showed a patent and compressible right basilic vein. After the skin was anesthetized with lidocaine, the basilic vein was accessed with micro micropuncture technique using ultrasound guidance. A guidewire was then advanced under fluoroscopic guidance into the superior vena cava. An image documenting ultrasound guidance for vascular access was permanently saved. The length of the single-lumen 4 Serbian PICC was trimmed to 35 centimeters and advanced through a peel-away sheath. The PICC was position with tip of PICC confirm a spot radiograph the superior vena cava. The PICC was secured to the patient's skin. The PICC was flushed. A biopatch and sterile dressing was applied. IMPRESSION: Placement of a single-lumen 4 Serbian PICC trimmed to 35 centimeters via right basilic vein. The tip of the PICC is confirmed with spot radiograph and is in the superior vena cava.
== END 2017-04-13 17:55 | disposition home or self-care (01) | DRG 854 ==
LOC: H.ER 09:44 → H.ERHOLD 11:18 → H.TEL 21:57 → H.MEDSURG1 04-07 04:01
PROVIDERS: ADMIT Family Medicine; ATTEND Family Medicine
PROC: 3E0234Z Introduction of Serum, Toxoid and Vaccine into Muscle, Percutaneous Approach (ICD-10-PCS; principal; 2017-04-03)
PROC: 0Y9M0ZZ Drainage of Right Foot, Open Approach (ICD-10-PCS; 2017-04-03)
PROC: 0Y6R0Z0 Detachment at Right 2nd Toe, Complete, Open Approach (ICD-10-PCS; 2017-04-06)
PROC: 0YBM0ZZ Excision of Right Foot, Open Approach (ICD-10-PCS; 2017-04-06)
PROC: 0Y6T0Z0 Detachment at Right 3rd Toe, Complete, Open Approach (ICD-10-PCS; 2017-04-06)
PROC: 0Y9M0ZZ Drainage of Right Foot, Open Approach (ICD-10-PCS; 2017-04-06)
PROC: 0Y6M0Z9 Detachment at Right Foot, Partial 1st Ray, Open Approach (ICD-10-PCS; 2017-04-09)
PROC: 0Y6M0ZB Detachment at Right Foot, Partial 2nd Ray, Open Approach (ICD-10-PCS; 2017-04-09)
PROC: 0Y6M0ZD Detachment at Right Foot, Partial 4th Ray, Open Approach (ICD-10-PCS; 2017-04-09)
PROC: 0Y6M0ZF Detachment at Right Foot, Partial 5th Ray, Open Approach (ICD-10-PCS; 2017-04-09)
PROC: 02HV33Z Insertion of Infusion Device into Superior Vena Cava, Percutaneous Approach (ICD-10-PCS; 2017-04-13)
DX: A41.9 Sepsis, unspecified organism (principal); M86.171 Other acute osteomyelitis, right ankle and foot; E11.621 Type 2 diabetes mellitus with foot ulcer; L02.611 Cutaneous abscess of right foot; E11.69 Type 2 diabetes mellitus with other specified complication; I10 Essential (primary) hypertension; E11.65 Type 2 diabetes mellitus with hyperglycemia; L97.519 Non-pressure chronic ulcer of other part of right foot with unspecified severity; Z91.19 Patient's noncompliance with other medical treatment and regimen; Z88.0 Allergy status to penicillin; Z23 Encounter for immunization; Z79.4 Long term (current) use of insulin; F17.210 Nicotine dependence, cigarettes, uncomplicated; Z89.411 Acquired absence of right great toe; M20.41 Other hammer toe(s) (acquired), right foot; L85.9 Epidermal thickening, unspecified; B95.1 Streptococcus, group B, as the cause of diseases classified elsewhere; E87.6 Hypokalemia

== ENCOUNTER 2017-04-23 09:40 | Emergency (ER) | payer SELFPAY ==
[2017-04-23 09:53] VITALS: BMI 29.2
[2017-04-23] MEDS ORDERED: Sodium Chloride 0.9% 1,000 ML IV STA (10:50)
[2017-04-23 10:55] LABS: BASO # 0.1 K/uL (0.0-0.2); BASO % 0.9 % (0.0-2.0); EOS # 0.2 K/uL (0.0-0.7); EOS % 2.5 % (0.0-4.0); HEMATOCRIT 33.2 % (35.0-51.0); LYMPH # 2.4 K/uL (1.0-4.3); MEAN CELL VOLUME 87.3 fl (80.0-94.0); MEAN CORPUSCULAR HEMOGLOBIN 29.5 pg (27.0-31.0); MEAN CORPUSCULAR HGB CONC 33.8 g/dL (33.0-37.0); MEAN PLATELET VOLUME 7.4 fl (7.2-11.7); MONO # 0.3 K/uL (0.0-0.8); NEUT # 6.5 K/uL (1.8-7.0); NEUT % 68.6 % (50.0-75.0); RED CELL DISTRIBUTION WIDTH 13.9 % (11.5-14.5); WHITE BLOOD COUNT 9.5 K/uL (4.8-10.8)
[2017-04-23 10:58] LABS: VENOUS BLOOD GAS BASE EXCESS 4.9 mmol/L (0.0-2.0); VENOUS BLOOD GAS PCO2 51 mmHg (40-60); VENOUS BLOOD PH 7.39 (7.32-7.43)
[2017-04-23 11:13] LABS: BLOOD UREA NITROGEN 21 mg/dl (9-20); CALCIUM 9.5 mg/dL (8.4-10.2); CARBON DIOXIDE 27 mmol/L (22-30); CHLORIDE 94 mmol/L (98-107); GFR AFRICAN-AMERICAN > 60; POTASSIUM 4.8 MMOL/L (3.6-5.0); SODIUM 133 mmol/l (132-148)
[2017-04-23 11:16] LABS: GLUCOSE,RANDOM 409 mg/dL (75-110)
--- NOTE | 2017-04-23 11:40 | ED PDOC ---
Lower Extremity Pain/Injury Time Seen by Provider: 04/23/17 10:17 Chief Complaint (Nursing): Lower Extremity Problem/Injury History Per: Patient (is s/p amputation of the toes on the right foot. He has had podiatry followup 4 days ago. According to podiatry he was supposed to have non-weight bearing but he been walking to and fro forerrands.) History/Exam Limitations: no limitations Current Symptoms Are (Timing): Still Present Severity: Moderate Past Medical History Reviewed: Historical Data, Nursing Documentation, Vital Signs Vital Signs: Last Vital Signs Temp 98.9 F 04/23/17 09:52 Pulse 85 04/23/17 09:52 Resp 20 04/23/17 09:52 BP 106/69 04/23/17 09:52 Pulse Ox 100 04/23/17 09:52 - Medical History PMH: Diabetes, HTN, Hypercholesterolemia Denies: Chronic Kidney Disease - Surgical History Surgical History: Denies: No Surg Hx - Family History Family History: States: Unknown Family Hx, Hypertension - Living Arrangements Living Arrangements: With Friends/Others - Social History Current smoker - smoking cessation education provided: No - Immunization History Hx Tetanus Toxoid Vaccination: No Hx Influenza Vaccination: No Hx Pneumococcal Vaccination: No - Home Medications Home Medications: Ambulatory Orders Medication Instructions Recorded Atorvastatin [Lipitor] 40 mg PO HS #30 tab 04/13/17 Docusate Sodium/Sennosides A 1 tab PO HS #30 tab 04/13/17 [Senokot S 50 MG-8.6 MG] Escitalopram [Lexapro] 5 mg PO DAILY #30 tab 04/13/17 Ibuprofen [Motrin] 600 mg PO Q8 #30 tab 04/13/17 Insulin Human NPH [Humulin N] 20 units SC HS #1 vial 04/13/17 Insulin Human NPH [Humulin N] 24 units SC QAM #1 vial 04/13/17 Lisinopril [Zestril] 5 mg PO DAILY #30 tab 04/13/17 MetFORMIN [glucoPHAGE] 1,000 mg PO BID #60 tab 04/13/17 Metoprolol Tartrate [Lopressor] 25 mg PO Q12 #60 tab 04/13/17 Povidone Iodine 10% [Betadine 10%] 15 ml TP DAILY #1 bottle 04/13/17 amLODIPine [Norvasc] 10 mg PO DAILY #10 tab 04/13/17 - Allergies Allergies/Adverse Reactions: Allergies Allergy/AdvReac Type Severity Reaction Status Date / Time Penicillins Allergy RASH Verified 04/23/17 10:04 Review of Systems ROS Statement: Except As Marked, All Systems Reviewed And Found Negative Constitutional: Negative for: Fever, Chills Cardiovascular: Negative for: Chest Pain Respiratory: Negative for: Cough, Shortness of Breath Skin: Negative for: Rash Physical Exam - Reviewed Nursing Documentation Reviewed: Yes Vital Signs Reviewed: Yes - Physical Exam Appears: Positive for: Well, Non-toxic, No Acute Distress Head Exam: Positive for: ATRAUMATIC, NORMAL INSPECTION, NORMOCEPHALIC Skin: Positive for: Normal Color, Warm, DRY Eye Exam: Positive for: EOMI, Normal appearance, PERRL ENT: Positive for: Normal ENT Inspection Neck: Positive for: Normal, Painless ROM Cardiovascular/Chest: Positive for: Regular Rate, Rhythm Respiratory: Positive for: CNT, Normal Breath Sounds Gastrointestinal/Abdominal: Positive for: Normal Exam, Bowel Sounds, Soft Back: Positive for: Normal Inspection Extremity: Positive for: Other (bandages on the right foot is soaked in blood.) Neurologic/Psych: Positive for: Alert, Oriented - Laboratory Results Result Diagrams: 04/23/17 10:36 04/23/17 10:36 - ECG O2 Sat by Pulse Oximetry: 100 Medical Decision Making Medical Decision Making: seen by podiatry. dressings changed. followup in clinic next Wednesday. Non-weight bearing. Disposition - Clinical Impression Clinical Impression: Wound dehiscence - Patient ED Disposition Is Patient to be Admitted: No Doctor Will See Patient In The: Office Counseled Patient/Family Regarding: Diagnosis, Need For Followup - Disposition Referrals: Podiatry Clinic [Outside] - 04/30/17 Disposition: Routine/Home Disposition Time: 12:15 Condition: STABLE Instructions: Non Weight Bearing Activity (ED), Crutch Instructions (ED) Forms: [facility] (Austrian) Print Language: MALTESE - POA Present On Arrival: None
[2017-04-23 13:40] VITALS: BP 124/74; PULSE 68; RESP 18; TEMP 97.8; O2SAT 99
--- NOTE | 2017-04-23 20:12 | CP.PCM.CON ---
History of Present Illness - History of Present Illness History of Present Illness: Podiatry Consult Note - Dr. Salazar 56 year old male patient seen in ED 2 weeks s/p right foot transmetatarsal amputation (DOS 04/09/17). HPI obtained with the assistance of stage settings painter (Iris - [id number]). Patient states 2 days ago he had to walk approximately 10 blocks to and from his place of residence in order to cone picker medicine. Patient presented to the ED 4 days ago and during that visit was told he needed to walk less for proper healing of surgical site; however, patient states he lives alone and does not have anyone to cone picker his medications. Patient was concerned because he saw that his dressing was saturated with blood - unknown to him how long blood has been present as he has decreased sensation to his feet. Patient denies any pain to his right foot today. Patient denies N/V /F/D/C/SOB/calf pain. No other pedal complaints at this time. Review of Systems - Review of Systems All systems: reviewed and no additional remarkable complaints except (as per HPI ) Past Patient History - Past Medical History & Family History Past Medical History?: Yes - Past Social History Smoking Status: Smoker Currrent Status Unknown - CARDIAC Hx Hypercholesterolemia: Yes Hx Hypertension: Yes - PULMONARY Hx Respiratory Disorders: No - NEUROLOGICAL Hx Neurological Disorder: No - HEENT Hx HEENT Problems: No - RENAL Hx Chronic Kidney Disease: No - ENDOCRINE/METABOLIC Hx Endocrine Disorders: Yes Hx Diabetes Mellitus Type 1: Yes - HEMATOLOGICAL/ONCOLOGICAL Hx Blood Disorders: No Hx Blood Transfusions: No - INTEGUMENTARY Hx Dermatological Problems: No - MUSCULOSKELETAL/RHEUMATOLOGICAL Hx Musculoskeletal Disorders: No Hx Falls: No Hx Osteomyelitis: Yes - GASTROINTESTINAL Hx Gastrointestinal Disorders: No Hx Bowel Surgery: No - GENITOURINARY/GYNECOLOGICAL Hx Genitourinary Disorders: No - PSYCHIATRIC Hx Psychophysiologic Disorder: No Hx Emotional Abuse: No Hx Physical Abuse: No Hx Substance Use: No - SURGICAL HISTORY Hx Surgeries: Yes Hx Amputation: Yes (toes rt foot) Hx Orthopedic Surgery: Yes Other/Comment: right great toe amputation - ANESTHESIA Hx Anesthesia: Yes Hx Anesthesia Reactions: No Hx Malignant Hyperthermia: No Meds Allergies/Adverse Reactions: Allergies Allergy/AdvReac Type Severity Reaction Status Date / Time Penicillins Allergy RASH Verified 04/23/17 10:04 Physical Exam - Constitutional Appears: Well, Non-toxic, No Acute Distress - Extremities Exam Additional comments: RLE focused physical exam: Dressing to right foot is saturated with sanguinous drainage however dried at this visit Vasc: DP pulse palpable 2/4. PT pulse palpable 2/4. TG warm to warm. No increase in warmth noted to TMA. Mild non-pitting edema noted to right foot surgical site. Neuro: Epicritic and protective sensation grossly intact Derm: Dried blood noted to entire TMA stump however no active bleeding noted at this time. Right foot TMA surgical incision appears well coapted with sutures intact and no wound dehiscence. Edges are well approximated. No fluctuance noted. MSK: Right foot TMA with no POP to surgical site - Neurological Exam Neurological exam: Alert, Oriented x3 - Psychiatric Exam Psychiatric exam: Normal Affect, Normal Mood Results - Vital Signs Recent Vital Signs: Last Vital Signs Temp 97.8 F 04/23/17 13:20 Pulse 68 04/23/17 13:20 Resp 18 04/23/17 13:20 BP 124/74 04/23/17 13:20 Pulse Ox 99 04/23/17 13:20 - Labs Result Diagrams: 04/23/17 10:36 04/23/17 10:36 Labs: Laboratory Results - last 24 hr 04/23/17 04/23/17 04/23/17 10:34 10:36 10:36 WBC 9.5 RBC 3.80 L Hgb 11.2 L Hct 33.2 L MCV 87.3 MCH 29.5 MCHC 33.8 RDW 13.9 Plt Count 413 H MPV 7.4 Neut % (Auto) 68.6 Lymph % (Auto) 25.0 [place] % (Auto) 3.0 Eos % (Auto) 2.5 Baso % (Auto) 0.9 Neut # 6.5 Lymph # 2.4 [place] # 0.3 Eos # 0.2 Baso # 0.1 ESR 114 H PT INR APTT pO2 22 L VBG pH 7.39 VBG pCO2 51 VBG HCO3 27.4 VBG Total CO2 32.5 H VBG O2 Sat (Calc) 46.0 VBG Base Excess 4.9 H VBG Potassium 4.8 Sodium 130.0 L 133 Chloride 95.0 L 94 L Glucose 436 H* D Lactate 1.5 FiO2 21.0 Blood Gas Comments Vbg Crit Value Called To Dipti singh r.n. Crit Value Called By Estrella Crit Value Read Back Y Blood Gas Notified Time 1057 Potassium 4.8 Carbon Dioxide 27 Anion Gap 17 BUN 21 H Creatinine 1.0 Est GFR ( Amer) > 60 Est GFR (Non-Af Amer) > 60 POC Glucose (mg/dL) Random Glucose 409 H* D Calcium 9.5 Venous Blood Potassium 4.8 04/23/17 04/23/17 04/23/17 10:36 10:46 13:07 WBC RBC Hgb Hct MCV MCH MCHC RDW Plt Count MPV Neut % (Auto) Lymph % (Auto) [place] % (Auto) Eos % (Auto) Baso % (Auto) Neut # Lymph # [place] # Eos # Baso # ESR PT 10.8 INR 1.0 APTT 35.0 pO2 VBG pH VBG pCO2 VBG HCO3 VBG Total CO2 VBG O2 Sat (Calc) VBG Base Excess VBG Potassium Sodium Chloride Glucose Lactate FiO2 Blood Gas Comments Crit Value Called To Crit Value Called By Crit Value Read Back Blood Gas Notified Time Potassium Carbon Dioxide Anion Gap BUN Creatinine Est GFR ( Amer) Est GFR (Non-Af Amer) POC Glucose (mg/dL) 482 H* 351 H Random Glucose Calcium Venous Blood Potassium Assessment & Plan - Assessment and Plan (Free Text) Assessment: 56 year old male patient 2 weeks s/p right foot transmetatarsal amputation (DOS 04/09/17) Plan: Patient seen and evaluated in ED Discussed with attending, Dr. Salazar Labs and vitals reviewed = afebrile, WBC 9.5, glucose 482 Wound cleansed with sterile saline and dressed with Xeroform, DSD, light NAKUL No clinical signs of infection noted at this time NWB RLE with the assistance of crutches Patient to follow up in podiatry clinic 1 week for continued wound care Thank you for allowing podiatry to partake in the care of this patient
== END 2017-04-23 13:46 | disposition home or self-care (01) ==
LOC: H.ER 09:40
DX: Z48.01 Encounter for change or removal of surgical wound dressing (principal); Z89.422 Acquired absence of other left toe(s); E11.9 Type 2 diabetes mellitus without complications; E78.00 Pure hypercholesterolemia, unspecified; I10 Essential (primary) hypertension; Z79.84 Long term (current) use of oral hypoglycemic drugs; Z88.0 Allergy status to penicillin
CPT/HCPCS: 80048; 82803; 82948; 85025; 85610; 85651; 85730; 87040; 96360; 99285; J7040

== ENCOUNTER 2017-09-22 10:31 | Inpatient (IN) | payer MEDICAID, SELFPAY ==
[2017-09-22 10:49] VITALS: BMI 26.4
[2017-09-22] MEDS ORDERED: Dextrose 50% SYRINGE Inj (50 ml) ONE (11:12)
[2017-09-22] MEDS ORDERED: Labetalol 5 mg/ml Inj 20ML IVP STA (11:18)
[2017-09-22] MEDS ORDERED: Dextrose 50% SYRINGE Inj (50 ml) IVP ONE (11:27)
[2017-09-22 11:31] LABS: BASO # 0.1 K/uL (0.0-0.2); BASO % 1.3 % (0.0-2.0); EOS # 0.1 K/uL (0.0-0.7); LYMPH % 21.9 % (20.0-40.0); MEAN CORPUSCULAR HEMOGLOBIN 30.4 pg (27.0-31.0); MEAN CORPUSCULAR HGB CONC 33.4 g/dL (33.0-37.0); MEAN PLATELET VOLUME 8.3 fl (7.2-11.7); MONO # 0.4 K/uL (0.0-0.8); MONO % 3.9 % (0.0-10.0); NEUT # 6.7 K/uL (1.8-7.0); NEUT % 71.9 % (50.0-75.0); RBC 4.74 Mil/uL (4.40-5.90); RED CELL DISTRIBUTION WIDTH 14.9 % (11.5-14.5); WHITE BLOOD COUNT 9.3 K/uL (4.8-10.8)
[2017-09-22 11:38] LABS: ALBUMIN 3.4 g/dL (3.5-5.0); ALT/SGPT 28 U/L (21-72); AST/SGOT 31 U/L (17-59); BLOOD UREA NITROGEN 12 mg/dl (9-20); CALCIUM 9.2 mg/dL (8.4-10.2); GFR AFRICAN-AMERICAN > 60; GFR NON-AFRICAN AMERICAN > 60; PROTHROMBIN TIME 9.5 Seconds (9.8-13.1)
[2017-09-22 11:39] LABS: INR 0.9 (0.9-1.2); PARTIAL THROMBOPLASTIN TIME 36.8 Seconds (25.6-37.1)
--- NOTE | 2017-09-22 11:43 | ED PDOC ---
HPI:STROKE - Historian Historian: Patient - Chief Complaint Chief Complaint: Weakness, Arm weakness, Leg weakness - Onset Date: 09/18/17 Onset: Days (4) - Timing Timing: Persistent - Location Locate left: Lower extremity - Radiation Radiation: None - Notes: Notes:: 57yo male, with history of hypertension, hyperlipidemia, and diabetes, presents to ED with complaints of left arm weakness present for the past 4 days. Patient states his symptoms initially started as left leg weakness, which he attributed to feeling tired. Patient also noticed left arm weakness which has been persistent, causing him concern and prompting the visit. Patient denies any blurry vision, vision loss, slurred speech or trouble swallowing. He denies taking any medication for his symptoms. Patient has no other medical complaints. PCP: [facility] NIHSS Stroke Scale - Date/Time Evaluation Performed When Was NIHSS Performed: Baseline - How Severe is the Stroke Level of Consciousness: 0=Alert LOC to Questions: 0=Both comments correct LOC to commands: 0=Obeys both correctly Best Gaze: 0=Normal Visual: 0=No visual loss Facial: 0=Normal Motor Arm - Left: 1=Drift noted before 10 sec Motor Arm - Right: 0=No drift Motor Leg - Left: 1=Drift before 5 sec Motor Leg - Right: 0=No drift Limb Ataxia: 0=Absent Sensory: 0=Normal Best Language: 0=No aphasia Dysarthia: 0=Normal articulation Extinction & Inattention (Neglect): 0=Normal, no object Score: 2 rTPA Inclusion/Exclusion - Refusal of Treatment Patient Refused Treatment: No - Inclusion Criteria for Altepase Patient is 18 years or Older: Yes The Clinical Diagnosis of Ischemic Stroke That is Causing a Potentially Disabling Neurological Deficit: Yes Time of Onset is Well Established to be Less Than 270 Minute Before Treatment Would Begin: No Risk/Benefit Discussed With Patient/Family Member Present: No - Exclusion Criteria for Altepase Uncontrolled Hypertension at Time of Treatment (Systolic BP above 185 or Diastolic BP above 110 mmHg): Yes Active Internal Bleeding: No Known Bleeding Diathesis Including but Not Limited to: Platelets Below 100,000/ mm,PTT Above 40 sec After Heparin Use, Current Use of Oral Anitcoagulant With INR Greater Than 1.7 or PT Greater Than 15 secs: No Evidence of an Intracranial Hemorrhage: No Evidence of Major Acute Infarct With Signs Greater Than 1/3 MCA Territory: No Suspicion of Subarachnoid Hemorrhage on Pretreatment Evaluation Even if CT Head Negative For Hemorrhage: No - Warning to TPA With Conditions Following Conditions Weighed Against Anticipated Benefit: Yes Condition: Stroke Serevity Too Mild Past Medical History Reviewed: Historical Data, Nursing Documentation, Vital Signs Vital Signs: Last Vital Signs Temp 97.5 F L 09/22/17 10:48 Pulse 107 H 09/22/17 10:48 Resp 20 09/22/17 10:48 BP 169/102 H 09/22/17 10:48 Pulse Ox 100 09/22/17 10:48 - Medical History PMH: Diabetes, HTN, Hypercholesterolemia Denies: Chronic Kidney Disease - Surgical History Other surgeries: amputation of toes right foot - Family History Family History: States: Unknown Family Hx, Hypertension - Living Arrangements Living Arrangements: Alone - Social History Current smoker - smoking cessation education provided: No - Immunization History Hx Tetanus Toxoid Vaccination: No Hx Influenza Vaccination: No Hx Pneumococcal Vaccination: No - Home Medications Home Medications: Ambulatory Orders Medication Instructions Recorded Atorvastatin [Lipitor] 40 mg PO HS #30 tab 04/13/17 Docusate Sodium/Sennosides A 1 tab PO HS #30 tab 04/13/17 [Senokot S 50 MG-8.6 MG] Escitalopram [Lexapro] 5 mg PO DAILY #30 tab 04/13/17 Ibuprofen [Motrin] 600 mg PO Q8 #30 tab 04/13/17 Insulin Human NPH [Humulin N] 20 units SC HS #1 vial 04/13/17 Insulin Human NPH [Humulin N] 24 units SC QAM #1 vial 04/13/17 Lisinopril [Zestril] 5 mg PO DAILY #30 tab 04/13/17 MetFORMIN [glucoPHAGE] 1,000 mg PO BID #60 tab 04/13/17 Metoprolol Tartrate [Lopressor] 25 mg PO Q12 #60 tab 04/13/17 Povidone Iodine 10% [Betadine 10%] 15 ml TP DAILY #1 bottle 04/13/17 amLODIPine [Norvasc] 10 mg PO DAILY #10 tab 04/13/17 - Allergies Allergies/Adverse Reactions: Allergies Allergy/AdvReac Type Severity Reaction Status Date / Time Penicillins Allergy RASH Verified 04/23/17 10:04 Review of Systems ROS Statement: Except As Marked, All Systems Reviewed And Found Negative Constitutional: Negative for: Fever, Chills Eyes: Negative for: Vision Change Neurological: Positive for: Weakness (left arm and leg). Negative for: Headache , Dizziness Physical Exam - Reviewed Nursing Documentation Reviewed: Yes Vital Signs Reviewed: Yes - Physical Exam Appears: Positive for: Non-toxic Head Exam: Positive for: ATRAUMATIC, NORMAL INSPECTION, NORMOCEPHALIC Skin: Positive for: Normal Color Eye Exam: Positive for: Normal appearance, PERRL ENT: Positive for: Other (tongue midline) Neck: Positive for: Normal, Supple Cardiovascular/Chest: Positive for: Regular Rate, Rhythm Respiratory: Positive for: Normal Breath Sounds Gastrointestinal/Abdominal: Positive for: Normal Exam, Soft. Negative for: Tenderness Back: Positive for: Normal Inspection Extremity: Positive for: Normal ROM, Other (5/5 strength right upper and lower extremities; 4-5/5 strength of left upper and lower extremities). Negative for : Deformity Neurologic/Psych: Positive for: Alert, hospice patient care secretary II-XII (intact), Oriented. Negative for: Motor/Sensory Deficits, Aphasia, Facial Droop - Laboratory Results Result Diagrams: 09/22/17 11:20 09/22/17 11:20 - ECG O2 Sat by Pulse Oximetry: 100 (RA) Pulse Ox Interpretation: Normal Medical Decision Making Medical Decision Making: Impression: Subacute stroke, elevated blood pressure Plan: -- CT Head -- Labs -- EKG -- Labetalol 20 mg IVP -- D5 500 ml at 125ml/hr IV -- D50 50ml IVP Time: 1314 CT Head FINDINGS: HEMORRHAGE: No evidence of acute intracranial hemorrhage. Fairly extensive left and to a lesser degree right sided inferior frontal pole encephalomalacia, the appearance of which is most consistent with chronic posttraumatic sequela. Left-sided encephalomalacia changes extend superiorly to near the vertex. There is ala associated mild ex vacuo dilatation of both frontal horns left greater than right. At additionally, there are bilateral temporal lobe encephalomalacia changes left greater than right. Chronic right cerebellar encephalomalacia changes may represent sequela of contrecoup injury versus old infarct. Clinical correlation recommended. . Questionable encephalomalacia changes right anterolateral cerebral peduncle. Moderate generalized volume loss. Vascular calcifications both carotid siphons. No obstructive hydrocephalus. There are no acute calvarial fractures. Bold fracture deformity right nasal bones with focal rightward deviation of the nasal septum. In addition, there also appears to be old fracture deformity left lamina papyracea. Minor mucosal thickening within the ethmoid air complex and left maxillary antrum. IMPRESSION: No acute intracranial hemorrhage. Extensive bilateral on frontal lobe encephalomalacia changes left side greater than right. There are also encephalomalacia changes both temporal lobes left greater than right. Findings are most consistent with old posttraumatic sequela however clinical correlation recommended. Area of encephalomalacia right cerebellar hemisphere possibly representing a contrecoup injury versus old infarct. . Questionable on localized encephalomalacia right anterolateral cerebral peduncle. Mild ex vacuo dilatation of the frontal horns left greater than right. Moderate generalized volume loss. Scribe Attestation: Documented by Aruna Boo acting as a scribe for Luma Whitehead MD. Provider Attestation: All medical record entries made by the Scribe were at my direction and personally dictated by me. I have reviewed the chart and agree that the record accurately reflects my personal performance of the history, physical exam, medical decision making, and the department course for this patient. I have also personally directed, reviewed, and agree with the discharge instructions and disposition. patient has symptoms of new CVA by history. It is not acute but is new. Will admit for further workup. Case d/w Dr. Vazquez, MRI brain w and w/o; CTA brain, Echo and ASA Disposition - Clinical Impression Clinical Impression: CVA (cerebral vascular accident) - Patient ED Disposition Is Patient to be Admitted: Yes Doctor Will See Patient In The: Office Counseled Patient/Family Regarding: Diagnosis - Disposition Disposition: Transfer of Care Disposition Time: 14:04 Condition: STABLE Instructions: Stroke Forms: [employer] (Khmer) - Pt Status Changed To: Hospital Disposition Of: Inpatient - Admit Certification Admit to Inpatient:: After my assessment, the patient will require hospitalization for at least two midnights. This is because of the severity of symptoms shown, intensity of services needed, and/or the medical risk in this patient being treated as an outpatient. - POA Present On Arrival: None
[2017-09-22 11:46] LABS: HEMOGLOBIN 14.4 g/dL (12.0-18.0)
--- NOTE | 2017-09-22 12:09 | CARD ---
APPROVED REPORT EKG Measurement Heart [id number] <Conclusion> Sinus tachycardia Possible Left atrial enlargement Nonspecific T wave abnormality Abnormal ECG
--- NOTE | 2017-09-22 12:26 | CT ---
PROCEDURE: CT scan of the brain dated 09/22/2017 HISTORY: Left weakness onset 4 days earlier COMPARISON: None available. TECHNIQUE: Contiguous helical/transaxial computed tomography images were obtained through the head/brain without intravenous contrast. Radiation dose: Total exam DLP = 916.72 mGy-cm. This CT exam was performed using one or more of the following dose reduction techniques: Automated exposure control, adjustment of the mA and/or kV according to patient size, and/or use of iterative reconstruction technique. . FINDINGS: HEMORRHAGE: No evidence of acute intracranial hemorrhage. Fairly extensive left and to a lesser degree right sided inferior frontal pole encephalomalacia, the appearance of which is most consistent with chronic posttraumatic sequela. Left-sided encephalomalacia changes extend superiorly to near the vertex. There is ala associated mild ex vacuo dilatation of both frontal horns left greater than right. At additionally, there are bilateral temporal lobe encephalomalacia changes left greater than right. Chronic right cerebellar encephalomalacia changes may represent sequela of contrecoup injury versus old infarct. Clinical correlation recommended. . Questionable encephalomalacia changes right anterolateral cerebral peduncle. Moderate generalized volume loss. Vascular calcifications both carotid siphons. No obstructive hydrocephalus. There are no acute calvarial fractures. Bold fracture deformity right nasal bones with focal rightward deviation of the nasal septum. In addition, there also appears to be old fracture deformity left lamina papyracea. Minor mucosal thickening within the ethmoid air complex and left maxillary antrum. IMPRESSION: No acute intracranial hemorrhage. Extensive bilateral on frontal lobe encephalomalacia changes left side greater than right. There are also encephalomalacia changes both temporal lobes left greater than right. Findings are most consistent with old posttraumatic sequela however clinical correlation recommended. Area of encephalomalacia right cerebellar hemisphere possibly representing a contrecoup injury versus old infarct. . Questionable on localized encephalomalacia right anterolateral cerebral peduncle. Mild ex vacuo dilatation of the frontal horns left greater than right. Moderate generalized volume loss.
[2017-09-22] MEDS ORDERED: Sodium Chloride 0.9% 100 ML ONE (15:27)
[2017-09-22] MEDS ORDERED: Iodixanol 320 MG/ML 100 ML BOTTLE IV ONE (15:27)
--- NOTE | 2017-09-22 15:34 | CP.PCM.HP ---
Past Patient History - Past Medical History & Family History Past Medical History?: Yes - Past Social History Smoking Status: Smoker Currrent Status Unknown - CARDIAC Hx Hypercholesterolemia: Yes Hx Hypertension: Yes - PULMONARY Hx Respiratory Disorders: No - NEUROLOGICAL Hx Neurological Disorder: No - HEENT Hx HEENT Problems: No - RENAL Hx Chronic Kidney Disease: No - ENDOCRINE/METABOLIC Hx Endocrine Disorders: Yes Hx Diabetes Mellitus Type 1: Yes - HEMATOLOGICAL/ONCOLOGICAL Hx Blood Disorders: No Hx Blood Transfusions: No - INTEGUMENTARY Hx Dermatological Problems: No - MUSCULOSKELETAL/RHEUMATOLOGICAL Hx Musculoskeletal Disorders: No Hx Falls: No Hx Osteomyelitis: Yes - GASTROINTESTINAL Hx Gastrointestinal Disorders: No Hx Bowel Surgery: No - GENITOURINARY/GYNECOLOGICAL Hx Genitourinary Disorders: No - PSYCHIATRIC Hx Psychophysiologic Disorder: No Hx Emotional Abuse: No Hx Physical Abuse: No Hx Substance Use: No - SURGICAL HISTORY Hx Surgeries: Yes Hx Amputation: Yes (toes rt foot) Hx Orthopedic Surgery: Yes Other/Comment: right great toe amputation - ANESTHESIA Hx Anesthesia: Yes Hx Anesthesia Reactions: No Hx Malignant Hyperthermia: No Meds Allergies/Adverse Reactions: Allergies Allergy/AdvReac Type Severity Reaction Status Date / Time Penicillins Allergy RASH Verified 04/23/17 10:04 Results - Vital Signs Recent Vital Signs: Last Vital Signs Temp 36.4 C L 09/22/17 10:48 Pulse 81 09/22/17 14:00 Resp 14 09/22/17 14:00 BP 140/88 09/22/17 14:00 Pulse Ox 100 09/22/17 14:12 - Labs Result Diagrams: 09/22/17 11:20 09/22/17 11:20 Labs: Laboratory Results - last 24 hr 09/22/17 09/22/17 09/22/17 11:01 11:20 11:20 WBC 9.3 RBC 4.74 Hgb 14.4 D Hct 43.1 MCV 91.0 D MCH 30.4 MCHC 33.4 RDW 14.9 H Plt Count 303 D MPV 8.3 Neut % (Auto) 71.9 Lymph % (Auto) 21.9 [place] % (Auto) 3.9 Eos % (Auto) 1.0 Baso % (Auto) 1.3 Neut # (Auto) 6.7 Lymph # (Auto) 2.0 [place] # (Auto) 0.4 Eos # (Auto) 0.1 Baso # (Auto) 0.1 PT INR APTT Sodium 140 Potassium 3.9 Chloride 102 Carbon Dioxide 32 H Anion Gap 10 BUN 12 Creatinine 1.0 Est GFR ( Amer) > 60 Est GFR (Non-Af Amer) > 60 POC Glucose (mg/dL) 59 L Random Glucose 67 L Calcium 9.2 Total Bilirubin 0.3 AST 31 ALT 28 Alkaline Phosphatase 138 H Total Protein 6.8 Albumin 3.4 L Globulin 3.4 Albumin/Globulin Ratio 1.0 09/22/17 09/22/17 11:20 11:37 WBC RBC Hgb Hct MCV MCH MCHC RDW Plt Count MPV Neut % (Auto) Lymph % (Auto) [place] % (Auto) Eos % (Auto) Baso % (Auto) Neut # (Auto) Lymph # (Auto) [place] # (Auto) Eos # (Auto) Baso # (Auto) PT 9.5 L INR 0.9 APTT 36.8 Sodium Potassium Chloride Carbon Dioxide Anion Gap BUN Creatinine Est GFR ( Amer) Est GFR (Non-Af Amer) POC Glucose (mg/dL) 149 H Random Glucose Calcium Total Bilirubin AST ALT Alkaline Phosphatase Total Protein Albumin Globulin Albumin/Globulin Ratio
--- NOTE | 2017-09-22 16:01 | CARD ---
APPROVED REPORT EXAM: Two-dimensional and M-mode echocardiogram with Doppler and color Doppler. Other Information Quality : ExcellentRhythm : NSR INDICATION CVA/TIA 2D DIMENSIONS IVSd1.15 (0.7-1.1cm)LVDd5.10 (3.9-5.9cm) LVOT Diameter2.20 (1.8-2.4cm)PWd1.09 (0.7-1.1cm) IVSs1.45 (0.8-1.2cm)LVDs3.68 (2.5-4.0cm) FS (%) 27.9 %PWs1.59 (0.8-1.2cm) M-Mode DIMENSIONS Left Atrium (MM)4.88 (2.5-4.0cm)IVSd1.47 (0.7-1.1cm) Aortic Root3.06 (2.2-3.7cm)LVDd4.91 (4.0-5.6cm) Aortic Cusp Exc.1.97 (1.5-2.0cm)PWd1.18 (0.7-1.1cm) IVSs1.79 cmFS (%) 26 % LVDs3.62 (2.0-3.8cm)PWs1.62 cm Mitral Valve MV E Doxyzznz99.2cm/sMV DECEL [id number] A Jcetayrw22.8cm/s MV YRQ07igU/A ratio0.8MVA (PHT)2.84cm2 TDI Lateral E' Peak V6.11cm/sMedial E' Peak V5.62cm/sE/Lateral E'10.8 E/Medial E'11.8 Pulmonary Valve PV Peak Xfjqgkge18.8cm/s LEFT VENTRICLE The left ventricle is normal size. There is normal left ventricular wall thickness. The left ventricular function is normal. The left ventricular ejection fraction is within the normal range. The Ejection Fraction is 50-55%. There is normal LV segmental wall motion. The left ventricular diastolic function is normal. RIGHT VENTRICLE The right ventricle is normal size. The right ventricular systolic function is normal. ATRIA The left atrium size is normal. The right atrium size is normal. AORTIC VALVE The aortic valve is normal in structure. No aortic regurgitation is present. There is no aortic valvular stenosis. MITRAL VALVE The mitral valve is normal in structure. There is no mitral valve stenosis. There is no mitral valve regurgitation noted. TRICUSPID VALVE The tricuspid valve is normal in structure. There is no tricuspid valve regurgitation noted. PULMONIC VALVE The pulmonary valve is normal in structure. There is no pulmonic valvular regurgitation. GREAT VESSELS The aortic root is normal in size. The IVC is normal in size and collapses >50% with inspiration. PERICARDIAL EFFUSION The pericardium appears normal. <Conclusion> The left ventricle is normal size. The left ventricular function is normal. The left ventricular ejection fraction is within the normal range. The Ejection Fraction is 50-55%.
--- NOTE | 2017-09-22 17:22 | CP.PCM.HP ---
History of Present Illness - History of Present Illness History of Present Illness: Mr. Tim Aguirre is a 57 yo M PM HTN, DM2, HLD who presented to the ED with 4 days duration of left upper and lower extremity weakness. He was trying to use crutches, but felt weakness in his left arm too, making walking especially difficult, which is why he came into the ED. He states that this has never happened before. He has no other complaints- no difficulty speaking, no changes in vision, no changes in sensory perception, no trouble swallowing. PMD: Dr. Rodriguez PMH: HTN, DM2, HLD Past surg hx: R toe amputation 2000, followed by transmetatarsal amputation in 03/2017 Social hx: current smoker (5 cig/day x 40 yrs, 10 pack years. Now smokes 1-3 daily. Drinks 1-2 beers 3x a week. Denies drug use. Family hx: mother had DM2 Allergies: penicillins Medications: metformin 1000 mg BID, amlodipine 10 mg daily, lisinopril 5 mg daily, atorvastatin 40 mg nightly. NPH 24U in am, 20 U at bedtime Next of kin: dawn Hayes ([phone]) Code status: full code ED course NIHSS scale: 2 (1 pt for motor arm- left, drift noted before 10 sec, 1 pt for motor leg- left, drift before 5 sec) CT head: No acute intracranial hemorrhage. Extensive bilateral on frontal lobe encephalomalacia changes left side greater than right. There are also encephalomalacia changes both temporal lobes left greater than right. Findings are most consistent with old posttraumatic sequela however clinical correlation recommended. Area of encephalomalacia right cerebellar hemisphere possibly representing a contrecoup injury versus old infarct. Questionable on localized encephalomalacia right anterolateral cerebral peduncle. Mild ex vacuo dilatation of the frontal horns left greater than right. Moderate generalized volume loss. Neuro consult- Dr. Vazquez; recommendations: MRI brain w and w/o; CTA brain, Echo and ASA Present on Admission - Present on Admission Any Indicators Present on Admission: Yes History of Uncontrolled Diabetes: Yes Review of Systems - Review of Systems All systems: reviewed and no additional remarkable complaints except - Constitutional Constitutional: Frequent Falls (within past 4 days, since onset of weakness) - Neurological Neurological: Weakness (left upper and lower extremities) Past Patient History - Past Medical History & Family History Past Medical History?: Yes Pertinent Family History: mother DM2 - Past Social History Smoking Status: Light Smoker < 10 Cigarettes Daily Alcohol: Occasional Drugs: Denies Home Situation {Lives}: Alone - CARDIAC Hx Cardiac Disorders: Yes Hx Hypercholesterolemia: Yes Hx Hypertension: Yes - PULMONARY Hx Respiratory Disorders: No - NEUROLOGICAL Hx Neurological Disorder: No - HEENT Hx HEENT Problems: No - RENAL Hx Chronic Kidney Disease: No - ENDOCRINE/METABOLIC Hx Endocrine Disorders: Yes Hx Diabetes Mellitus Type 1: Yes - HEMATOLOGICAL/ONCOLOGICAL Hx Blood Disorders: No - INTEGUMENTARY Hx Dermatological Problems: No - MUSCULOSKELETAL/RHEUMATOLOGICAL Hx Musculoskeletal Disorders: No Hx Falls: No Hx Osteomyelitis: Yes - GASTROINTESTINAL Hx Gastrointestinal Disorders: No Hx Bowel Surgery: No - GENITOURINARY/GYNECOLOGICAL Hx Genitourinary Disorders: No - PSYCHIATRIC Hx Psychophysiologic Disorder: No Hx Emotional Abuse: No Hx Physical Abuse: No Hx Substance Use: No - SURGICAL HISTORY Hx Surgeries: Yes Hx Amputation: Yes (R transmetatastal amputation) Hx Orthopedic Surgery: Yes Other/Comment: right great toe amputation - ANESTHESIA Hx Anesthesia: Yes Hx Anesthesia Reactions: No Hx Malignant Hyperthermia: No Meds Allergies/Adverse Reactions: Allergies Allergy/AdvReac Type Severity Reaction Status Date / Time Penicillins Allergy RASH Verified 04/23/17 10:04 Physical Exam - Constitutional Appears: Non-toxic, No Acute Distress - Eye Exam Eye Exam: Normal appearance, PERRL - ENT Exam ENT Exam: Mucous Membranes Moist - Respiratory Exam Respiratory Exam: Clear to Auscultation Bilateral, NORMAL BREATHING PATTERN. absent: Wheezes, Respiratory Distress - Cardiovascular Exam Cardiovascular Exam: REGULAR RHYTHM, +S1, +S2 - GI/Abdominal Exam GI & Abdominal Exam: Normal Bowel Sounds, Soft. absent: Distended, Tenderness - Extremities Exam Additional comments: multiple scabs/dried blood on bilateral lower extremities RIGHT lower extremity- foot is bandaged in NAKUL bandage Strength: Left lower extremity 3/5 strength, Right lower extremity 5/5 Left upper extremity 4/5, Right upper extremity 5/5 No sensory deficit - Back Exam Back exam: NORMAL INSPECTION - Neurological Exam Neurological exam: Alert, Oriented x3 Additional comments: Strength: Left lower extremity 3/5 strength, Right lower extremity 5/5 Left upper extremity 4/5, Right upper extremity 5/5 No sensory deficits - Psychiatric Exam Psychiatric exam: Normal Affect, Normal Mood - Skin Skin Exam: Abrasion, Dry, Warm Results - Vital Signs Recent Vital Signs: Last Vital Signs Temp 97.8 F 09/22/17 16:56 Pulse 84 09/22/17 16:56 Resp 17 09/22/17 16:56 BP 159/82 H 09/22/17 16:56 Pulse Ox 98 09/22/17 16:56 - Labs Result Diagrams: 09/22/17 11:20 09/22/17 11:20 Labs: Laboratory Results - last 24 hr 09/22/17 09/22/17 09/22/17 11:01 11:20 11:20 WBC 9.3 RBC 4.74 Hgb 14.4 D Hct 43.1 MCV 91.0 D MCH 30.4 MCHC 33.4 RDW 14.9 H Plt Count 303 D MPV 8.3 Neut % (Auto) 71.9 Lymph % (Auto) 21.9 [place] % (Auto) 3.9 Eos % (Auto) 1.0 Baso % (Auto) 1.3 Neut # (Auto) 6.7 Lymph # (Auto) 2.0 [place] # (Auto) 0.4 Eos # (Auto) 0.1 Baso # (Auto) 0.1 PT INR APTT Sodium 140 Potassium 3.9 Chloride 102 Carbon Dioxide 32 H Anion Gap 10 BUN 12 Creatinine 1.0 Est GFR ( Amer) > 60 Est GFR (Non-Af Amer) > 60 POC Glucose (mg/dL) 59 L Random Glucose 67 L Calcium 9.2 Total Bilirubin 0.3 AST 31 ALT 28 Alkaline Phosphatase 138 H Total Protein 6.8 Albumin 3.4 L Globulin 3.4 Albumin/Globulin Ratio 1.0 09/22/17 09/22/17 11:20 11:37 WBC RBC Hgb Hct MCV MCH MCHC RDW Plt Count MPV Neut % (Auto) Lymph % (Auto) [place] % (Auto) Eos % (Auto) Baso % (Auto) Neut # (Auto) Lymph # (Auto) [place] # (Auto) Eos # (Auto) Baso # (Auto) PT 9.5 L INR 0.9 APTT 36.8 Sodium Potassium Chloride Carbon Dioxide Anion Gap BUN Creatinine Est GFR ( Amer) Est GFR (Non-Af Amer) POC Glucose (mg/dL) 149 H Random Glucose Calcium Total Bilirubin AST ALT Alkaline Phosphatase Total Protein Albumin Globulin Albumin/Globulin Ratio Assessment & Plan - Assessment and Plan (Free Text) Assessment: 57 yo M with HTN, DM2, HLD with 4 days of left sided upper and lower extremity weakness; possible CVA. Plan: # Possible CVA - Neuro consult- Dr. Vazquez - Head CT- no acute intracranial bleed - Pending imaging: echo, CTA head/neck, Carotid and Vertebral u/s, Brain MRI w/ and w/o contrast - Pending labs: lipid panel, TSH, T3,T4, Vit B12, Folate, CRP, CMP, CBC, ESR, HbA1c - Neurochecks Q2hrs - Fall precautions; wound care consult - PT/OT/Speech Eval and Treat # Hypertension - hold home meds, monitor - permissive hypertension up to 200 systolic # Diabetes Mellitus, Type 2 - Continue home med metformin 1000 mg BID - Hold insulin; pt had hypoglycemic episode - Hypoglycemia protocol and insulin coverage scale, accuchecks - Urinalysis # HLD - Continue home med atorvastatin 40mg nightly # DVT prophylaxis - Lovenox 40mg SC # Code Status - Full code
[2017-09-22] MEDS ORDERED: Dextrose 50% SYRINGE Inj (50 ml) IV PRN (17:43)
[2017-09-22] MEDS ORDERED: Glucagon Recombinant 1 mg Inj IM PRN (17:43)
--- NOTE | 2017-09-22 17:44 | CT ---
PROCEDURE: CT Angiography of the neck and brain dated 09/22/2017 HISTORY: CVA COMPARISON: Comparison made with prior noncontrast CT scan brain obtained earlier same day. TECHNIQUE: Contiguous helical/transaxial images of the neck were obtained from the level of the skull-base to the superior mediastinum in the arteriographic phase of enhancement. Coronal and sagittal reformats or also generated. IV contrast dose: 90 cc Visipaque 320 Radiation Dose - DLP: 690.95 mGy-cm This CT exam was performed using one or more of the following dose reduction techniques: Automated exposure control, adjustment of the mA and/or kV according to patient size, and/or use of iterative reconstruction technique. . FINDINGS: The visualized aortic arch is widely patent as are the origins of the great vessels. Three-vessel arch. The visualized right common carotid arteries, carotid bifurcation right and internal carotid arteries including the petrous and cavernous segments are patent despite some minimal calcified atherosclerotic plaque at the level of the right anterior carotid bifurcation and right cavernous segment. The left common carotid artery is patent though there is a small focal plaque along the posterior margin of the left carotid bifurcation/origin of the left internal carotid artery. There appears to be narrowing of the left carotid bifurcation estimated at approximately 60-70 % however carotid Doppler recommended to confirm percent diameter stenosis. The the remaining left internal carotid artery as well as the Liz cavernous segments also patent. Both vertebral arteries are patent throughout right-sided which is only minimally more dominant than the left. Basilar artery is patent. The proximal posterior cerebral arteries, P1 and P2 segments are asymmetric right smaller in caliber than the left felt to be an anatomic variation however note is made of some mild irregularity of both P1 and T P2 segments which may be represent some atherosclerotic narrowing is well. The visualized portions of the distal anterior and middle cerebral arteries are symmetric. Distal posterior cerebral arteries are not well delineated due to small caliber and tortuosity. No evidence of large aneurysm nor vascular malformation Note made of multiple small nonspecific bilateral cervical lymph nodes. IMPRESSION: Atherosclerotic plaque seen at the left carotid bifurcation with estimated percent narrowing of between 60 - 70 %; recommend follow-up carotid Doppler to confirm percent diameter stenosis. Minor irregularity of the both proximal posterior cerebral arteries on which could be due to some mild atherosclerotic disease. No evidence of large aneurysm nor vascular malformation.
[2017-09-22] MEDS: Enoxaparin 40 mg Syringe SC SCH (21:19)
--- NOTE | 2017-09-23 06:35 | CP.PCM.PN ---
Subjective - Date & Time of Evaluation Date of Evaluation: 09/23/17 Time of Evaluation: 09:30 - Subjective Subjective: Pt seen and evaluated at bedside; no acute events overnight. No new weakness, feels like LLE is a little stronger today. No chest pain, no SOB, no abdominal pain, no new complaints; appears comfortable. Objective - Vital Signs/Intake and Output Vital Signs (last 24 hours): Temp Pulse Resp BP Pulse Ox 97.9 F 85 16 155/87 H 98 09/23/17 05:00 09/23/17 05:00 09/23/17 05:00 09/23/17 05:00 09/23/17 05:00 - Medications Medications: Current Medications Amlodipine Besylate (Norvasc) 10 mg PO DAILY [facility] Aspirin (Aspirin Chewable) 81 mg PO DAILY [facility] Atorvastatin Calcium (Lipitor) 40 mg PO HS [facility] Last Admin: 09/22/17 21:20 Dose: 40 mg Clopidogrel Bisulfate (Plavix) 75 mg PO DAILY [facility] Dextrose (Dextrose 50% Inj) 0 ml IV STAT PRN; Protocol PRN Reason: Hypoglycemia Protocol Last Admin: 09/22/17 18:55 Dose: 50 ml Dextrose (Glutose 15) 0 gm PO ONCE PRN; Protocol PRN Reason: Hypoglycemia Protocol Enoxaparin Sodium (Lovenox) 40 mg SC HS [facility] PRN Reason: Protocol Last Admin: 09/22/17 21:19 Dose: 40 mg Glucagon (Glucagen Diagnostic Kit) 0 mg IM STAT PRN; Protocol PRN Reason: Hypoglycemia Protocol Lisinopril (Zestril) 5 mg PO DAILY [facility] Metformin HCl (Glucophage) 1,000 mg PO BID [facility] Last Admin: 09/22/17 21:20 Dose: 1,000 mg - Labs Labs: 09/22/17 11:20 09/22/17 11:20 PT 9.5 Seconds (9.8-13.1) L 09/22/17 11:20 INR 0.9 (0.9-1.2) 09/22/17 11:20 APTT 36.8 Seconds (25.6-37.1) 09/22/17 11:20 - Constitutional Appears: Non-toxic, No Acute Distress - Head Exam Head Exam: NORMAL INSPECTION Additional comments: no facial droop - Eye Exam Eye Exam: Normal appearance - ENT Exam ENT Exam: Mucous Membranes Moist - Respiratory Exam Respiratory Exam: Clear to Ausculation Bilateral, NORMAL BREATHING PATTERN - Cardiovascular Exam Cardiovascular Exam: REGULAR RHYTHM, +S1, +S2 - GI/Abdominal Exam GI & Abdominal Exam: Soft, Normal Bowel Sounds. absent: Distended, Tenderness - Extremities Exam Extremities Exam: absent: Calf Tenderness, Joint Swelling Additional comments: s/p transmetatarsal amp on R side. multiple dried scabs on anterior LE b/l - Neurological Exam Neurological Exam: Alert, Awake Neuro motor strength exam: Left Upper Extremity: 4, Right Upper Extremity: 5, Left Lower Extremity: 4, Right Lower Extremity: 5 - Skin Skin Exam: Dry, Normal Color, Warm Assessment and Plan - Assessment and Plan (Free Text) Assessment: 57 yo M with HTN, DM2, HLD with 5 days of left sided upper and lower extremity weakness; possible CVA. Plan: # CVA - Neuro consult- Dr. Vazquez, pending recs - Head CT- no acute intracranial bleed - Head/Neck CTA: atherosclerotic plaque seen at left carotid bifurcation with estimated percent narrowing 60-70%. Minor irregularity of both proximal posterior cerebral arteries. No large aneurysm nor vascular malformation - Echo- EF 50-55%; wnl. - Carotid and vertebral u/s, brain MRI pending - TSH wnl, T4 wnl, T3 low at 0.95, Vit B12 wnl, Folate wnl, CRP wnl, CMP wnl, CBC wnl, ESR elevated at 63 - Neurochecks Q6h - Fall precautions; wound care consult - PT/OT/Speech Eval and Treat today # Hypertension - hold home meds, monitor - permissive hypertension up to 200 systolic # Diabetes Mellitus, Type 2 - Continue home med metformin 1000 mg BID - Hold insulin; pt had hypoglycemic episode - Hypoglycemia protocol and insulin coverage scale, accuchecks - HbA1c 11.5 # HLD - Continue home med atorvastatin 40mg nightly - Lipid panel: total 213, LDL 91, HDL 73, Trig 159 # DVT prophylaxis - Lovenox 40mg SC # Code Status - Full code
[2017-09-23 06:52] LABS: ALT/SGPT 33 U/L (21-72); AST/SGOT 32 U/L (17-59); BLOOD UREA NITROGEN 13 mg/dl (9-20); CALCIUM 9.1 mg/dL (8.4-10.2); GFR AFRICAN-AMERICAN > 60; GFR NON-AFRICAN AMERICAN > 60; HDL CHOLESTEROL 73 MG/DL (30-70)
[2017-09-23 07:01] LABS: B-TYPE NATRIURETIC PEPTIDE 738 pg/ml (0-900)
[2017-09-23 07:03] LABS: LDL CHOLESTEROL 91 mg/dL (0-129)
[2017-09-23 07:09] LABS: T4 7.36 ug/dl (5.5-11.0)
[2017-09-23 07:16] LABS: HEMOGLOBIN 13.9 g/dL (12.0-18.0); MEAN CELL VOLUME 90.8 fl (80.0-94.0); MEAN CORPUSCULAR HEMOGLOBIN 30.7 pg (27.0-31.0); MEAN CORPUSCULAR HGB CONC 33.8 g/dL (33.0-37.0); RBC 4.53 Mil/uL (4.40-5.90); RED CELL DISTRIBUTION WIDTH 15.1 % (11.5-14.5); WHITE BLOOD COUNT 6.2 K/uL (4.8-10.8)
[2017-09-23 07:23] LABS: T3 0.954 nmol/L (1.49-2.60)
[2017-09-23] MEDS ORDERED: Gadodiamide 287 MG/ML VIAL (15ML) IV ONE (08:43)
--- NOTE | 2017-09-23 10:30 | MRI ---
PROCEDURE: MRI BRAIN WITH AND WITHOUT CONTRAST HISTORY: cva COMPARISON: Unenhanced head CT 09/22/2017. TECHNIQUE: Multiplanar, multisequence MR images of the brain were obtained with and without intravenous contrast enhancement. FINDINGS: HEMORRHAGE: Trace punctate hemosiderin is seen at the right temporal lobe medially as well as the midline inferior leroy and right cerebellum density on the basis of multiple cavernomata though other etiologies are possible including trauma. No prominent intracranial hemorrhage is appreciated at this time. DWI: Small foci of restricted diffusion identified at the inferior right thalamus as well as the distal right cerebral peduncle results punctate foci identified at the right occipital lobe compatible with acute to subacute lacunar infarcts, likely from an embolic process. No lobar brain infarction is appreciated this time on an acute or subacute basis. BRAIN PARENCHYMA: Diffuse cerebral atrophy chronic microangiopathy are reiterated as well as a chronic lobar infarction in the right cerebellum. Prominent cystic encephalomalacia is appreciate left greater than right anterior pole frontal lobes with lesser similar changes present at the bilateral intra pole temporal lobes, likely on a posttraumatic basis. There is no significant mass is appreciated throughout the intracranial space and there is no suspicious extra-axial fluid collection appreciated the midline brain and appears grossly nonfocal as imaged. ENHANCEMENT: No suspicious intracranial enhancement appreciated above or below the tentorium including throughout the brainstem. VENTRICLES: No hydrocephalus. Limited ex vacuo expansion of the left frontal horn is appreciated. CRANIUM: Unremarkable. ORBITS: Grossly unremarkable. PARANASAL SINUSES/MASTOIDS: Limited bilateral mastoid effusions are identified VASCULAR SYSTEM: Skull base flow voids intact. OTHER FINDINGS: None . IMPRESSION: 1. A few acute/subacute lacunar infarctions are identified at the inferior right thalamus/distal right cerebral peduncle as well as minimally affecting the right occipital lobe, suggesting embolic type infarcts. 2. Reiterated probable posttraumatic bifrontal and bitemporal cystic encephalomalacia. Inferior right cerebellar lucency may be posttraumatic as well versus chronic infarct. 3. Reiterated age related neuro degenerative change. Findings discussed with 4 Salo Whitaker by telephone at 09/23/2017 9:55 a.m..
--- NOTE | 2017-09-23 10:35 | US ---
PROCEDURE: Duplex ultrasound of the carotid and vertebral arteries. HISTORY: CTA showing plaque 60-70% COMPARISON: None available. TECHNIQUE: Grayscale and duplex Doppler evaluation of the cervical carotid and vertebral arteries were performed. The common carotid, carotid bifurcations and cervical ICA and proximal ECA were evaluated. The vertebral arteries were evaluated for gross patency and direction. FINDINGS: RIGHT CAROTID ARTERIES: Common Carotid Artery: Normal. Maximal flow velocity of 63.6 cm/s. Carotid Bifurcation: Normal. Internal Carotid Artery:Normal. Maximal flow velocity of 71.9 cm/s. External Carotid Artery (proximal branches): Normal. Maximal flow velocity of 70.4 cm/s. ICA/CCA Ratio: 1.1 LEFT CAROTID ARTERIES: Common Carotid Artery: Normal. Maximal flow velocity of 71.4 cm/s. Carotid Bifurcation: Normal. Internal Carotid Artery:Normal. Maximal flow velocity of 75.6 cm/s. External Carotid Artery (proximal branches): Normal. Maximal flow velocity of 80.8 cm/s. ICA/CCA Ratio: 1.1 VERTEBRAL ARTERIES: Right Vertebral Artery: Patent. Antegrade flow. Left Vertebral Artery: Patent. Antegrade flow. OTHER FINDINGS: None. IMPRESSION: Right ICA degree of stenosis: Less than 50% Left ICA degree of stenosis: Less than 50% Reference Internal Carotid Artery (ICA) Peak Systolic Velocity (PSV) for above: 1. Less than 50% stenosis less than 125 cm/s peak systolic velocity 2. 50-69% stenosis 125-230cm/s peak systolic velocity 3. Greater than 70% but less than near occlusion greater than 230 cm/s peak systolic velocity
[2017-09-23] MEDS: Insulin Lispro (humaLOG) 100 Units/ml Inj SC SCH ×3 (12:14→22:02)
[2017-09-23 15:18] LABS: SQUAMOUS EPITHIAL 1 /hpf (0-5); URINE BILIRUBIN NEGATIVE (NEGATIVE); URINE BLOOD NEGATIVE (NEGATIVE); URINE CLARITY SLIGHTY-CLOUDY (Clear); URINE COLOR YELLOW (YELLOW); URINE GLUCOSE (UA) >=500 mg/dL (Normal); URINE LEUKOCYTE ESTERASE NEG Leu/uL (Negative); URINE PROTEIN >=500 mg/dL (NEGATIVE); URINE UROBILINOGEN 0.2-1.0 mg/dL (0.2-1.0)
[2017-09-23 17:38] LABS: FOLATE 15.3 ng/mL
[2017-09-23] MEDS: Enoxaparin 40 mg Syringe SC SCH (22:02)
--- NOTE | 2017-09-23 23:06 | CP.PCM.CON ---
History of Present Illness - History of Present Illness History of Present Illness: 57 yr old male, right handed with pmh of HTn, DM2, HLD, who presents to ED with a 4 day duration of left arm and leg weakness and numbnessm, first noted when he was trying to use his crutches. has a recently amputated metatarsal int he right foot, 03/2017. Denies aphasia, headache, facial droop, or prior events. PMH: HTN, DM2, HLD Past surg hx: R toe amputation 2000, followed by transmetatarsal amputation in 03/2017 Social hx: current smoker (5 cig/day x 40 yrs, 10 pack years. Now smokes 1-3 daily. Drinks 1-2 beers 3x a week. Denies drug use. Family hx: mother had DM2 Allergies: penicillins Medications: metformin 1000 mg BID, amlodipine 10 mg daily, lisinopril 5 mg daily, atorvastatin 40 mg nightly. NPH 24U in am, 20 U at bedtime on exam: exam conducted in Uzbek aaox3. PERRL. no facial droop. speech fluent. VFF. CN2-12 normal motor: strength: left arm 3/5 , left le+/5. +left arm drift. right upper and lower limb 5/5, except for left foot due to surgical limitations Sensory: decreased ft, pin left upper and lower limb symmetric reflexes, toes downgoing. no clonus gait not tested. no dysmetria. Past Patient History - Past Medical History & Family History Past Medical History?: Yes - Past Social History Smoking Status: Light Smoker < 10 Cigarettes Daily Alcohol: Occasional Drugs: Denies Home Situation {Lives}: Alone - CARDIAC Hx Hypercholesterolemia: Yes Hx Hypertension: Yes - PULMONARY Hx Respiratory Disorders: No - NEUROLOGICAL Hx Neurological Disorder: No - HEENT Hx HEENT Problems: No - RENAL Hx Chronic Kidney Disease: No - ENDOCRINE/METABOLIC Hx Diabetes Mellitus Type 1: Yes - HEMATOLOGICAL/ONCOLOGICAL Hx Blood Disorders: No - INTEGUMENTARY Hx Dermatological Problems: No - MUSCULOSKELETAL/RHEUMATOLOGICAL Hx Musculoskeletal Disorders: No Hx Falls: No Hx Osteomyelitis: Yes - GASTROINTESTINAL Hx Gastrointestinal Disorders: No Hx Bowel Surgery: No - GENITOURINARY/GYNECOLOGICAL Hx Genitourinary Disorders: No - PSYCHIATRIC Hx Psychophysiologic Disorder: No Hx Emotional Abuse: No Hx Physical Abuse: No Hx Substance Use: No - SURGICAL HISTORY Hx Surgeries: Yes Hx Amputation: Yes (R transmetatastal amputation) Hx Orthopedic Surgery: Yes Other/Comment: right great toe amputation - ANESTHESIA Hx Anesthesia: Yes Hx Anesthesia Reactions: No Hx Malignant Hyperthermia: No Meds Allergies/Adverse Reactions: Allergies Allergy/AdvReac Type Severity Reaction Status Date / Time Penicillins Allergy RASH Verified 04/23/17 10:04 - Medications Medications: Current Medications Amlodipine Besylate (Norvasc) 10 mg PO DAILY [facility] Aspirin (Aspirin Chewable) 81 mg PO DAILY [facility] Last Admin: 09/23/17 10:30 Dose: 81 mg Atorvastatin Calcium (Lipitor) 40 mg PO HS [facility] Last Admin: 09/23/17 22:02 Dose: 40 mg Clopidogrel Bisulfate (Plavix) 75 mg PO DAILY [facility] Last Admin: 09/23/17 10:30 Dose: 75 mg Dextrose (Dextrose 50% Inj) 0 ml IV STAT PRN; Protocol PRN Reason: Hypoglycemia Protocol Last Admin: 09/22/17 18:55 Dose: 50 ml Dextrose (Glutose 15) 0 gm PO ONCE PRN; Protocol PRN Reason: Hypoglycemia Protocol Enoxaparin Sodium (Lovenox) 40 mg SC HS [facility] PRN Reason: Protocol Last Admin: 09/23/17 22:02 Dose: 40 mg Glucagon (Glucagen Diagnostic Kit) 0 mg IM STAT PRN; Protocol PRN Reason: Hypoglycemia Protocol Insulin Human Lispro (Humalog) 0 units SC [facility] PRN Reason: Protocol Last Admin: 09/23/17 22:02 Dose: Not Given Lisinopril (Zestril) 5 mg PO DAILY [facility] Metformin HCl (Glucophage) 1,000 mg PO BID [facility] Last Admin: 09/23/17 17:32 Dose: 1,000 mg Results - Vital Signs Recent Vital Signs: Last Vital Signs Temp 98.5 F 09/23/17 19:37 Pulse 91 H 09/23/17 19:37 Resp 17 09/23/17 19:37 BP 152/91 H 09/23/17 19:37 Pulse Ox 99 09/23/17 19:37 - Labs Result Diagrams: 09/23/17 06:00 09/23/17 06:00 Labs: Laboratory Results - last 24 hr 09/23/17 09/23/17 09/23/17 05:25 05:51 06:00 WBC 6.2 RBC 4.53 Hgb 13.9 Hct 41.1 MCV 90.8 MCH 30.7 MCHC 33.8 RDW 15.1 H Plt Count 274 ESR 60 H Sodium Potassium Chloride Carbon Dioxide Anion Gap BUN Creatinine Est GFR ( Amer) Est GFR (Non-Af Amer) POC Glucose (mg/dL) 77 68 Random Glucose Hemoglobin A1c Calcium Total Bilirubin AST ALT Alkaline Phosphatase C-React Prot High Sens NT-Pro-B Natriuret Pep Total Protein Albumin Globulin Albumin/Globulin Ratio Triglycerides Cholesterol LDL Cholesterol Direct HDL Cholesterol Vitamin B12 Folate Thyroxine (T4) Total T3 TSH 3rd Generation Urine Color Urine Clarity Urine pH Ur Specific [place] Urine Protein Urine Glucose (UA) Urine Ketones Urine Blood Urine Nitrate Urine Bilirubin Urine Urobilinogen Ur Leukocyte Esterase Urine RBC (Auto) Urine Microscopic WBC Ur Squamous Epith Cells 09/23/17 09/23/17 09/23/17 06:00 06:00 06:00 WBC RBC Hgb Hct MCV MCH MCHC RDW Plt Count ESR Sodium 138 Potassium 3.7 Chloride 98 Carbon Dioxide 26 Anion Gap 18 BUN 13 Creatinine 1.0 Est GFR ( Amer) > 60 Est GFR (Non-Af Amer) > 60 POC Glucose (mg/dL) Random Glucose 90 Hemoglobin A1c 11.5 H Calcium 9.1 Total Bilirubin 0.3 AST 32 ALT 33 Alkaline Phosphatase 126 C-React Prot High Sens 1.53 NT-Pro-B Natriuret Pep 738 Total Protein 6.0 L Albumin 3.0 L Globulin 3.0 Albumin/Globulin Ratio 1.0 Triglycerides 159 H D Cholesterol 213 H LDL Cholesterol Direct 91 HDL Cholesterol 73 H Vitamin B12 654 Folate 15.3 Thyroxine (T4) 7.36 Total T3 0.954 L TSH 3rd Generation 1.94 Urine Color Urine Clarity Urine pH Ur Specific [place] Urine Protein Urine Glucose (UA) Urine Ketones Urine Blood Urine Nitrate Urine Bilirubin Urine Urobilinogen Ur Leukocyte Esterase Urine RBC (Auto) Urine Microscopic WBC Ur Squamous Epith Cells 09/23/17 09/23/17 09/23/17 06:52 11:29 15:12 WBC RBC Hgb Hct MCV MCH MCHC RDW Plt Count ESR Sodium Potassium Chloride Carbon Dioxide Anion Gap BUN Creatinine Est GFR ( Amer) Est GFR (Non-Af Amer) POC Glucose (mg/dL) 106 290 H Random Glucose Hemoglobin A1c Calcium Total Bilirubin AST ALT Alkaline Phosphatase C-React Prot High Sens NT-Pro-B Natriuret Pep Total Protein Albumin Globulin Albumin/Globulin Ratio Triglycerides Cholesterol LDL Cholesterol Direct HDL Cholesterol Vitamin B12 Folate Thyroxine (T4) Total T3 TSH 3rd Generation Urine Color Yellow Urine Clarity Slighty-cloudy Urine pH 5.0 Ur Specific [place] 1.028 Urine Protein >=500 Urine Glucose (UA) >=500 Urine Ketones Negative Urine Blood Negative Urine Nitrate Negative Urine Bilirubin Negative Urine Urobilinogen 0.2-1.0 Ur Leukocyte Esterase Neg Urine RBC (Auto) 1 Urine Microscopic WBC 1 Ur Squamous Epith Cells 1 - Imaging and Cardiology CT scan - head Status: Image reviewed by me (ct a : shows atheosclerotic plaque in carotids, and 60-70% stenosis, that needs carotids - as per report), Report reviewed by me (ct head normal) Assessment & Plan - Assessment and Plan (Free Text) Assessment: 57 yr old male with most likely embolic rt mca basal ganglia stroke, with significant atherosclerosis of carotid. Plan: 1. aspirin and plavix 2. ECHO 3. MRI brain 4. will call neurointerventional consult for possible intervention 5. LIpid profile DR Vazquez
[2017-09-24] MEDS: Insulin Lispro (humaLOG) 100 Units/ml Inj SC SCH ×4 (06:43→23:52)
--- NOTE | 2017-09-24 08:58 | CP.PCM.PN ---
Subjective - Date & Time of Evaluation Date of Evaluation: 09/24/17 Time of Evaluation: 07:20 - Subjective Subjective: Pt seen and evaluated at bedside; reports no acute events overnight. Thinks his leg is improving in stength, but still unsure of ability to walk on his own. No new weakness, No chest pain, no SOB, no abdominal pain, no new complaints; appears comfortable. Objective - Vital Signs/Intake and Output Vital Signs (last 24 hours): Temp Pulse Resp BP Pulse Ox 98.5 F 97 H 20 169/99 H 98 09/24/17 08:00 09/24/17 08:00 09/24/17 08:00 09/24/17 08:00 09/24/17 08:00 - Medications Medications: Current Medications Amlodipine Besylate (Norvasc) 10 mg PO DAILY [facility] Aspirin (Aspirin Chewable) 81 mg PO DAILY [facility] Last Admin: 09/23/17 10:30 Dose: 81 mg Atorvastatin Calcium (Lipitor) 40 mg PO HS [facility] Last Admin: 09/23/17 22:02 Dose: 40 mg Clopidogrel Bisulfate (Plavix) 75 mg PO DAILY [facility] Last Admin: 09/23/17 10:30 Dose: 75 mg Dextrose (Dextrose 50% Inj) 0 ml IV STAT PRN; Protocol PRN Reason: Hypoglycemia Protocol Last Admin: 09/22/17 18:55 Dose: 50 ml Dextrose (Glutose 15) 0 gm PO ONCE PRN; Protocol PRN Reason: Hypoglycemia Protocol Enoxaparin Sodium (Lovenox) 40 mg SC HS [facility] PRN Reason: Protocol Last Admin: 09/23/17 22:02 Dose: 40 mg Glucagon (Glucagen Diagnostic Kit) 0 mg IM STAT PRN; Protocol PRN Reason: Hypoglycemia Protocol Insulin Human Lispro (Humalog) 0 units SC [facility] PRN Reason: Protocol Last Admin: 09/24/17 06:43 Dose: Not Given Lisinopril (Zestril) 5 mg PO DAILY [facility] Metformin HCl (Glucophage) 1,000 mg PO BID [facility] Last Admin: 09/23/17 17:32 Dose: 1,000 mg - Labs Labs: 09/23/17 06:00 09/23/17 06:00 PT 9.5 Seconds (9.8-13.1) L 09/22/17 11:20 INR 0.9 (0.9-1.2) 09/22/17 11:20 APTT 36.8 Seconds (25.6-37.1) 09/22/17 11:20 - Constitutional Appears: Non-toxic, No Acute Distress - Head Exam Head Exam: NORMOCEPHALIC Additional comments: no facial droop - Eye Exam Eye Exam: EOMI, Normal appearance - ENT Exam ENT Exam: Mucous Membranes Moist - Respiratory Exam Respiratory Exam: Clear to Ausculation Bilateral, NORMAL BREATHING PATTERN - Cardiovascular Exam Cardiovascular Exam: REGULAR RHYTHM, +S1, +S2 - GI/Abdominal Exam GI & Abdominal Exam: Soft, Normal Bowel Sounds. absent: Tenderness - Extremities Exam Extremities Exam: absent: Calf Tenderness - Back Exam Back Exam: NORMAL INSPECTION - Neurological Exam Neurological Exam: Alert, Awake Neuro motor strength exam: Left Upper Extremity: 4, Right Upper Extremity: 5, Left Lower Extremity: 4, Right Lower Extremity: 5 - Skin Skin Exam: Dry, Normal Color, Warm Additional comments: multiple dried scabs on anterior LE b/l Assessment and Plan - Assessment and Plan (Free Text) Assessment: 57 yo M with HTN, DM2, HLD with 6 days of left sided upper and lower extremity weakness; CVA. Plan: # CVA - Brain MRI: few acute/subacute lacunar infarctions are identified at inferior right thalamus/distal right cerebral peduncle as well as minimally affecting right occipital lobe, suggesting embolic type infarcts. Probable post-traumatic bifrontal and bitemporal cystic encephalomalacia. Inferior right cerebellar lucency may be posttraumatic as well versus chronic infarct. - Head CT- no acute intracranial bleed - Head/Neck CTA: atherosclerotic plaque seen at left carotid bifurcation with estimated percent narrowing 60-70%. Minor irregularity of both proximal posterior cerebral arteries. No large aneurysm nor vascular malformation. Carotid and vertebral u/s shows less than 50% stenosis in both carotids. Possible neurointervention as per Neuro; pending further recs - Neuro consult- Dr. Vazquez, pending further recommendations - Echo- EF 50-55%; wnl. - TSH wnl, T4 wnl, T3 low at 0.95, Vit B12 wnl, Folate wnl, CRP wnl, CMP wnl, CBC wnl, ESR elevated at 63 - Neurochecks Q6h - Fall precautions; wound care consult - PT/OT/Speech Eval and Treat - acute rehab recommended but pt does not qualify due to insurance issues. Set up with outpatient PT after discharge. - Aspirin 81mg - Plavix 75 mg # Hypertension - Restart lisinopril home med, 5 mcg - Hold norvasc - Monitor BP # Diabetes Mellitus, Type 2 - HbA1c 11.5 - Continue home med metformin 1000 mg BID - Seen by endocrine, Dr. Rubalcava; started on lispro mix 75/25: 20U before breakfast , 30U before dinner - Hypoglycemia protocol and insulin coverage scale, accuchecks # HLD - Continue home med atorvastatin 40mg nightly - Consider increasing dose of statin - Lipid panel: total 213, LDL 91, HDL 73, Trig 159 # DVT prophylaxis - Lovenox 40mg SC
--- NOTE | 2017-09-24 09:52 | CP.PCM.PN ---
Subjective - Date & Time of Evaluation Date of Evaluation: 09/24/17 Time of Evaluation: 09:44 - Subjective Subjective: Mr. Venita Aguirre was seen and examined at the bedside. He is alert, oriented in all spheres. He denies any headache, dizziness, lightheadedness, nausea or vomiting. He has the left side weakness. He is able to follow simple commands with a noticeable left arm drift during assessment. CTA of the head and neck showed atherosclerotic plaque seen in the left carotid bifurcation with estimated percentage 60-70%. Minor irregularity of the both proximal posterior cerebral arteries on which could be due to some mild atherosclerotic disease. No evidence of large aneurysm nor vascular malformation, Carotid doppler showed bilateral ICA less than 50 %.MRI of the brain showed few acute/subacute lacunar infarctions are identified at the inferior right thalamus/ distal right cerebral peduncle including minimally affecting the right occipital lobe. Reiterated probable post traumatic bifrontal and bitemporal cystic encephalomalcia. Inferior right cerebellar lucency which can be chronic infarct. Age related neuro degenarative change. echocardiogram showed normal LV function but his EF- 50-55%. There was no untoward events overnight. Objective - Vital Signs/Intake and Output Vital Signs (last 24 hours): Temp Pulse Resp BP Pulse Ox 98.5 F 97 H 20 169/99 H 98 09/24/17 08:00 09/24/17 08:00 09/24/17 08:00 09/24/17 08:00 09/24/17 08:00 - Medications Medications: Current Medications Amlodipine Besylate (Norvasc) 10 mg PO DAILY [facility] Aspirin (Aspirin Chewable) 81 mg PO DAILY [facility] Last Admin: 09/23/17 10:30 Dose: 81 mg Atorvastatin Calcium (Lipitor) 40 mg PO HS [facility] Last Admin: 09/23/17 22:02 Dose: 40 mg Clopidogrel Bisulfate (Plavix) 75 mg PO DAILY [facility] Last Admin: 09/23/17 10:30 Dose: 75 mg Dextrose (Dextrose 50% Inj) 0 ml IV STAT PRN; Protocol PRN Reason: Hypoglycemia Protocol Last Admin: 09/22/17 18:55 Dose: 50 ml Dextrose (Glutose 15) 0 gm PO ONCE PRN; Protocol PRN Reason: Hypoglycemia Protocol Enoxaparin Sodium (Lovenox) 40 mg SC [facility] PRN Reason: Protocol Last Admin: 09/23/17 22:02 Dose: 40 mg Glucagon (Glucagen Diagnostic Kit) 0 mg IM STAT PRN; Protocol PRN Reason: Hypoglycemia Protocol Insulin Human Lispro (Humalog) 0 units SC ACHS [facility] PRN Reason: Protocol Last Admin: 09/24/17 06:43 Dose: Not Given Lisinopril (Zestril) 5 mg PO DAILY [facility] Metformin HCl (Glucophage) 1,000 mg PO BID [facility] Last Admin: 09/23/17 17:32 Dose: 1,000 mg - Labs Labs: 09/23/17 06:00 09/23/17 06:00 PT 9.5 Seconds (9.8-13.1) L 09/22/17 11:20 INR 0.9 (0.9-1.2) 09/22/17 11:20 APTT 36.8 Seconds (25.6-37.1) 09/22/17 11:20 - Constitutional Appears: No Acute Distress - Head Exam Head Exam: NORMAL INSPECTION - Eye Exam Pupil Exam: PERRL - Extremities Exam Additional comments: right foot dressing. - Neurological Exam Neurological Exam: Alert, Awake, Oriented x3 Neuro motor strength exam: Left Upper Extremity: 3, Right Upper Extremity: 5, Left Lower Extremity: 3, Right Lower Extremity: 4 Additional comments: He is alert, oriented x3, left side weaker. Assessment and Plan (1) CVA (cerebral vascular accident) Assessment & Plan: Case discussed with Dr. Vazquez, continue all current medical, ( aspirin, plavix and statin to keep LDL <70), physical, occupational, and speech therapies. Recommend blood pressure control and endocrine consult for glycemic control. Recommend rehab for discharge planning. Status: Acute
--- NOTE | 2017-09-24 15:18 | CON ---
DATE: ENDOCRINOLOGY CONSULTATION NOTE LOCATION: Room number 418, bed 2. HISTORY OF PRESENT ILLNESS: This is a 57-year-old male with known history of type 2 insulin-requiring diabetes presenting here with an acute onset of left upper and lower extremity weakness and has been evaluated to have an acute CVA and is being referred now for diabetic evaluation and management because of supervening hyperglycemic accelerations as noted thereof. PAST MEDICAL HISTORY: As mentioned above, history of type 2 insulin-requiring diabetes on a combination of NPH given twice daily as noted. History of hypertensive cardiovascular disease and dyslipidemia, history of diabetic retinopathy and polyneuropathy. PAST SURGICAL HISTORY: He also has a significant history of a previous right toe amputation followed short by an transmetatarsal amputation in March of 2017 in the right foot. SOCIAL HISTORY: The patient admits to active nicotine dependence and has smoked for over 40 years at this time. He has supportive family otherwise. FAMILY HISTORY: History of hypertension and diabetes as noted. REVIEW OF SYSTEMS: As mentioned above. Admits to generalized body weakness with easy fatigability and tiredness and suboptimal energy level. Also admits to episodic precordial chest pain with progressive shortness of breath especially on exertion. His oral intake has been variable with nausea and dyspepsia and vague upper abdominal pains. PHYSICAL EXAMINATION: GENERAL: This is an average built male in no apparent distress with a blood pressure of 140/70, pulse of 70 beats per minute and regular, temperature is 98, and respirations are 20. Height is 5 feet 4 inches and weight is 154 pounds. HEENT: Head is normocephalic. Eyes are anicteric with pink conjunctivae. Funduscopy is not possible at this time. Ears, nose and throat otherwise normal. NECK: Supple. Thyroid gland is normal in size. No carotid bruits or any cervical adenopathy. CARDIOPULMONARY: Some adynamic precordium. S1 and S2 is rapid and regular. Lungs are clear to auscultation. GASTROINTESTINAL: Abdomen is flat and soft with positive bowel sounds. EXTREMITIES: No peripheral edema. Pulses are +2 bilaterally. LABORATORY DATA: Chemistry showed a BUN of 13, sodium of 138, potassium of 3.7, chloride of 98, CO2 of 26, glucose of 90 and creatinine of 1.0. His A1c is 11.5%. ASSESSMENT: This is a 57-year-old male with uncontrolled and decompensated type 2 insulin-requiring diabetes and presenting here with acute right cerebrovascular accident with left-sided hemiparesis and also concomitant marked hyperglycemic accelerations as noted thereof. He also has diabetic microvascular complications of retinopathy and polyneuropathy with diabetic macrovascular complications of peripheral arterial disease and vasculopathy with a previous right transmetatarsal amputation as noted thereof. PLAN OF MANAGEMENT: As discussed with the patient and staff, we will modify his current insulin regimen and because of financial constraints, we will switch him over to more affordable conventional insulin premixed Novolin 70/30 given as 30 units before breakfast and 20 units before dinner as ordered. However, we do not carry the Novolin 70/30, but the only have the Humalog 75/25 which will be given only for inpatient use, but upon discharge would highly recommend the more affordable Novolin 70/30 as ordered as given thereof. We will modify the coverage scale to obviate hypoglycemia and detailed orders have been given. We will follow and advise accordingly. Monica Rublacava MD
[2017-09-24] MEDS ORDERED: Insulin Lispro (humaLOG) 100 Units/ml Inj SC SCH (16:30)
[2017-09-24] MEDS: Insulin Lispro Mix 75/25 100 units/ml (HumaLog) 10ml SC SCH (17:54)
[2017-09-24] MEDS: Enoxaparin 40 mg Syringe SC SCH (21:43)
[2017-09-25] MEDS: Insulin Lispro (humaLOG) 100 Units/ml Inj SC SCH ×4 (09:50→22:25)
[2017-09-25] MEDS: Insulin Lispro Mix 75/25 100 units/ml (HumaLog) 10ml SC SCH ×2 (09:50→17:22)
--- NOTE | 2017-09-25 15:36 | CP.PCM.PN ---
Subjective - Date & Time of Evaluation Date of Evaluation: 11/25/17 Time of Evaluation: 13:15 - Subjective Subjective: is the same from a neurological point of view. No headache, no aphasia, no nausea, no vomiting, no visual field issues. CTA of the head and neck 09/22/2017 showed atherosclerotic plaque seen in the left carotid bifurcation with estimated percentage 60-70%. Minor irregularity of the both proximal posterior cerebral arteries on which could be due to some mild atherosclerotic disease. No evidence of large aneurysm nor vascular malformation, Carotid doppler showed bilateral ICA less than 50 %.MRI of the brain showed few acute/subacute lacunar infarctions are identified at the inferior right thalamus/ distal right cerebral peduncle including minimally affecting the right occipital lobe. Reiterated probable post traumatic bifrontal and bitemporal cystic encephalomalcia. Inferior right cerebellar lucency which can be chronic infarct. echocardiogram showed normal LV function but his EF- 50-55%. on exam: Left sided plegia with 4/5 left sided arm and leg weakness. left drift, right toe amputation. Rest of neurological examination unchanged. Objective - Vital Signs/Intake and Output Vital Signs (last 24 hours): Temp Pulse Resp BP Pulse Ox 98.2 F 103 H 18 142/83 99 09/25/17 13:05 09/25/17 13:05 09/25/17 13:05 09/25/17 13:05 09/25/17 13:05 - Medications Medications: Current Medications Amlodipine Besylate (Norvasc) 10 mg PO DAILY [facility] Aspirin (Aspirin Chewable) 81 mg PO DAILY [facility] Last Admin: 09/25/17 09:49 Dose: 81 mg Atorvastatin Calcium (Lipitor) 40 mg PO HS [facility] Last Admin: 09/24/17 21:43 Dose: 40 mg Clopidogrel Bisulfate (Plavix) 75 mg PO DAILY [facility] Last Admin: 09/25/17 09:49 Dose: 75 mg Dextrose (Dextrose 50% Inj) 0 ml IV STAT PRN; Protocol PRN Reason: Hypoglycemia Protocol Last Admin: 09/22/17 18:55 Dose: 50 ml Dextrose (Glutose 15) 0 gm PO ONCE PRN; Protocol PRN Reason: Hypoglycemia Protocol Enoxaparin Sodium (Lovenox) 40 mg SC HS [facility] PRN Reason: Protocol Last Admin: 09/24/17 21:43 Dose: 40 mg Glucagon (Glucagen Diagnostic Kit) 0 mg IM STAT PRN; Protocol PRN Reason: Hypoglycemia Protocol Insulin Human Lispro (Humalog) 0 units SC ACHS [facility] PRN Reason: Protocol Last Admin: 09/25/17 11:59 Dose: Not Given Insulin Lispro Protam/Lispro Human (Humalog Mix 75/25) 20 units SC ACD [facility] Last Admin: 09/24/17 17:54 Dose: 20 units Insulin Lispro Protam/Lispro Human (Humalog Mix 75/25) 30 units SC ACB [facility] Last Admin: 09/25/17 09:50 Dose: 30 units Lisinopril (Zestril) 20 mg PO DAILY [facility] Metformin HCl (Glucophage) 1,000 mg PO BID [facility] Last Admin: 09/25/17 09:51 Dose: 1,000 mg - Labs Labs: 09/23/17 06:00 09/23/17 06:00 PT 9.5 Seconds (9.8-13.1) L 09/22/17 11:20 INR 0.9 (0.9-1.2) 09/22/17 11:20 APTT 36.8 Seconds (25.6-37.1) 09/22/17 11:20 Assessment and Plan - Assessment and Plan (Free Text) Assessment: 57 yr old male with right mca stroke, ischemic and carotid disease. I have consulted neurointerventional and they will see patient on Wednesday. Plan: 1. pt, st, ot 2. COntinue dual antiplatelet therapy 3. May control blood pressure at this time. Dr. George MD, DPN
--- NOTE | 2017-09-25 16:26 | PN ---
DATE: ENDO FOLLOWUP NOTE LOCATION: Room 418. SUBJECTIVE: This is a 57-year-old male with recent uncontrolled type 2 insulin-requiring diabetes presenting here with acute CVA and is now being followed closely for metabolic management. His glycemic levels are fluctuating, but improved and the latest glucose values have ranged from 84-180 and 308 at noon time today as noted. His A1c, however, is quite elevated at 11.5%, indicative of very poor and suboptimal metabolic control of his diabetic condition even prior to this admission. So at this time we will continue the modified basal and premixed insulin regimen as given with Novolin 70/30, which is actually available here as Humalog 75/25 given as 30 units before breakfast and 20 units before dinner as ordered. We will continue his metformin given as 1 g b.i.d. as ordered. We will continue also the low-dose correction scale using regular insulin as given. We will obtain serial chemistries and supplement accordingly as needed. Would highly recommend the use of more affordable and conventional insulin therapy medications such as the Novolin 70/30, which is more affordable specially for outpatient diabetic management. They are available in and [facility] for at $32 to $35 dollars per vial compared to the insulin analogue, which are over $200 per insulin pen. We will obtain serial chemistries and supplement accordingly as needed. We will follow. Monica Rubalcava MD
[2017-09-25] MEDS: Enoxaparin 40 mg Syringe SC SCH (21:53)
--- NOTE | 2017-09-26 02:50 | CP.PCM.PN ---
Subjective - Date & Time of Evaluation Date of Evaluation: 09/25/17 Time of Evaluation: 13:00 - Subjective Subjective: Patient sitting in chair no events overnight upper and lower ext strength improved from admission no chest pain sob N/V/F/C Objective - Vital Signs/Intake and Output Vital Signs (last 24 hours): Temp Pulse Resp BP Pulse Ox 98.3 F 100 H 18 153/79 H 99 09/26/17 00:32 09/26/17 00:32 09/26/17 00:32 09/26/17 00:32 09/26/17 00:32 - Medications Medications: Current Medications Aspirin (Aspirin Chewable) 81 mg PO DAILY [facility] Last Admin: 09/25/17 09:49 Dose: 81 mg Atorvastatin Calcium (Lipitor) 40 mg PO HS [facility] Last Admin: 09/25/17 21:53 Dose: 40 mg Clopidogrel Bisulfate (Plavix) 75 mg PO DAILY [facility] Last Admin: 09/25/17 09:49 Dose: 75 mg Dextrose (Dextrose 50% Inj) 0 ml IV STAT PRN; Protocol PRN Reason: Hypoglycemia Protocol Last Admin: 09/22/17 18:55 Dose: 50 ml Dextrose (Glutose 15) 0 gm PO ONCE PRN; Protocol PRN Reason: Hypoglycemia Protocol Enoxaparin Sodium (Lovenox) 40 mg SC HS [facility] PRN Reason: Protocol Last Admin: 09/25/17 21:53 Dose: 40 mg Glucagon (Glucagen Diagnostic Kit) 0 mg IM STAT PRN; Protocol PRN Reason: Hypoglycemia Protocol Insulin Human Lispro (Humalog) 0 units SC ACHS [facility] PRN Reason: Protocol Last Admin: 09/25/17 22:25 Dose: Not Given Insulin Lispro Protam/Lispro Human (Humalog Mix 75/25) 20 units SC ACD [facility] Last Admin: 09/25/17 17:22 Dose: Not Given Insulin Lispro Protam/Lispro Human (Humalog Mix 75/25) 30 units SC ACB [facility] Last Admin: 09/25/17 09:50 Dose: 30 units Lisinopril (Zestril) 20 mg PO DAILY [facility] Metformin HCl (Glucophage) 1,000 mg PO BID [facility] Last Admin: 09/25/17 17:21 Dose: 1,000 mg - Labs Labs: 09/23/17 06:00 09/23/17 06:00 PT 9.5 Seconds (9.8-13.1) L 09/22/17 11:20 INR 0.9 (0.9-1.2) 09/22/17 11:20 APTT 36.8 Seconds (25.6-37.1) 09/22/17 11:20 - GI/Abdominal Exam GI & Abdominal Exam: Soft, Normal Bowel Sounds. absent: Tenderness - Additional Findings Additional findings: GEN alert NAD HRT RRR S1 S2 Lungs CTA ABD soft NT ND Ext no CCE neuro strength 4/5 left upper and lower ext Assessment and Plan - Assessment and Plan (Free Text) Plan: CVA cont anti platelet meds statin BP meds neurology consulted patient will have carotid stenosis evaluated
--- NOTE | 2017-09-26 08:27 | CP.PCM.PN ---
Subjective - Date & Time of Evaluation Date of Evaluation: 09/26/17 Time of Evaluation: 08:55 - Subjective Subjective: Pt seen and evaluated at bedside; reports no acute events overnight. No new weakness, No chest pain, no SOB, no abdominal pain, no new complaints; appears comfortable. Objective - Vital Signs/Intake and Output Vital Signs (last 24 hours): Temp Pulse Resp BP Pulse Ox 98.3 F 89 20 157/90 H 97 09/26/17 08:00 09/26/17 08:00 09/26/17 08:00 09/26/17 08:00 09/26/17 08:00 - Medications Medications: Current Medications Aspirin (Aspirin Chewable) 81 mg PO DAILY [facility] Last Admin: 09/25/17 09:49 Dose: 81 mg Atorvastatin Calcium (Lipitor) 40 mg PO HS [facility] Last Admin: 09/25/17 21:53 Dose: 40 mg Clopidogrel Bisulfate (Plavix) 75 mg PO DAILY [facility] Last Admin: 09/25/17 09:49 Dose: 75 mg Dextrose (Dextrose 50% Inj) 0 ml IV STAT PRN; Protocol PRN Reason: Hypoglycemia Protocol Last Admin: 09/22/17 18:55 Dose: 50 ml Dextrose (Glutose 15) 0 gm PO ONCE PRN; Protocol PRN Reason: Hypoglycemia Protocol Enoxaparin Sodium (Lovenox) 40 mg SC HS [facility] PRN Reason: Protocol Last Admin: 09/25/17 21:53 Dose: 40 mg Glucagon (Glucagen Diagnostic Kit) 0 mg IM STAT PRN; Protocol PRN Reason: Hypoglycemia Protocol Insulin Human Lispro (Humalog) 0 units SC ACHS [facility] PRN Reason: Protocol Last Admin: 09/25/17 22:25 Dose: Not Given Insulin Lispro Protam/Lispro Human (Humalog Mix 75/25) 20 units SC ACD [facility] Last Admin: 09/25/17 17:22 Dose: Not Given Insulin Lispro Protam/Lispro Human (Humalog Mix 75/25) 30 units SC ACB [facility] Last Admin: 09/25/17 09:50 Dose: 30 units Lisinopril (Zestril) 20 mg PO DAILY [facility] Metformin HCl (Glucophage) 1,000 mg PO BID [facility] Last Admin: 09/25/17 17:21 Dose: 1,000 mg - Labs Labs: 09/23/17 06:00 09/23/17 06:00 PT 9.5 Seconds (9.8-13.1) L 09/22/17 11:20 INR 0.9 (0.9-1.2) 09/22/17 11:20 APTT 36.8 Seconds (25.6-37.1) 09/22/17 11:20 Assessment and Plan - Assessment and Plan (Free Text) Assessment: 57 yo M with HTN, DM2, HLD with left sided upper and lower extremity weakness; CVA. Plan: # CVA - Seen on brain MRI - acute/subacute lacunar infarctions at inferior right thalamus/distal right cerebral peduncle as well as right occipital lobe; inferior right cerebellar lucency may be posttraumatic as well versus chronic infarct. - Head CT- no acute intracranial bleed - Neuro consult- Dr. Vazquez: continue all current medical, physical, and occupational therapies. Recommend blood pressure and glycemic control. - Neurochecks - Fall precautions; wound care consult - PT/OT/Speech Eval and Treat - acute rehab recommended but pt does not qualify due to insurance issues. Continue PT therapy. Set up with outpatient PT after discharge. - Aspirin 81mg - Plavix 75 mg # Carotid artery stenosis - Head/Neck CTA: atherosclerotic plaque seen at left carotid bifurcation with estimated percent narrowing 60-70%. - Neurology recs- pt to be evaluated by interventional neuro this week # Hypertension - Lisinopril 20 mg - Monitor BP # Diabetes Mellitus, Type 2 - HbA1c 11.5 - Continue home med metformin 1000 mg BID - Seen by endocrine, Dr. Rubalcava; started on lispro mix 75/25: 20U before breakfast , 30U before dinner - Hypoglycemia protocol and insulin coverage scale, accuchecks # HLD - Continue home med atorvastatin 40mg nightly - Consider increasing dose of statin - Lipid panel: total 213, LDL 91, HDL 73, Trig 159 # DVT prophylaxis - Lovenox 40mg SC
[2017-09-26 08:31] LABS: HEMOGLOBIN 14.2 g/dL (12.0-18.0); MEAN CELL VOLUME 90.7 fl (80.0-94.0); MEAN CORPUSCULAR HEMOGLOBIN 30.6 pg (27.0-31.0); MEAN CORPUSCULAR HGB CONC 33.7 g/dL (33.0-37.0); RBC 4.64 Mil/uL (4.40-5.90); RED CELL DISTRIBUTION WIDTH 14.2 % (11.5-14.5); WHITE BLOOD COUNT 6.1 K/uL (4.8-10.8)
[2017-09-26 08:36] LABS: INR 0.9 (0.9-1.2); PROTHROMBIN TIME 10.4 Seconds (9.8-13.1)
[2017-09-26] MEDS: Insulin Lispro (humaLOG) 100 Units/ml Inj SC SCH ×4 (08:41→22:04)
[2017-09-26] MEDS: Insulin Lispro Mix 75/25 100 units/ml (HumaLog) 10ml SC SCH ×2 (08:42→18:30)
[2017-09-26 08:48] LABS: BLOOD UREA NITROGEN 20 mg/dl (9-20); CALCIUM 9.4 mg/dL (8.4-10.2); GFR AFRICAN-AMERICAN > 60; GFR NON-AFRICAN AMERICAN > 60
--- NOTE | 2017-09-26 09:25 | CP.PCM.PN ---
Subjective - Date & Time of Evaluation Date of Evaluation: 09/26/17 Time of Evaluation: 09:25 - Subjective Subjective: Mr. Venita Aguirre was seen and examined at the bedside. He is alert, oriented in all spheres. He denies any headache, dizziness, lightheadedness, nausea or vomiting. He is able to answer questions appropriately.He has the left side weakness. He is able to follow simple commands with a noticeable left arm drift during assessment. There was no untoward events overnight. Objective - Vital Signs/Intake and Output Vital Signs (last 24 hours): Temp Pulse Resp BP Pulse Ox 98.3 F 89 20 157/90 H 97 09/26/17 08:00 09/26/17 08:00 09/26/17 08:00 09/26/17 08:00 09/26/17 08:00 - Medications Medications: Current Medications Aspirin (Aspirin Chewable) 81 mg PO DAILY [facility] Last Admin: 09/26/17 08:39 Dose: 81 mg Atorvastatin Calcium (Lipitor) 40 mg PO HS [facility] Last Admin: 09/25/17 21:53 Dose: 40 mg Clopidogrel Bisulfate (Plavix) 75 mg PO DAILY [facility] Last Admin: 09/26/17 08:42 Dose: 75 mg Dextrose (Dextrose 50% Inj) 0 ml IV STAT PRN; Protocol PRN Reason: Hypoglycemia Protocol Last Admin: 09/22/17 18:55 Dose: 50 ml Dextrose (Glutose 15) 0 gm PO ONCE PRN; Protocol PRN Reason: Hypoglycemia Protocol Enoxaparin Sodium (Lovenox) 40 mg SC HS [facility] PRN Reason: Protocol Last Admin: 09/25/17 21:53 Dose: 40 mg Glucagon (Glucagen Diagnostic Kit) 0 mg IM STAT PRN; Protocol PRN Reason: Hypoglycemia Protocol Insulin Human Lispro (Humalog) 0 units SC ACHS [facility] PRN Reason: Protocol Last Admin: 09/26/17 08:41 Dose: Not Given Insulin Lispro Protam/Lispro Human (Humalog Mix 75/25) 20 units SC ACD [facility] Last Admin: 09/25/17 17:22 Dose: Not Given Insulin Lispro Protam/Lispro Human (Humalog Mix 75/25) 30 units SC ACB [facility] Last Admin: 09/26/17 08:42 Dose: 30 units Lisinopril (Zestril) 20 mg PO DAILY [facility] Last Admin: 09/26/17 08:43 Dose: 20 mg Metformin HCl (Glucophage) 1,000 mg PO BID [facility] Last Admin: 09/26/17 08:40 Dose: 1,000 mg - Labs Labs: 09/26/17 06:45 09/26/17 06:45 PT 10.4 Seconds (9.8-13.1) 09/26/17 06:45 INR 0.9 (0.9-1.2) 09/26/17 06:45 APTT 36.8 Seconds (25.6-37.1) 09/22/17 11:20 - Constitutional Appears: No Acute Distress - Head Exam Head Exam: NORMAL INSPECTION - Neurological Exam Neurological Exam: Alert, Awake, Oriented x3 Neuro motor strength exam: Left Upper Extremity: 4, Right Upper Extremity: 5, Left Lower Extremity: 4, Right Lower Extremity: 5 Additional comments: Neurological unchanged from previous examination. Assessment and Plan (1) CVA (cerebral vascular accident) Assessment & Plan: Case discussed with Dr. Vazquez, continue all current medical, physical, and occupational therapies. Recommend blood pressure and glycemic control. Patient will be seen by a neurointerventionalist on Wednesday to evaluate left carotid bifurcation with estimated percentage 60-70%. Status: Acute
--- NOTE | 2017-09-26 14:23 | PN ---
DATE: ENDOCRINOLOGY FOLLOWUP NOTE LOCATION: Room number 418. SUBJECTIVE: This is a 57-year-old male with recent uncontrolled type 2 insulin-requiring diabetes now being followed closely for metabolic management. His glycemic levels are fluctuating but much improved at this time and the latest glucose levels have ranged from 148 to 180 mg/dL. It was 123 at bedtime last night. LABORATORY DATA: The latest chemistry showed a BUN of 20, sodium of 139, potassium of 4.1, chloride of 99, CO2 of 31, glucose of 172 and creatinine of 1.1. IMPRESSION AND PLAN: So at this time, we will continue the same premixed insulin regimen given here as Humalog 75/25, but on the outpatient would highly recommend the more affordable and conventional insulin using Novolin 70/30 given as 30 units before breakfast and 20 units before dinner as ordered. We will continue the metformin given as 1 g b.i.d. as given. We will titrate incremental as indicated to optimize metabolic control. We will also sign off from the Endocrine and Diabetic Care at this time as he has metabolically stable as noted. Monica Rubalcava MD
--- NOTE | 2017-09-26 17:25 | RAD ---
HISTORY: preop COMPARISON: 04/02/2017 TECHNIQUE: Chest PA and lateral FINDINGS: LUNGS: Stable mild interstitial changes appreciated. No focal alveolar infiltrate is seen. PLEURA: No significant pleural effusion identified. No pneumothorax apparent. CARDIOVASCULAR: Normal. OSSEOUS STRUCTURES: No significant abnormalities. VISUALIZED UPPER ABDOMEN: Normal. OTHER FINDINGS: None. IMPRESSION: No focal infiltrate or CHF.
--- NOTE | 2017-09-26 21:45 | CP.PCM.PN ---
Subjective - Date & Time of Evaluation Date of Evaluation: 09/25/17 Time of Evaluation: 08:45 - Subjective Subjective: 57M seen and examined at bedside with attending. Patient reports great improvement in sensation and movement of his LEFT extremities. He denies any SOB or chest pain. Objective - Vital Signs/Intake and Output Vital Signs (last 24 hours): Temp Pulse Resp BP Pulse Ox 36.8 C 84 20 120/78 100 09/26/17 20:00 09/26/17 20:00 09/26/17 20:00 09/26/17 20:00 09/26/17 20:00 - Medications Medications: Current Medications Aspirin (Aspirin Chewable) 81 mg PO DAILY [facility] Last Admin: 09/26/17 08:39 Dose: 81 mg Atorvastatin Calcium (Lipitor) 40 mg PO HS [facility] Last Admin: 09/25/17 21:53 Dose: 40 mg Clopidogrel Bisulfate (Plavix) 75 mg PO DAILY [facility] Last Admin: 09/26/17 08:42 Dose: 75 mg Dextrose (Dextrose 50% Inj) 0 ml IV STAT PRN; Protocol PRN Reason: Hypoglycemia Protocol Last Admin: 09/22/17 18:55 Dose: 50 ml Dextrose (Glutose 15) 0 gm PO ONCE PRN; Protocol PRN Reason: Hypoglycemia Protocol Enoxaparin Sodium (Lovenox) 40 mg SC HS [facility] PRN Reason: Protocol Last Admin: 09/25/17 21:53 Dose: 40 mg Glucagon (Glucagen Diagnostic Kit) 0 mg IM STAT PRN; Protocol PRN Reason: Hypoglycemia Protocol Insulin Human Lispro (Humalog) 0 units SC ACHS [facility] PRN Reason: Protocol Last Admin: 09/26/17 17:42 Dose: Not Given Insulin Lispro Protam/Lispro Human (Humalog Mix 75/25) 20 units SC ACD [facility] Last Admin: 09/26/17 18:30 Dose: Not Given Insulin Lispro Protam/Lispro Human (Humalog Mix 75/25) 30 units SC ACB [facility] Last Admin: 09/26/17 08:42 Dose: 30 units Lisinopril (Zestril) 20 mg PO DAILY [facility] Last Admin: 09/26/17 08:43 Dose: 20 mg Metformin HCl (Glucophage) 1,000 mg PO BID [facility] Last Admin: 09/26/17 18:30 Dose: Not Given - Labs Labs: 09/26/17 06:45 09/26/17 06:45 PT 10.4 Seconds (9.8-13.1) 09/26/17 06:45 INR 0.9 (0.9-1.2) 09/26/17 06:45 APTT 36.8 Seconds (25.6-37.1) 09/22/17 11:20 - Constitutional Appears: Well, Non-toxic - Head Exam Head Exam: NORMAL INSPECTION - Eye Exam Eye Exam: Normal appearance - ENT Exam ENT Exam: Mucous Membranes Moist - Neck Exam Neck Exam: Normal Inspection - Respiratory Exam Respiratory Exam: Clear to Ausculation Bilateral, NORMAL BREATHING PATTERN - Cardiovascular Exam Cardiovascular Exam: REGULAR RHYTHM, +S1, +S2 - GI/Abdominal Exam GI & Abdominal Exam: Soft, Normal Bowel Sounds - Extremities Exam Extremities Exam: Normal Capillary Refill Additional comments: LEFT extremity strength 4/5 compared to 5/5 on RIGHT - Neurological Exam Neurological Exam: Alert, Awake, Oriented x3 - Psychiatric Exam Psychiatric exam: Normal Affect, Normal Mood - Skin Skin Exam: Dry, Warm Assessment and Plan - Assessment and Plan (Free Text) Assessment: 57M improving after having a CVA with residual, mild LEFT deficits. He has been found to have a LEFT carotid plaque that will be evaluated on Wednesday 09/27 by neurovascular for possible intervention. Plan: CVA: Neurology appreciated, ASA, Plavix, BP/DM control DM: Endocrinology appreciated, Novolog BID, accu-checks, hypoglycemic bundle, Mod CHO HTN: Increased Lisinopril 20mg QD, discontinue Norvasc DVT Prophylaxis: Lovenox SC
[2017-09-26] MEDS: Enoxaparin 40 mg Syringe SC SCH (22:41)
[2017-09-27] MEDS: Insulin Lispro (humaLOG) 100 Units/ml Inj SC SCH ×4 (06:45→22:13)
[2017-09-27] MEDS: Insulin Lispro Mix 75/25 100 units/ml (HumaLog) 10ml SC SCH ×2 (08:08→16:45)
--- NOTE | 2017-09-27 09:39 | CP.PCM.PN ---
Subjective - Date & Time of Evaluation Date of Evaluation: 09/27/17 Time of Evaluation: 09:39 - Subjective Subjective: Mr. Venita Aguirre was seen and examined at the bedside. He is alert, oriented in all spheres. He denies any headache, dizziness, lightheadedness, nausea or vomiting. He is able to answer questions appropriately.He has the left side weakness. He is able to follow simple commands with a noticeable left arm drift during assessment. There was no untoward events overnight. Objective - Vital Signs/Intake and Output Vital Signs (last 24 hours): Temp Pulse Resp BP Pulse Ox 98.4 F 85 20 157/95 H 99 09/27/17 08:00 09/27/17 08:00 09/27/17 08:00 09/27/17 08:00 09/27/17 08:00 - Medications Medications: Current Medications Aspirin (Aspirin Chewable) 81 mg PO DAILY [facility] Last Admin: 09/26/17 08:39 Dose: 81 mg Atorvastatin Calcium (Lipitor) 40 mg PO HS [facility] Last Admin: 09/26/17 22:41 Dose: 40 mg Clopidogrel Bisulfate (Plavix) 75 mg PO DAILY [facility] Last Admin: 09/26/17 08:42 Dose: 75 mg Dextrose (Dextrose 50% Inj) 0 ml IV STAT PRN; Protocol PRN Reason: Hypoglycemia Protocol Last Admin: 09/22/17 18:55 Dose: 50 ml Dextrose (Glutose 15) 0 gm PO ONCE PRN; Protocol PRN Reason: Hypoglycemia Protocol Enoxaparin Sodium (Lovenox) 40 mg SC HS [facility] PRN Reason: Protocol Last Admin: 09/26/17 22:41 Dose: 40 mg Glucagon (Glucagen Diagnostic Kit) 0 mg IM STAT PRN; Protocol PRN Reason: Hypoglycemia Protocol Insulin Human Lispro (Humalog) 0 units SC ACHS [facility] PRN Reason: Protocol Last Admin: 09/27/17 06:45 Dose: Not Given Insulin Lispro Protam/Lispro Human (Humalog Mix 75/25) 20 units SC ACD [facility] Last Admin: 09/26/17 18:30 Dose: Not Given Insulin Lispro Protam/Lispro Human (Humalog Mix 75/25) 30 units SC ACB [facility] Last Admin: 09/26/17 08:42 Dose: 30 units Lisinopril (Zestril) 20 mg PO DAILY [facility] Last Admin: 09/26/17 08:43 Dose: 20 mg Metformin HCl (Glucophage) 1,000 mg PO BID [facility] Last Admin: 09/26/17 18:30 Dose: Not Given - Labs Labs: 09/26/17 06:45 09/26/17 06:45 PT 10.4 Seconds (9.8-13.1) 09/26/17 06:45 INR 0.9 (0.9-1.2) 09/26/17 06:45 APTT 36.8 Seconds (25.6-37.1) 09/22/17 11:20 - Constitutional Appears: No Acute Distress - Head Exam Head Exam: NORMAL INSPECTION - Neurological Exam Neurological Exam: Alert, Awake, Oriented x3 Neuro motor strength exam: Left Upper Extremity: 4, Right Upper Extremity: 5, Left Lower Extremity: 4, Right Lower Extremity: 5 Additional comments: Neurological unchanged from previous examination. Assessment and Plan (1) CVA (cerebral vascular accident) Assessment & Plan: Case discussed with Dr. Vazquez, continue all current medical, physical, and occupational therapies. Recommend blood pressure and glycemic control. Patient will be seen by a neurointerventionalist today to evaluate left carotid bifurcation with estimated percentage 60-70%. Status: Acute
--- NOTE | 2017-09-27 11:25 | CP.PCM.PN ---
Subjective - Date & Time of Evaluation Date of Evaluation: 09/27/17 Time of Evaluation: 12:45 - Subjective Subjective: Pt seen and evaluated at bedside; resting comfortably in bed. Does not report any new events overnight. Denies new/changing weakness, chest pain, SOB, abdominal pain, leg/calf pain. Objective - Vital Signs/Intake and Output Vital Signs (last 24 hours): Temp Pulse Resp BP Pulse Ox 98.4 F 85 20 157/95 H 99 09/27/17 08:00 09/27/17 10:07 09/27/17 08:00 09/27/17 10:07 09/27/17 08:00 - Medications Medications: Current Medications Aspirin (Aspirin Chewable) 81 mg PO DAILY [facility] Last Admin: 09/27/17 10:07 Dose: 81 mg Atorvastatin Calcium (Lipitor) 40 mg PO HS [facility] Last Admin: 09/26/17 22:41 Dose: 40 mg Clopidogrel Bisulfate (Plavix) 75 mg PO DAILY [facility] Last Admin: 09/27/17 10:07 Dose: 75 mg Dextrose (Dextrose 50% Inj) 0 ml IV STAT PRN; Protocol PRN Reason: Hypoglycemia Protocol Last Admin: 09/22/17 18:55 Dose: 50 ml Dextrose (Glutose 15) 0 gm PO ONCE PRN; Protocol PRN Reason: Hypoglycemia Protocol Enoxaparin Sodium (Lovenox) 40 mg SC HS [facility] PRN Reason: Protocol Last Admin: 09/26/17 22:41 Dose: 40 mg Glucagon (Glucagen Diagnostic Kit) 0 mg IM STAT PRN; Protocol PRN Reason: Hypoglycemia Protocol Insulin Human Lispro (Humalog) 0 units SC ACHS [facility] PRN Reason: Protocol Last Admin: 09/27/17 06:45 Dose: Not Given Insulin Lispro Protam/Lispro Human (Humalog Mix 75/25) 20 units SC ACD [facility] Last Admin: 09/26/17 18:30 Dose: Not Given Insulin Lispro Protam/Lispro Human (Humalog Mix 75/25) 30 units SC ACB [facility] Last Admin: 09/27/17 08:08 Dose: 30 units Lisinopril (Zestril) 20 mg PO DAILY [facility] Last Admin: 09/27/17 10:07 Dose: 20 mg Metformin HCl (Glucophage) 1,000 mg PO BID [facility] Last Admin: 09/27/17 08:07 Dose: 1,000 mg - Labs Labs: 09/26/17 06:45 09/26/17 06:45 PT 10.4 Seconds (9.8-13.1) 09/26/17 06:45 INR 0.9 (0.9-1.2) 09/26/17 06:45 APTT 36.8 Seconds (25.6-37.1) 09/22/17 11:20 - Constitutional Appears: No Acute Distress - Head Exam Additional comments: no facial droop - Eye Exam Eye Exam: Normal appearance - ENT Exam ENT Exam: Mucous Membranes Moist - Respiratory Exam Respiratory Exam: Clear to Ausculation Bilateral, NORMAL BREATHING PATTERN. absent: Wheezes, Respiratory Distress - Cardiovascular Exam Cardiovascular Exam: REGULAR RHYTHM, +S1, +S2 - GI/Abdominal Exam GI & Abdominal Exam: Soft, Normal Bowel Sounds. absent: Distended, Tenderness - Extremities Exam Extremities Exam: absent: Calf Tenderness, Pedal Edema Additional comments: s/p RIGHT sided transmetatarsal amputation - Neurological Exam Neurological Exam: Alert, Awake, Oriented x3 Neuro motor strength exam: Left Upper Extremity: 4, Right Upper Extremity: 5, Left Lower Extremity: 4, Right Lower Extremity: 5 - Psychiatric Exam Psychiatric exam: Normal Affect, Normal Mood - Skin Skin Exam: Dry, Normal Color, Warm Additional comments: multiple dried scabs on anterior LE b/l Assessment and Plan - Assessment and Plan (Free Text) Assessment: 57 yo M with HTN, DM2, HLD with left sided upper and lower extremity weakness; CVA. Plan: # CVA - Seen on brain MRI - acute/subacute lacunar infarctions at inferior right thalamus/distal right cerebral peduncle as well as right occipital lobe; inferior right cerebellar lucency may be posttraumatic as well versus chronic infarct. - Head CT- no acute intracranial bleed - Neuro consult- Dr. Vazquez: continue all current medical, physical, and occupational therapies. Recommend blood pressure and glycemic control. - Neurochecks - Fall precautions; wound care consult for scabs on B/L LE - PT/OT/Speech Eval and Treat - acute rehab recommended but pt does not qualify due to insurance issues. Continue PT therapy for safe discharge. Set up with outpatient PT after discharge. - Aspirin 81mg - Plavix 75 mg # Carotid artery stenosis - Head/Neck CTA: atherosclerotic plaque seen at left carotid bifurcation with estimated percent narrowing 60-70%. - Neurology recs- pt to be evaluated by interventional neuro this week # Hypertension - Lisinopril 20 mg - Monitor BP # Diabetes Mellitus, Type 2 - HbA1c 11.5 - Continue home med metformin 1000 mg BID - Seen by endocrine, Dr. Rubalcava; started on lispro mix 75/25: 20U before breakfast , 30U before dinner - Hypoglycemia protocol and insulin coverage scale, accuchecks # HLD - Continue home med atorvastatin 40mg nightly - Consider increasing dose of statin on discharge - Lipid panel: total 213, LDL 91, HDL 73, Trig 159 # DVT prophylaxis - Lovenox 40mg SC
--- NOTE | 2017-09-27 19:27 | CP.PCM.CON ---
History of Present Illness - History of Present Illness History of Present Illness: Mr. Tim Aguirre is a 57 y/o man with history of HTN, ?poorly controlled Diabetes as well possibly HTN. The patient presented with acute onset numbness and weakness of the left side. 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 We were consulted due to carotid artery stenosis. Review of Systems - Constitutional Constitutional: absent: As Per HPI, Anorexia, Chills, Daytime Sleepiness, Excessive Sweating, Fatigue, Fever, Frequent Falls, Headache, Increased Appetite , Lethargy, Malaise, Night Sweats, Snoring, Sleep Apnea, Weight Gain, Weight Loss, Weakness, Other - EENT Eyes: absent: As Per HPI, Blind Spots, Blurred Vision, Change in Vision, Decreased Night Vision, Diplopia, Discharge, Dry Eye, Exophthalmos, Floaters, Irritation, Itchy Eyes, Loss of Peripheral Vision, Pain, Photophobia, Requires Corrective Lenses, Sees Flashes, Spots in Vision, Tunnel Vision, Other Visual Disturbances, Loss of Vision, Other Ears: absent: As Per HPI, Decreased Hearing, Ear Discharge, Ear Pain, Tinnitus, Abnormal Hearing, Disequilibrium, Dizziness, Other Nose/Mouth/Throat: absent: As Per HPI, Epistaxis, Nasal Congestion, Nasal Discharge, Nasal Obstruction, Nasal Trauma, Nose Pain, Post Nasal Drip, Sinus Pain, Sinus Pressure, Bleeding Gums, Change in Voice, Dental Pain, Dry Mouth, Dysphagia, Halitosis, Hoarsness, Lip Swelling, Mouth Lesions, Mouth Pain, Odynophagia, Sore Throat, Throat Swelling, Tongue Swelling, Facial Pain, Neck Pain, Neck Mass, Other - Cardiovascular Cardiovascular: absent: As Per HPI, Acrocyanosis, Chest Pain, Chest Pain at Rest , Chest Pain with Activity, Claudication, Diaphoresis, Dyspnea, Dyspnea on Exertion, Edema, Irregular Heart Rhythm, Pain Radiating to Arm/Neck/Jaw, Leg Edema, Leg Ulcers, Lightheadedness, Orthopnea, Palpitations, Paroxysmal Nocturnal Dyspnea, Pedal Edema, Radiating Pain, Rapid Heart Rate, Slow Heart Rate, Syncope, Other - Respiratory Respiratory: absent: As Per HPI, Cough, Dyspnea, Hemoptysis, Dyspnea on Exertion , Wheezing, Snoring, Stridor, Pain on Inspiration, Chest Congestion, Excessive Mucous Production, Change in Mucous Color, Pain with Coughing, Other - Gastrointestinal Gastrointestinal: absent: As Per HPI, Abdominal Pain, Belching, Bloating, Change in Bowel Habits, Change in Stool Character, Coffee Ground Emesis, Constipation, Cramping, Diarrhea, Dyspepsia, Dysphagia, Early Satiety, Excessive Flatus, Fecal Incontinence, Heartburn, Hematemesis, Hematochezia, Loose Stools, Melena, Nausea, Odynophagia, Temesmus, Vomiting, Other - Genitourinary Genitourinary: absent: As Per HPI, Change in Urinary Stream, Difficulty Urinating, Dysuria, Flank Pain, Hematuria, Pyuria, Nocturia, Urinary Incontinence, Urinary Frequency, Urinary Hesitance, Urinary Urgency, Voiding Freq/Small Amts, Freq UTI, Hx Renal/Bladder Calculi, Hx /Renal Surgery, Bladder Distension, Other - Integumentary Integumentary: absent: As Per HPI, Acne, Alopecia, Bleeding Lesions, Change in Hair, Change in Nails, Change in Pigmentation, Changing Lesions, Dry Skin, Erythema, Furuncle, Hirsutism, Lesions, New Lesions, Non-Healing Lesions, Photosensitivity, Pruritus, Rash, Skin Pain, Skin Ulcer, Sores, Striae, Swelling , Unusual Bruising, Wounds, Jaundice, Other - Psychiatric Psychiatric: absent: As Per HPI, Abnormal Sleep Pattern, Anhedonia, Anxiety, Auditory Hallucinations, Behavioral Changes, Change in Appetite, Change in Libido, Confusion, Depression, Difficulty Concentrating, Hallucinations, Homicidal Ideation, Hopelessness, Irritability, Memory Loss, Mood Swings, Panic Attacks, Paranoia, Suicidal Ideation, Visual Hallucinations, Tactile Hallucinations, Other - Endocrine Endocrine: absent: As Per HPI, Change in Body Appearance, Change in Libido, Cold Intolorance, Deepening of Voice, Excessive Sweating, Fatigue, Flushing, Heat Intolorance, Increase in Ring/Shoe/Hat Size, Palpitations, Polydipsia, Polyphagia, Polyuria, Other Past Patient History - Past Medical History & Family History Past Medical History?: Yes - Past Social History Smoking Status: Light Smoker < 10 Cigarettes Daily Alcohol: Occasional Drugs: Denies Home Situation {Lives}: Alone - CARDIAC Hx Hypercholesterolemia: Yes Hx Hypertension: Yes - PULMONARY Hx Respiratory Disorders: No - NEUROLOGICAL Hx Neurological Disorder: No - HEENT Hx HEENT Problems: No - RENAL Hx Chronic Kidney Disease: No - ENDOCRINE/METABOLIC Hx Diabetes Mellitus Type 1: Yes - HEMATOLOGICAL/ONCOLOGICAL Hx Blood Disorders: No - INTEGUMENTARY Hx Dermatological Problems: No - MUSCULOSKELETAL/RHEUMATOLOGICAL Hx Musculoskeletal Disorders: No Hx Falls: No Hx Osteomyelitis: Yes - GASTROINTESTINAL Hx Gastrointestinal Disorders: No Hx Bowel Surgery: No - GENITOURINARY/GYNECOLOGICAL Hx Genitourinary Disorders: No - PSYCHIATRIC Hx Psychophysiologic Disorder: No Hx Emotional Abuse: No Hx Physical Abuse: No Hx Substance Use: No - SURGICAL HISTORY Hx Surgeries: Yes Hx Amputation: Yes (R transmetatastal amputation) Hx Orthopedic Surgery: Yes Other/Comment: right great toe amputation - ANESTHESIA Hx Anesthesia: Yes Hx Anesthesia Reactions: No Hx Malignant Hyperthermia: No Meds Allergies/Adverse Reactions: Allergies Allergy/AdvReac Type Severity Reaction Status Date / Time Penicillins Allergy RASH Verified 04/23/17 10:04 - Medications Medications: Current Medications Aspirin (Aspirin Chewable) 81 mg PO DAILY [facility] Last Admin: 09/27/17 10:07 Dose: 81 mg Atorvastatin Calcium (Lipitor) 40 mg PO HS [facility] Last Admin: 09/26/17 22:41 Dose: 40 mg Clopidogrel Bisulfate (Plavix) 75 mg PO DAILY [facility] Last Admin: 09/27/17 10:07 Dose: 75 mg Dextrose (Dextrose 50% Inj) 0 ml IV STAT PRN; Protocol PRN Reason: Hypoglycemia Protocol Last Admin: 09/22/17 18:55 Dose: 50 ml Dextrose (Glutose 15) 0 gm PO ONCE PRN; Protocol PRN Reason: Hypoglycemia Protocol Enoxaparin Sodium (Lovenox) 40 mg SC HS [facility] PRN Reason: Protocol Last Admin: 09/26/17 22:41 Dose: 40 mg Glucagon (Glucagen Diagnostic Kit) 0 mg IM STAT PRN; Protocol PRN Reason: Hypoglycemia Protocol Insulin Human Lispro (Humalog) 0 units SC ACHS [facility] PRN Reason: Protocol Last Admin: 09/27/17 16:45 Dose: Not Given Insulin Lispro Protam/Lispro Human (Humalog Mix 75/25) 20 units SC ACD [facility] Last Admin: 09/27/17 16:45 Dose: 20 units Insulin Lispro Protam/Lispro Human (Humalog Mix 75/25) 30 units SC ACB [facility] Last Admin: 09/27/17 08:08 Dose: 30 units Lisinopril (Zestril) 20 mg PO DAILY [facility] Last Admin: 09/27/17 10:07 Dose: 20 mg Metformin HCl (Glucophage) 1,000 mg PO BID [facility] Last Admin: 09/27/17 17:46 Dose: 1,000 mg Physical Exam - Expanded Neurological Exam Expanded Cranial nerves: EOM's Intact: Normal, Facial Palsey w/Forehead Movement: Abnormal Left, Facial Sensation: Normal, Gag Reflex: Normal Cerebellar Function: Finger to Nose: Abnormal Left, Heel to Jacobs: Abnormal Left Upper motor neuron: Pronator Drift: Abnormal Left Sensory exam: Lower Extremity Light Touch: Abnormal Left, Lower Extremity Pin Prick: Abnormal Left Neuro motor strength exam: Left Upper Extremity: 3, Right Upper Extremity: 5, Left Lower Extremity: 3, Right Lower Extremity: 5 Results - Vital Signs Recent Vital Signs: Last Vital Signs Temp 98.4 F 09/27/17 16:06 Pulse 86 09/27/17 16:06 Resp 18 09/27/17 16:06 BP 120/73 09/27/17 16:06 Pulse Ox 99 09/27/17 16:06 - Labs Result Diagrams: 09/26/17 06:45 09/26/17 06:45 Labs: Laboratory Results - last 24 hr 09/26/17 09/27/17 09/27/17 21:18 05:57 11:07 POC Glucose (mg/dL) 110 111 H 281 H 09/27/17 15:43 POC Glucose (mg/dL) 189 H - Impressions Impression: Imaging reviewed by me. My interpretation is as follows: MRI shows infarctin of the right thalamus, midbrain (lateral) as well as occipital areas on the right consistent with a thromboembolic incomplete infarction of the right SALES OUTFITTER territor CTA shows a SALES OUTFITTER on the right with the segment immediately following the origin showing stenosis with possible intraplaque thrombosis which just underlies the area of infarction of the thalamus and possibly involved the thalamoperforators coming from this segment. Thereafter the lumen is irergular but present upto the P4 region. No carotid stenosis seen on the right. Left has minimal carotid stenosis. Assessment & Plan - Assessment and Plan (Free Text) Assessment: Right SALES OUTFITTER stenosis with associated territorial infarction Right ICA origin has no evidence of stenosis Left carotid bifurcation/ICA origin has mild atherosclerotic disease. Plan: 1. Start dual antiplatelet therapy 2. Aggressive statin therapy 3. Aggressive diabetes and htn control
[2017-09-27] MEDS: Enoxaparin 40 mg Syringe SC SCH (22:15)
[2017-09-28 05:57] LABS: BLOOD UREA NITROGEN 28 mg/dl (9-20); CALCIUM 9.2 mg/dL (8.4-10.2); GFR AFRICAN-AMERICAN > 60; GFR NON-AFRICAN AMERICAN > 60
[2017-09-28] MEDS: Insulin Lispro (humaLOG) 100 Units/ml Inj SC SCH ×4 (06:56→22:10)
--- NOTE | 2017-09-28 08:41 | CP.PCM.PN ---
Subjective - Date & Time of Evaluation Date of Evaluation: 09/28/17 Time of Evaluation: 08:00 - Subjective Subjective: Mr Venita Aguirre was seen/evaluated this am at bedside; reports that overnight his blood sugar was low and he was given some orange juice to drink. Otherwise no events overnight. States his son visits him, son unable to visit today but will be in tomorrow. Advised pt that medical team can speak to son and answer questions son may have. Pt verbalized understanding, said he will tell ask RN to notify medical team when son is at bedside. Participating in PT/OT. Denies new/changing weakness, chest pain, SOB, abdominal pain, leg/calf pain. Objective - Vital Signs/Intake and Output Vital Signs (last 24 hours): Temp Pulse Resp BP Pulse Ox 98.4 F 80 18 156/88 H 100 09/28/17 07:55 09/28/17 07:55 09/28/17 07:55 09/28/17 07:55 09/28/17 07:55 - Medications Medications: Current Medications Aspirin (Aspirin Chewable) 81 mg PO DAILY [facility] Last Admin: 09/27/17 10:07 Dose: 81 mg Atorvastatin Calcium (Lipitor) 40 mg PO HS [facility] Last Admin: 09/27/17 22:13 Dose: 40 mg Clopidogrel Bisulfate (Plavix) 75 mg PO DAILY [facility] Last Admin: 09/27/17 10:07 Dose: 75 mg Dextrose (Dextrose 50% Inj) 0 ml IV STAT PRN; Protocol PRN Reason: Hypoglycemia Protocol Last Admin: 09/22/17 18:55 Dose: 50 ml Dextrose (Glutose 15) 0 gm PO ONCE PRN; Protocol PRN Reason: Hypoglycemia Protocol Enoxaparin Sodium (Lovenox) 40 mg SC HS [facility] PRN Reason: Protocol Last Admin: 09/27/17 22:15 Dose: 40 mg Glucagon (Glucagen Diagnostic Kit) 0 mg IM STAT PRN; Protocol PRN Reason: Hypoglycemia Protocol Insulin Human Lispro (Humalog) 0 units SC ACHS [facility] PRN Reason: Protocol Last Admin: 09/28/17 06:56 Dose: Not Given Insulin Lispro Protam/Lispro Human (Humalog Mix 75/25) 20 units SC ACD [facility] Last Admin: 09/27/17 16:45 Dose: 20 units Insulin Lispro Protam/Lispro Human (Humalog Mix 75/25) 30 units SC ACB [facility] Last Admin: 09/27/17 08:08 Dose: 30 units Lisinopril (Zestril) 20 mg PO DAILY [facility] Last Admin: 09/27/17 10:07 Dose: 20 mg Metformin HCl (Glucophage) 1,000 mg PO BID [facility] Last Admin: 09/27/17 17:46 Dose: 1,000 mg - Labs Labs: 09/26/17 06:45 09/28/17 04:20 PT 10.4 Seconds (9.8-13.1) 09/26/17 06:45 INR 0.9 (0.9-1.2) 09/26/17 06:45 APTT 36.8 Seconds (25.6-37.1) 09/22/17 11:20 - Constitutional Appears: Non-toxic, No Acute Distress - Head Exam Additional comments: no facial droop - Eye Exam Eye Exam: Normal appearance - ENT Exam ENT Exam: Mucous Membranes Moist - Neck Exam Neck Exam: Full ROM - Respiratory Exam Respiratory Exam: Clear to Ausculation Bilateral, NORMAL BREATHING PATTERN. absent: Respiratory Distress - Cardiovascular Exam Cardiovascular Exam: REGULAR RHYTHM, +S1, +S2 - GI/Abdominal Exam GI & Abdominal Exam: Soft, Normal Bowel Sounds - Extremities Exam Additional comments: s/p transmetatarsal amputation RLE dried scabs on anterior lower ext b/l - Back Exam Back Exam: NORMAL INSPECTION - Neurological Exam Neurological Exam: Alert, Awake Neuro motor strength exam: Left Upper Extremity: 4, Right Upper Extremity: 5, Left Lower Extremity: 4, Right Lower Extremity: 5 Additional comments: strength in L extremities improved since admission, but deficit still noted - Psychiatric Exam Psychiatric exam: Normal Affect, Normal Mood - Skin Skin Exam: Dry, Warm Assessment and Plan - Assessment and Plan (Free Text) Assessment: 57 yo M with HTN, DM2, HLD with left sided upper and lower extremity weakness; CVA. Plan: # CVA - Seen on brain MRI - acute/subacute lacunar infarctions at inferior right thalamus/distal right cerebral peduncle as well as right occipital lobe; inferior right cerebellar lucency may be posttraumatic as well versus chronic infarct. - Head CT- no acute intracranial bleed - Neuro consult- Dr. Vazquez: continue all current medical, physical, and occupational therapies. Recommend blood pressure and glycemic control. - Neurochecks - Fall precaution - PT/OT/Speech Eval and Treat - acute rehab recommended but pt does not qualify due to insurance issues. Continue PT therapy for safe discharge. Set up with outpatient PT after discharge. - Aspirin 81mg - Plavix 75 mg # Carotid artery stenosis Seen by neurointerventional; who interpreted imaging as the following: Right MOLD UNLOADER stenosis with associated territorial infarction. Right ICA origin has no evidence of stenosis. Left carotid bifurcation/ICA origin has mild atherosclerotic disease. Recommendations: - dual antiplatelet therapy - aggressive statin therapy - aggressive diabetes and htn control # Hypertension - Lisinopril 20 mg - Monitor BP # Diabetes Mellitus, Type 2 - HbA1c 11.5 - Continue home med metformin 1000 mg BID - Seen by endocrine, Dr. Rubalcava; started on lispro mix 75/25: 20U before breakfast , 30U before dinner - Hypoglycemia protocol and insulin coverage scale, accuchecks # HLD - Increase statin to 80 mg/day - Lipid panel: total 213, LDL 91, HDL 73, Trig 159 # DVT prophylaxis - Lovenox 40mg SC
[2017-09-28] MEDS: Insulin Lispro Mix 75/25 100 units/ml (HumaLog) 10ml SC SCH ×2 (08:46→17:41)
--- NOTE | 2017-09-28 08:47 | PN ---
ENDOCRINOLOGY FOLLOWUP NOTE DATE: 09/27/2017 LOCATION: In room 418, bed 2 SUBJECTIVE: This is a 52-year-old male with recent uncontrolled type 2 insulin-requiring diabetes presenting here with an acute CVA and is now being followed closely for metabolic management. His glycemic levels have improved and have ranged from 110 to 111 and 281 mg/dL. His latest chemistry showed a BUN of 20, sodium 139, potassium 4.1, chloride 99, CO2 of 31, glucose 172, and creatinine 1.1. So, at this time, we will continue the same NovoLog 70/30 available here in the hospital as Humalog 75/25 at 30 units before breakfast and 20 units before dinner as ordered. We will sign off from the endocrine and diabetic care at this time. Monica Rubalcava MD [facility]
[2017-09-28] MEDS: Enoxaparin 40 mg Syringe SC SCH (21:09)
[2017-09-29] MEDS: Insulin Lispro (humaLOG) 100 Units/ml Inj SC SCH ×4 (06:35→21:41)
[2017-09-29] MEDS: Insulin Lispro Mix 75/25 100 units/ml (HumaLog) 10ml SC SCH ×2 (09:01→17:20)
--- NOTE | 2017-09-29 09:03 | CP.PCM.PN ---
Subjective - Date & Time of Evaluation Date of Evaluation: 09/29/17 Time of Evaluation: 07:45 - Subjective Subjective: Patient was seen and evaluated this am at bedside; reports no acute events overnight. States he has been participating with PT; feels like he is improving. Denies new/changing weakness, chest pain, SOB, abdominal pain, leg/calf pain. Objective - Vital Signs/Intake and Output Vital Signs (last 24 hours): Temp Pulse Resp BP Pulse Ox 97.8 F 66 18 160/96 H 100 09/29/17 08:00 09/29/17 08:00 09/29/17 08:00 09/29/17 08:00 09/29/17 08:00 - Medications Medications: Current Medications Aspirin (Aspirin Chewable) 81 mg PO DAILY [facility] Last Admin: 09/28/17 08:45 Dose: 81 mg Atorvastatin Calcium (Lipitor) 80 mg PO HS [facility] Last Admin: 09/28/17 21:10 Dose: 80 mg Clopidogrel Bisulfate (Plavix) 75 mg PO DAILY [facility] Last Admin: 09/28/17 08:46 Dose: 75 mg Dextrose (Dextrose 50% Inj) 0 ml IV STAT PRN; Protocol PRN Reason: Hypoglycemia Protocol Last Admin: 09/22/17 18:55 Dose: 50 ml Dextrose (Glutose 15) 0 gm PO ONCE PRN; Protocol PRN Reason: Hypoglycemia Protocol Enoxaparin Sodium (Lovenox) 40 mg SC [facility] PRN Reason: Protocol Last Admin: 09/28/17 21:09 Dose: 40 mg Glucagon (Glucagen Diagnostic Kit) 0 mg IM STAT PRN; Protocol PRN Reason: Hypoglycemia Protocol Insulin Human Lispro (Humalog) 0 units SC ACHS [facility] PRN Reason: Protocol Last Admin: 09/29/17 06:35 Dose: Not Given Insulin Lispro Protam/Lispro Human (Humalog Mix 75/25) 20 units SC ACB [facility] Insulin Lispro Protam/Lispro Human (Humalog Mix 75/25) 10 units SC ACD [facility] Last Admin: 09/28/17 17:41 Dose: 10 units Lisinopril (Zestril) 20 mg PO DAILY [facility] Last Admin: 09/28/17 08:46 Dose: 20 mg Metformin HCl (Glucophage) 1,000 mg PO BID [facility] Last Admin: 09/28/17 17:39 Dose: 1,000 mg - Labs Labs: 09/26/17 06:45 09/28/17 04:20 PT 10.4 Seconds (9.8-13.1) 09/26/17 06:45 INR 0.9 (0.9-1.2) 09/26/17 06:45 APTT 36.8 Seconds (25.6-37.1) 09/22/17 11:20 - Constitutional Appears: Non-toxic, No Acute Distress - Eye Exam Eye Exam: Normal appearance - ENT Exam ENT Exam: Mucous Membranes Moist - Neck Exam Neck Exam: Full ROM, Normal Inspection - Respiratory Exam Respiratory Exam: Clear to Ausculation Bilateral, NORMAL BREATHING PATTERN. absent: Wheezes, Respiratory Distress - Cardiovascular Exam Cardiovascular Exam: REGULAR RHYTHM, +S1, +S2 - GI/Abdominal Exam GI & Abdominal Exam: Soft, Normal Bowel Sounds. absent: Distended, Tenderness - Extremities Exam Extremities Exam: absent: Calf Tenderness, Pedal Edema Additional comments: s/p transmetatarsal amputation RLE dried scabs on anterior lower ext b/l - Neurological Exam Neurological Exam: Alert, Awake, Oriented x3 Neuro motor strength exam: Left Upper Extremity: 4, Right Upper Extremity: 5, Left Lower Extremity: 4, Right Lower Extremity: 5 - Skin Skin Exam: Dry, Normal Color, Warm Assessment and Plan - Assessment and Plan (Free Text) Assessment: 57 yo M with HTN, DM2, HLD with left sided upper and lower extremity weakness; CVA. Plan: # CVA Seen on brain MRI - acute/subacute lacunar infarctions at inferior right thalamus/distal right cerebral peduncle as well as right occipital lobe; inferior right cerebellar lucency may be posttraumatic as well versus chronic infarct. Head CT- no acute intracranial bleed - Neuro consult- Dr. Vazquez: continue all current medical, physical, and occupational therapies. Recommend blood pressure and glycemic control. - Neurochecks - Fall precaution - PT/OT/Speech Eval and Treat - acute rehab recommended but pt does not qualify due to insurance issues. Continue PT therapy for safe discharge. Set up with outpatient PT after discharge. - Aspirin 81mg - Plavix 75 mg # Carotid artery stenosis Seen by neurointerventional; who interpreted imaging as the following: Right LINE TESTER stenosis with associated territorial infarction. Right ICA origin has no evidence of stenosis. Left carotid bifurcation/ICA origin has mild atherosclerotic disease. Recommendations: - dual antiplatelet therapy - aggressive statin therapy - aggressive diabetes and htn control # Hypertension - Lisinopril 20 mg - Monitor BP # Diabetes Mellitus, Type 2 - HbA1c 11.5 - Continue home med metformin 1000 mg BID - Seen by endocrine, Dr. Rubalcava; started on lispro mix 75/25: 20U before breakfast , 30U before dinner but this caused pt to have hypoglycemic episodes; changed to 20U before breakfast, 10U before dinner - Hypoglycemia protocol and insulin coverage scale, accuchecks # HLD - Increase statin to 80 mg/day - Lipid panel: total 213, LDL 91, HDL 73, Trig 159 # DVT prophylaxis - Lovenox 40mg SC
[2017-09-29] MEDS: Enoxaparin 40 mg Syringe SC SCH (21:42)
[2017-09-30] MEDS: Insulin Lispro (humaLOG) 100 Units/ml Inj SC SCH ×4 (06:41→21:49)
[2017-09-30] MEDS: Insulin Lispro Mix 75/25 100 units/ml (HumaLog) 10ml SC SCH ×2 (09:23→17:24)
--- NOTE | 2017-09-30 09:29 | CP.PCM.PN ---
Subjective - Date & Time of Evaluation Date of Evaluation: 09/30/17 Time of Evaluation: 07:30 - Subjective Subjective: Pt seen and evaluated at bedside; no acute events overnight. Participating in physical therapy; reports that he feels benefit from working with therapists. Objective - Vital Signs/Intake and Output Vital Signs (last 24 hours): Temp Pulse Resp BP Pulse Ox 98.1 F 99 H 17 107/74 99 09/30/17 08:27 09/30/17 09:24 09/30/17 08:27 09/30/17 09:24 09/30/17 08:27 - Medications Medications: Current Medications Aspirin (Aspirin Chewable) 81 mg PO DAILY [facility] Last Admin: 09/30/17 09:21 Dose: 81 mg Atorvastatin Calcium (Lipitor) 80 mg PO HS [facility] Last Admin: 09/29/17 21:42 Dose: 80 mg Clopidogrel Bisulfate (Plavix) 75 mg PO DAILY [facility] Last Admin: 09/30/17 09:23 Dose: 75 mg Dextrose (Dextrose 50% Inj) 0 ml IV STAT PRN; Protocol PRN Reason: Hypoglycemia Protocol Last Admin: 09/22/17 18:55 Dose: 50 ml Dextrose (Glutose 15) 0 gm PO ONCE PRN; Protocol PRN Reason: Hypoglycemia Protocol Enoxaparin Sodium (Lovenox) 40 mg SC HS [facility] PRN Reason: Protocol Last Admin: 09/29/17 21:42 Dose: 40 mg Glucagon (Glucagen Diagnostic Kit) 0 mg IM STAT PRN; Protocol PRN Reason: Hypoglycemia Protocol Insulin Human Lispro (Humalog) 0 units SC ACHS [facility] PRN Reason: Protocol Last Admin: 09/30/17 06:41 Dose: Not Given Insulin Lispro Protam/Lispro Human (Humalog Mix 75/25) 20 units SC ACB [facility] Last Admin: 09/30/17 09:23 Dose: 20 units Insulin Lispro Protam/Lispro Human (Humalog Mix 75/25) 10 units SC ACD [facility] Last Admin: 09/29/17 17:20 Dose: 10 units Lisinopril (Zestril) 20 mg PO DAILY [facility] Last Admin: 09/30/17 09:24 Dose: 20 mg Metformin HCl (Glucophage) 1,000 mg PO BID [facility] Last Admin: 09/30/17 09:21 Dose: 1,000 mg - Labs Labs: 09/26/17 06:45 09/28/17 04:20 PT 10.4 Seconds (9.8-13.1) 09/26/17 06:45 INR 0.9 (0.9-1.2) 09/26/17 06:45 APTT 36.8 Seconds (25.6-37.1) 09/22/17 11:20 - Constitutional Appears: Non-toxic, No Acute Distress - Head Exam Head Exam: NORMAL INSPECTION - Eye Exam Eye Exam: EOMI, Normal appearance - ENT Exam ENT Exam: Mucous Membranes Moist - Neck Exam Neck Exam: Full ROM, Normal Inspection - Respiratory Exam Respiratory Exam: Clear to Ausculation Bilateral, NORMAL BREATHING PATTERN. absent: Wheezes - Cardiovascular Exam Cardiovascular Exam: REGULAR RHYTHM, +S1, +S2 - GI/Abdominal Exam GI & Abdominal Exam: Soft, Normal Bowel Sounds. absent: Tenderness - Extremities Exam Extremities Exam: absent: Calf Tenderness Additional comments: s/p transmetatarsal amputation RLE dried scabs on anterior lower ext b/l - Neurological Exam Neurological Exam: Alert, Awake, Oriented x3 Neuro motor strength exam: Left Upper Extremity: 4, Right Upper Extremity: 5, Left Lower Extremity: 4, Right Lower Extremity: 5 - Psychiatric Exam Psychiatric exam: Normal Affect - Skin Skin Exam: Dry, Normal Color, Warm Assessment and Plan - Assessment and Plan (Free Text) Assessment: 57 yo M with HTN, DM2, HLD with left sided upper and lower extremity weakness; CVA. Plan: # CVA Seen on brain MRI - acute/subacute lacunar infarctions at inferior right thalamus/distal right cerebral peduncle as well as right occipital lobe; inferior right cerebellar lucency may be posttraumatic as well versus chronic infarct. Head CT- no acute intracranial bleed - Neuro consult- Dr. Vazquez/Audra: continue all current medical, physical, and occupational therapies. Recommend blood pressure and glycemic control. - Neurochecks - Fall precaution - PT/OT/Speech Eval and Treat - acute rehab recommended but pt does not qualify due to insurance issues. Continue PT therapy for safe discharge; has stairs at home. Set up with outpatient PT after discharge. - Plan to speak with pt's son regarding plans after discharge - Aspirin 81mg - Plavix 75 mg # Carotid artery stenosis Seen by neurointerventional; who interpreted imaging as the following: Right BIOMETRICIAN stenosis with associated territorial infarction. Right ICA origin has no evidence of stenosis. Left carotid bifurcation/ICA origin has mild atherosclerotic disease. Recommendations: - dual antiplatelet therapy - aggressive statin therapy - aggressive diabetes and htn control # Hypertension - Lisinopril 20 mg - Monitor BP # Diabetes Mellitus, Type 2 - HbA1c 11.5 - Continue home med metformin 1000 mg BID - Seen by endocrine, Dr. Rubalcava; started on lispro mix 75/25: 20U before breakfast , 30U before dinner but this caused pt to have hypoglycemic episodes; changed to 20U before breakfast, 10U before dinner - Hypoglycemia protocol and insulin coverage scale, accuchecks # HLD - Increase statin to 80 mg/day - Lipid panel: total 213, LDL 91, HDL 73, Trig 159 # DVT prophylaxis - Lovenox 40mg SC
--- NOTE | 2017-09-30 09:29 | CP.PCM.PN ---
Subjective - Date & Time of Evaluation Date of Evaluation: 09/30/17 Time of Evaluation: 09:28 - Subjective Subjective: Mr. Vneita Aguirre was seen and examined at the bedside. He is alert, oriented in all spheres. He denies any headache, dizziness, lightheadedness, nausea or vomiting. He is able to answer questions appropriately.He remains with the left side weakness and left arm drift is improving. He is able to follow simple commands. He even states of the various exercises that physical therapist wanted him to do while in his room.There was no untoward events overnight. Objective - Vital Signs/Intake and Output Vital Signs (last 24 hours): Temp Pulse Resp BP Pulse Ox 98.1 F 99 H 17 107/74 99 09/30/17 08:27 09/30/17 09:24 09/30/17 08:27 09/30/17 09:24 09/30/17 08:27 - Medications Medications: Current Medications Aspirin (Aspirin Chewable) 81 mg PO DAILY [facility] Last Admin: 09/30/17 09:21 Dose: 81 mg Atorvastatin Calcium (Lipitor) 80 mg PO HS [facility] Last Admin: 09/29/17 21:42 Dose: 80 mg Clopidogrel Bisulfate (Plavix) 75 mg PO DAILY [facility] Last Admin: 09/30/17 09:23 Dose: 75 mg Dextrose (Dextrose 50% Inj) 0 ml IV STAT PRN; Protocol PRN Reason: Hypoglycemia Protocol Last Admin: 09/22/17 18:55 Dose: 50 ml Dextrose (Glutose 15) 0 gm PO ONCE PRN; Protocol PRN Reason: Hypoglycemia Protocol Enoxaparin Sodium (Lovenox) 40 mg SC HS [facility] PRN Reason: Protocol Last Admin: 09/29/17 21:42 Dose: 40 mg Glucagon (Glucagen Diagnostic Kit) 0 mg IM STAT PRN; Protocol PRN Reason: Hypoglycemia Protocol Insulin Human Lispro (Humalog) 0 units SC ACHS [facility] PRN Reason: Protocol Last Admin: 09/30/17 06:41 Dose: Not Given Insulin Lispro Protam/Lispro Human (Humalog Mix 75/25) 20 units SC ACB [facility] Last Admin: 09/30/17 09:23 Dose: 20 units Insulin Lispro Protam/Lispro Human (Humalog Mix 75/25) 10 units SC ACD [facility] Last Admin: 09/29/17 17:20 Dose: 10 units Lisinopril (Zestril) 20 mg PO DAILY [facility] Last Admin: 09/30/17 09:24 Dose: 20 mg Metformin HCl (Glucophage) 1,000 mg PO BID [facility] Last Admin: 09/30/17 09:21 Dose: 1,000 mg - Labs Labs: 09/26/17 06:45 09/28/17 04:20 PT 10.4 Seconds (9.8-13.1) 09/26/17 06:45 INR 0.9 (0.9-1.2) 09/26/17 06:45 APTT 36.8 Seconds (25.6-37.1) 09/22/17 11:20 - Constitutional Appears: No Acute Distress - Head Exam Head Exam: NORMAL INSPECTION - Neurological Exam Neurological Exam: Alert, Awake, Oriented x3 Neuro motor strength exam: Left Upper Extremity: 4, Right Upper Extremity: 5, Left Lower Extremity: 4, Right Lower Extremity: 5 Additional comments: Neurological unchanged from previous examination. Assessment and Plan (1) CVA (cerebral vascular accident) Assessment & Plan: Case discussed with Dr. Zhu, continue all current medical, physical, and occupational therapies. Recommend blood pressure and glycemic control. There is no new recommendation from neurology. Status: Acute
[2017-09-30] MEDS: Sodium Chloride 0.9% 1,000 ML IV SCH ×2 (13:09→22:36)
[2017-09-30] MEDS: Enoxaparin 40 mg Syringe SC SCH (21:22)
[2017-10-01 06:15] LABS: BLOOD UREA NITROGEN 20 mg/dl (9-20); CALCIUM 9.2 mg/dL (8.4-10.2); GFR AFRICAN-AMERICAN > 60; GFR NON-AFRICAN AMERICAN > 60
[2017-10-01] MEDS: Sodium Chloride 0.9% 1,000 ML IV SCH (06:21)
--- NOTE | 2017-10-01 06:41 | CP.PCM.PN ---
Subjective - Date & Time of Evaluation Date of Evaluation: 10/01/17 Time of Evaluation: 07:20 - Subjective Subjective: Pt was seen and evaluated at bedside this am; no acute events overnight. States he continues to work with PT and that they sometimes have to remind him to be more careful and less impulsive with his movements. Overall no new complaints. Objective - Vital Signs/Intake and Output Vital Signs (last 24 hours): Temp Pulse Resp BP Pulse Ox 98.0 F 85 18 168/92 H 98 10/01/17 05:21 10/01/17 05:21 10/01/17 05:21 10/01/17 05:21 10/01/17 05:21 Intake and Output: 09/30/17 10/01/17 18:59 06:59 Intake Total 1999 Balance 1999 - Medications Medications: Current Medications Aspirin (Aspirin Chewable) 81 mg PO DAILY [facility] Last Admin: 09/30/17 09:21 Dose: 81 mg Atorvastatin Calcium (Lipitor) 80 mg PO HS [facility] Last Admin: 09/30/17 21:22 Dose: 80 mg Clopidogrel Bisulfate (Plavix) 75 mg PO DAILY [facility] Last Admin: 09/30/17 09:23 Dose: 75 mg Dextrose (Dextrose 50% Inj) 0 ml IV STAT PRN; Protocol PRN Reason: Hypoglycemia Protocol Last Admin: 09/22/17 18:55 Dose: 50 ml Dextrose (Glutose 15) 0 gm PO ONCE PRN; Protocol PRN Reason: Hypoglycemia Protocol Enoxaparin Sodium (Lovenox) 40 mg SC HS [facility] PRN Reason: Protocol Last Admin: 09/30/17 21:22 Dose: 40 mg Glucagon (Glucagen Diagnostic Kit) 0 mg IM STAT PRN; Protocol PRN Reason: Hypoglycemia Protocol Insulin Human Lispro (Humalog) 0 units SC ACHS [facility] PRN Reason: Protocol Last Admin: 09/30/17 21:49 Dose: Not Given Insulin Lispro Protam/Lispro Human (Humalog Mix 75/25) 20 units SC ACB [facility] Last Admin: 09/30/17 09:23 Dose: 20 units Insulin Lispro Protam/Lispro Human (Humalog Mix 75/25) 10 units SC ACD [facility] Last Admin: 09/30/17 17:24 Dose: 10 units Lisinopril (Zestril) 20 mg PO DAILY [facility] Last Admin: 03/22/18 09:24 Dose: 20 mg Metformin HCl (Glucophage) 1,000 mg PO BID [facility] Last Admin: 09/30/17 17:21 Dose: 1,000 mg - Labs Labs: 09/26/17 06:45 10/01/17 04:45 PT 10.4 Seconds (9.8-13.1) 09/26/17 06:45 INR 0.9 (0.9-1.2) 09/26/17 06:45 APTT 36.8 Seconds (25.6-37.1) 09/22/17 11:20 - Constitutional Appears: Non-toxic, No Acute Distress - Head Exam Head Exam: NORMAL INSPECTION - Eye Exam Eye Exam: Normal appearance - ENT Exam ENT Exam: Mucous Membranes Moist - Neck Exam Neck Exam: Full ROM - Respiratory Exam Respiratory Exam: Clear to Ausculation Bilateral, NORMAL BREATHING PATTERN - Cardiovascular Exam Cardiovascular Exam: REGULAR RHYTHM, +S1, +S2 - GI/Abdominal Exam GI & Abdominal Exam: Soft, Normal Bowel Sounds. absent: Tenderness - Extremities Exam Extremities Exam: absent: Calf Tenderness, Pedal Edema Additional comments: s/p transmetatarsal amputation RLE dried scabs on anterior lower ext b/l - Back Exam Back Exam: NORMAL INSPECTION - Neurological Exam Neurological Exam: Alert, Awake Neuro motor strength exam: Left Upper Extremity: 4, Right Upper Extremity: 5, Left Lower Extremity: 4, Right Lower Extremity: 5 - Psychiatric Exam Psychiatric exam: Normal Affect, Normal Mood - Skin Skin Exam: Dry, Normal Color, Warm Assessment and Plan - Assessment and Plan (Free Text) Assessment: 57 yo M with HTN, DM2, HLD with left sided upper and lower extremity weakness; CVA. Plan: # CVA Seen on brain MRI - acute/subacute lacunar infarctions at inferior right thalamus/distal right cerebral peduncle as well as right occipital lobe; inferior right cerebellar lucency may be posttraumatic as well versus chronic infarct. Head CT- no acute intracranial bleed - Neuro consult- Dr. Vazquez/Audra: continue all current medical, physical, and occupational therapies. Recommend blood pressure and glycemic control. - Neurochecks - Fall precaution - PT/OT/Speech Eval and Treat - acute rehab recommended but pt does not qualify due to insurance issues. Continue PT therapy for safe discharge; has stairs at home. Set up with outpatient PT after discharge. - Pts family discussing discharge plans - Aspirin 81mg - Plavix 75 mg # Carotid artery stenosis Seen by neurointerventional; who interpreted imaging as the following: Right RIGHT OF WAY SUPERVISOR stenosis with associated territorial infarction. Right ICA origin has no evidence of stenosis. Left carotid bifurcation/ICA origin has mild atherosclerotic disease. Recommendations: - dual antiplatelet therapy - aggressive statin therapy - aggressive diabetes and htn control # Hypertension - Lisinopril 20 mg - Monitor BP # Diabetes Mellitus, Type 2 - HbA1c 11.5 - Continue home med metformin 1000 mg BID - Seen by endocrine, Dr. Rubalcava; started on lispro mix 75/25: 20U before breakfast , 30U before dinner but this caused pt to have hypoglycemic episodes; changed to 20U before breakfast, 10U before dinner - Hypoglycemia protocol and insulin coverage scale, accuchecks # HLD - Increase statin to 80 mg/day - Lipid panel: total 213, LDL 91, HDL 73, Trig 159 # DVT prophylaxis - Lovenox 40mg SC
[2017-10-01] MEDS: Insulin Lispro (humaLOG) 100 Units/ml Inj SC SCH ×4 (09:30→22:00)
[2017-10-01] MEDS: Insulin Lispro Mix 75/25 100 units/ml (HumaLog) 10ml SC SCH ×2 (09:32→16:57)
--- NOTE | 2017-10-01 10:56 | CP.PCM.PN ---
Subjective - Date & Time of Evaluation Date of Evaluation: 10/01/17 Time of Evaluation: 10:55 - Subjective Subjective: Mr. Venita Aguirre was seen and examined at the bedside. He is alert, oriented in all spheres. He denies any headache, dizziness, lightheadedness, nausea or vomiting. He is able to answer questions appropriately.He remains with the left side weakness and left arm drift is improving. He is able to follow simple commands. He even states of the various exercises that physical therapist wanted him to do while in his room.There was no untoward events overnight. Objective - Vital Signs/Intake and Output Vital Signs (last 24 hours): Temp Pulse Resp BP Pulse Ox 97.9 F 79 18 164/90 H 100 10/01/17 08:01 10/01/17 09:33 10/01/17 08:01 10/01/17 09:33 10/01/17 08:01 - Medications Medications: Current Medications Aspirin (Aspirin Chewable) 81 mg PO DAILY [facility] Last Admin: 10/01/17 09:32 Dose: 81 mg Atorvastatin Calcium (Lipitor) 80 mg PO HS [facility] Last Admin: 09/30/17 21:22 Dose: 80 mg Clopidogrel Bisulfate (Plavix) 75 mg PO DAILY [facility] Last Admin: 10/01/17 09:33 Dose: 75 mg Dextrose (Dextrose 50% Inj) 0 ml IV STAT PRN; Protocol PRN Reason: Hypoglycemia Protocol Last Admin: 09/22/17 18:55 Dose: 50 ml Dextrose (Glutose 15) 0 gm PO ONCE PRN; Protocol PRN Reason: Hypoglycemia Protocol Enoxaparin Sodium (Lovenox) 40 mg SC HS [facility] PRN Reason: Protocol Last Admin: 09/30/17 21:22 Dose: 40 mg Glucagon (Glucagen Diagnostic Kit) 0 mg IM STAT PRN; Protocol PRN Reason: Hypoglycemia Protocol Insulin Human Lispro (Humalog) 0 units SC ACHS [facility] PRN Reason: Protocol Last Admin: 10/01/17 09:30 Dose: Not Given Insulin Lispro Protam/Lispro Human (Humalog Mix 75/25) 20 units SC ACB [facility] Last Admin: 10/01/17 09:32 Dose: 20 units Insulin Lispro Protam/Lispro Human (Humalog Mix 75/25) 10 units SC ACD [facility] Last Admin: 09/30/17 17:24 Dose: 10 units Lisinopril (Zestril) 20 mg PO DAILY [facility] Last Admin: 10/01/17 09:33 Dose: 20 mg Metformin HCl (Glucophage) 1,000 mg PO BID [facility] Last Admin: 10/01/17 09:32 Dose: 1,000 mg - Labs Labs: 09/26/17 06:45 10/01/17 04:45 PT 10.4 Seconds (9.8-13.1) 09/26/17 06:45 INR 0.9 (0.9-1.2) 09/26/17 06:45 APTT 36.8 Seconds (25.6-37.1) 09/22/17 11:20 - Constitutional Appears: No Acute Distress - Head Exam Head Exam: NORMAL INSPECTION - Neurological Exam Neurological Exam: Alert, Awake, Oriented x3 Neuro motor strength exam: Left Upper Extremity: 4, Right Upper Extremity: 5, Left Lower Extremity: 4, Right Lower Extremity: 5 Additional comments: Neurological unchanged from previous examination. Assessment and Plan (1) CVA (cerebral vascular accident) Assessment & Plan: Case discussed with Dr. Zhu, continue all current medical, physical, and occupational therapies. Recommend blood pressure and glycemic control. Status: Acute
[2017-10-01] MEDS: Enoxaparin 40 mg Syringe SC SCH (23:06)
[2017-10-02] MEDS: Insulin Lispro (humaLOG) 100 Units/ml Inj SC SCH ×4 (06:42→22:49)
[2017-10-02] MEDS: Insulin Lispro Mix 75/25 100 units/ml (HumaLog) 10ml SC SCH ×2 (08:20→16:54)
--- NOTE | 2017-10-02 09:25 | CP.PCM.PN ---
Subjective - Date & Time of Evaluation Date of Evaluation: 10/02/17 Time of Evaluation: 10:55 - Subjective Subjective: Pt seen and evaluated at bedside; no acute events overnight. Yesterday afternoon , pt was observed participating in physical and occupational therapy. No new complaints overnight. Objective - Vital Signs/Intake and Output Vital Signs (last 24 hours): Temp Pulse Resp BP Pulse Ox 97.9 F 80 18 156/90 H 100 10/02/17 08:10 10/02/17 08:28 10/02/17 08:10 10/02/17 08:28 10/02/17 08:10 Intake and Output: 10/02/17 10/02/17 06:59 18:59 Intake Total 250 Balance 250 - Medications Medications: Current Medications Aspirin (Aspirin Chewable) 81 mg PO DAILY [facility] Last Admin: 10/02/17 08:28 Dose: 81 mg Atorvastatin Calcium (Lipitor) 80 mg PO HS [facility] Last Admin: 10/01/17 23:06 Dose: 80 mg Clopidogrel Bisulfate (Plavix) 75 mg PO DAILY [facility] Last Admin: 10/02/17 08:28 Dose: 75 mg Dextrose (Dextrose 50% Inj) 0 ml IV STAT PRN; Protocol PRN Reason: Hypoglycemia Protocol Last Admin: 09/22/17 18:55 Dose: 50 ml Dextrose (Glutose 15) 0 gm PO ONCE PRN; Protocol PRN Reason: Hypoglycemia Protocol Enoxaparin Sodium (Lovenox) 40 mg SC HS [facility] PRN Reason: Protocol Last Admin: 10/01/17 23:06 Dose: 40 mg Glucagon (Glucagen Diagnostic Kit) 0 mg IM STAT PRN; Protocol PRN Reason: Hypoglycemia Protocol Insulin Human Lispro (Humalog) 0 units SC ACHS [facility] PRN Reason: Protocol Last Admin: 10/02/17 06:42 Dose: Not Given Insulin Lispro Protam/Lispro Human (Humalog Mix 75/25) 20 units SC ACB [facility] Last Admin: 10/02/17 08:20 Dose: Not Given Insulin Lispro Protam/Lispro Human (Humalog Mix 75/25) 10 units SC ACD [facility] Last Admin: 10/01/17 16:57 Dose: 10 units Lisinopril (Zestril) 20 mg PO DAILY [facility] Last Admin: 10/02/17 08:28 Dose: 20 mg Metformin HCl (Glucophage) 1,000 mg PO BID [facility] Last Admin: 10/02/17 08:28 Dose: 1,000 mg - Labs Labs: 09/26/17 06:45 10/01/17 04:45 PT 10.4 Seconds (9.8-13.1) 09/26/17 06:45 INR 0.9 (0.9-1.2) 09/26/17 06:45 APTT 36.8 Seconds (25.6-37.1) 09/22/17 11:20 - Constitutional Appears: Non-toxic, No Acute Distress - Eye Exam Eye Exam: Normal appearance - ENT Exam ENT Exam: Mucous Membranes Moist - Respiratory Exam Respiratory Exam: Clear to Ausculation Bilateral, NORMAL BREATHING PATTERN. absent: Respiratory Distress - Cardiovascular Exam Cardiovascular Exam: REGULAR RHYTHM, +S1, +S2 - GI/Abdominal Exam GI & Abdominal Exam: Soft, Normal Bowel Sounds. absent: Tenderness - Extremities Exam Extremities Exam: absent: Calf Tenderness, Pedal Edema Additional comments: s/p transmetatarsal amputation on RLE - Back Exam Back Exam: NORMAL INSPECTION - Neurological Exam Neurological Exam: Alert, Awake, Oriented x3 Neuro motor strength exam: Left Upper Extremity: 4, Right Upper Extremity: 5, Left Lower Extremity: 4, Right Lower Extremity: 5 - Psychiatric Exam Psychiatric exam: Normal Affect, Normal Mood - Skin Skin Exam: Dry, Normal Color, Warm Assessment and Plan - Assessment and Plan (Free Text) Assessment: 57 yo M with HTN, DM2, HLD with left sided upper and lower extremity weakness, s /p CVA. Strength improving in both extremities, pt is participating in physical therapy. Plan: # CVA Seen on brain MRI - Neuro consult- Dr. Vazquez/Audra: continue all current medical, physical, and occupational therapies. Recommend blood pressure and glycemic control. - Neurochecks - Fall precaution - Aspirin 81mg - Plavix 75 mg - PT/OT/Speech Eval and Treat - pt has been getting PT while admitted; not eligible for acute rehab but will go to TCU on Wednesday; in the meantime continue T PT therapy. PT is set up with outpatient PT after discharge. # Carotid artery stenosis Seen by neurointerventional; who interpreted imaging as the following: Right [employer] stenosis with associated territorial infarction. Right ICA origin has no evidence of stenosis. Left carotid bifurcation/ICA origin has mild atherosclerotic disease. Recommendations: - dual antiplatelet therapy - aggressive statin therapy - aggressive diabetes and htn control # Hypertension - Lisinopril 20 mg - Episodes of uncontrolled BP; adding HCTZ 12.5 mg - Monitor BP # Diabetes Mellitus, Type 2 - HbA1c 11.5 - Continue home med metformin 1000 mg BID - Pt has episodes of fasting sugars in the 60s-70s; adjust insulin to humalog 15 before breakfast and 5 before dinner - Hypoglycemia protocol and insulin coverage scale, accuchecks # HLD - 80 mg/day - Lipid panel: total 213, LDL 91, HDL 73, Trig 159 # DVT prophylaxis - Lovenox 40mg SC
[2017-10-02] MEDS: Enoxaparin 40 mg Syringe SC SCH (22:12)
[2017-10-03] MEDS: Insulin Lispro (humaLOG) 100 Units/ml Inj SC SCH ×4 (07:18→22:00)
[2017-10-03] MEDS: Insulin Lispro Mix 75/25 100 units/ml (HumaLog) 10ml SC SCH ×2 (09:12→16:56)
--- NOTE | 2017-10-03 10:12 | CP.PCM.PN ---
Subjective - Date & Time of Evaluation Date of Evaluation: 10/03/17 Time of Evaluation: 10:00 - Subjective Subjective: 57 y/o seen at bedside, laying in bed comfortably does not have any complaints. Pt made aware he will be going to the transitional care unit on 10/04/17 to continue with physical therapy. Nurses notes reviewed for overnight events. Objective - Vital Signs/Intake and Output Vital Signs (last 24 hours): Temp Pulse Resp BP Pulse Ox 98.4 F 86 18 155/93 H 99 10/03/17 08:41 10/03/17 09:13 10/03/17 08:41 10/03/17 09:13 10/03/17 08:41 - Medications Medications: Current Medications Aspirin (Aspirin Chewable) 81 mg PO DAILY [facility] Last Admin: 10/03/17 09:07 Dose: 81 mg Atorvastatin Calcium (Lipitor) 80 mg PO HS [facility] Last Admin: 10/02/17 22:12 Dose: 80 mg Clopidogrel Bisulfate (Plavix) 75 mg PO DAILY [facility] Last Admin: 10/03/17 09:13 Dose: 75 mg Dextrose (Dextrose 50% Inj) 0 ml IV STAT PRN; Protocol PRN Reason: Hypoglycemia Protocol Last Admin: 09/22/17 18:55 Dose: 50 ml Dextrose (Glutose 15) 0 gm PO ONCE PRN; Protocol PRN Reason: Hypoglycemia Protocol Enoxaparin Sodium (Lovenox) 40 mg SC HS [facility] PRN Reason: Protocol Last Admin: 10/02/17 22:12 Dose: 40 mg Glucagon (Glucagen Diagnostic Kit) 0 mg IM STAT PRN; Protocol PRN Reason: Hypoglycemia Protocol Hydrochlorothiazide (Microzide) 12.5 mg PO DAILY [facility] Last Admin: 10/03/17 09:13 Dose: 12.5 mg Insulin Human Lispro (Humalog) 0 units SC ACHS [facility] PRN Reason: Protocol Last Admin: 10/03/17 07:18 Dose: Not Given Insulin Lispro Protam/Lispro Human (Humalog Mix 75/25) 15 units SC ACB [facility] Last Admin: 10/03/17 09:12 Dose: 15 units Insulin Lispro Protam/Lispro Human (Humalog Mix 75/25) 5 units SC ACD [facility] Last Admin: 10/02/17 16:54 Dose: 5 units Lisinopril (Zestril) 20 mg PO DAILY [facility] Last Admin: 10/03/17 09:13 Dose: 20 mg Metformin HCl (Glucophage) 1,000 mg PO BID [facility] Last Admin: 10/03/17 09:12 Dose: 1,000 mg - Labs Labs: 09/26/17 06:45 10/01/17 04:45 PT 10.4 Seconds (9.8-13.1) 09/26/17 06:45 INR 0.9 (0.9-1.2) 09/26/17 06:45 APTT 36.8 Seconds (25.6-37.1) 09/22/17 11:20 - Constitutional Appears: Non-toxic, No Acute Distress - ENT Exam ENT Exam: Mucous Membranes Moist - Respiratory Exam Respiratory Exam: Clear to Ausculation Bilateral, NORMAL BREATHING PATTERN. absent: Rhonchi, Wheezes - Cardiovascular Exam Cardiovascular Exam: REGULAR RHYTHM, +S1, +S2 - GI/Abdominal Exam GI & Abdominal Exam: Soft, Normal Bowel Sounds. absent: Tenderness - Extremities Exam Extremities Exam: absent: Calf Tenderness, Pedal Edema - Neurological Exam Neurological Exam: Alert, Awake, CN II-XII Intact, Oriented x3 Neuro motor strength exam: Left Upper Extremity: 4, Right Upper Extremity: 5, Left Lower Extremity: 4, Right Lower Extremity: 5 Assessment and Plan - Assessment and Plan (Free Text) Assessment: 57 yo M with HTN, DM2, HLD with left sided upper and lower extremity weakness, s /p CVA. Strength improving in both extremities, pt is participating in physical therapy. Plan: # CVA Seen on brain MRI - Neuro consult- Dr. Vazquez/Audra: continue all current medical, physical, and occupational therapies. Recommend blood pressure and glycemic control. - Neurochecks - Fall precaution - Aspirin 81mg - Plavix 75 mg - PT/OT/Speech Eval and Treat - pt has been getting PT while admitted; not eligible for acute rehab but will go to TCU on Wednesday10/04/17; in the meantime continue with physical therapy. -Physical therapist made aware patient has stairs at home and will need to work on that as well. # Carotid artery stenosis Seen by neurointerventional; who interpreted imaging as the following: Right [employer] stenosis with associated territorial infarction. Right ICA origin has no evidence of stenosis. Left carotid bifurcation/ICA origin has mild atherosclerotic disease. Recommendations: - dual antiplatelet therapy - aggressive statin therapy - aggressive diabetes and htn control # Hypertension - Lisinopril 20 mg - Episodes of uncontrolled BP; adding HCTZ 12.5 mg - Monitor BP # Diabetes Mellitus, Type 2 - HbA1c 11.5 - Continue home med metformin 1000 mg BID - Pt has episodes of fasting sugars in the 60s-70s; adjust insulin to humalog 15 before breakfast and 5 before dinner - Hypoglycemia protocol and insulin coverage scale, accuchecks # HLD - 80 mg/day - Lipid panel: total 213, LDL 91, HDL 73, Trig 159 # DVT prophylaxis - Lovenox 40mg SC Discharge Disposition: Pt scheduled to be discharge on Wednesday10/04/17 to TCU to continue with physical therapy, as pt is medically optimized
[2017-10-03 16:17] VITALS: RESP 20
[2017-10-03] MEDS: Enoxaparin 40 mg Syringe SC SCH (21:34)
--- NOTE | 2017-10-04 06:44 | CP.PCM.DIS ---
Provider - Provider Date of Admission: 09/22/17 14:05 Attending physician: Meghna Beckford MD Primary care physician: Dr. Kedar Rodriguez- [facility] Consults: Neurology- Dr. Zhu Endocrinology- Dr. Rubalcava Time Spent in preparation of Discharge (in minutes): 35 Diagnosis - Discharge Diagnosis (1) CVA (cerebral vascular accident) Status: Acute Comment: Seen on MRI; neuro consult and neurointerventional evalution; no acute intervention. Pt started on aspirin 81 mg daily, and plavix 75 mg daily. Participated in PT/OT while admitted. To continue PT/OT in TCU and as outpatient after discharge. (2) Diabetes mellitus, type 2 Status: Chronic Comment: Chronic, uncontrolled. Current insulin regimen to be continued in TCU; 15U Lispro before breakfast, 5 U lispro before dinner; metformin 1000mg BID. (3) Hypertension Status: Chronic Comment: Chronic condition; medications upon discharge to TCU lisinopril 20 mg daily, hctz 12.5 mg daily. (4) Hyperlipidemia Status: Chronic Comment: Chronic condition; statin increased to 80 mg daily. Hospital Course - Lab Results Lab Results: Most Recent Lab Values WBC 6.1 K/uL (4.8-10.8) 09/26/17 06:45 RBC 4.64 Mil/uL (4.40-5.90) 09/26/17 06:45 Hgb 14.2 g/dL (12.0-18.0) 09/26/17 06:45 Hct 42.1 % (35.0-51.0) 09/26/17 06:45 MCV 90.7 fl (80.0-94.0) 09/26/17 06:45 MCH 30.6 pg (27.0-31.0) 09/26/17 06:45 MCHC 33.7 g/dL (33.0-37.0) 09/26/17 06:45 RDW 14.2 % (11.5-14.5) 09/26/17 06:45 Plt Count 285 K/uL (130-400) 09/26/17 06:45 MPV 8.3 fl (7.2-11.7) 09/22/17 11:20 Neut % (Auto) 71.9 % (50.0-75.0) 09/22/17 11:20 Lymph % (Auto) 21.9 % (20.0-40.0) 09/22/17 11:20 [place] % (Auto) 3.9 % (0.0-10.0) 09/22/17 11:20 Eos % (Auto) 1.0 % (0.0-4.0) 09/22/17 11:20 Baso % (Auto) 1.3 % (0.0-2.0) 09/22/17 11:20 Neut # (Auto) 6.7 K/uL (1.8-7.0) 09/22/17 11:20 Lymph # (Auto) 2.0 K/uL (1.0-4.3) 09/22/17 11:20 [place] # (Auto) 0.4 K/uL (0.0-0.8) 09/22/17 11:20 Eos # (Auto) 0.1 K/uL (0.0-0.7) 09/22/17 11:20 Baso # (Auto) 0.1 K/uL (0.0-0.2) 09/22/17 11:20 ESR 60 mm/hr (0-20) H 09/23/17 06:00 PT 10.4 Seconds (9.8-13.1) 09/26/17 06:45 INR 0.9 (0.9-1.2) 09/26/17 06:45 APTT 36.8 Seconds (25.6-37.1) 09/22/17 11:20 Sodium 142 mmol/l (132-148) 10/01/17 04:45 Potassium 4.3 MMOL/L (3.6-5.0) 10/01/17 04:45 Chloride 106 mmol/L (98-107) 10/01/17 04:45 Carbon Dioxide 28 mmol/L (22-30) 10/01/17 04:45 Anion Gap 12 (10-20) 10/01/17 04:45 BUN 20 mg/dl (9-20) 10/01/17 04:45 Creatinine 1.1 mg/dl (0.8-1.5) 10/01/17 04:45 Est GFR ( Amer) > 60 10/01/17 04:45 Est GFR (Non-Af Amer) > 60 10/01/17 04:45 POC Glucose (mg/dL) 94 mg/dL (65-110) 10/04/17 05:28 Random Glucose 91 mg/dL (75-110) 10/01/17 04:45 Hemoglobin A1c 11.5 % (4.2-6.5) H 09/23/17 06:00 Calcium 9.2 mg/dL (8.4-10.2) 10/01/17 04:45 Total Bilirubin 0.3 mg/dl (0.2-1.3) 09/23/17 06:00 AST 32 U/L (17-59) 09/23/17 06:00 ALT 33 U/L (21-72) 09/23/17 06:00 Alkaline Phosphatase 126 U/L (38-126) 09/23/17 06:00 C-React Prot High Sens 1.53 mg/L (1.00-3.00) 09/23/17 06:00 NT-Pro-B Natriuret Pep 738 pg/ml (0-900) 09/23/17 06:00 Total Protein 6.0 G/DL (6.3-8.2) L 09/23/17 06:00 Albumin 3.0 g/dL (3.5-5.0) L 09/23/17 06:00 Globulin 3.0 gm/dL (2.2-3.9) 09/23/17 06:00 Albumin/Globulin Ratio 1.0 (1.0-2.1) 09/23/17 06:00 Triglycerides 159 mg/DL (0-149) H D 09/23/17 06:00 Cholesterol 213 mg/dL (0-199) H 09/23/17 06:00 LDL Cholesterol Direct 91 mg/dL (0-129) 09/23/17 06:00 HDL Cholesterol 73 MG/DL (30-70) H 09/23/17 06:00 Vitamin B12 654 pg/mL (239-931) 09/23/17 06:00 Folate 15.3 ng/mL 09/23/17 06:00 Thyroxine (T4) 7.36 ug/dl (5.5-11.0) 09/23/17 06:00 Total T3 0.954 nmol/L (1.49-2.60) L 09/23/17 06:00 TSH 3rd Generation 1.94 mIU/ML (0.46-4.68) 09/23/17 06:00 Urine Color Yellow (YELLOW) 09/23/17 15:12 Urine Clarity Slighty-cloudy (Clear) 09/23/17 15:12 Urine pH 5.0 (5.0-8.0) 09/23/17 15:12 Ur Specific [place] 1.028 (1.003-1.030) 09/23/17 15:12 Urine Protein >=500 mg/dL (NEGATIVE) 09/23/17 15:12 Urine Glucose (UA) >=500 mg/dL (Normal) 09/23/17 15:12 Urine Ketones Negative mg/dL (NEGATIVE) 09/23/17 15:12 Urine Blood Negative (NEGATIVE) 09/23/17 15:12 Urine Nitrate Negative (NEGATIVE) 09/23/17 15:12 Urine Bilirubin Negative (NEGATIVE) 09/23/17 15:12 Urine Urobilinogen 0.2-1.0 mg/dL (0.2-1.0) 09/23/17 15:12 Ur Leukocyte Esterase Neg Nicole/uL (Negative) 09/23/17 15:12 Urine RBC (Auto) 1 /hpf (0-3) 09/23/17 15:12 Urine Microscopic WBC 1 /hpf (0-5) 09/23/17 15:12 Ur Squamous Epith Cells 1 /hpf (0-5) 09/23/17 15:12 Blood Type O POSITIVE 09/26/17 10:35 Blood Type Confirm O POSITIVE 09/26/17 11:05 Antibody Screen Negative 09/26/17 10:35 BBK History Checked No verified bt 09/26/17 10:35 - Hospital Course Hospital Course: Mr. Tim Aguirre was admitted after presenting to ED with 4 day history of left upper and lower extremity weakness. He was found to have acute/ subacute lacunar infarctions at inferior right thalamus/distal right cerebral peduncle as well as in the right occipital lobe. Dr. Vazquez/Audra were consulted for neurology consult. Carotid artery stenosis was seen on neck/head CTA, neurology arranged for evaluation by neurointerventional who did not recommend acute intervention and recommended aggressive lipid, glucose, and blood pressure control. His BP was monitored/controlled with increasing lisinopril dose from 5mg to 20 mg and adding hydrochlorothiazide. Pt's diabetes was uncontrolled on admission with HbA1c of 12; endocrine was consulted and insulin regimen started, which was adjusted (decreased) due to episode of hypoglycemia; currently he is receiving 15U lispro before breakfast and 5U lispro before dinner, as well as 1,000 mg metformin twice daily. He has been participating in PT/OT while admitted, and today is being discharged to TCU for further physical/ occupational therapy and rehab. Discharge Exam - Head Exam Head Exam: NORMAL INSPECTION - Eye Exam Eye Exam: Normal appearance - ENT Exam ENT Exam: Mucous Membranes Moist - Neck Exam Neck exam: Full Rom - Respiratory Exam Respiratory Exam: Clear to PA & Lateral, NORMAL BREATHING PATTERN. absent: Respiratory Distress - Cardiovascular Exam Cardiovascular Exam: REGULAR RHYTHM, +S1, +S2 - GI/Abdominal Exam GI & Abdominal Exam: Normal Bowel Sounds, Soft, Unremarkable. absent: Tenderness - Extremities Exam Additional comments: No calf tenderness s/p transmetatarsal amputation on RLE Strength testing: RUE: 5/5 RLE: 5/5 LUE: 4/5 LLE: 4/5 - Neurological Exam Neurological exam: Alert, Oriented x3 - Psychiatric Exam Psychiatric exam: Normal Mood - Skin Skin Exam: Dry, Normal Color, Warm Discharge Plan - Follow Up Plan Condition: STABLE Disposition: REHAB FACILITY/REHAB UNIT Patient education suggested?: Yes Instructions: Stroke (DC) Additional Instructions: Follow up with PMD at [facility] after discharge from TCU. Referrals: [facility] [Outside] Kenny Vazquez MD [Medical Doctor] -
[2017-10-04] MEDS: Insulin Lispro (humaLOG) 100 Units/ml Inj SC SCH ×2 (06:54→13:59)
[2017-10-04 08:06] LABS: SPERM URINE RARE /hpf; URINE BILIRUBIN NEGATIVE (NEGATIVE); URINE BLOOD NEGATIVE (NEGATIVE); URINE CLARITY SLIGHTY-CLOUDY (Clear); URINE COLOR STRAW (YELLOW); URINE GLUCOSE (UA) NEG (Normal); URINE LEUKOCYTE ESTERASE NEG Leu/uL (Negative); URINE PROTEIN 100 mg/dL (NEGATIVE); URINE UROBILINOGEN 0.2-1.0 mg/dL (0.2-1.0)
--- NOTE | 2017-10-04 09:16 | CP.PCM.PN ---
Subjective - Date & Time of Evaluation Date of Evaluation: 10/04/17 Time of Evaluation: 09:15 - Subjective Subjective: Mr. Venita Aguirre was seen and examined at the bedside. He is alert, oriented in all spheres. He denies any headache, dizziness, lightheadedness, nausea or vomiting. He is able to answer questions appropriately.He remains with the left side weakness and left arm drift is improving. He is able to follow simple commands. He even states of the various exercises that physical therapist wanted him to do while in his room.There was no untoward events overnight. Objective - Vital Signs/Intake and Output Vital Signs (last 24 hours): Temp Pulse Resp BP Pulse Ox 97.9 F 95 H 20 134/95 H 100 10/04/17 08:28 10/04/17 08:28 10/04/17 08:28 10/04/17 08:28 10/04/17 08:28 - Medications Medications: Current Medications Aspirin (Aspirin Chewable) 81 mg PO DAILY [facility] Last Admin: 10/03/17 09:07 Dose: 81 mg Atorvastatin Calcium (Lipitor) 80 mg PO HS [facility] Last Admin: 10/03/17 21:34 Dose: 80 mg Clopidogrel Bisulfate (Plavix) 75 mg PO DAILY [facility] Last Admin: 10/03/17 09:13 Dose: 75 mg Dextrose (Dextrose 50% Inj) 0 ml IV STAT PRN; Protocol PRN Reason: Hypoglycemia Protocol Last Admin: 09/22/17 18:55 Dose: 50 ml Dextrose (Glutose 15) 0 gm PO ONCE PRN; Protocol PRN Reason: Hypoglycemia Protocol Enoxaparin Sodium (Lovenox) 40 mg SC HS [facility] PRN Reason: Protocol Last Admin: 10/03/17 21:34 Dose: 40 mg Glucagon (Glucagen Diagnostic Kit) 0 mg IM STAT PRN; Protocol PRN Reason: Hypoglycemia Protocol Hydrochlorothiazide (Microzide) 12.5 mg PO DAILY [facility] Last Admin: 10/03/17 09:13 Dose: 12.5 mg Insulin Human Lispro (Humalog) 0 units SC ACHS [facility] PRN Reason: Protocol Last Admin: 10/04/17 06:54 Dose: Not Given Insulin Lispro Protam/Lispro Human (Humalog Mix 75/25) 15 units SC ACB [facility] Last Admin: 10/03/17 09:12 Dose: 15 units Insulin Lispro Protam/Lispro Human (Humalog Mix 75/25) 5 units SC ACD [facility] Last Admin: 10/03/17 16:56 Dose: 5 units Lisinopril (Zestril) 20 mg PO DAILY [facility] Last Admin: 10/03/17 09:13 Dose: 20 mg Metformin HCl (Glucophage) 1,000 mg PO BID [facility] Last Admin: 10/03/17 16:55 Dose: 1,000 mg - Labs Labs: 09/26/17 06:45 10/01/17 04:45 PT 10.4 Seconds (9.8-13.1) 09/26/17 06:45 INR 0.9 (0.9-1.2) 09/26/17 06:45 APTT 36.8 Seconds (25.6-37.1) 09/22/17 11:20 - Constitutional Appears: No Acute Distress - Head Exam Head Exam: NORMAL INSPECTION - Neurological Exam Neurological Exam: Alert, Awake, Oriented x3 Neuro motor strength exam: Left Upper Extremity: 4, Right Upper Extremity: 5, Left Lower Extremity: 4, Right Lower Extremity: 5 Additional comments: Neurological unchanged from previous examination. Assessment and Plan (1) CVA (cerebral vascular accident) Assessment & Plan: Case discussed with Dr. Zhu, continue all current medical, physical, and occupational therapies. Recommend blood pressure and glycemic control. If patient will be discharge, recommend to follow up with an outpatient neurologist. Status: Acute
[2017-10-04] MEDS: Insulin Lispro Mix 75/25 100 units/ml (HumaLog) 10ml SC SCH (09:55)
[2017-10-04 12:47] VITALS: BP 114/78; PULSE 93; TEMP 97.6; O2SAT 99
== END 2017-10-04 14:50 | DRG 65 ==
LOC: H.ER 10:31 → H.ERHOLD 14:05 → H.TEL 16:46
PROVIDERS: ADMIT Family Medicine Geriatric Medicine; ATTEND Family Medicine Geriatric Medicine
DX: I63.531 Cerebral infarction due to unspecified occlusion or stenosis of right posterior cerebral artery (principal); G81.94 Hemiplegia, unspecified affecting left nondominant side; E11.42 Type 2 diabetes mellitus with diabetic polyneuropathy; E11.319 Type 2 diabetes mellitus with unspecified diabetic retinopathy without macular edema; E11.51 Type 2 diabetes mellitus with diabetic peripheral angiopathy without gangrene; I63.511 Cerebral infarction due to unspecified occlusion or stenosis of right middle cerebral artery; Z79.02 Long term (current) use of antithrombotics/antiplatelets; I65.29 Occlusion and stenosis of unspecified carotid artery; Z79.4 Long term (current) use of insulin; Z79.899 Other long term (current) drug therapy; Z83.3 Family history of diabetes mellitus; Z89.411 Acquired absence of right great toe; Z89.421 Acquired absence of other right toe(s); E11.649 Type 2 diabetes mellitus with hypoglycemia without coma; E11.65 Type 2 diabetes mellitus with hyperglycemia; E78.00 Pure hypercholesterolemia, unspecified; E78.5 Hyperlipidemia, unspecified; F17.210 Nicotine dependence, cigarettes, uncomplicated; I11.9 Hypertensive heart disease without heart failure

== ENCOUNTER 2017-10-04 14:19 | Inpatient (IN) | payer MEDICAID, SELFPAY ==
[2017-10-04] MEDS ORDERED: Dextrose 50% SYRINGE Inj (50 ml) IV PRN (15:50)
[2017-10-04] MEDS ORDERED: Glucagon Recombinant 1 mg Inj IM PRN (15:50)
[2017-10-04] MEDS: Insulin Lispro (humaLOG) 100 Units/ml Inj SC SCH ×2 (16:48→21:25)
[2017-10-04] MEDS: Insulin Lispro Mix 75/25 100 units/ml (HumaLog) 10ml SC SCH (17:04)
[2017-10-04] MEDS: Enoxaparin 40 mg Syringe SC SCH (21:27)
--- NOTE | 2017-10-05 06:40 | CP.PCM.HP ---
History of Present Illness - History of Present Illness History of Present Illness: Mr. Tim Aguirre is a 57 yo M PM HTN, DM2, HLD who had recent admission (09/22-10/04) to telemetry at [facility] due to stroke/CVA. He presented to the ED on 09/22 with 4 days duration of left upper and lower extremity weakness. He was trying to use crutches, but felt weakness in his left arm too, making walking especially difficult, which is why he came into the ED. He stated that this has never happened before. He had no other complaints- no difficulty speaking, no changes in vision, no changes in sensory perception, no trouble swallowing. During admission to tele, pt was evaluated by neurology (recommended glucose, BP , lipid control), neurointerventional (no intervention), endocrine (insulin regimen). He participated in PT/OT while admitted to telemetry, and he is now being admitted to TCU for continued rehab. PMD: Dr. Rodriguez PMH: HTN, DM2, HLD, CVA Past surg hx: R toe amputation 2000, followed by transmetatarsal amputation in 03/2017 Social hx: current smoker (5 cig/day x 40 yrs, 10 pack years. Now smokes 1-3 daily. Drinks 1-2 beers 3x a week. Denies drug use. Family hx: mother had DM2 Allergies: penicillins Next of kin: son Freddy ([phone]) Code status: full code Medications At home he was taking: metformin 1000 mg BID, amlodipine 10 mg daily, lisinopril 5 mg daily, atorvastatin 40 mg nightly. NPH 24U in am, 20 U at bedtime During admission medications were: aspirin 81mg daily, plavix 75 mg daily, atorvastatin 80mg daily, hctz 12.5mg daily, lisinopril 20mg daily, metformin 1000 mg BIDWM, lispro 75/25 15U before breakfast, 75/25 5U before dinner Present on Admission - Present on Admission Any Indicators Present on Admission: Yes History of DVT/PE: No History of Uncontrolled Diabetes: Yes Urinary Catheter: No Decubitus Ulcer Present: No Review of Systems - Review of Systems All systems: reviewed and no additional remarkable complaints except - Neurological Neurological: Weakness (left lower extremity > left upper extremity) Past Patient History - Past Medical History & Family History Past Medical History?: Yes - Past Social History Smoking Status: Light Smoker < 10 Cigarettes Daily - CARDIAC Hx Hypercholesterolemia: Yes Hx Hypertension: Yes - PULMONARY Hx Respiratory Disorders: No - NEUROLOGICAL HX Cerebrovascular Accident: Yes - HEENT Hx HEENT Problems: No - RENAL Hx Chronic Kidney Disease: No - ENDOCRINE/METABOLIC Hx Diabetes Mellitus Type 2: Yes - HEMATOLOGICAL/ONCOLOGICAL Hx Blood Disorders: No Hx AIDS: No Hx Human Immunodeficiency Virus (HIV): No - INTEGUMENTARY Hx Dermatological Problems: No - MUSCULOSKELETAL/RHEUMATOLOGICAL Hx Musculoskeletal Disorders: Yes Hx Falls: Yes Hx Osteomyelitis: Yes - GASTROINTESTINAL Hx Gastrointestinal Disorders: No Hx Bowel Surgery: No - GENITOURINARY/GYNECOLOGICAL Hx Genitourinary Disorders: No - PSYCHIATRIC Hx Psychophysiologic Disorder: No Hx Emotional Abuse: No Hx Physical Abuse: No Hx Substance Use: No - SURGICAL HISTORY Hx Surgeries: Yes Hx Amputation: Yes (R transmetatastal amputation) Hx Orthopedic Surgery: Yes Other/Comment: right great toe amputation - ANESTHESIA Hx Anesthesia: Yes Hx Anesthesia Reactions: No Hx Malignant Hyperthermia: No Meds Allergies/Adverse Reactions: Allergies Allergy/AdvReac Type Severity Reaction Status Date / Time Penicillins Allergy RASH Verified 10/04/17 14:57 Physical Exam - Constitutional Appears: Non-toxic, No Acute Distress - Eye Exam Eye Exam: Normal appearance - ENT Exam ENT Exam: Mucous Membranes Moist - Respiratory Exam Respiratory Exam: Clear to Auscultation Bilateral, NORMAL BREATHING PATTERN. absent: Respiratory Distress - Cardiovascular Exam Cardiovascular Exam: REGULAR RHYTHM, +S1, +S2 - GI/Abdominal Exam GI & Abdominal Exam: Normal Bowel Sounds, Soft - Extremities Exam Extremities exam: Negative for: calf tenderness, pedal edema Additional comments: s/p transmetatarsal amputation on RLE Results - Vital Signs Recent Vital Signs: Last Vital Signs Temp 98.4 F 10/04/17 19:14 Pulse 98 H 10/04/17 19:14 Resp 20 10/04/17 19:14 BP 110/74 10/04/17 19:14 Pulse Ox 100 10/04/17 19:14 - Labs Labs: Laboratory Results - last 24 hr 10/04/17 10/04/17 10/05/17 16:24 20:28 06:07 POC Glucose (mg/dL) 125 H 127 H 105 Assessment & Plan - Assessment and Plan (Free Text) Assessment: 57 yo M with PMHx CVA, DM2, HTN, HLD, admitted to TCU for rehab after CVA. Plan: # S/p CVA - Seen on brain MRI - Aspirin 81mg - Plavix 75 mg - PT/OT/Speech Eval and Treat; PT aware pt has stairs at home # Hypertension - Lisinopril 20 mg - HCTZ 12.5 mg - Monitor BP # Diabetes Mellitus, Type 2 - HbA1c 11.5 - Continue home med metformin 1000 mg BID - Pt has episodes of fasting sugars in the 60s-70s; adjust insulin to humalog 15 before breakfast and 5 before dinner - Hypoglycemia protocol and insulin coverage scale, accuchecks # HLD - 80 mg/day - Lipid panel: total 213, LDL 91, HDL 73, Trig 159 # DVT prophylaxis - Lovenox 40mg SC
[2017-10-05] MEDS: Insulin Lispro (humaLOG) 100 Units/ml Inj SC SCH ×4 (06:53→21:46)
[2017-10-05] MEDS: Insulin Lispro Mix 75/25 100 units/ml (HumaLog) 10ml SC SCH ×2 (07:42→17:21)
[2017-10-05] MEDS: Enoxaparin 40 mg Syringe SC SCH ×2 (08:42→09:47)
[2017-10-06] MEDS: Insulin Lispro (humaLOG) 100 Units/ml Inj SC SCH ×4 (08:08→21:09)
[2017-10-06] MEDS: Insulin Lispro Mix 75/25 100 units/ml (HumaLog) 10ml SC SCH ×2 (08:09→17:03)
[2017-10-06] MEDS: Enoxaparin 40 mg Syringe SC SCH (08:10)
[2017-10-07] MEDS: Insulin Lispro (humaLOG) 100 Units/ml Inj SC SCH ×4 (06:49→21:25)
[2017-10-07] MEDS: Insulin Lispro Mix 75/25 100 units/ml (HumaLog) 10ml SC SCH ×2 (07:24→17:15)
[2017-10-07] MEDS: Enoxaparin 40 mg Syringe SC SCH (08:21)
--- NOTE | 2017-10-07 09:19 | CP.PCM.PN ---
Subjective - Date & Time of Evaluation Date of Evaluation: 10/07/17 Time of Evaluation: 09:45 - Subjective Subjective: Pt seen and evaluated at bedside; states he had diarrhea yesterday, but it has resolved. Participating in physical therapy, feels like he is getting stronger. Objective - Vital Signs/Intake and Output Vital Signs (last 24 hours): Temp Pulse Resp BP Pulse Ox 98.2 F 93 H 20 150/84 99 10/07/17 07:38 10/07/17 08:22 10/07/17 07:38 10/07/17 08:22 10/07/17 07:38 - Medications Medications: Current Medications Aspirin (Aspirin Chewable) 81 mg PO DAILY [facility] Last Admin: 10/07/17 08:22 Dose: 81 mg Atorvastatin Calcium (Lipitor) 80 mg PO HS [facility] Last Admin: 10/06/17 21:59 Dose: 80 mg Clopidogrel Bisulfate (Plavix) 75 mg PO DAILY [facility] Last Admin: 10/07/17 08:23 Dose: 75 mg Dextrose (Dextrose 50% Inj) 0 ml IV STAT PRN; Protocol PRN Reason: Hypoglycemia Protocol Dextrose (Glutose 15) 0 gm PO ONCE PRN; Protocol PRN Reason: Hypoglycemia Protocol Enoxaparin Sodium (Lovenox) 40 mg SC DAILY@0900 [facility] PRN Reason: Protocol Last Admin: 10/07/17 08:21 Dose: 40 mg Glucagon (Glucagen Diagnostic Kit) 0 mg IM STAT PRN; Protocol PRN Reason: Hypoglycemia Protocol Hydrochlorothiazide (Microzide) 12.5 mg PO DAILY [facility] Last Admin: 10/07/17 08:23 Dose: 12.5 mg Insulin Human Lispro (Humalog) 0 units SC ACHS [facility] PRN Reason: Protocol Last Admin: 10/07/17 06:49 Dose: Not Given Insulin Lispro Protam/Lispro Human (Humalog Mix 75/25) 5 units SC ACD [facility] Last Admin: 10/06/17 17:03 Dose: 5 units Insulin Lispro Protam/Lispro Human (Humalog Mix 75/25) 15 units SC ACB [facility] Last Admin: 10/07/17 07:24 Dose: 15 units Lisinopril (Zestril) 20 mg PO DAILY [facility] Last Admin: 10/07/17 08:22 Dose: 20 mg Loperamide HCl (Imodium) 2 mg PO QID PRN PRN Reason: Diarrhea Metformin HCl (Glucophage) 1,000 mg PO BID@0800,1700 [facility] Last Admin: 10/07/17 08:22 Dose: 1,000 mg - Constitutional Appears: Non-toxic, No Acute Distress - Eye Exam Eye Exam: Normal appearance - ENT Exam ENT Exam: Mucous Membranes Moist - Respiratory Exam Respiratory Exam: Clear to Ausculation Bilateral, NORMAL BREATHING PATTERN - Cardiovascular Exam Cardiovascular Exam: REGULAR RHYTHM, +S1, +S2 - GI/Abdominal Exam GI & Abdominal Exam: Soft, Normal Bowel Sounds - Extremities Exam Extremities Exam: absent: Calf Tenderness, Pedal Edema Additional comments: s/p transmetatarsal amputation on RLE - Neurological Exam Neurological Exam: Alert, Awake Neuro motor strength exam: Left Upper Extremity: 4 (improving), Right Upper Extremity: 5, Left Lower Extremity: 4 (improving), Right Lower Extremity: 5 - Skin Skin Exam: Normal Color, Warm Assessment and Plan - Assessment and Plan (Free Text) Assessment: 57 yo M with PMHx CVA, DM2, HTN, HLD, admitted to TCU for rehab after CVA. Plan: # S/p CVA - Seen on brain MRI - Aspirin 81mg - Plavix 75 mg - PT/OT/Speech Eval and Treat; PT aware pt has stairs at home # Hypertension - Lisinopril 20 mg - HCTZ 12.5 mg - Well controlled at this time, continue to monitor BP # Diabetes Mellitus, Type 2 - HbA1c 11.5 - Continue home med metformin 1000 mg BID - Humalog 15U before breakfast and 5U before dinner - Hypoglycemia protocol and insulin coverage scale, accuchecks # HLD - 80 mg/day - Lipid panel: total 213, LDL 91, HDL 73, Trig 159 # DVT prophylaxis - Lovenox 40mg SC
[2017-10-08 06:32] LABS: BLOOD UREA NITROGEN 29 mg/dl (9-20); CALCIUM 9.6 mg/dL (8.4-10.2); GFR AFRICAN-AMERICAN > 60; GFR NON-AFRICAN AMERICAN 57
[2017-10-08] MEDS: Insulin Lispro (humaLOG) 100 Units/ml Inj SC SCH ×4 (07:02→22:24)
[2017-10-08] MEDS: Insulin Lispro Mix 75/25 100 units/ml (HumaLog) 10ml SC SCH ×2 (07:51→16:55)
[2017-10-08] MEDS: Enoxaparin 40 mg Syringe SC SCH (08:48)
[2017-10-08] MEDS: Sodium Chloride 0.9% 1,000 ML IV SCH ×3 (09:30→23:58)
[2017-10-09] MEDS: Insulin Lispro (humaLOG) 100 Units/ml Inj SC SCH ×4 (07:00→21:38)
[2017-10-09] MEDS: Insulin Lispro Mix 75/25 100 units/ml (HumaLog) 10ml SC SCH ×2 (07:03→16:48)
[2017-10-09 08:15] LABS: BLOOD UREA NITROGEN 26 mg/dl (9-20); CALCIUM 9.3 mg/dL (8.4-10.2); GFR AFRICAN-AMERICAN > 60; GFR NON-AFRICAN AMERICAN > 60
[2017-10-09] MEDS: Enoxaparin 40 mg Syringe SC SCH (08:30)
--- NOTE | 2017-10-09 09:20 | CP.PCM.PN ---
Subjective - Date & Time of Evaluation Date of Evaluation: 10/09/17 Time of Evaluation: 08:20 - Subjective Subjective: Pt seen and evaluated at bedside this am; no acute events overnight. Pt stated he feels very positive about future and his recovery. Verbalized that he enjoys participating in physical and occupational therapy and was very excited that he was able to complete a task with his left hand yesterday that he wasn't able to a few days prior. Objective - Vital Signs/Intake and Output Vital Signs (last 24 hours): Temp Pulse Resp BP Pulse Ox 97.9 F 84 20 161/93 H 99 10/09/17 08:04 10/09/17 08:31 10/09/17 08:04 10/09/17 08:31 10/09/17 08:04 - Medications Medications: Current Medications Aspirin (Aspirin Chewable) 81 mg PO DAILY [facility] Last Admin: 10/09/17 08:30 Dose: 81 mg Atorvastatin Calcium (Lipitor) 80 mg PO HS [facility] Last Admin: 10/08/17 21:11 Dose: 80 mg Clopidogrel Bisulfate (Plavix) 75 mg PO DAILY [facility] Last Admin: 10/09/17 08:30 Dose: 75 mg Dextrose (Dextrose 50% Inj) 0 ml IV STAT PRN; Protocol PRN Reason: Hypoglycemia Protocol Dextrose (Glutose 15) 0 gm PO ONCE PRN; Protocol PRN Reason: Hypoglycemia Protocol Enoxaparin Sodium (Lovenox) 40 mg SC DAILY@0900 [facility] PRN Reason: Protocol Last Admin: 10/09/17 08:30 Dose: 40 mg Glucagon (Glucagen Diagnostic Kit) 0 mg IM STAT PRN; Protocol PRN Reason: Hypoglycemia Protocol Hydrochlorothiazide (Microzide) 12.5 mg PO DAILY [facility] Last Admin: 10/09/17 08:30 Dose: 12.5 mg Insulin Human Lispro (Humalog) 0 units SC ACHS [facility] PRN Reason: Protocol Last Admin: 10/09/17 07:00 Dose: Not Given Insulin Lispro Protam/Lispro Human (Humalog Mix 75/25) 15 units SC ACB [facility] Last Admin: 10/09/17 07:03 Dose: 15 units Insulin Lispro Protam/Lispro Human (Humalog Mix 75/25) 10 units SC ACD [facility] Last Admin: 10/08/17 16:55 Dose: 10 units Lisinopril (Zestril) 20 mg PO DAILY [facility] Last Admin: 10/09/17 08:31 Dose: 20 mg Loperamide HCl (Imodium) 2 mg PO QID PRN PRN Reason: Diarrhea Last Admin: 10/08/17 12:25 Dose: 2 mg Metformin HCl (Glucophage) 1,000 mg PO BID@0800,1700 [facility] Last Admin: 10/09/17 08:30 Dose: 1,000 mg - Labs Labs: 10/09/17 05:30 - Constitutional Appears: Non-toxic, No Acute Distress - Eye Exam Eye Exam: Normal appearance - ENT Exam ENT Exam: Mucous Membranes Moist - Respiratory Exam Respiratory Exam: Clear to Ausculation Bilateral, NORMAL BREATHING PATTERN - Cardiovascular Exam Cardiovascular Exam: REGULAR RHYTHM, +S1, +S2 - GI/Abdominal Exam GI & Abdominal Exam: Soft, Normal Bowel Sounds - Extremities Exam Extremities Exam: absent: Calf Tenderness, Pedal Edema Additional comments: s/p transmetatarsal amputation on RLE left lower and upper extremity still weaker than right lower and upper extremity respectively but improving - Back Exam Back Exam: NORMAL INSPECTION - Neurological Exam Neurological Exam: Alert, Awake, Oriented x3 Neuro motor strength exam: Left Upper Extremity: 4 (improved from presentation) , Right Upper Extremity: 5, Left Lower Extremity: 4 (improved from presentation) , Right Lower Extremity: 5 - Psychiatric Exam Psychiatric exam: Normal Affect, Normal Mood - Skin Skin Exam: Normal Color, Warm Assessment and Plan - Assessment and Plan (Free Text) Assessment: 57 yo M with PMHx CVA, DM2, HTN, HLD, admitted to TCU for rehab after CVA. Plan: # S/p CVA - Seen on brain MRI - Continue Aspirin 81mg - Continue Plavix 75 mg - Continue PT/OT/Speech Eval and Treat; PT aware pt has stairs at home # Hypertension - Lisinopril 20 mg - HCTZ 12.5 mg - Monitor BP # Diabetes Mellitus, Type 2 - HbA1c 11.5 - Continue home med metformin 1000 mg BID - Humalog 15U before breakfast and 10U before dinner - Hypoglycemia protocol and insulin coverage scale, accuchecks - Microalb/Cr ratio from 10/04 is 2044; done at outside lab, will recheck tomorrow - Elevated BUN; improved after fluid hydration; liter bolus today, encourage pt to drink more water, stay hydrated, BMP tomorrow # HLD - 80 mg/day - Lipid panel: total 213, LDL 91, HDL 73, Trig 159 # DVT prophylaxis - Lovenox 40mg SC
[2017-10-09] MEDS: Sodium Chloride 0.9% 1,000 ML IV SCH ×4 (11:34→14:24)
[2017-10-10] MEDS: Insulin Lispro Mix 75/25 100 units/ml (HumaLog) 10ml SC SCH ×2 (07:53→17:33)
[2017-10-10] MEDS: Insulin Lispro (humaLOG) 100 Units/ml Inj SC SCH ×4 (07:56→21:26)
[2017-10-10 08:01] LABS: BLOOD UREA NITROGEN 25 mg/dl (9-20); CALCIUM 9.9 mg/dL (8.4-10.2); GFR AFRICAN-AMERICAN > 60; GFR NON-AFRICAN AMERICAN 57
[2017-10-10] MEDS: Enoxaparin 40 mg Syringe SC SCH (08:28)
[2017-10-11 06:22] LABS: BLOOD UREA NITROGEN 28 mg/dl (9-20); CALCIUM 9.5 mg/dL (8.4-10.2); GFR AFRICAN-AMERICAN > 60; GFR NON-AFRICAN AMERICAN > 60
--- NOTE | 2017-10-11 08:24 | CP.PCM.DIS ---
Provider - Provider Date of Admission: 10/04/17 15:05 Attending physician: Meghna Beckford MD Time Spent in preparation of Discharge (in minutes): 30 Diagnosis - Discharge Diagnosis (1) CVA (cerebral vascular accident) Status: Acute Priority: High (2) Diabetes mellitus with hyperglycemia Status: Chronic (3) Hypertension Status: Chronic (4) Hyperlipidemia Status: Chronic Hospital Course - Lab Results Lab Results: Most Recent Lab Values Sodium 140 mmol/l (132-148) 10/11/17 05:55 Potassium 4.2 MMOL/L (3.6-5.0) 10/11/17 05:55 Chloride 101 mmol/L (98-107) 10/11/17 05:55 Carbon Dioxide 27 mmol/L (22-30) 10/11/17 05:55 Anion Gap 16 (10-20) 10/11/17 05:55 BUN 28 mg/dl (9-20) H 10/11/17 05:55 Creatinine 1.2 mg/dl (0.8-1.5) 10/11/17 05:55 Est GFR ( Amer) > 60 10/11/17 05:55 Est GFR (Non-Af Amer) > 60 10/11/17 05:55 POC Glucose (mg/dL) 99 mg/dL (65-110) 10/11/17 05:38 Random Glucose 107 mg/dL (75-110) 10/11/17 05:55 Calcium 9.5 mg/dL (8.4-10.2) 10/11/17 05:55 Ur Random Creatinine 138 mg/dL (20-370) 10/04/17 09:46 Urine Total Volume 282.4 mg/dL 10/04/17 09:46 Microalb/Creat Ratio 2045 (<30) H 10/04/17 09:46 - Hospital Course Hospital Course: Tim Aguirre is a 57 yo M PM HTN, DM2, HLD who had recent admission ( 09/22-10/04) due to stroke/CVA. This admission he presented due to weakness in his left arm and leg, making walking especially difficult. He stated that this has never happened before. He had no other complaints- no difficulty speaking, no changes in vision, no changes in sensory perception, no trouble swallowing. During admission pt was evaluated by neurology (recommended glucose, BP, lipid control), neurointerventional (no intervention) and endocrine (insulin regimen) . Also he participated in PT/OT while admitted in TCU. Patient condition improved and was discharged home in stable condition with f/u instructions in in [facility], continue home medicines and PT script. Discharge Exam - Head Exam Head Exam: NORMAL INSPECTION - Eye Exam Eye Exam: EOMI, PERRL - Respiratory Exam Respiratory Exam: Clear to PA & Lateral, NORMAL BREATHING PATTERN. absent: Rales, Wheezes - Cardiovascular Exam Cardiovascular Exam: REGULAR RHYTHM, +S1, +S2. absent: Systolic Murmur - GI/Abdominal Exam GI & Abdominal Exam: Normal Bowel Sounds, Soft. absent: Tenderness - Neurological Exam Neurological exam: Alert, CN II-XII Intact, Oriented x3, Reflexes Normal Additional comments: muscle strength 5/5 all extremities - Psychiatric Exam Psychiatric exam: Normal Mood - Skin Skin Exam: Dry, Intact, Warm Discharge Plan - Discharge Medications Prescriptions: Aspirin [Aspirin Chewable] 81 mg PO DAILY 60 Days #60 chew Atorvastatin [Lipitor] 80 mg PO HS 30 Days #60 tab Clopidogrel [Plavix] 75 mg PO DAILY 30 Days #30 tab hydroCHLOROthiazide [Microzide] 12.5 mg PO DAILY 30 Days #30 cap Insulin Lispro Mix 75/25 [HumaLog MIX 75/25] 15 units SC ACB 30 Days #1 vial Insulin Lispro Mix 75/25 [HumaLog MIX 75/25] 10 units SC ACD 30 Days #1 vial Lisinopril [Zestril] 20 mg PO DAILY 30 Days #30 tab MetFORMIN [glucoPHAGE] 1,000 mg PO BID 30 Days #60 tab - Follow Up Plan Condition: GOOD Disposition: HOME/ ROUTINE Instructions: High Blood Pressure (DC), Stroke (DC), Diabetes Diet , Diabetes Type 2 (DC), Low Salt Diet, Medicines for High Blood Pressure, Preventing Falls Additional Instructions: f/u with PMD in 2-3 days at [facility]. APPOINTMENT WITH PHYSICAL THERAPY ON OCTOBER 19 AT 0900 AM TO TO 1ST FLOOR REGISTRATION AT 0800 AND BRING ID AND PRESCRIPTIONS AND [facility] CARE CARD.
[2017-10-11 08:34] VITALS: BP 134/97; TEMP 97.9; O2SAT 98
[2017-10-11] MEDS: Insulin Lispro (humaLOG) 100 Units/ml Inj SC SCH ×2 (08:50→12:14)
[2017-10-11] MEDS: Insulin Lispro Mix 75/25 100 units/ml (HumaLog) 10ml SC SCH (08:50)
[2017-10-11] MEDS: Enoxaparin 40 mg Syringe SC SCH (08:51)
[2017-10-11 14:51] VITALS: PULSE 96; RESP 98
== END 2017-10-11 15:00 | disposition home health service (06) | DRG 57 ==
LOC: H.TCU 15:05
PROVIDERS: ADMIT Family Medicine Geriatric Medicine; ATTEND Family Medicine Geriatric Medicine
PROC: F07Z9FZ Gait Training/Functional Ambulation Treatment using Assistive, Adaptive, Supportive or Protective Equipment (ICD-10-PCS; principal; 2017-10-04)
PROC: F07M6FZ Therapeutic Exercise Treatment of Musculoskeletal System - Whole Body using Assistive, Adaptive, Supportive or Protective Equipment (ICD-10-PCS; 2017-10-04)
PROC: F08Z4FZ Home Management Treatment using Assistive, Adaptive, Supportive or Protective Equipment (ICD-10-PCS; 2017-10-04)
DX: I69.354 Hemiplegia and hemiparesis following cerebral infarction affecting left non-dominant side (principal); I10 Essential (primary) hypertension; E11.65 Type 2 diabetes mellitus with hyperglycemia; E78.00 Pure hypercholesterolemia, unspecified; E78.5 Hyperlipidemia, unspecified; F17.210 Nicotine dependence, cigarettes, uncomplicated; Z83.3 Family history of diabetes mellitus; Z89.411 Acquired absence of right great toe; Z89.421 Acquired absence of other right toe(s); R19.7 Diarrhea, unspecified

== ENCOUNTER 2018-02-16 11:15 | Emergency (ER) | payer OTHER ==
[2018-02-16 11:15] VITALS: BMI 26.4
[2018-02-16 11:31] VITALS: O2SAT 98
[2018-02-16 12:15] VITALS: RESP 16
--- NOTE | 2018-02-16 13:12 | ED PDOC ---
Lower Extremity Pain/Injury Time Seen by Provider: 02/16/18 12:21 Chief Complaint (Nursing): Lower Extremity Problem/Injury Chief Complaint (Provider): Diabetic Ulcers / Blisters History Per: Patient History/Exam Limitations: no limitations Onset/Duration Of Symptoms: Days (approx 1.5 weeks) Current Symptoms Are (Timing): Still Present Additional Complaint(s): 57 year old male with hx of diabetes and htn presents to the ED for evaluation of ulcerative blisters to the second digit and bottom of left foot. As per patient, he has an appointment for this same complaint at the clinic in five days, but since he states the ulcers are worsening, he was afraid to wait. He notes that all of the toes on his right foot are amputated, and they all started with a similar presentation of blisters, but has not seen podiatry in several years. PMD: Paresh Tan Past Medical History Reviewed: Historical Data, Nursing Documentation, Vital Signs Vital Signs: Last Vital Signs Temp 99.1 F 02/16/18 11:30 Pulse 100 H 02/16/18 12:13 Resp 16 02/16/18 12:14 BP 139/98 H 02/16/18 12:13 Pulse Ox 98 02/16/18 11:30 - Medical History PMH: Diabetes, HTN, Hypercholesterolemia Denies: HIV, Chronic Kidney Disease - Surgical History Other surgeries: diabetic amputation of right toes - Family History Family History: States: Hypertension - Social History Current smoker - smoking cessation education provided: Yes (light <10 per day) Alcohol: None Drugs: Denies - Immunization History Hx Tetanus Toxoid Vaccination: No Hx Influenza Vaccination: No Hx Pneumococcal Vaccination: No - Home Medications Home Medications: Ambulatory Orders Medication Instructions Recorded Aspirin [Aspirin Chewable] 81 mg PO DAILY 60 Days #60 chew 10/11/17 Atorvastatin [Lipitor] 80 mg PO HS 30 Days #60 tab 10/11/17 Clopidogrel [Plavix] 75 mg PO DAILY 30 Days #30 tab 10/11/17 Insulin Lispro Mix 75/25 [HumaLog 10 units SC ACD 30 Days #1 vial 10/11/17 MIX 75/25] Insulin Lispro Mix 75/25 [HumaLog 15 units SC ACB 30 Days #1 vial 10/11/17 MIX 75/25] Lisinopril [Zestril] 20 mg PO DAILY 30 Days #30 tab 10/11/17 MetFORMIN [glucoPHAGE] 1,000 mg PO BID 30 Days #60 tab 10/11/17 hydroCHLOROthiazide [Microzide] 12.5 mg PO DAILY 30 Days #30 cap 10/11/17 Clindamycin [Cleocin] 300 mg PO BID #14 cap 02/16/18 - Allergies Allergies/Adverse Reactions: Allergies Allergy/AdvReac Type Severity Reaction Status Date / Time Penicillins Allergy RASH Verified 02/16/18 12:00 Review of Systems ROS Statement: Except As Marked, All Systems Reviewed And Found Negative Skin: Positive for: Other (ulcers on left foot) Physical Exam - Reviewed Nursing Documentation Reviewed: Yes Vital Signs Reviewed: Yes - Physical Exam Appears: Positive for: No Acute Distress Skin: Positive for: Normal Color, Warm, Dry Eye Exam: Positive for: Normal appearance Cardiovascular/Chest: Positive for: Regular Rate, Rhythm Respiratory: Positive for: Normal Breath Sounds. Negative for: Accessory Muscle Use, Respiratory Distress Extremity: Positive for: Other (small ulceration to tip of second digit and plantar aspect of left foot, with erythema) Neurologic/Psych: Positive for: Alert, Oriented (x3), Motor/Sensory Deficits ( diminished sensation to second digit left foot) - Laboratory Results Result Diagrams: 02/16/18 13:31 02/16/18 13:31 - ECG O2 Sat by Pulse Oximetry: 98 (RA) Pulse Ox Interpretation: Normal Medical Decision Making Medical Decision Making: Time: 1303 Initial Impression: diabetic ulcers Initial Plan: --VBG Shock Panel --CMP --CBC with differential --Blood culture --Wound culture --XR left foot 1427 XR Foot FINDINGS: BONES: On the lateral view, there is deformity compatible with prior fracture chronicity unknown involving the middle phalanx which middle phalanx is indeterminate possibly the 2nd or 3rd - digit. The other views are not helpful in clarifying this. There is smooth periosteal reaction of the 3rd metatarsal no acute fracture here seen. JOINTS: 1st meta carpal phalangeal joint hypertrophic arthrosis with hallux valgus orientation. Sesamoid hallux arthrosis also suggested. SOFT TISSUES: A plantar soft tissue lucency consistent patient's known clinical ulcer is noted. On this lateral view, no subjacent metacarpal level cortical destruction noted. Vascular calcifications present. OTHER FINDINGS: None. IMPRESSION: Per the lateral view primarily, there is deformity concerning for prior fracture deformity of a middle phalanx - either the 2nd or 3rd phalanx- the other views do not discern definitively which middle phalanx is suggested. 1445 In light of XR, podiatry consult will be placed. See notes Scribe Attestation: Documented by Rafaela Castellanos, acting as a scribe for Rena Rinaldi PA-C. Provider Scribe Attestation: All medical record entries made by the Scribe were at my direction and personally dictated by me. I have reviewed the chart and agree that the record accurately reflects my personal performance of the history, physical exam, medical decision making, and the department course for this patient. I have also personally directed, reviewed, and agree with the discharge instructions and disposition. Disposition - Clinical Impression Clinical Impression: Diabetic foot ulcer - Patient ED Disposition Is Patient to be Admitted: No - Disposition Referrals: Podiatry Clinic [Outside] Disposition: Routine/Home Disposition Time: 17:47 Condition: STABLE Prescriptions: Clindamycin [Cleocin] 300 mg PO BID #14 cap Instructions: Diabetic Foot Ulcer (DC) Forms: [employer] (Persian)
[2018-02-16 13:52] LABS: VENOUS BLOOD GAS BASE EXCESS 2.8 mmol/L (0.0-2.0); VENOUS BLOOD GAS PCO2 47 mmHg (40-60); VENOUS BLOOD GAS PO2 35 mm/Hg (30-55); VENOUS BLOOD PH 7.39 (7.32-7.43)
[2018-02-16 13:56] LABS: BASO # 0.1 K/uL (0.0-0.2); BASO % 1.3 % (0.0-2.0); EOS # 0.3 K/uL (0.0-0.7); EOS % 3.2 % (0.0-4.0); HEMOGLOBIN 14.5 g/dL (12.0-18.0); LYMPH # 3.1 K/uL (1.0-4.3); LYMPH % 30.1 % (20.0-40.0); MEAN CELL VOLUME 90.7 fl (80.0-94.0); MEAN CORPUSCULAR HEMOGLOBIN 30.4 pg (27.0-31.0); MEAN CORPUSCULAR HGB CONC 33.6 g/dL (33.0-37.0); MEAN PLATELET VOLUME 8.8 fl (7.2-11.7); MONO # 0.4 K/uL (0.0-0.8); MONO % 3.8 % (0.0-10.0); NEUT # 6.3 K/uL (1.8-7.0); NEUT % 61.6 % (50.0-75.0); NRBC % 0.1 % (0.0-0.0); RBC 4.78 Mil/uL (4.40-5.90); RED CELL DISTRIBUTION WIDTH 13.6 % (11.5-14.5); WHITE BLOOD COUNT 10.3 K/uL (4.8-10.8)
[2018-02-16 14:07] LABS: ALB/GLOB RATIO 1.2 (1.0-2.1); ALBUMIN 4.3 g/dL (3.5-5.0); ALT/SGPT 21 U/L (21-72); AST/SGOT 41 U/L (17-59); BLOOD UREA NITROGEN 20 mg/dl (9-20); CALCIUM 9.6 mg/dL (8.4-10.2); GFR AFRICAN-AMERICAN > 60; GFR NON-AFRICAN AMERICAN 52
--- NOTE | 2018-02-16 14:28 | RAD ---
Date of service: 02/16/2018 PROCEDURE: Left Foot Radiographs. HISTORY: fiabetic foot ulcers r/o osteo COMPARISON: None. FINDINGS: BONES: On the lateral view, there is deformity compatible with prior fracture chronicity unknown involving the middle phalanx which middle phalanx is indeterminate possibly the 2nd or 3rd - digit. The other views are not helpful in clarifying this. . There is smooth periosteal reaction of the 3rd metatarsal no acute fracture here seen. JOINTS: 1st meta carpal phalangeal joint hypertrophic arthrosis with hallux valgus orientation. Sesamoid hallux arthrosis also suggested. SOFT TISSUES: . A plantar soft tissue lucency consistent patient's known clinical ulcer is noted. On this lateral view, no subjacent metacarpal level cortical destruction noted. Vascular calcifications present. OTHER FINDINGS: None. IMPRESSION: Per the lateral view primarily, there is deformity concerning for prior fracture deformity of a middle phalanx - either the 2nd or 3rd phalanx- the other views do not discern definitively which middle phalanx is suggested.
[2018-02-16 17:22] VITALS: BP 137/96; PULSE 94; TEMP 99
== END 2018-02-16 17:31 | disposition home or self-care (01) ==
LOC: H.ER 11:15
DX: E11.621 Type 2 diabetes mellitus with foot ulcer (principal); L97.529 Non-pressure chronic ulcer of other part of left foot with unspecified severity; I10 Essential (primary) hypertension; E78.00 Pure hypercholesterolemia, unspecified; F17.210 Nicotine dependence, cigarettes, uncomplicated